=== PATIENT | male | born 1965 | race African-American/Black ===

== ENCOUNTER 2025-01-12 09:29 | Outpatient (CLI) | payer OTHER, SELFPAY ==
--- OUTSIDE RECORDS SUMMARY | 2025-01-12 09:47 | XMS_ITS ---
Author Organization 1 OF Olimpia flanagan [facility] Address [address] [place] [address] Care Team Providers Care Engineering Technician Name Role Phone Ulysses Melendez MD Primary Care Provider German Mcnamara [facility] [phone] Allergies No Known Allergies REASON FOR VISIT s/p RT great toe Medications Medication SIG (Take, Route, Frequency, Duration) Notes Start Date End Date Status Diclofenac Sodium 1 % as directed Topica l Apply no more than 4 grams to affected area of foot Q6-8 hours PRN Pain; Duration: 30 days 04/16/2022 Unknown Atorvastatin Calcium Active Segluromet Active Clopidogrel Bisulfate Active amLODIPine Besylate Active Citalopram Hydrobromide Active Lisinopril-hydroCHLOROthiaz tani Active Vital Signs Weight 230 lbs 12/05/2023 Height 71 in 12/05/2023 BMI 32.07 kg/m2 12/05/2023 Encounters Encounter Location Date Provider Diagnosis 1 [facility] [address] [place] [address] 12/05/2023 eGrman Patton Surgical aftercare, musculoskeletal system Z47.89 ; Hallux limitus of right foot M20.5X1 and Type 2 diabetes mellitus without complication, unspecified whether linux unix administrator insulin use E11.9 Assessments Encounter Date Diagnosis (ICD Code) Assessment Notes Treatment Notes Treatment Clinical Notes Section Notes 12/05/2023 Surgical aftercare, musculoskeletal system (ICD-10 - Z47.89) Evaluation today included a review of medical history, review of systems, discussion of exam findings, and review of diagnoses and treatment options. Pt realesed to full duty, work note was given. Pt to follow up as needed 12/05/2023 Hallux limitus of right foot (ICD-10 - M20.5X1) 12/05/2023 Type 2 diabetes mellitus without complication, unspecified whether linux unix administrator insulin use (ICD-10 - E11.9) Plan Of Treatment Treatment Notes Assessment Notes Surgical aftercare, musculoskeletal syst em Evaluation today included a review of medical history, review of systems, discussion of exam findings, and review of diagnoses and treatment options. Pt realesed to full duty, work note was given. Pt to follow up as needed Next Appt Details Follow Up: prn, Reason: Provider Name:German Patton, 03/04/2025 09:10:00 AM, [address], [facility] [address], [place], [address], Progress Notes * CANDICE JoseDOB:1965 (59 yo M)Acc No.[id number]:12/05/2023 Progress Notes Patient: Jose KUMAR Provider: Olimpia Patton DPM :1965 A ge:58 Y S ex:Male Date:12/05/2023 Address:[address] [place] [address] [facility] Pcp:Ulysses Melendez MD Subjective: * Chief Complaints: * 1 . s/p RT great toe. * HPI: Mukesh Dean assisting with visit:: HPI/Rooming: Frederick rosales. Dada stallworth reason for visit:: Date of surgery: 0 08/14/2023. Surgery procedures performed: R ight f oot: 1st MPJ implant arthroplasty w/ BioPro ron-implant. Pain level: R ight foot:, 0 / 10. 58 y/o diabetic male RTO 4 months s /p RIGHT foot surgery. PATIENT WAS A NO SHOW TO HIS LAST APPOINTMENT ON 10/19/23. At the l ast v isit he attended on 09/18/2023 he w as advised to transition to tennis shoe and take N SAIDS as needed. Today the pt reports he has not had to take any pain meds as he is not in any pain. Pt feels he is healed at this point for what its worth. 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 * Medical History: H yperlipidemia, Hypertension, Diabetes, Anxiety disorder, Depression. * Medications: T aking Clopidogrel Bisulfate , Taking amLODIPine Besylate , Taking Citalopram Hydrobromide , Taking Lisinopril-hydroCHLOROthiazide , Taking Segluromet , Taking Atorvastatin Calcium , Discontinued HYDROcodone-Acetaminophen 5-325 MG Tablet 1- 2 tablets as needed Orally every 6 hrs PRN pain after surgery , Discontinued Naproxen 500 MG Tablet 1 tablet Orally every 12 hrs for at least 14 days after surgery , Unknown Diclofenac Sodium 1 % Gel as directed Topical Apply no more than 4 grams to affected area of foot Q6-8 hours PRN Pain , Medication List reviewed and reconciled with the patient * Allergies: N .K.D.A. Objective: * Vitals: W t:230lbs, Wt-k.33 kg, Ht: 71 in, BMI:32.07Index. * Examination: G eneral Examination: Constitutional / Appearance: N o acute distress , Well nourished, Appropriate personal hygiene. Mental status: C ooperative, Oriented to person, place and time, Mood and affect: normal, Judgement and intellect: normal with appropriate response to questions. Shoes today: N magali tennis shoes. Post-op evaluation: R ight foot:, Incision(s) remain healed with mild edema, no erythema and no SOI. Hallux remains in good alignment with no erythema or edema. There is limited DF of the hallux but no pain or crepitus with max ROM of about 5-10 degrees. P atient exhibits no antalgia with ambulation. Assessment: * Assessment: 1. S urgical aftercare, musculoskeletal system - Z47.89 (Primary) 2 . H allux limitus of right foot - M20.5X1 3 . T ype 2 diabetes mellitus without complication, unspecified whether linux unix administrator insulin use - E11.9 Plan: * Treatment: * Preventive Medicine: Counseling: C are goal follow-up plan: Above Normal BMI Follow-up L ifestyle education regarding diet * Follow Up: p rn * Images: * Electronic signature of Tena Patton DPM on 01/12/2025 at 09:46 AM CDT Sign off status: Pending * Provider: Olimpia Patton DPM Date: 0 12/05/2023 Generated for Carol christopher/Zahida/Ynes on: 0 01/12/2025 09:46 AM CDT History and Physical Notes * HPI (History of Present Illness) Category Sub-Category Detail Notes Category Not es Primary reason for visit: Surgery procedures performed: Right foot: 1st MPJ implant arthroplasty w/ BioPro ron-implant 58 y/o diabetic male RTO 4 months s/p RIGHT foot surgery. PATIENT WAS A NO SHOW TO HIS LAST APPOINTMENT ON 10/19/23. At the last visit he attended on 09/18/2023 he was advised to transition to tennis shoe and take NSAIDS as needed. Today the pt reports he has not had to take any pain meds as he is not in any pain. Pt feels he is healed at this point for what its worth. 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 Pain level: Right foot:, 0 10 Date of surgery: 08/14/2023 MA assisting with visit: HPI/Rooming: Deena Examination Category Sub-Category Detail Notes Category Not es General Examination Mental status: Cooperative, Oriented to person, place and time, Mood and affect: normal, Judgement and intellect: normal with appropriate response to questions Shoes today: Nike tennis shoes Post-op evaluation: Right foot:, Incisio n(s) remain healed with mild edema, no erythema and no SOI. Hallux remains in good alignment with no erythema or edema. There is limited DF of the hallux but no pain or crepitus with max ROM of about 5-10 degrees. Patient exhibits no antalgia with ambulation Constitutional / Appearance: No acute di stress , Well nourished, Appropriate personal hygiene
--- OUTSIDE RECORDS SUMMARY | 2025-01-12 09:47 | XMS_ITS | Referral Summary ---
Author Organization [facility] Address [address] [place] [address] Care Team Providers Care Accounting Specialist Name Role Phone Ulysses Henderson MD Primary Care Provider [phone] Encounters Date Type Department Care Team Description 01/11/2025 12:42 PM CDT - 01/11/2025 11:59 PM CDT Hospital Encounter [facility] Cardiac Testing [address] [place] [address] Pain in right leg; Pain in left leg Discharge Disposition: Discharge to home or self care from Last 3 Months Allergies No known active allergies Medications atorvastatin (LIPITOR) 40 mg tablet Take 1 tablet (40 mg total) by mouth daily 05/11/2016 Active amLODIPine (NORVASC) 10 mg tablet Take 1 tablet (10 mg total) by mouth daily Active citalopram (CeleXA) 20 mg tablet Take 1 tablet (20 mg total) by mouth nightly Active Social History Tobacco Use Types Packs/Day Years Used Date Smoking Tobacco: Former Cigarettes 0.5 23 0 04/10/1996 - 04/10/2019 Tobacco Cessation:Counseling Given: Not Answered Comments:Patient states started to smoke at age 30 quit at age 53. States never smoked more than 1/2 pack per day. AUDIT-C Answer Date Recorded Q1: How often do you have a drink containing alc ohol? Monthly or less 07/19/2023 Q2: How many drinks containi ng alcohol do you have on a typical day when you are drinking? 1 or 2 07/19/2023 Q3: How often do you have si x or more drinks on one occasion? Never 07/19/2023 Personal Safety Answer Date Recorded Have you ever been in or are you currently in a harmful physical or emotional relationship or is someone making you feel afraid or unsafe? Denies 07/19/2023 Sex and Gender Information Value Date Recorded Sex Assigned at Not on file Legal Sex Male 7:48 PM ESTHETICIAN SPA Gender Identity Not on file Sexual Orientation Not on file Last Filed Vital Signs Vital Sign Reading Time Taken Comments Blood Pressure 160/90 07/25/2023 8:23 AM ESTHETICIAN SPA Lt upper arm Pulse 84 07/25/2023 8:23 AM ESTHETICIAN SPA Temperature 36.4 C (97.5 F) 07/25/2023 8:23 AM ESTHETICIAN SPA Respiratory Rate 18 07/25/2023 8:23 AM ESTHETICIAN SPA Oxygen Saturation 99% 07/25/2023 8:2 3 AM ESTHETICIAN SPA Inhaled Oxygen Concentration - - Weight 102.4 kg (225 lb 11. 2 oz) 07/25/2023 8:23 AM ESTHETICIAN SPA Height 180.3 cm (5' 11) 07/25/2023 8:2 3 AM ESTHETICIAN SPA Body Mass Index 31.48 07/25/2023 8:23 AM ESTHETICIAN SPA Plan of Treatment Not on file Procedures Procedure Name Priority Date/Time Associated Diagnosis Comments US VEIN DUPLEX LOWER EXTREMITY BILATERAL COMPLETE Schedule MARIA M, Read MARIA M (Appt Today, Awaiting Results) 01/11/2025 1:42 PM CDT Pain in right leg Pain in left leg from Last 3 Months Results * US Vein Duplex Lower Extremity Bilateral Complete (01/11/2025 1:42 PM CDT) Anatomical Region Laterality Modality Vascular Bilateral Ultrasound 01/11/2025 12:5 3 PM CDT Narrative 01/12/2025 8:40 AM CDT Lower Extremity Venous Report Patient Name: JOSE HARVEY : 1965 (59y 6m) Gender: M Study Date: 01/11/2025 12:53:31 PM Logging Supervisor: DOMO Murrieta Order Provider: ULYSSES HENDERSON Quality: Adequate Ref Provider: ULYSSES HENDERSON PROCEDURES: Vascular Report: A non-invasive vascular imaging study of the bilateral lower extremity veins was performed using B-mode ultrasound, color flow, and spectral Doppler. INDICATIONS: M79.604 Pain in right leg and M79.605 Pain in left leg. HISTORY: Pain in bilateral thighs. COMPARISONS: No prior exams. FINDINGS: Right: Negative for deep and superficial vein thrombosis in the right lower extremity. Normal compressibility and color filling, spontaneous and phasic flow, and response to distal augmentation is demonstrated in the right common femoral vein, saphenofemoral junction, proximal femoral vein, mid femoral vein, distal femoral vein, profunda vein, popliteal vein, posterior tibial veins and peroneal veins. Left: Negative for deep and superficial vein thrombosis in the left lower extremity. Normal compressibility and color filling, spontaneous and phasic flow, and response to distal augmentation is demonstrated in the left common femoral vein, saphenofemoral junction, proximal femoral vein, mid femoral vein, distal femoral vein, profunda vein, popliteal vein, posterior tibial veins and peroneal veins. Provider Notification: Results called to Message left for Dr. Henderson's office. CONCLUSIONS: 1. There is no evidence of deep vein thrombosis in the lower extremities bilaterally. ATTESTATION: I have reviewed and interpreted the pertinent images and measurements of this study. I attest to the conclusions in the final report that is provided above. Electronically Signed By: Ramiro Desouza MD 01/12/2025 8:39:02 AM CDT Procedure Note Ramiro Desouza MD - 01/12/2025 Lower Extremity Venous Report Patient Name: JOSE HARVEY : 1965 (59y 6m) Gender: M Study Date: 01/11/2025 12:53:31 PM Logging Supervisor: DOMO Murrieta Order Provider: ULYSSES HENDERSON Quality: Adequate Ref Provider: ULYSSES HENDERSON PROCEDURES: Vascular Report: A non-invasive vascular imaging study of the bilaterallower extremity veins was performed using B-mode ultrasound, color flow, and spectralDoppler. INDICATIONS: M79.604 Pain in right leg and M79.605 Pain in left leg. HISTORY: Pain in bilateral thighs. COMPARISONS: No prior exams. FINDINGS: Right: Negative for deep and superficial vein thrombosis in the rightlower extremity. Normal compressibility and color filling, spontaneous and phasic flow, andresponse to distal augmentation is demonstrated in the right common femoral vein,saphenofemoral junction, proximal femoral vein, mid femoral vein, distal femoral vein,profunda vein, popliteal vein, posterior tibial veins and peroneal veins. Left: Negative for deep and superficial vein thrombosis in the left lowerextremity. Normal compressibility and color filling, spontaneous and phasic flow, andresponse to distal augmentation is demonstrated in the left common femoral vein,saphenofemoral junction, proximal femoral vein, mid femoral vein, distal femoral vein,profunda vein, popliteal vein, posterior tibial veins and peroneal veins. Provider Notification: Results called to Message left for Dr. Hall. CONCLUSIONS: 1. There is no evidence of deep vein thrombosis in the lower extremitiesbilaterally. ATTESTATION: I have reviewed and interpreted the pertinent images and measurements ofthis study. I attest to the conclusions in the final report that is provided above. Electronically Signed By: Ramiro Desouza MD 01/12/2025 8:39:02 AM CDT Ulysses Henderson MD [facility] PROCEDURES Final Result from Last [address] [place] [address] [facility] CHO[facility] PL[facility] Member Subscriber Plan / Payer (Ef fective 2021-Present) Name:Jose Harvey Relation to Subscriber:Self Name:Jose Harvey Payer ID:[id number] (NAIC) Type:[facility] H[facility]/PP[facility] Address: [address] CHOICE PLUS [facility] PL[facility] Care Teams Accounting Specialist Relationship Specialty Start Date End Date lUysses Henderson MD [address] [facility] [address] [place] [address] PCP - General 05/23/20
--- OUTSIDE RECORDS SUMMARY | 2025-01-12 09:47 | XMS_ITS | Patient Health Record ---
Author Organization 1 [facility] Address [address] [facility] [address] [place] [address] Care Team Providers Care Pattern Hand Name Role Phone Ulysses Melendez MD Primary Care Provider German Mcnamara Unavailable [phone] Aimee Lo Unavailable [phone] Allergies No Known Allergies Reason For Referral No Information Medications Medication SIG (Take, Route, Frequency, Duration) Notes Start Date End Date Status Lisinopril-hydroCHLOROthi azide Not-Taking Irbesartan 300 MG TAKE 1 TABLET BY LINDA TH ONCE DAILY Oral; Duration: 30 Days Active Segluromet Not-Takin g Aspirin Low Dose 81 MG TAKE 1 TABLET BY MOUTH ONCE DAILY Oral; Duration: 30 Days Active Atorvastatin Calcium Not-Taking Farxiga 10 MG TAKE 1 TABLET BY LINDA TH ONCE DAILY Oral; Duration: 30 Days Active Diclofenac Sodium 1 % as directed Topica l Apply no more than 4 grams to affected area of foot Q6-8 hours PRN Pain; Duration: 30 days 04/16/2022 Not-Taki ng amLODIPine Besylate 10 MG TAKE 1 TABLET BY MOUTH ONCE DAILY IN THE EVENING Oral; Duration: 30 Days Active Atorvastatin Calcium 40 MG TAKE 1 TABLET BY MOUTH ONCE DAILY Oral; Duration: 30 Days Active Citalopram Hydrobromide 20 MG TAKE 1 TABLET BY MOUTH ONCE DAILY FOR 90 DAYS Oral; Duration: 30 Days Active Clopidogrel Bisulfate 75 MG TAKE 1 TABLET BY MOUTH ONCE DAILY Oral; Duration: 30 Days Active Clopidogrel Bisulfate Not-Taking amLODIPine Besylate Not-Taking Citalopram Hydrobromide Not-Taking Social History Tobacco Use: Social History Observation Description Date Details (start date - stop date) Former Smoker NA - NA Tobacco Use/Smoking Question Answer Notes Are you a former smoker How long has it been since you last smoked? 5-10 years Problems Problem Type SNOMED Code ICD Code Onset Dates Problem Status W/U Status Risk Notes Problem Type 2 diabetes mellitus without complication, unspecified whether foam rubber fabricator insulin use (E11.9) Active confirmed Vital Signs Height 71 in 12/23/2024 Weight 225 lbs 12/23/2024 BMI 31.38 kg/m2 12/23/2024 Encounters Encounter Location Date Provider Diagnosis [address] [facility] [address] [place] [address] 12/23/2024 Aimee Lo [address] [facility] [address] [place] [address] 12/18/2024 German Patton Plan Of Treatment Next Appt Details Provider Name:German Patton, 03/04/2025 09:10:00 AM, [address], [address] [place], [address], Insurance Providers Payer Name Payer Address Payer Phone Subscriber Number Group Number Insured Name Patient Relationship to Insured Coverage Start Date Coverage End Date [facility] [address] [address] [place] [address] [phone] [id number] Jose Richmond Self - patient is the insured Medical (General) History Medical History History ICD Code hyperlipidemia hypertension Diabetes Anxiety disorder depression Surgical History Surgery Date(Month/Year) Foot/Ankle surgery
--- OUTSIDE RECORDS SUMMARY | 2025-01-12 09:47 | XMS_ITS | Data Portability ---
Author Organization [facility] IP Address [address] [place] [address] Care Team Providers Care Apartment Maintenance Name Role Phone SAL HENDERSON Primary Care Provider [phone] Assessment No assessment recorded. Plan of Treatment Reminders Order Date Submit Date Provider Last Modified By Organization Details Last Modified Time Details Appointments None record ed. Lab None record ed. Referral None record ed. Procedures None record ed. Surgeries None record ed. Imaging None record ed. Medication Orders None record ed. Patient TargetsNo targets recorded. Patient InstructionsNo instructions recorded. Reason for Referral None Reported. Results Created Date Observation Date Name Description Value Unit Range Abnormal Flag Note LastModifiedBy Organization Detail LastModifiedTime 03/17/20 19 03/06/2019 elect jonas laboy am No observ ation record ed. [email or web address] Not Available 03/17 10:31:17 Result Notes None recorded. Medical Equipment None Reported. Medications Name Sig Start Date Stop Date Status Note LastModified by Organization Details LastModified Time atorvastatin 40 mg tablet active Not Available Not Available Not Available carvedilol 12.5 mg tablet active Not Available Not Availab le Not Available lisinopril 20 mg-hydrochloro thiazide 12.5 mg tablet active Not Available Not Available No t Available clopidogrel 75 mg tablet active Not Available Not Available No t Available aspirin 81 mg tablet,delayed release active Not Available Not Available Not Available amlodipine 10 mg tablet active Not Available Not Available No t Available cephalexin 500 mg capsule active Not Available Not Available N ot Available metformin ER 500 mg tablet,extende d release 24 hr active Not Available Not Available Not Available amoxicillin 875 mg-potassium clavulanate 125 mg tablet active Not Available Not Availabl e Not Available Ciprodex 0.3 %-0.1 % ear drops,suspensi on active Not Available Not Available Not Available Brilinta 90 mg tablet active Not Available Not Available Not Available Brilinta 60 mg tablet active Not Available Not Available Not Available Bydureon BCise 2 mg/0.85 mL subcutaneous auto-injector active Not Available Not Availabl e Not Available Steglatro 15 mg tablet active Not Available Not Available No t Available Steglujan 15 mg-100 mg tablet active Not Available Not Available Not Available Vitals Date Recorded Body weight Respiratory rate Oxygen saturation Oxygen saturation in Arterial blood by Pulse oximetry Body temperature Heart rate Systolic blood pressure Diastolic blood pressure Provider Name and Address Organization Details Last Updated DateTime 9 838525. 16 g 18 /min 95 % 95 % 97.5 [degF] 82 /min 125 mm[Hg] 75 mm[Hg] Janelle Torres LPN [place] [facility] 9 15:00:09 Social History None recorded. Functional Status None recorded. Mental Status None recorded. Family History Nothing Reported. Medical History No medical history recorded. Past Encounters Encounter ID Performer Location Encounter Start Date Encounter Closed Date Diagnosis/Indication Diagnosis SNOMED-CT Code Diagnosis ICD10 Code Diagnosis Note [id number] ENRIQUE ARCE MD [facility] [address] [address] 03/06/2019 14:19:51 03/25/2019 17:19:32 Hidradenitis suppurativa 53202852 L73.2 Patient has an abscess associated with gluteal skin hidradenit is. I offered him an incision and drainage of the abscess however he has some personal obligation s. He will return after addressing these obligation s and then we will proceed with an Incision and drainage. Health Concerns Section Related Observation LastModified by Organization Detai ls LastModified Time None Recorded Concern Status LastModified by Organization Details LastModified Time None Recorded Advance Directives Directive None Recorded Payers Insurance Date Sequence Insurance Name Policy Number Policy Davis Covered Member ID Davis Member ID Guarantor Name 03/24/2019 1 [facility] [id number] Jose Richmond [id number] Jose Richmond Notes Date Note Type Note Provider Name and Address Organization Details Recorded Time 03/06/2019 text/html 53M presenting with a left gluteal abscess. The patient states that this has been going on for 1-2 months. No fevers, chills. No nausea/vomiting. ENRIQUE ARCE MD [address] [place], [address], [facility] 03/06/2019 15:07:21
--- OUTSIDE RECORDS SUMMARY | 2025-01-12 09:47 | XMS_ITS ---
Author Organization [address] [facility] Address [address] [facility] [address] [place] [address] Care Team Providers Care Metal Hanging Helper Name Role Phone Ulysses Melendez MD Primary Care Provider German Mcnamara Unavailable Aimee Lo Unavailable [phone] Allergies No Known Allergies REASON FOR VISIT DFE (Diabetic foot eval) Medications Medication SIG (Take, Route, Frequency, Duration) Notes Start Date End Date Status Lisinopril-hydroCHLOROthi azide Not-Taking Segluromet Not-Takin g Atorvastatin Calcium Not-Taking Diclofenac Sodium 1 % as directed Topica l Apply no more than 4 grams to affected area of foot Q6-8 hours PRN Pain; Duration: 30 days 04/16/2022 Not-Taki ng Citalopram Hydrobromide Not-Taking Atorvastatin Calcium 40 MG TAKE 1 TABLET BY MOUTH ONCE DAILY Oral; Duration: 30 Days Active Citalopram Hydrobromide 20 MG TAKE 1 TABLET BY MOUTH ONCE DAILY FOR 90 DAYS Oral; Duration: 30 Days Active Clopidogrel Bisulfate 75 MG TAKE 1 TABLET BY MOUTH ONCE DAILY Oral; Duration: 30 Days Active Clopidogrel Bisulfate Not-Taking amLODIPine Besylate Not-Taking Irbesartan 300 MG TAKE 1 TABLET BY LINDA TH ONCE DAILY Oral; Duration: 30 Days Active Aspirin Low Dose 81 MG TAKE 1 TABLET BY MOUTH ONCE DAILY Oral; Duration: 30 Days Active Farxiga 10 MG TAKE 1 TABLET BY LINDA TH ONCE DAILY Oral; Duration: 30 Days Active amLODIPine Besylate 10 MG TAKE 1 TABLET BY MOUTH ONCE DAILY IN THE EVENING Oral; Duration: 30 Days Active Vital Signs Height 71 in 12/23/2024 Weight 225 lbs 12/23/2024 BMI 31.38 kg/m2 12/23/2024 Encounters Encounter Location Date Provider Diagnosis 1 OF [facility] [address] [place] [address] 12/23/2024 Aimee Lo Plan Of Treatment Next Appt Details Provider Name:German Ortiz Abdi, 03/04/2025 09:10:00 AM, [address], [address], [place], [address], Progress Notes * Jose HARVEYDOB:1965 (59 yo M)Acc No.[id number]:12/23/2024 Progress Notes Patient: Jose KUMAR Provider: Shante Lo DPM :1965 A ge:59 Y S ex:Male Date:12/23/2024 Address:[address] [place] [address] [id number] Pcp:Ulysses Melendez MD Subjective: * Chief Complaints: * 1 . DFE (Diabetic foot eval). * HPI: Mukesh Dean assisting with visit:: Chart Prep Parisa berman. HPI/Rooming: Parisa berman. [facility] reason for visit:: New Patient Evaluation: [age] year old diabetic male, a previous pt PTO for diabetic foot evaluation. D enies any acute concerns with nails or calluses. Reports no foot pain, including neuropathy symptoms. Denies any issues related to previous surgery and presents today for routine foot evaluation. L ast HBA1C:unk A ge at time of diabetes diagnosis:45 P t was last seen by Dr. Patton in 11/2023 for follow-up of right foot 1st MPJ implant arthroplasty surgery with BioPro ron-implant..? * Medical History: H yperlipidemia, Hypertension, Diabetes, Anxiety disorder, Depression. * Medications: T aking Irbesartan 300 MG Tablet TAKE 1 TABLET BY MOUTH ONCE DAILY Oral , Taking Aspirin Low Dose 81 MG Tablet Delayed Release TAKE 1 TABLET BY MOUTH ONCE DAILY Oral , Taking Farxiga 10 MG Tablet TAKE 1 TABLET BY MOUTH ONCE DAILY Oral , Taking amLODIPine Besylate 10 MG Tablet TAKE 1 TABLET BY MOUTH ONCE DAILY IN THE EVENING Oral , Taking Atorvastatin Calcium 40 MG Tablet TAKE 1 TABLET BY MOUTH ONCE DAILY Oral , Taking Citalopram Hydrobromide 20 MG Tablet TAKE 1 TABLET BY MOUTH ONCE DAILY FOR 90 DAYS Oral , Taking Clopidogrel Bisulfate 75 MG Tablet TAKE 1 TABLET BY MOUTH ONCE DAILY Oral , Not-Taking/PRN Clopidogrel Bisulfate , Not-Taking/PRN amLODIPine Besylate , Not-Taking/PRN Citalopram Hydrobromide , Not-Taking/PRN Lisinopril-hydroCHLOROthiazide , Not-Taking/PRN Segluromet , Not-Taking/PRN Atorvastatin Calcium , Not-Taking/PRN Diclofenac Sodium 1 % Gel as directed Topical Apply no more than 4 grams to affected area of foot Q6-8 hours PRN Pain , Medication List reviewed and reconciled with the patient * Allergies: N .K.D.A. Objective: * Vitals: W t:225lbs, Wt-k.06 kg, Ht: 71 in, BMI:31.38Index. * Examination: G eneral Examination: Constitutional / Appearance: N o acute distress , Well nourished, Appropriate personal hygiene. Mental status: C ooperative, Oriented to person, place and time, Mood and affect: normal, Judgement and intellect: normal with appropriate response to questions. Shoes today: t elza shoe. L ower Extremity VASCULAR: : Pulses: D P and PT pulses, palpable, bilateral. Temperature gradient: w arm from proximal to distal, bilateral. Pedal hair: p resent, bilateral. Capillary refill at distal toes l ess than 3 seconds. ? L ower Extremity DERM: : Skin: w ell hydrated , no suspicious lesions, without interdigital maceration, bilateral. L ower Extremity NEURO: : Neurological status: n ormal sensation to sharp/ dull with normal and symmetric muscle tone bilateral. Monofilament test (10 gram pressure) E xam of 12/23/2024:, - - revealed intact sensation to, entire foot, bilateral. Vibration perception: E xam of 12/23/2024:, - - noted intact per evaluation with 128Hz tuning fork applied to distal hallux compared to ipsilateral medial malleolus , @ bilateral feet . L ower Extremity MSK: : Gait G ait unremarkable with normal posture, propulsion and balance. Left lower extremity inspection and palpation: N o palpable masses or nodules noted.. Right lower extremity inspection and palpation: N o palpable masses or nodules noted. . Assessment: Plan: * Treatment: * Images: * Electronic signature of Leena Lo DPM on 01/12/2025 at 09:47 AM CDT Sign off status: Pending * Provider: Shante Lo DPM Date: 0 12/23/2024 Generated for Carol Wilson/Ynes on: 0 01/12/2025 09:47 AM CDT History and Physical Notes * HPI (History of Present Illness) Category Sub-Category Detail Notes Category Not es Primary reason for visit: New Patient Evaluation: 59 year old diabetic male, a previous pt PTO for diabetic foot evaluation. Denies any acute concerns with nails or calluses. Reports no foot pain, including neuropathy symptoms. Denies any issues related to previous surgery and presents today for routine foot evaluation.Last HBA1C:unkAge at time of diabetes diagnosis:45Pt was last seen by Dr. Patton in 11/2023 for follow-up of right foot 1st MPJ implant arthroplasty surgery with BioPro ron-implant. MA assisting with visit: HPI/Rooming: Irshan Chart Prep Irshan Examination Category Sub-Category Detail Notes Category Not es General Examination Mental status: Cooperative, Oriented to person, place and time, Mood and affect: normal, Judgement and intellect: normal with appropriate response to questions Shoes today: tennis shoe Constitutional / Appearance: No acute di stress , Well nourished, Appropriate personal hygiene Lower Extremity VASCULAR: Pulses: DP and PT pulse s, palpable, bilateral Temperature gradient: warm from proximal to distal, bilateral Pedal hair: present, bilateral Capillary refill at distal toes less robert n 3 seconds Lower Extremity NEURO: Monofilament test (10 gram pressure) Exam of 12/23/2024:, - - revealed intact sensation to, entire foot, bilateral Vibration perception: Exam of 12/23/2024 :, - - noted intact per evaluation with 128Hz tuning fork applied to distal hallux compared to ipsilateral medial malleolus , @ bilateral feet Neurological status: normal sensation to sharp/ dull with normal and symmetric muscle tone bilateral Lower Extremity MSK: Left lower extremit y inspection and palpation: No palpable masses or nodules noted. Right lower extremity inspec tion and palpation: No palpable masses or nodules noted. Gait Gait unremarkable wi th normal posture, propulsion and balance Lower Extremity DERM: Skin: well hydra lowell , no suspicious lesions, without interdigital maceration, bilateral
--- OUTSIDE RECORDS SUMMARY | 2025-01-12 09:47 | XMS_ITS | Encounter Summary ---
Author Organization [facility] Address [address] [place] [address] Care Team Providers Care Knife Finisher Name Role Phone Ulysses Henderson MD Primary Care Provider [phone] Reason for Referral * Diagnostic Imaging (Routine) - Closed Specialty Diagnoses / Procedures Referred By Contac t Referred To Contact Diagnoses Pain in right leg Pain in left leg Procedures US Vein Duplex Lower Extremity Bilateral Complete Ulysses Henderson MD [address] [place] [address] Phone: tel: fax: [address] [phone] Referral ID Status Reason Start Date Expiration Date Visits Re quested Visits Authorized [id number] Closed 12/25/2024 01/24/2026 1 1 Reason for Visit * Diagnostic Imaging (Routine) - Closed Specialty Diagnoses / Procedures Referred By Contac t Referred To Contact Diagnoses Pain in right leg Pain in left leg Procedures US Vein Duplex Lower Extremity Bilateral Complete Ulysses Henderson MD [address] [place] [address] Phone: tel: fax: [address] [phone] Referral ID Status Reason Start Date Expiration Date Visits Re quested Visits Authorized [id number] Closed 12/25/2024 01/24/2026 1 1 Encounter Details Date Type Department Care Team (Latest Contact Info) Description 01/11/2025 12:42 PM CDT - 01/11/2025 11:59 PM CDT Hospital Encounter [facility] Cardiac Testing [address] [place] [address] Pain in right leg; Pain in left leg Discharge Disposition: Discharge to home or self care Social History Tobacco Use Types Packs/Day Years Used Date Smoking Tobacco: Former Cigarettes 0.5 23 0 04/10/1996 - 04/10/2019 Comments:Patient states star lowell to smoke at age 30 quit at [...] on file 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 Gender Identity Not on file Sexual Orientation Not on file documented as of this encounter Medications at Time of Discharge amLODIPine (NORVASC) 10 mg tablet Take 1 tablet (10 mg total) by mouth daily atorvastatin (LIPITOR) 40 mg tablet Take 1 tablet (40 mg total) by mouth daily 05/11/2016 citalopram (CeleXA) 20 mg tablet Take 1 tablet (20 mg total) by mouth nightly documented as of this encounter Discharge Disposition Disposition Code Departure Means Destination Discharge to home or self care documented in this encounter Plan of Treatment Not on file documented as of this encounter Procedures Procedure Name Priority Date/Time Associated Diagnosis Comments US VEIN DUPLEX LOWER EXTREMITY BILATERAL COMPLETE Schedule MARIA M, Read MARIA M (Appt Today, Awaiting Results) 01/11/2025 1:42 PM CDT Pain in right leg Pain in left leg documented in this encounter Results * US Vein Duplex Lower Extremity Bilateral Complete (01/11/2025 1:42 PM CDT) Anatomical Region Laterality Modality Vascular Bilateral Ultrasound 01/11/2025 12:5 3 PM CDT Narrative 01/12/2025 8:40 AM CDT Lower Extremity Venous Report Patient Name: JOSE HARVEY : 1965 (59y 6m) Gender: M Study Date: 01/11/2025 12:53:31 PM Cane Cutter: DOMO [place] Order Provider: ULYSSES HENDERSON Quality: [...] Gender: M Study Date: 01/11/2025 12:53:31 PM Cane Cutter: DOMO [place] Order Provider: ULYSSES HENDERSON Quality: [...] Ramiro Desouza MD 01/12/2025 8:39:02 AM CDT us Ulysses Henderson MD IMG US PROCEDURES Final Result documented in this encounter Visit Diagnoses Diagnosis Pain in right leg Pain in left leg documented in this encounter Care Teams Knife Finisher Relationship Specialty Start Date End Date Ulysses Henderson MD [address] [place] [address] PCP - General 05/23/20 documented as of this encounter
--- OUTSIDE RECORDS SUMMARY | 2025-01-12 09:47 | XMS_ITS ---
Author Organization 1 OF [facility]limpia flanagan [facility] Address [address] [place] [address] Care Team Providers Care Screen Printing Machine Operator Name Role Phone Ulysses Melendez MD Primary Care Provider German Mcnamara [facility] [phone] REASON FOR VISIT S/p RT sx Medications Medication SIG (Take, Route, Frequency, Duration) Notes Start Date End Date Status Naproxen 500 MG 1 tablet Orally ever y 12 hrs for at least 14 days after surgery 08/14/2023 Active HYDROcodone-Acetaminophen 5-325 MG 1-2 tablets as needed Orally every 6 hrs PRN pain after surgery 08/14/2023 Active Citalopram Hydrobromide Active Clopidogrel Bisulfate Active amLODIPine Besylate Active Diclofenac Sodium 1 % as directed Topica l Apply no more than 4 grams to affected area of foot Q6-8 hours PRN Pain; Duration: 30 days 04/16/2022 Not-Taki ng Segluromet Active Atorvastatin Calcium Active Lisinopril-hydroCHLOROthi azide Active Encounters Encounter Location Date Provider Diagnosis 1 OF [facility] [address] [place] [address] 10/17/2023 German Patton Surgical aftercare, musculoskeletal system Z47.89 and Hallux limitus of right foot M20.5X1 Assessments Encounter Date Diagnosis (ICD Code) Assessment Notes Treatment Notes Treatment Clinical Notes Section Notes 10/17/2023 Surgical aftercare, musculoskeletal system (ICD-10 - Z47.89) 10/17/2023 Hallux limitus of right foot (ICD-10 - M20.5X1) Plan Of Treatment Next Appt Details Follow Up: 4 Weeks, Reason: Provider Name:German Patton, 03/04/2025 09:10:00 AM, [address], [place], [address], Progress Notes * Jose HARVEYDOB:1965 (59 yo M)Acc No.[id number]:10/17/2023 Patient: Jose KUMAR Provider: Olipmia Patton DPM :1965 A ge:58 Y S ex:Male Date:10/17/2023 Address:[address] [place], [place] [id number] Pcp:Ulysses Melendez MD Subjective: * Chief Complaints: * 1 . S/p RT sx. * HPI: Mukesh Dean assisting with visit:: HPI/Rooming: . ..... [facility] reason for visit:: Date of surgery: 0 08/14/2023. Surgery procedures performed: R ight f oot: 1st MPJ implant arthroplasty w/ BioPro ron-implant. Pain level: R ight foot: , X /10. 58 y/o male RTO 9 weeks s/p RIGHT foot surgery. At last v isit pt was a dvised he may transition into a more supportive tennis shoe but should avoid suppinating the foot to compensate for any pain. Pt was advised that he should take NSAIDs for pain and may soak the feet but should use CAM boot for any pain flare-ups. Today the pt reports. * Medical History: * Medications: T aking Clopidogrel Bisulfate , Taking amLODIPine Besylate , Taking Citalopram Hydrobromide , Taking Lisinopril-hydroCHLOROthiazide , Taking Segluromet , Taking Atorvastatin Calcium , Taking HYDROcodone-Acetaminophen 5-325 MG Tablet 1-2 tablets as needed Orally every 6 hrs PRN pain after surgery , Taking Naproxen 500 MG Tablet 1 tablet Orally every 12 hrs for at least 14 days after surgery , Not-Taking/PRN Diclofenac Sodium 1 % Gel as directed Topical Apply no more than 4 grams to affected area of foot Q6-8 hours PRN Pain Objective: * Vitals: * Examination: G eneral Examination: Constitutional / Appearance: N o acute distress , Well nourished, Appropriate personal hygiene. Mental status: C ooperative, Oriented to person, place and time, Mood and affect: normal, Judgement and intellect: normal with appropriate response to questions. Shoes today: X XXXXX. Post-op evaluation: R ight foot: Incision(s) remain closed with no dehiscence or SOI., Minimaledema w/o erythema. The hallux remains in good alingment. DF of the hallux is less than 10 degrees with mild pain reported at maximum DF. No crepitus.. ? Assessment: * Assessment: 1. S urgical aftercare, musculoskeletal system - Z47.89 (Primary) 2 . H allux limitus of right foot - M20.5X1 Plan: * Treatment: * Follow Up: 4 Weeks * Images: * Electronic signature of Tena Patton DPM on 01/12/2025 at 09:47 AM CDT Sign off status: Pending * Provider: Olimpia Patton DPM Date: 0 10/17/2023 Generated for Carol christopher/Zahida/Ynes on: 0 01/12/2025 09:47 AM CDT History and Physical Notes * HPI (History of Present Illness) Category Sub-Category Detail Notes Category Not es Primary reason for visit: Surgery procedures performed: Right foot: 1st MPJ implant arthroplasty w/ BioPro ron-implant 58 y/o male RTO 9 weeks s/p RIGHT foot surgery. At last visit pt was advised he may transition into a more supportive tennis shoe but should avoid suppinating the foot to compensate for any pain. Pt was advised that he should take NSAIDs for pain and may soak the feet but should use CAM boot for any pain flare-ups. Today the pt reports Pain level: Right foot: , X /10 Date of surgery: 08/14/2023 MA assisting with visit: HPI/Rooming: ..... Examination Category Sub-Category Detail Notes Category Not es General Examination Mental status: Cooperative, Oriented to person, place and time, Mood and affect: normal, Judgement and intellect: normal with appropriate response to questions Shoes today: XXXXXX Post-op evaluation: Right foot: Incision (s) remain closed with no dehiscence or SOI., Minimaledema w/o erythema. The hallux remains in good alingment. DF of the hallux is less than 10 degrees with mild pain reported at maximum DF. No crepitus. Constitutional / Appearance: No acute di stress , Well nourished, Appropriate personal hygiene
--- OUTSIDE RECORDS SUMMARY | 2025-01-12 09:48 | XMS_ITS | Data Portability ---
Author Organization [facility] [employer] Address [address] [address] Care Team Providers Care Elastic Assembler Name Role Phone ULYSSES HENDERSON Primary Care Provider [phone] LISANDRO FALCON Program Therapist [facility] Geological Specialist [phone] Assessment Encounter Date Assessment Date Assessment LastModified by Organization Details LastModified Time 05/01/2022 05/01/2022 atient presented for follow up. Studies ordered as below. Discussed plan with patient/caregiver , who expressed understanding. Follow up as noted below. Not available 05/01/2022 18:53:07 02/21/2023 02/21/2023 Patient presente d for medication refill. Patient tolerating medication well at current dose without adverse effects. Refilled as below. Discussed plan with , who expressed understanding. Follow up as noted below. atient presented for follow up. Studies ordered as below. Discussed plan with patient/caregiver , who expressed understanding. Follow up as noted below. Not available 02/21/2023 13:01:10 01/03/2024 01/03/2024 Recommends healthy nutrition, including a diet rich in fruits and vegetables, minimizing simple carbohydrates, salt, and saturated fats. Encouraged regular cardiovascular exercise such as walking at least 30 minutes daily, 5 times per week. Not available 01/03/2024 12:58:55 12/17/2024 12/17/2024 Recommends healthy nutrition, including a diet rich in fruits and vegetables, minimizing simple carbohydrates, salt, and saturated fats. Encouraged regular cardiovascular exercise such as walking at least 30 minutes daily, 5 times per week. Not available 12/17/2024 17:43:57 Plan of Treatment Reminders Order Date Submit Date Provider Last Modified By Organization Details Last Modified Time Details Appointments NURSE VISIT 2024 09:15A M Nursing_v isits Schedule Not available Not available Not available ESTABLISH ED PATIENT 15 2024 02:15P M Ulysses Henderson MD Not available Not available Not available Lab PSA, serum or plasma 2024 025 [facility], [address] [facility], [place], [address], 12/17/2024 17:49:28 D-dimer, quant, plasma 2024 025 [facility], [address] [facility], [place], [address], 12/22/2024 11:16:32 vitamin B12, serum 2024 025 [facility], [address] [place], [address], 12/19/2024 14:46:22 HbA1c (hemoglob in A1c), blood 2024 025 [facility], [address], [place], [address], 12/19/2024 14:46:20 CMP, serum or plasma 2024 025 [facility], [address] [place], [address], 12/19/2024 14:46:20 microalbu min/creat inine, mass ratio, urine 2024 025 [facility], [address] [facility], [place], [address], 12/17/2024 17:49:27 lipid panel, serum 2024 025 [facility], [address] [place], [address], 12/19/2024 14:46:21 CBC w/ auto diff 2024 025 [facility], [address] [place] [address], [place], [address], 12/19/2024 14:46:20 vitamin B12, serum 2023 024 [email or web address], [address], [place], [address], 01/03/2024 13:00:49 microalbu min/creat inine, mass ratio, urine 2023 024 [facility], [address], [address], [place], [address], 01/03/2024 13:00:49 lipid panel, serum 2023 024 [facility], [address], [address], [place], [address], 01/03/2024 13:00:52 CBC w/ auto diff 2023 024 [facility], [address], [address], [place], [address], 01/03/2024 13:01:52 PSA, serum or plasma 2023 024 [facility], [address], [address], [place], [address], 01/03/2024 13:00:50 CK (creatine kinase), total, serum 2023 024 [facility], [address], [address], [place], [address], 01/03/2024 13:00:50 HbA1c (hemoglob in A1c), blood 2023 024 [facility], [address], [address], [place], [address], 01/03/2024 13:00:48 CMP, serum or plasma 2023 024 [email or web address], [address], [address], [place], [address], 01/03/2024 13:00:51 microalbu min/creat inine, mass ratio, urine 2023 024 [email or web address], [address], [place], [address], 07/23/2023 17:05:07 lipid panel, serum 2023 024 [email or web address], [address], [place], [address], 07/22/2023 18:46:10 CBC w/ auto diff 2023 024 [email or web address], [address], [address], [place], [address], 07/23/2023 17:05:01 HIV 1+2 Ab + HIV1 p24 Ag, quantitat alfonso immunoass ay, serum 2023 024 [email or web address], [address], [place], [address], 07/22/2023 18:46:14 CK (creatine kinase), total, serum 2023 024 [facility], [address], [place], [address], 07/23/2023 17:05:03 PSA, serum or plasma 2023 024 [facility], [address], [place], [address], 07/23/2023 17:05:06 HbA1c (hemoglob in A1c), blood 2023 024 [facility], [address], [place], [address], 07/22/2023 18:46:13 CMP, serum or plasma 2023 024 [facility], [address], [place], [address], 07/23/2023 17:05:02 vitamin B12, serum 2023 024 [facility], [address], [place], [address], 07/22/2023 18:46:13 CK (creatine kinase), total, serum 2022 023 [facility], [address], [place], [address], 02/21/2023 13:09:07 HbA1c (hemoglob in A1c), blood 2022 023 [facility], [address], [place], [address], 02/21/2023 13:09:08 CMP, serum or plasma 2022 023 [facility], [address], [place], [address], 02/21/2023 13:09:08 vitamin B12, serum 2022 023 [facility], [address], [place], [address], 02/21/2023 13:09:10 microalbu min/creat inine, mass ratio, urine 2022 023 [facility], [address], [place], [address], 02/21/2023 13:09:06 lipid panel, serum 2022 023 [facility], [address], [place], [address], 02/21/2023 13:09:09 CBC w/ auto diff 2022 023 [facility], [address], [place], [address], 02/21/2023 13:09:06 CK (creatine kinase), total, serum 2021 023 [facility], [address], [place], [address], 07/17/2022 03:06:20 HbA1c (hemoglob in A1c), blood 2021 023 [facility], [address], [place], [address], 07/17/2022 03:06:18 CMP, serum or plasma 2021 023 [facility], [address], [place], [address], 07/17/2022 03:06:19 vitamin B12, serum 2021 023 [facility], [address], [place], [address], 07/17/2022 03:06:19 microalbu min/creat inine, mass ratio, urine 2021 023 [facility], [address], [place], [address], 07/17/2022 03:06:17 lipid panel, serum 2021 023 [facility], [address] [facility] [address], [place], [address], 07/17/2022 03:06:16 CBC w/ auto diff 2021 023 [email or web address], [address] [facility], [facility] [address], [place], [address], 07/17/2022 03:06:20 Referral gastroent erologist referral 2024 025 MASSIMO Hawkins MD, [address] [place], [address], 12/17/2024 18:09:06 diabetic ophthalmo logy referral 2024 025 [facility], [address] [place], [address], 12/17/2024 17:52:52 podiatris t referral 2024 025 MASSIMO Patton, [address], [place], [address], 12/17/2024 18:00:16 gastroent erologist referral 2023 024 nigel Hawkins MD, [address] [place], [address], 01/03/2024 13:03:47 diabetic ophthalmo logy referral 2023 024 [facility], [address] [place], [address], 01/31/2024 08:13:04 podiatris t referral 2023 024 francisco Patton, [address] [place], [address], 12/28/2024 08:18:44 cardiolog ist referral 2023 024 francisco Falcon MD, [address] [facility], [address], [address], 08/19/2023 08:54:02 gastroent erologist referral 2023 024 francisco Hawkins MD, [address] [place], [address], 07/22/2023 18:54:01 diabetic ophthalmo logy referral 2023 024 [facility], [address] [place], [address], 08/19/2023 08:54:03 podiatris t referral 2023 024 francisco Patton, [address] [facility] [place], [address], 07/16/2024 08:22:35 gastroent erologist referral 2022 023 MASSIMO Hawkins MD, [address] [place], [address], 02/21/2023 13:15:26 diabetic ophthalmo logy referral 2022 023 [facility], [address] [place], [address], 03/21/2023 08:15:07 podiatris t referral 2022 023 francisco Patton, [address] [place], [address], 02/17/2024 11:48:56 gastroent erologist referral 2021 022 francisco Hawkins MD, [address] [place], [address], 05/01/2022 19:11:21 diabetic ophthalmo logy referral 2021 [facility], [address] [place], [address], 05/29/2022 08:20:13 podiatris t referral 2021 022 francisco Patton, [address], [place], [address], 04/26/2023 08:18:24 Procedures None recorded. Surgeries None recorded. Imaging LDCT, chest, for lung cancer screening 2024 025 [facility] Patient Access Centralized Scheduling, Centralized Scheduling, [address] [place], [address], 12/24/2024 08:05:12 LDCT, chest, for lung cancer screening 2023 024 [facility] Patient Access Centralized Scheduling, Centralized Scheduling, [address] [place], [address], 01/13/2024 09:54:42 LDCT, chest, for lung cancer screening 2023 024 [facility] Patient Access Centralized Scheduling, Centralized Scheduling, [address] [place], [address], 07/29/2023 08:28:55 LDCT, chest, for lung cancer screening [address] Patient Access Centralized Scheduling, Centralized Scheduling, [address] [place], [address], 03/01/2023 08:32:10 LDCT, chest, for lung cancer screening 2021 022 [facility] Patient Access Centralized Scheduling, Centralized Scheduling, [address] [place], [address], 05/08/2022 10:00:14 Medication Orders citalopra m 20 mg tablet 2024 025 [facility], [address] [facility] [address], [place], [address], 12/17/2024 17:49:20 Farxiga 10 mg tablet 2024 025 [facility], [address] [facility] [address], [place], [address], 12/17/2024 17:49:22 metformin ER 500 mg tablet,ex tended release 24 hr 2024 025 [facility], [address] [facility] [address], [place], [address], 12/17/2024 17:49:23 amlodipin e 10 mg tablet 2024 025 [facility], [address] [facility] [address], [place], [address], 12/17/2024 17:49:20 atorvasta tin 40 mg tablet 2024 025 [facility], [address] [facility] [address], [place], [address], 12/17/2024 17:49:18 clopidogr el 75 mg tablet 2024 025 [facility], [address] [place], [address], 12/17/2024 17:49:18 aspirin 81 mg tablet,de layed release 2024 025 [facility], [address] [facility] [address], [place], [address], 12/17/2024 17:49:24 Nitrostat 0.4 mg sublingua l tablet 2024 025 [facility], [address] [facility] [address], [place], [address], 12/17/2024 17:49:18 icosapent ethyl 1 gram capsule 2024 025 [facility], [address] [facility] [address], [place], [address], 12/17/2024 17:49:17 amlodipin e 10 mg tablet 2023 024 [facility], [address] [facility] [address], [place], [address], 01/03/2024 13:00:51 atorvasta tin 40 mg tablet 2023 024 [facility], [address] [facility] [address], [place], [address], 01/03/2024 13:00:49 clopidogr el 75 mg tablet 2023 024 [facility], [address] [facility] [address], [place], [address], 01/03/2024 13:00:53 aspirin 81 mg tablet,de layed release 2023 024 [facility], [address] [facility] [address], [place], [address], 01/03/2024 13:00:54 Nitrostat 0.4 mg sublingua l tablet 2023 024 [facility], [address] [facility] [address], [place], [address], 01/03/2024 13:00:56 icosapent ethyl 1 gram capsule 2023 024 [facility], [address] [facility] [address], [place], [address], 01/03/2024 13:00:50 citalopra m 20 mg tablet 2023 024 [facility], [address] [facility] [address], [place], [address], 01/03/2024 13:00:51 Farxiga 10 mg tablet 2023 024 [facility], [address] [facility] [address], [place], [address], 01/03/2024 13:00:57 metformin ER 500 mg tablet,ex tended release 24 hr 2023 024 [facility], [address] [facility] [address], [place], [address], 01/03/2024 13:00:49 amlodipin e 10 mg tablet 2023 024 [facility], [address] [facility] [address], [place], [address], 07/22/2023 18:45:20 atorvasta tin 40 mg tablet 2023 024 [facility], [address] [facility] [address], [place], [address], 07/22/2023 18:45:21 clopidogr el 75 mg tablet 2023 024 [facility], [address] [facility] [address], [place], [address], 07/22/2023 18:45:21 aspirin 81 mg tablet,de layed release 2023 024 [facility], [address] [facility] [address], [place], [address], 07/22/2023 18:45:21 Nitrostat 0.4 mg sublingua l tablet 2023 024 [facility], [address] [facility] [address], [place], [address], 07/22/2023 18:45:24 citalopra m 20 mg tablet 2023 024 [facility], [address] [place], [address], 07/22/2023 18:45:20 Seglurome t 7.5 mg-1,000 mg tablet 2023 024 [facility], [address] [place], [address], 01/03/2024 12:42:37 citalopra m 20 mg tablet 2022 023 [facility], [address] [place], [address], 02/21/2023 13:08:47 Seglurome t 7.5 mg-1,000 mg tablet [address] [facility], [address] [place], [address], 01/03/2024 12:42:26 amlodipin e 10 mg tablet 2022 023 [facility], [address] [place], [address], 02/21/2023 13:08:45 atorvasta tin 40 mg tablet 2022 023 [facility], [address] [place], [address], 02/21/2023 13:08:46 clopidogr el 75 mg tablet 2022 023 [facility], [address] [facility] [address], [place], [address], 02/21/2023 13:08:47 aspirin 81 mg tablet,de layed release 2022 023 [facility], [address] [place], [address], 02/21/2023 13:08:47 Nitrostat 0.4 mg sublingua l tablet 2022 [facility], [address] [facility] [address], [place], [address], 02/21/2023 13:08:46 citalopra m 20 mg tablet [address] [facility], [address] [facility] [address], [place], [address], 02/21/2023 12:59:19 Seglurome t 7.5 mg-1,000 mg tablet [address] [facility], [address] [facility] [address], [place], [address], 01/03/2024 12:42:26 amlodipin e 10 mg tablet 2021 [facility], [address] [facility] [address], [place], [address], 05/01/2022 19:06:01 lisinopri l 20 mg-hydroc hlorothia zide 25 mg tablet [address], [address] [facility] [address], [place], [address], 02/21/2023 13:00:29 atorvasta tin 40 mg tablet 2021 [facility], [address] [facility] [address], [place], [address], 05/01/2022 19:05:36 clopidogr el 75 mg tablet 2021 [facility], [address] [facility] [address], [place], [address], 05/01/2022 19:05:44 aspirin 81 mg tablet,de layed release 2021 [facility], [address] [facility] [address], [place], [address], 05/01/2022 19:05:58 Nitrostat 0.4 mg sublingua l tablet 2021 022 [facility], [address] [facility] [address], [place], [address], 05/01/2022 19:05:41 Patient TargetsNo targets recorded. Patient Instructions Encounter Date Encounter Id Patient Instructions Last Modified By Organization Details Last Modified Time 05/01/2022 [id number] advised to lose weight Not available 05/01/2022 19:05:23 02/21/2023 [id number] advised to lose weight Not available 02/21/2023 13:08:28 07/22/2023 [id number] advised to lose weight Not available 07/22/2023 18:45:02 01/03/2024 [id number] advised to lose weight Not available 01/03/2024 13:00:37 12/17/2024 [id number] advised to lose weight Not available 12/17/2024 17:49:10 Reason for Referral Diabetic Ophthalmology Refer ral for Type 2 diabetes mellitus without complication Referring Physician: Ulysses Henderson Internal [facility], Encounter Date: 05/01/2022 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 for malignant neoplasm of colon Referring Physician: Rita Etienne Medicine, Encounter Date: 05/01/2022 Music Education Director Referral for Type 2 diabetes mellitus without complication Referring Physician: Rita Etienne Medicine, Encounter Date: 05/01/2022 Diabetic Ophthalmology Refer ral for Type 2 diabetes mellitus without complication Referring Physician: Rita Etienne Medicine, Encounter Date: 02/21/2023 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 for malignant neoplasm of colon Referring Physician: Rita Etienne Medicine, Encounter Date: 02/21/2023 Music Education Director Referral for Type 2 diabetes mellitus without complication Referring Physician: Rita Etienne Medicine, Encounter Date: 02/21/2023 Program Therapist Referral for El ectrocardiogram abnormal Referring Physician: Rita Etienne, Encounter Date: 07/22/2023 Diabetic Ophthalmology Refer ral for Type 2 diabetes mellitus without complication Referring Physician: Rita Etienne, Encounter Date: 07/22/2023 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 for malignant neoplasm of colon Referring Physician: Rita Etienne, Encounter Date: 07/22/2023 Music Education Director Referral for Type 2 diabetes mellitus without complication Referring Physician: Rita Etienne, Encounter Date: 07/22/2023 Diabetic Ophthalmology Refer ral for Type 2 diabetes mellitus without complication Referring Physician: Rita Etienne, Encounter Date: 01/03/2024 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 for malignant neoplasm of colon Referring Physician: Rita Etienne, Encounter Date: 01/03/2024 Music Education Director Referral for Type 2 diabetes mellitus without complication Referring Physician: Rita Etienne, Encounter Date: 01/03/2024 Diabetic Ophthalmology Refer ral for Type 2 diabetes mellitus without complication Referring Physician: Rita Etienne, Encounter Date: 12/17/2024 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 ,[place], [address], 07/23/2023 17:05:01 07/22/19 24 07/22/2023 COMPL ETE CBC W/AUT O DIFF WBC red blood cell count 5.1 heavenly on/uL 3.5-5. 5 Not Available [facility] (Main Location) [address] ,, [place], [address], 07/23/2023 17:05:01 07/22/19 24 07/22/2023 COMPL ETE CBC W/AUT O DIFF WBC hemoglobin 15.9 g/dL 11.5-1 6.5 Not Available [facility] (Main Location) [address] ,, [place], [address], 07/23/2023 17:05:01 07/22/19 24 07/22/2023 COMPL ETE CBC W/AUT O DIFF WBC hematocrit 47 % 35-55 Not Available [facility]Main Location[facility] [address] ,, [place], [address], 07/23/2023 17:05:01 07/22/19 24 07/22/2023 COMPL ETE CBC W/AUT O DIFF WBC MCH 31 pg 25-35 Not Available [facility] (Main Location) [address] ,, [place], [address], 07/23/2023 17:05:01 07/22/19 24 07/22/2023 COMPL ETE CBC W/AUT O DIFF WBC MCHC 34 g/dL 31-38 Not Available [facility] (Main Location) [address] ,, [place], [address], 07/23/2023 17:05:01 07/22/19 24 07/22/2023 COMPL ETE CBC W/AUT O DIFF WBC MCV 92 fL 75-100 Not Available [facility] (Main Location) [address] ,, [place], [address], 07/23/2023 17:05:01 07/22/19 24 07/22/2023 COMPL ETE CBC W/AUT O DIFF WBC RDW-CV 13 % 11-15 Not Available [facility] (Main Location) [address] ,, [place], [address], 07/23/2023 17:05:01 07/22/19 24 07/22/2023 COMPL ETE CBC W/AUT O DIFF WBC neutrophils% 55.3 % Not Available [facility] (Main Location) [facility] [address] ,, [place], [address], 07/23/2023 17:05:01 07/22/19 24 07/22/2023 COMPL ETE CBC W/AUT O DIFF WBC lymphocytes% 35.4 % Not Available [facility] (Main Location) [facility] [address] ,, [place], [address], 07/23/2023 17:05:01 07/22/19 24 07/22/2023 COMPL ETE CBC W/AUT O DIFF WBC monocytes% 6.8 % Not Available [facility] (Main Location) [facility] [address] ,, [place], [address], 07/23/2023 17:05:01 07/22/19 24 07/22/2023 COMPL ETE CBC W/AUT O DIFF WBC eosinophil % 1.9 % 0.0-7. 0 Not Available [facility] (Main Location[facility] [address] ,, [place], [address], 07/23/2023 17:05:01 07/22/19 24 07/22/2023 COMPL ETE CBC W/AUT O DIFF WBC basophil % 0.3 % 0.0-3. 0 Not Available [facility] (Main Location) [facility] [address] ,, [place], [address], 07/23/2023 17:05:01 07/22/19 24 07/22/2023 COMPL ETE CBC W/AUT O DIFF WBC absolute neutrophils 4.1 cells /uL 1.5-7. 8 Not Available [facility] (Main Location) [facility] [address] ,, [place], [address], 07/23/2023 17:05:01 01/08/20 24 07/22/2023 COMPL ETE CBC W/AUT O DIFF WBC absolute lymphocytes 2.64 cells /uL 0.85-3 .90 Not Available [facility] (Main Location) [address] ,, [place], [address], 07/23/2023 17:05:01 07/22/19 24 07/22/2023 COMPL ETE CBC W/AUT O DIFF WBC absolute monocytes 0.5 cells /uL 0.2-1. 0 Not Available [facility] (Main Location) [facility] [address] ,, [place], [address], 07/23/2023 17:05:01 07/22/19 24 07/22/2023 COMPL ETE CBC W/AUT O DIFF WBC absolute eosinophils 0.1 cells /uL 0.0-0. 5 Not Available [facility] [address] ,, [place], [address], 07/23/2023 17:05:01 07/22/19 24 07/22/2023 COMPL ETE CBC W/AUT O DIFF WBC absolute basophils 0.0 cells /uL 0.0-0. 2 Not Available [facility] (Main Location) [facility] [address] ,, [place], [address], 07/23/2023 17:05:01 07/22/19 24 07/22/2023 COMPL ETE CBC W/AUT O DIFF WBC platelet count 166 thous and/u L 100-40 0 Not Available [facility]Main Location[facility] [address] ,, [place], [address], 07/23/2023 17:05:01 07/22/19 24 07/22/2023 CMP (COMP REHEN SIVE METAB OLIC PANEL ) glucose 226 mg/dL 74-99 high Not Available [facility] (Main Location) [facility] [address] ,, [place], [address], 07/23/2023 17:05:02 07/22/19 24 07/22/2023 CMP (COMP REHEN SIVE METAB OLIC PANEL ) urea nitrogen, blood (BUN) 15 mg/dL 6-20 Not Available [facility] (Main Location) [address] [place] [address]. [address] ,, [place], [address], 07/23/2023 17:05:02 07/22/19 24 07/22/2023 CMP (COMP REHEN SIVE METAB OLIC PANEL ) total bilirubin 0.2 mg/dL 0.0-1. 2 Not Available [facility] (Main Location) [address] [place] [address]. [address] ,, [place], [place], [address], 07/23/2023 17:05:02 07/22/19 24 07/22/2023 CMP (COMP REHEN SIVE METAB OLIC PANEL ) total protein 6.7 g/dL 6.6-8. 7 Not Available [facility] (Main Location) [address] [place] [address]. [address] ,, [place], [address], 07/23/2023 17:05:02 07/22/19 24 07/22/2023 CMP (COMP REHEN SIVE METAB OLIC PANEL ) alanine aminotransfe rase (ALT) 22 U/L 0-41 Not Available [facility] (Main Location) [address] [place] [address]. [address] ,, [place], [address], 07/23/2023 17:05:02 07/22/19 24 07/22/2023 CMP (COMP REHEN SIVE METAB OLIC PANEL ) alkaline phosphatase 99 U/L 40-130 Not Available [facility] (Main Location) [address] [place] [address]. [address] ,, [place], [address], 07/23/2023 17:05:02 07/22/19 24 07/22/2023 CMP (COMP REHEN SIVE METAB OLIC PANEL ) aspartate aminotransfe rase (AST) 14 U/L 0-40 Not Available [facility] (Main Location) [address] [place] [address]. [address] ,, [place], [address], 07/23/2023 17:05:02 07/22/19 24 07/22/2023 CMP (COMP REHEN SIVE METAB OLIC PANEL ) calcium 9.1 mg/dL 8.6-10 .2 Not Available [facility] (Main Location) [facility] ,, [place], [address], 07/23/2023 17:05:02 07/22/19 24 07/22/2023 CMP (COMP REHEN SIVE METAB OLIC PANEL ) albumin 4.3 g/dL 3.5-5. 2 Not Available [facility] (Main Location) [facility] [address] ,, [place], [address], 07/23/2023 17:05:02 07/22/19 24 07/22/2023 CMP (COMP REHEN SIVE METAB OLIC PANEL ) CO2 28 mmol/ L 22-29 Not Available [facility] (Main Location) [facility] [address] ,, [place], [address], 07/23/2023 17:05:02 07/22/19 24 07/22/2023 CMP (COMP REHEN SIVE METAB OLIC PANEL ) creatinine, serum 1.3 mg/dL 0.7-1. 2 high Not Available [facility] (Main Location) [facility] [address] ,, [place], [address], 07/23/2023 17:05:02 07/22/19 24 07/22/2023 CMP (COMP REHEN SIVE METAB OLIC PANEL ) sodium, serum 140 mmol/ L 136-14 5 Not Available [facility] (Main Location) [facility] [address] ,, [place], [address], 07/23/2023 17:05:02 07/22/19 24 07/22/2023 CMP (COMP REHEN SIVE METAB OLIC PANEL ) potassium, serum 4.1 mmol/ L 3.5-5. 1 Not Available [facility] (Main Location) [address] [place], [place] [address] ,, [place], [address], 07/23/2023 17:05:02 07/22/19 24 07/22/2023 CMP (COMP REHEN SIVE METAB OLIC PANEL ) chloride, serum 102 mmol/ L 98-107 Not Available [facility] (Main Location) [address] ,, [place], [address], 07/23/2023 17:05:02 07/22/19 24 07/22/2023 CMP (COMP REHEN SIVE METAB OLIC PANEL ) eGFR 67 >59 Persi stent reduc tion for 3 month s or more in an eGFR <60 mL/mi n/1.7 3 m2 defin es CKD. Patie nts with eGFR value s>/=6 0 mL/mi n/1.7 3 m2 may also have CKD if evide nce of persi stent protu niuri a is prese nt. Addit ional infor skip flanagan may be found at [email or web address]. org. Not Available [facility] (Main Location) [address] ,, [place], [address], 07/23/2023 17:05:02 07/22/19 24 07/22/2023 CREAT INE KINAS E (CPK) creatine kinase 269 U/L 0-190 high Not Available [facility] (Main Location) [address] ,, [place], [address], 07/23/2023 17:05:03 07/22/19 24 07/22/2023 DLDL dldl 127 mg/dL 0-100 high Not Available [facility] (Main Location) [facility] ,, [place], [address], 07/23/2023 17:05:04 07/22/19 24 07/22/2023 HIV-1 /2 AG & AB HIV antibody NON-RE ACTIVE non-re active Not Available [facility] (Main Location) [facility] ,, [place], [address], 07/23/2023 17:05:05 07/22/19 24 07/22/2023 HIV-1 /2 AG & AB HIV P24 antigen NON-RE ACTIVE non-re active Not Available [facility] (Main Location) [facility] ,, [place], [address], 07/23/2023 17:05:05 07/22/19 24 07/22/2023 LIPID PANEL trigylceride s 504 mg/dL 0-150 high Not Available [facility] (Main Location) [facility] ,, [place], [address], 07/23/2023 17:05:05 07/22/19 24 07/22/2023 LIPID PANEL cholesterol 237 mg/dL 0-200 high Not Available [facility] (Main Location) [facility] ,, [place], [address], 07/23/2023 17:05:05 07/22/19 24 07/22/2023 LIPID PANEL uhdl 34 mg/dL 35-55 low Not Available [facility] (Main Location) [facility] [address] ,, [place], [address], 07/23/2023 17:05:05 07/22/19 24 07/22/2023 LIPID PANEL LDL, calculated 102 mg/dL 0-100 high Not Available [facility] (Main Location) [facility] ,, [place], [address], 07/23/2023 17:05:05 07/22/19 24 07/22/2023 LIPID PANEL LDL/HDL ratio 3 mg/dL 0-5 Not Available [facility] (Main Location) [facility] [address] ,, [place], [address], 07/23/2023 17:05:05 07/22/19 24 07/22/2023 LIPID PANEL VLDL 100.8 mg/dL 5.0-40 .0 high Not Available [facility] (Main Location) [facility] ,[place], [address], 07/23/2023 17:05:05 07/22/19 24 07/22/2023 LIPID PANEL cholesterol/ HDL ratio 6.97 0.00-5 .00 high Not Available [facility] (Main Location) [address] ,, [place], [address], 07/23/2023 17:05:05 07/22/19 24 07/22/2023 PROST ATE-S PECIF IC ANTIG EN (PSA) SCREE N PSA, total 3.7 NG/mL 0.0-4. 0 PSA is an elect christal milum inesc ence immun oassa y run on the Christal Luis 6000. Not Available [facility] (Main Location) [address] ,, [place], [address], 07/23/2023 17:05:06 07/22/19 24 07/22/2023 VITAM IN B12 vitamin B12 II 676 pg/mL 232-12 45 Not Available [facility] (Main Location) [address] ,, [place], [address], 07/23/2023 17:05:06 07/22/19 24 07/22/2023 URINE MICRO ALBUM IN/CR EATIN INE RATIO urine microalbumin 422 mg/L 0-30 high Not Available [facility] (Main Location) [address] ,, [place], [address], 07/23/2023 17:05:07 07/22/19 24 07/22/2023 URINE MICRO ALBUM IN/CR EATIN INE RATIO urine creatinine 221.77 mg/dL 39.00- 259.00 Not Available [facility] (Main Location) [address] ,, [place], [address], 07/23/2023 17:05:07 07/22/19 24 07/22/2023 URINE MICRO ALBUM IN/CR EATIN INE RATIO urine microalbumin /creatinine ratio 190 mg/g_ creat inine 0-30 high Not Available [facility] (Main Location) [address] ,, [place], [address], 07/23/2023 17:05:07 07/22/19 24 07/22/2023 HEMOG LOBIN A1C HGBA1C 8.0 % 4.0-6. 0 high Not Available [facility] (Main Location) [address] ,, [place], [address], 07/23/2023 17:05:12 07/22/19 24 07/22/2023 HIV-1 /2 AG & AB HIV antibody NON-RE ACTIVE non-re active Not Available [facility] (Main Location) [address] ,, [place], [address], 07/23/2023 17:05:15 07/22/19 24 07/22/2023 HIV-1 /2 AG & AB HIV P24 antigen NON-RE ACTIVE non-re active Not Available [facility] (Main Location) [address] ,, [place], [address], 07/23/2023 17:05:15 12/18/19 25 12/17/2024 HEMOG LOBIN A1C hemoglobin A1C 7.9 % 4.8-5. 6 high GREGORIA L RANGE BASED ON EDUARDO COL 2 (DCCT /NGSP ): Non-D iabet ic: < 5.7% Pre-D iabet es: 5.7 - 6.4% Diabe janie: => 6.5% GLYCE LILIAN CONTR OL: < 7.0% Not Available [facility] [address] [facility] [address], [place], [address], 12/19/2024 14:46:19 12/18/1912/17/2024 HEMOG LOBIN A1C estimated average glucose 181 Not Available [facility] [address], [place], [address], 12/19/2024 14:46:19 12/18/19 25 12/17/2024 CBC WITH AUTO- DIFFE RENTI AL WBC 7.0 10*3/ uL 3.4-10 .8 Not Available [facility] [address] [facility] [address] [facility] [address], [place], [address], 12/19/2024 14:46:20 12/18/19 25 12/17/2024 CBC WITH AUTO- DIFFE RENTI AL RBC 4.75 10*6/ uL 4.20-5 .80 Not Available [facility] [address], [place], [address], 12/19/2024 14:46:20 12/18/19 25 12/17/2024 CBC WITH AUTO- DIFFE RENTI AL HGB 14.9 g/dL 12.6-1 7.7 Not Available [facility] [address], [place], [address], 12/19/2024 14:46:20 12/18/19 25 12/17/2024 CBC WITH AUTO- DIFFE RENTI AL HCT 45.0 % 37.5-5 1.0 Not Available [facility] [address] [facility] [address] [facility] [address], [place], [address], 12/19/2024 14:46:20 12/18/19 25 12/17/2024 CBC WITH AUTO- DIFFE RENTI AL MCV 95 fL 79-97 Not Available [facility] [address] [facility] [address] [facility] [address], [place], [address], 12/19/2024 14:46:20 12/18/19 25 12/17/2024 CBC WITH AUTO- DIFFE RENTI AL MCH 31.4 pg 26.6-3 3.0 Not Available [facility] [address] [facility] [address] [facility] [address], [place], [address], 12/19/2024 14:46:20 12/18/19 25 12/17/2024 CBC WITH AUTO- DIFFE RENTI AL MCHC 33.1 g/dL 31.5-3 5.7 Not Available [facility] [address] [facility] [address], [place], [address], 12/19/2024 14:46:20 12/18/19 25 12/17/2024 CBC WITH AUTO- DIFFE RENTI AL RDW 13.3 % 11.5-1 4.5 Not Available [facility] [address] [facility] [address], [place], [address], 12/19/2024 14:46:20 12/18/19 25 12/17/2024 CBC WITH AUTO- DIFFE RENTI AL platelets 170 10*3/ uL 150-40 0 Not Available [facility] [address] [place] [address] [address], [place], [address], 12/19/2024 14:46:20 12/18/19 25 12/17/2024 CBC WITH AUTO- DIFFE RENTI AL MPV 12 fL 9-13 Not Available [facility] [address] [facility] [address], [place], [address], 12/19/2024 14:46:20 12/18/19 25 12/17/2024 CBC WITH AUTO- DIFFE RENTI AL neutrophils 49.0 % 40.0-7 4.0 Not Available [facility] [address] [facility] [address], [place], [address], 12/19/2024 14:46:20 12/18/19 25 12/17/2024 CBC WITH AUTO- DIFFE RENTI AL absolute neutrophils 3.45 10*3/ uL 1.40-7 .00 Not Available [facility] [address] [facility] [address], [place], [address], 12/19/2024 14:46:20 12/18/19 25 12/17/2024 CBC WITH AUTO- DIFFE RENTI AL lymphocytes 39.8 % 14.0-4 6.0 Not Available [facility] [address] [place] [address] [address], [place], [address], 12/19/2024 14:46:20 12/18/19 25 12/17/2024 CBC WITH AUTO- DIFFE RENTI AL absolute lymphocytes 2.80 10*3/ uL 0.70-3 .10 Not Available [facility] [address] [facility] [address] [facility] [address], [place], [address], 12/19/2024 14:46:20 12/18/19 25 12/17/2024 CBC WITH AUTO- DIFFE RENTI AL monocytes 8.0 % 4.0-12 .0 Not Available [facility] [address] [facility] [address], [place], [address], 12/19/2024 14:46:20 12/18/19 25 12/17/2024 CBC WITH AUTO- DIFFE RENTI AL absolute monocytes 0.56 10*3/ uL 0.10-0 .90 Not Available [facility] [address] [facility] [address], [place], [address], 12/19/2024 14:46:20 12/18/19 25 12/17/2024 CBC WITH AUTO- DIFFE RENTI AL eosinophils 2.4 % 0.0-5. 0 Not Available [facility] [address] [facility] [address], [place], [address], 12/19/2024 14:46:20 12/18/19 25 12/17/2024 CBC WITH AUTO- DIFFE RENTI AL absolute eosinophils 0.17 10*3/ uL 0.00-0 .40 Not Available [facility] [address] [facility] [address], [place], [address], 12/19/2024 14:46:20 12/18/19 25 12/17/2024 CBC WITH AUTO- DIFFE RENTI AL basophils 0.4 % 0.0-3. 0 Not Available [facility] [address] [place] [address] [address], [place], [address], 12/19/2024 14:46:20 12/18/19 25 12/17/2024 CBC WITH AUTO- DIFFE RENTI AL absolute basophils 0.03 10*3/ uL 0.00-0 .20 Not Available [facility] [address] [place] [address] [address], [place], [address], 12/19/2024 14:46:20 12/18/19 25 12/17/2024 CBC WITH AUTO- DIFFE RENTI AL imm. gran. 0.4 % 0.0-2. 0 Not Available [facility] [address] [facility] [address], [place], [address], 12/19/2024 14:46:20 12/18/19 25 12/17/2024 CBC WITH AUTO- DIFFE RENTI AL abs. imm. gran. 0.03 10*3/ uL 0.00-0 .10 Not Available [facility] [address] [facility] [address], [place], [address], 12/19/2024 14:46:20 12/18/19 25 12/17/2024 COMPR EHENS ALFONSO METAB OLIC PANEL sodium 139 mmol/ L 134-14 4 Not Available [facility] [address] [facility] [address], [place], [address], 12/19/2024 14:46:20 12/18/19 25 12/17/2024 COMPR EHENS ALFONSO METAB OLIC PANEL potassium 4.4 mmol/ L 3.5-5. 2 Not Available [place] [address] [facility] [address], [place], [address], 12/19/2024 14:46:20 12/18/19 25 12/17/2024 COMPR EHENS ALFONSO METAB OLIC PANEL chloride 104 mmol/ L 98-107 Not Available [facility] [address] [place] [address] [address], [place], [address], 12/19/2024 14:46:20 12/18/19 25 12/17/2024 COMPR EHENS ALFONSO METAB OLIC PANEL carbon dioxide (co2) 28.0 mmol/ L 18.0-2 9.0 Not Available [facility] [address] [facility] [address], [place], [address], 12/19/2024 14:46:20 12/18/19 25 12/17/2024 COMPR EHENS ALFONOS METAB OLIC PANEL glucose 158 mg/dL 65-99 high Gregoria l Fasti n - 99 mg/dL Impai red Fasti n - 125 mg/dL Diagn ostic of Diabe janie: => 126 mg/dL Ameri can [facility]abe janie [facility] i[facility] n, 2007 Not Available [facility] [address] [facility] [address], [place], [address], 12/19/2024 14:46:20 12/18/19 25 12/17/2024 COMPR EHENS ALFONSO METAB OLIC PANEL urea nitrogen (BUN) 18 mg/dL 6-20 Not Available [facility] [address] [facility] [address], [place], [address], 12/19/2024 14:46:20 12/18/19 25 12/17/2024 COMPR EHENS ALFONSO METAB OLIC PANEL creatinine 1.22 mg/dL 0.76-1 .27 Not Available [facility] [address] [facility] [address], [place], [address], 12/19/2024 14:46:20 12/18/19 25 12/17/2024 COMPR EHENS ALFONSO METAB OLIC PANEL eGFR 68 mL/mi nute/ 1.73_ m2 >59 MDRD Study Equat ion: The calcu lated GFR is NOT appli cable for pedia tric (< 18 years old) and > 70 year old patie nts and patie nts that are NOT of stead y state . Not Available [facility] [address] [facility] [address], [place], [address], 12/19/2024 14:46:20 12/18/19 25 12/17/2024 COMPR EHENS ALFONSO METAB OLIC PANEL calcium 9.0 mg/dL 8.6-10 .2 Not Available [facility] [address] [facility] [address], [place], [address], 12/19/2024 14:46:20 12/18/19 25 12/17/2024 COMPR EHENS ALFONSO METAB OLIC PANEL protein, total 7.1 gm/dL 6.4-8. 3 Not Available [facility] [address] [facility] [address], [place], [address], 12/19/2024 14:46:20 12/18/19 25 12/17/2024 COMPR EHENS ALFONSO METAB OLIC PANEL albumin 4.4 gm/dL 3.5-5. 2 Not Available [facility] [address] [facility] [address], [place], [address], 12/19/2024 14:46:20 12/18/19 25 12/17/2024 COMPR EHENS ALFONSO METAB OLIC PANEL bilirubin, total 0.50 mg/dL 0.00-1 .20 Not Available [facility] [address] [facility] [address], [place], [address], 12/19/2024 14:46:20 12/18/19 25 12/17/2024 COMPR EHENS ALFONSO METAB OLIC PANEL alkaline phosphatase (ALP) 72 U/L 39-117 Not Available [facility] [address] [facility] [address], [place], [address], 12/19/2024 14:46:20 12/18/19 25 12/17/2024 COMPR EHENS ALFONSO METAB OLIC PANEL aspartate aminotransfe rase (AST) 16 U/L 0-[address] [facility] [address] [facility] [address], [place], [address], 12/19/2024 14:46:20 12/18/19 25 12/17/2024 COMPR EHENS ALFONSO METAB OLIC PANEL alanine aminotransfe rase (ALT) 22 U/L 0-[address] [facility] [address] [facility] [address], [place], [address], 12/19/2024 14:46:20 12/18/19 25 12/17/2024 COMPR EHENS ALFONSO METAB OLIC PANEL A/G ratio (calculated) 1.6 ratio 1.0-2. 7 Not Available [facility] [address] [facility] [address], [place], [address], 12/19/2024 14:46:20 12/18/19 25 12/17/2024 COMPR EHENS ALFONSO METAB OLIC PANEL globulin (calculated) 2.7 gm/dL 1.5-3. 8 Not Available [facility] [address] [facility] [address], [place], [address], 12/19/2024 14:46:20 12/18/19 25 12/17/2024 COMPR EHENS ALFONSO METAB OLIC PANEL BUN/creatini ne ratio (calculated) 14.8 ratio 8.0-20 .0 Not Available [facility] [address] [facility] [address], [place], [address], 12/19/2024 14:46:20 12/18/19 25 12/17/2024 COMPR EHENS ALFONSO METAB OLIC PANEL serum index hemolysis Normal index normal Not Available [facility] [address] [facility] [address], [place], [address], 12/19/2024 14:46:20 12/18/19 25 12/17/2024 LIPID PANEL W/ CALC. LDL cholesterol, total 251 mg/dL 100-19 9 high Not Available [facility] [address] [facility] [address], [place], [address], 12/19/2024 14:46:21 12/18/19 25 12/17/2024 LIPID PANEL W/ CALC. LDL HDL cholesterol 39 mg/dL =>40 Not Available [facility] [address] [facility] [address], [place], [address], 12/19/2024 14:46:21 12/18/19 25 12/17/2024 LIPID PANEL W/ CALC. LDL LDL cholesterol (calculated) 166 mg/dL 0-99 high Not Available [facility] [address] [facility] [address], [place], [address], 12/19/2024 14:46:21 12/18/19 25 12/17/2024 LIPID PANEL W/ CALC. LDL triglyceride s 231 mg/dL 50-[address] [facility] [address] [facility] [address], [place], [address], 12/19/2024 14:46:21 12/18/19 25 12/17/2024 LIPID PANEL W/ CALC. LDL chol/HDL ratio (calculated) 6.44 ratio 0.00-5 .00 high Not Available [facility] [address] [facility] [address], [place], [address], 12/19/2024 14:46:21 12/18/19 25 12/17/2024 LIPID PANEL W/ CALC. LDL VLDL cholesterol (calculated) 46 mg/dL 5-40 high Not Available [facility] [address] [facility] [address], [place], [address], 12/19/2024 14:46:21 12/18/19 25 12/17/2024 PROST ATE-S PECIF IC ANTIG EN (PSA) , TOTAL (SCRE ENING ) prostate-spe cific antigen, total 13.8 NG/mL 0.0-4. 0 high Christal ECLIA METHO DOLOG Y. KAMI TS FROM THIS METHO D IS NOT FLORENCIO TIBLE WITH DIFFE RENT ASSAY METHO D AND CANNO T BE USED INTER SKINNER EABLY . Not Available [facility] [address] [facility] [address], [place], [address], 12/19/2024 14:46:21 12/18/19 25 12/17/2024 VITAM IN B12 vitamin B12 533 pg/mL 232-12 45 Not Available [facility] [address] [facility] [address], [place], [address], 12/19/2024 14:46:22 12/18/19 25 12/22/2024 D-DIM ER D-dimer 1.23 mg/L_ feu 0.00-0 .49 high Accor ding to the assay manuf actur er's publi shed packa ge inser t, a gregoria l (<0.5 0 mg/L FEU) D-dim er resul t in conju nctio n with a non-h igh clini radha proba bilit y asses sment , exclu cosmo deep vein throm bosis (DVT) and pulmo nary embol ism (PE) with high sensi tivit y. D-dim er value s incre ase with age and this can make VTE exclu helen of an older popul ation diffi cult. To addre ss this, the Ameri can Colle ge of Physi cians , based on best avail able evide nce and recen t guide lines , recom mends that clini cians use age-a djust ed D-dim er thres holds in patie nts great er than 50 years of age with: a) a low proba bilit y of PE who do not meet all Pulmo nary Embol ism Rule Out Crite juan antonio, or b) in those with inter media te proba bilit y of PE. The formu la for an age-a djust ed D-dim er cut-o ff is age/ 100. For examp le, a 60 year old patie nt would have an age-a djust ed cut-o ff of 0.60 mg/L FEU and an 80 year old 0.80 mg/L FEU. Not Available [facility] [address], [place], [address], 12/22/2024 11:16:32 12/22/1912/21/2024 MICRO ALBUM IN:CR EATIN INE RATIO , RANDO M URINE microalbumin , urine 18.46 mg/dL not establ ished Units have been updat ed to mg/dL Not Available [facility] [address] [facility] [address], [place], [address], 12/23/2024 15:26:57 12/22/19 25 12/21/2024 MICRO ALBUM IN:CR EATIN INE RATIO , RANDO M URINE creatinine, urine 156.4 mg/dL not establ ished Not Available [facility] [address], [place], [address], 12/23/2024 15:26:57 12/22/19 25 12/21/2024 MICRO ALBUM IN:CR EATIN INE RATIO , RANDO M URINE microalbumin :creatinine ratio, random urine (calculated) 118.1 mg/gm Gregoria l: 0-29 mg/gm Moder ately incre ased: 30-30 0 mg/gm Sever ly incre ased: >300 mg/gm Not Available [facility] [address], [place], [address], 12/23/2024 15:26:57 04/05/20 22 04/05/2022 US, abdom inal aorta No observ ation record ed. [address], [facility] [address] [facility] [address], [place], [address], 05/01/2022 19:05:40 07/22/19 24 07/22/2023 elect jonas cohengr am No observ ation record ed. [facility] Not Available 2023 12:59:17 07/25/19 24 07/25/2023 elect jonas cohengr am No observ ation record ed. [address] [place], [address], 01/03/2024 12:59:17 Result Notes None recorded. Problems Name Problem SNOMED Code Status Onset Date Resolution Date Notes Provider Name and Address Organization Details Recorded Time Reduced libido 9921812 Faith grant [place] [facility] 6 11:37:25 Hyperlipid emia 67144273 Active CHERRY [facility] 6 11:37:35 Benign essential hypertensi on 2299916 Faith grant [place] [facility] 6 11:37:43 Allergic rhinitis [id number] Active Twila grant, [facility] 6 11:38:01 Diverticul itis 537066681 Active Twila grant, [facility] 6 11:38:12 Kidney stone 09515823 Active Twila grant, [facility] 6 11:39:07 Nicotine dependence 09600529 Active Twila Anderson null, [facility] 6 11:39:27 Obstructiv e sleep apnea syndrome 06412999 Active 2015 -- dx'd by cardiologi st Dr Falcon & currently on CPAP Ulysses Henderson MD [address], [place], [address], [facility] 6 11:26:25 Type 2 diabetes mellitus 37602427 Active 2016 Leatha Jacobo, ANP-BC [address], [place], [address], [facility] 7 15:21:59 Creatine kinase level above reference range 034208384 Active 2016 Ulysses Henderson MD [address], [place], [address], [facility] 7 19:45:07 Immunizati on refused Active 2017 Ulysses Henderson MD [address], [place], [address], [facility] 8 10:00:05 Intermitte nt claudicati on 01058333 Active 2018 Ulysses Henderson MD [address], [place], [address], [facility] 9 14:02:19 Essential hypertensi on 05379879 Active 2022 Ulysses Henderson MD [address], [place], [address], [facility] 3 13:01:28 Coronary arterioscl erosis 91000009 Active 2022 Ulysses Henderson MD [address], [place], [address], [facility] 3 13:01:28 Primary erectile dysfunctio n 017950846 Active 2022 Ulysses Henderson MD [address], [place], [address], [facility] 3 13:01:28 Type 2 diabetes mellitus without complicati on 631667098 Active 2022 Ulysses Henderson MD [address], [place], [address], [facility] 3 13:01:28 Mixed anxiety and depressive disorder 995502412 Active 2022 Ulysses Henderson MD [address], [place], [address], [facility] 3 13:01:28 Problem Notes None recorded. Procedures Surgical History Date Name Laterality Status Provider Name and Address Organization Details Recorded Time 2 Diabetic Foot Exam completed Ulysses Henderson MD [address], [place], [address], [facility] 03/30/2022 14:20:08 0 Diabetic Foot Exam completed Ulysses Henderson MD [address], [place], [address], [facility] 01/28/2020 12:08:26 9 Diabetic Foot Exam completed Ulysses Henderson MD [address], [place], [address], [facility] 12/26/2018 13:02:40 5 Colonoscopy completed Maria Victoria Cummings [facility] 06/26/2017 16:17:53 Cardiac Surgery completed Ulysses garcia MD [address], [place], [address], [facility] 08/15/2020 16:06:17 Imaging Results None recorded. Procedure Notes None recorded. Medical Equipment None Reported. Allergies No known drug allergies Medications Name Sig Start Date Stop Date Status Note LastModified by Organization Details LastModified Time atorvasta tin 40 mg tablet Take 1 tablet every day by oral route. 2024 active Not Available Not Available Not Avai lable neomycin- polymyxin -hydrocor t 3.5 mg/mL-10, 000 unit/mL-1 % ear solution 06/30 completed Not Available Not Available Not Available carvedilo l 6.25 mg tablet Take 1 tablet every 12 hours by oral route. 06/30 completed -- increase d to 12.5 mg Rx Not Available Not Available Not Available cefuroxim e axetil 250 mg tablet 04/14 completed Not Available Not Available Not Available carvedilo l 12.5 mg tablet Take 1 tablet every 12 hours by oral route. 04/07 completed caused ED Not Available Not Available Not Available sildenafi l 50 mg tablet 1 tab a day as needed; cannot take within 24 hr of last nitrogly cerin 05/16 completed -- does not work Not Available Not Available Not Available lisinopri l 20 mg-hydroc hlorothia zide 12.5 mg tablet TAKE 2 TABLETS BY MOUTH EVERY DAY IN THE MORNING 02/21 completed Not Available Not Available Not Available ibuprofen 800 mg tablet 12/07 completed Not Available Not Available Not Available hydrocodo ne 5 mg-acetam inophen 325 mg tablet TAKE 1 TABLET BY MOUTH EVERY 6 HOURS NEEDED 12/18 completed Not Available Not Available Not Available lovastati n 40 mg tablet 1 tablet every day by oral route for 30 days. 05/28 completed Not Available Not Available Not Available metronida zole 500 mg tablet 12/07 completed Not Available Not Available Not Available acetamino phen 300 mg-codein e 30 mg tablet TAKE 1 TABLET BY MOUTH EVERY 6 HOURS NEEDED FOR PAIN 07/02 completed Not Available Not Available Not Available clopidogr el 75 mg tablet TAKE 1 TABLET BY MOUTH ONCE DAILY active Not Available Not Available No t Available amlodipin e 5 mg tablet 04/14 completed -- changed to Prestal Not Available Not Available Not Available sulfameth oxazole 800 mg-trimet hoprim 160 mg tablet Take 1 tablet every 12 hours by oral route. 02/21 completed Not Available Not Available Not Available aspirin 81 mg tablet,de layed release TAKE 1 TABLET BY MOUTH ONCE DAILY active Not Available Not Available No t Available carvedilo l 3.125 mg tablet Take 1 tablet every 12 hours by oral route. 06/30 completed -- increase d to 6.25 mg Not Available Not Available Not Available amoxicill in 875 mg tablet TAKE 1 TABLET BY MOUTH TWICE DAILY FOR 7 DAYS 07/02 completed Not Available Not Available Not Available citalopra m 20 mg tablet TAKE 1 TABLET BY MOUTH ONCE DAILY FOR 90 DAYS active Not Available Not Available No t Available famotidin e 20 mg tablet Take 1 tablet twice a day by oral route for 30 days. 04/14 completed Not Available Not Available Not Available Nitrostat 0.4 mg sublingua l tablet 1 tab under tongue for 5 min; if no response , can repeat 2 more times; must go [facility] if no response after 3rd tab 2024 active Not Available Not Available Not Avai lable DOK 100 mg capsule TAKE ONE CAPSULE BY MOUTH TWICE DAILY NEEDED FOR CONSTIPA TION 03/27 completed Not Available Not Available Not Available aspirin 325 mg tablet,de layed release 05/28 completed Not Available Not Available Not Available meclizine 25 mg tablet One tab once, up to 3 times a day as needed; and cause drowsine ss 02/22 completed Not Available Not Available Not Available amlodipin e 10 mg tablet TAKE 1 TABLET BY MOUTH ONCE DAILY IN THE EVENING active Not Available Not Available No t Available cephalexi n 500 mg capsule 04/07 completed Not Available Not Available Not Available metformin 1,000 mg tablet TK 1 T PO BID 05/16 completed -- changed to Seglurom et. Not Available Not Available Not Available promethaz ine 25 mg tablet TAKE 1/2 (ONE-JOY F) TABLET BY MOUTH EVERY 6 HOURS NEEDED active Not Available Not Available No t Available lisinopri l 20 mg-hydroc hlorothia zide 25 mg tablet TAKE 1 TABLET BY MOUTH ONCE DAILY IN THE MORNING active Not Available Not Available No t Available hydrochlo rothiazid e 25 mg tablet Take 1 tablet every day by oral route in the morning. 06/30 completed -- changed to lisinopr il-hctz Not Available Not Available Not Available levofloxa tri 500 mg tablet TAKE 1 TABLET BY MOUTH DAILY START MORNING BEFORE PROCEDUR E. 10/10 completed Not Available Not Available Not Available oxycodone -acetamin ophen 7.5 mg-325 mg tablet 04/27 completed Not Available Not Available Not Available quinapril 20 mg-hydroc hlorothia zide 12.5 mg tablet 12/07 completed -- currentl y on Prestali a Not Available Not Available Not Available lisinopri l 40 mg tablet 1 tab daily; disconti nue the Prestali a when starting this. 06/30 completed -- changed to Lisinopr il-hctz combo Not Available Not Available Not Available metformin ER 500 mg tablet,ex tended release 24 hr TAKE 2 TABLETS BY MOUTH TWICE DAILY active Not Available Not Available No t Available Hibiclens 4 % topical liquid APPLY LIQUID EXTERNAL LY TO THE AFFECTED AREA TWICE DAILY. START 3 DAYS BEFORE SURGERY 03/27 completed Not Available Not Available Not Available irbesarta n 300 mg tablet TAKE 1 TABLET BY MOUTH ONCE DAILY active Not Available Not Available No t Available naproxen 500 mg tablet TAKE 1 TABLET BY MOUTH EVERY 12 HOURS FOR AT LEAST 14 DAYS AFTER SURGERY 01/02 completed Not Available Not Available Not Available amoxicill in 875 mg-potass ium clavulana te 125 mg tablet Take 1 tablet every 12 hours by oral route. 03/16 completed Not Available Not Available Not Available neomycin- polymyxin -hydrocor t 3.5 mg-10,000 unit/mL-1 % ear drops,osvaldo p 04/14 completed Not Available Not Available Not Available clindamyc in 1 % lotion JOLENE TO BODY BID 03/27 completed Not Available Not Available Not Available ezetimibe 10 mg tablet TAKE 1 TABLET BY MOUTH ONCE DAILY active Not Available Not Available No t Available ciproflox acin 0.3 %-dexamet hasone 0.1 % ear drops,osvaldo pension 4 gtt in ear(s) bid x7 days 02/21 completed Not Available Not Available Not Available varenicli ne tartrate 1 mg tablet TAKE 1 TABLET BY MOUTH EVERY 12 HOURS 02/21 completed Not Available Not Available Not Available metformin ER 500 mg 24 hr tablet,ex tended release (gastric retention ) Take 2 tablets twice a day by oral route. 03/16 completed -- changed 1,000 bid Not Available Not Available Not Available Januvia 100 mg tablet 1QD. Pls stop Glyxambi and Metformi n 11/08 completed Not Available Not Available Not Available GaviLyte- N 420 gram oral solution TAKE DIRECTED BY OFFICE active Not Available Not Available No t Available Prodigy No Coding strips Take 1 strip 4 times a day by miscell. route as directed . 04/07 completed Not Available Not Available Not Available Brilinta 90 mg tablet Take 1 tablet every 12 hours by oral route. 04/27 completed -- pt states he can afford Clopidog rel but not on the Brillint a Not Available Not Available Not Available icosapent ethyl 1 gram capsule Take by oral route for 30 days. active Not Available Not Available No t Available Farxiga 10 mg tablet TAKE 1 TABLET BY MOUTH ONCE DAILY active Not Available Not Available No t Available Glyxambi 10 mg-5 mg tablet TAKE 1 TABLET BY MOUTH EVERY DAY 08/30 completed Not Available Not Available Not Available Prestalia 14 mg-10 mg tablet TAKE 1 TABLET BY MOUTH IN THE MORNING AND STOP THE QUINAPRI L AND AMLODIPI NE ([facility] ) 01/08 completed -- disconti nued bc of cost Not Available Not Available Not Available Brilinta 60 mg tablet 10/03 completed Not Available Not Available Not Available Synjardy XR 25 mg-1,000 mg tablet, extended release 1QD 04/02 completed -- changed to Stegluja n due to cost. Not Available Not Available Not Available Bydureon BCise 2 mg/0.85 mL subcutane ous auto-inje ctor 1 shot once a week 12/28 completed Not Available Not Available Not Available Steglatro 15 mg tablet Take 1 tablet every day by oral route. 05/16 completed -- changed to Sergluro met Not Available Not Available Not Available Steglujan 5 mg-100 mg tablet TAKE 1 TABLET BY MOUTH EVERY DAY 04/04 completed Not Available Not Available Not Available Steglujan 15 mg-100 mg tablet Take 1 tablet every day by oral route. 12/27 completed --pt has not been filling Rx. Not Available Not Available Not Available Seglurome t 7.5 mg-1,000 mg tablet Take 1 tablet twice a day by oral route. 01/02 completed -- on Farxiga now Not Available Not Available Not Available ID NOW COVID-19 Test Kit TEST DIRECTED TODAY 07/28 completed Not Available Not Available Not Available Vitals Date Recorded Body height Heart rate Respiratory rate Body temperature Body mass index (BMI) Body weight Systolic blood pressure Diastolic blood pressure Provider Name and Address Organization Details Last Updated DateTime 4 180.34 cm 89 /min 16 /min 97.8 [degF] 31.2 kg/m2 638337. 69 g 167 mm[Hg] 102 mm[Hg] [facility] 4 18:02:47 Date Recorded Heart rate Systolic blood pressure Diastolic blood pressure Provider Name and Address Organization Details Last Updated DateTime 08/08/2023 82 /min 133 mm[Hg] 83 mm[Hg] Yoanna Olivarez [facility] 08/08/2023 11:07:32 Date Recorded Body height Heart rate Respiratory rate Body temperature Body mass index (BMI) Body weight Systolic blood pressure Diastolic blood pressure Provider Name and Address Organization Details Last Updated DateTime 5 180.34 cm 80 /min 16 /min 97.9 [degF] 31.4 kg/m2 417981. 28 g 170 mm[Hg] 110 mm[Hg] [facility] 5 16:58:21 Date Recorded Body height Heart rate Respiratory rate Body temperature Body mass index (BMI) Body weight Systolic blood pressure Diastolic blood pressure Provider Name and Address Organization Details Last Updated DateTime 4 180.34 cm 78 /min 16 /min 98.2 [degF] 31.1 kg/m2 314266. 1 g 120 mm[Hg] 81 mm[Hg] Yoanna Olivarez [facility] 4 12:09:38 Date Recorded Body height Heart rate Respiratory rate Body temperature Body weight Systolic blood pressure Diastolic blood pressure Provider Name and Address Organization Details Last Updated DateTime 3 180.34 cm 84 /min 16 /min 97.5 [degF] 551902. 51 g 106 mm[Hg] 72 mm[Hg] Gricelda Arnold [facility] 3 12:18:13 Date Recorded Body height Body mass index (BMI) Body weight Respiratory rate Body temperature Heart rate Systolic blood pressure Diastolic blood pressure Provider Name and Address Organization Details Last Updated DateTime 2 180.34 cm 31.8 kg/m2 850226. 06 g 16 /min 97.9 [degF] 93 /min 115 mm[Hg] 84 mm[Hg] [facility] 2 18:15:49 Social History Question Answer Notes LastModified by Organizat ion Details LastModified Time Tobacco Smoking Status Former Smoker last date was 0 Ulysses Henderson MD [address] [place] [address], [place], [address], [facility] 04/06/2022 12:01:16 Do You Have An Advance Directive? No [id number] Information not available 04/29/2020 What Is Your Level Of Caffeine Consumption? None [id number] Information not available 04/29/2020 How Much Tobacco Do You Chew? None [id number] Information not available 04/29/2020 What Is Your Code Status? Full Code [id number] Information not available 04/29/2020 In The 14 Days Before Symptom Onset, Have You Had Close Contact With A Laboratory-confir med COVID-19 While That Case Was Ill? No [id number] Information not available 04/29/2020 In The 14 Days Before Symptom Onset, Have You Had Close Contact With A Person Who Is Under Investigation For COVID-19 While That Person Was Ill? No [id number] Information not available 04/29/2020 Have You Been To An Area Known To Be High Risk For COVID-19? No [id number] Information not available 04/29/2020 What Type Of Diet Are You Following? REGULAR [id number] Information not available 04/29/2020 Which Illicit Or Recreational Drugs Have You Used? Occ Marijuana [id number] Information not available 04/29/2020 Have You Directly Handled Bats, Rodents, Or Primates From Ebola Endemic Areas? No [id number] Information not available 04/29/2020 Have You Processed Blood Or Body Fluids From An Ebola Virus Disease Patient Without Appropriate PPE? No [id number] Information not available 04/29/2020 Have You Had Household Contact With An Ebola Virus Disease Patient? No [id number] Information not available 04/29/2020 Have You Had Direct Contact With A Body In An Ebola-affected Area Without Appropriate PPE? No [id number] Information not available 04/29/2020 Have You Had Percutaneous (e.g. Needle Stick) Or Mucous Membrane Exposure To Blood Or Body Fluids From An Ebola Virus Disease Patient? No [id number] Information not available 04/29/2020 Have You Had Other Close Contact With An Ebola Virus Disease Patient In Health Care Facilities Or Community Settings? No [id number] Information not available 04/29/2020 Do You Reside In Or Have You Traveled To An Area Where Ebola Virus Transmission Is Active? No [id number] Information not available 04/29/2020 Marital Status Informatio n not available 04/04/2018 What Was The Date Of Your Most Recent Tobacco Screening? 12/17/2024 [email or web address] Information not available 12/17/2024 At What Age Did You Start Smoking Tobacco? 24 Information not available 04/06/2022 How Much Tobacco Do You Smoke? 0.5 PPD 1 Pack Will Last 2 Days. Information not available 04/06/2022 How Many Years Have You Smoked Tobacco? 24 [id number] Information not available 04/29/2020 Sex: Unknown Functional Status Question Answer Note LastModified by Organizat ion Details LastModified Time What is your level of alcohol consumption? Occasional [id number] Information not available 04/29/2020 Do you or have you ever used smokeless tobacco? 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 Never used electronic cigarettes [id number] Information not available 04/29/2020 What is your exercise level? None [id number] Information not available 04/29/2020 Mental Status None recorded. Family History Relationship Description Onset Age of this Age Resolved Age Notes LastModified by Organization Details LastModified Time Maternal Uncle Malignant tumor of colon [email or web address] Not available 2015 11:42:19 Medical History No medical history recorded. Immunizations Vaccine Type Date Status Note Provider Bao scott and Address Organization Details Recorded Time COVID-19, mRNA, LNP-S, PF, 30 mcg/0.3 mL dose 08/16/[address] [facility] 10/10/2021 17:12:17 COVID-19, mRNA, LNP-S, PF, 30 mcg/0.3 mL dose 02/13/[address] [facility] 10/10/2021 17:13:05 COVID-19, mRNA, LNP-S, PF, 30 mcg/0.3 mL dose 03/08/[address] [facility] 10/10/2021 17:13:14 COVID-19, mRNA, LNP-S, PF, 30 mcg/0.3 mL dose 04/10/2022 completed Ulysses Henderson MD [address], [place], [address], [facility] 05/01/2022 19:03:15 Past Encounters Encounter ID Performer Location Encounter Start Date Encounter Closed Date Diagnosis/Indication Diagnosis SNOMED-CT Code Diagnosis ICD10 Code Diagnosis Note [id number] Ulysses Henderson MD [facility], [facility] [address] [place] [address] 12/08/2015 14:48:18 12/08/2015 16:45:53 Benign essential hypertension 8046144 I10 -- controlled Hyperlipidemia 69144734 E78.5 -- Cholestero l to be repeated 3 weeks from 12/08/15 Nicotine dependence 5629 4008 F17.200 -- advised to Quit. Allergic rhinitis 431757 04 J30.9 -- doing well Obesity 079044560 E66.9 -- advised wt loss and pt gained 5 # since his last visit. Benign pro static hyperplasia without outflow obstruction 831829686 N40.0 -- Currently asymptomat ic; Will recheck PSA level around January 25, 2016 Diabetes mellitus 726559 09 E11.9 (New onset diagnosed on 07/27/15, for which patient did not show up on his October appointmen t; Patient will be referred to [facility] for diabetic teaching and nutritiona l counseling by dietitian. -- Labs will be done today 12/08/15 [id number] Ulysses Henderson MD [place] [employer], [employer] [address] [place] [address] 02/23/2016 10:41:20 02/23/2016 11:50:37 Coronary arteriosclerosis 90005329 I25.10 (AL s/p stent circumflex (100%) at [facility] on 02/07/16 -- pt reports he was not given Clopidogre l at discharge on 02/09/16 . I advised patient of the risk of heart attack he does not take clopidogre l. Benign ess ential hypertension 8674937 I10 -- BP uncontroll ed w/ plain lisinopril from [facility]; will go back to [facility] which pt prefers. Diabetes mellitus 894612 09 E11.9 (New onset diagnosed on 07/27/15-- Patient will be referred to [facility] for diabetic teaching and nutritiona l counseling by dietitian. -- check labs today 02/23/16 Hyperlipidemia 20662441 E78.5 -- check FLP today 02/23/16 Nicotine dependence 5629 4008 F17.200 -- advised to Quit. Allergic rhinitis 935528 04 J30.9 -- doing well Obesity 220361722 E66.9 -- advised wt loss and pt lost 8 # since his last visit. Benign pro static hyperplasia without outflow obstruction 109912342 N40.0 -- Currently asymptomat ic; Will recheck PSA level today 02/23/16. Hypogonadism 39474060 E2 9.1 Viagra 20mg tablets # [address] Henderson [id number] Ulysses Henderson MD [employer] [employer] [address] [place] [address] 05/28/2016 09:53:08 05/28/2016 11:51:19 Benign essential hypertension 5607439 I10 -- recheck labs today 05/28/16 Hyperlipidemia 77115311 E78.5 -- recheck labs today 05/28/16 Multi vess el coronary artery disease 240234608 I25.10 -- S/p premous drug eluting stents x [address] Lisandro Castro 02/08/16-- asymptomat ic Obesity 705335020 E66.9 -- advised wt loss and pt lost 13.5 # since his last visit.-- pt's BMI today is 32.7 Diabetes mellitus 446614 09 E11.9 (New onset diagnosed on 07/27/15-- Patient will be referred to [facility] for diabetic teaching and nutritiona l counseling by dietitian. -- recheck labs today 05/28/16 Nicotine dependence 5629 4008 F17.200 -- advised to Quit. Allergic rhinitis 845077 04 J30.9 -- doing well Benign pro static hyperplasia without outflow obstruction 687318038 N40.0 -- Currently asymptomat ic; Will recheck PSA level today 02/23/16. Screening for cancer 158 15287 Z12.9 Viral screening 57214466 4 Z11.59 Active or passive immunization 576549676 Z23 [id number] Ulysses Henderson MD [place] [email or web address] [facility], [facility] [address] [facility] [place] [address] 06/18/2016 11:03:20 06/18/2016 13:48:10 Obesity 451124333 E66.9 -- advised wt loss and pt lost 2.5 # since his last visit.-- pt's BMI today is 32.4 Multi vess el coronary artery disease 086277164 I25.10 -- S/p premous drug eluting stents x [address] Lisandro Castro 02/08/16-- asymptomat ic Active or passive immunization 634235258 Z23 -- Patient declines all vaccinatio n. Screening for cancer 158 71000 Z12.9 Benign ess ential hypertension 4158630 I10 -- recheck labs today 05/28/16 Viral screening 03652071 4 Z11.59 Hyperlipidemia 24078303 E78.5 -- recheck labs today 05/28/16 Allergic rhinitis 685216 04 J30.9 -- doing well Nicotine dependence 5629 4008 F17.200 -- advised to Quit. Benign pro static hyperplasia without outflow obstruction 116283548 N40.0 -- Currently asymptomat ic; Will recheck PSA level today 02/23/16. Type 2 melony betes mellitus without complication 544139753 E11.9 (New onset diagnosed on 07/27/15 -- Patient will be referred to [facility] for diabetic teaching and nutritiona l counseling by dietitian. -- pt did not like [employer] secretary; will refer patient to [facility] eye clinic -- recheck labs 08/29/16 [id number] LENCHO Busch- [employer], [facility] [address] [place] [address] 08/03/2016 12:40:28 08/03/2016 13:38:54 Impaired glucose tolerance 2571477 R73.09 [id number] LENCHO [facility] [email or web address] [facility] [address] [place] [address] 08/06/2016 14:39:51 08/06/2016 15:29:37 Type 2 diabetes mellitus 47311834 E11.9 One hour Post Parandial blood sugar today is 143 [id number] Ulysses eHnderson MD [place] [email or web address] [facility], [facility] [address] [place] [address] 08/28/2016 09:16:08 08/28/2016 10:40:44 Type 2 diabetes mellitus without complication 034796865 E11.9 (New onset diagnosed on 07/27/15 -- Patient will be referred to [facility] for diabetic teaching and nutritiona l counseling by dietitian. -- pt did not like [employer] al[employer]nae secretary; will refer patient to [facility] eye clinic -- recheck labs 08/29/16 Multi vess el coronary artery disease 669240609 I25.10 -- S/p premous drug eluting stents x [address] Lisandro Castro 02/08/16-- asymptomat ic Benign ess ential hypertension 2656667 I10 -- uncontroll ed; add Coreg 3.125 mg q12 Active or passive immunization 300363788 Z23 -- Patient declines all vaccinatio n. Screening for cancer 158 43853 Z12.9 Viral screening 77740098 4 Z11.59 Hyperlipidemia 98381367 E78.5 -- recheck labs today 05/28/16 Allergic rhinitis 656746 04 J30.9 -- doing well Benign pro static hyperplasia without outflow obstruction 639277930 N40.0 -- Currently asymptomat ic; Will recheck PSA level today 02/23/16. Nicotine dependence 5629 4008 F17.200 -- advised to Quit bc or increased risk of stroke, heart attacks, emphysema/ bronchitis , cancer, aneurysm, premature . Body mass index 30+ - obesity 519719966 Z68.39 -- advised wt loss and pt lost 2.5 # since his last visit. -- pt's BMI today is 32.4 Depression screening 171 859733 Z13.89 -- negative for any depression symptoms [id number] Ulysses Henderson MD [facility] [address] [place] [address] 01/08/2017 09:52:19 01/08/2017 11:41:09 Benign essential hypertension 9869902 I10 -- uncontroll ed; add Coreg 3.125 mg q12 Type 2 melony betes mellitus without complication 046951333 E11.9 (New onset diagnosed on 07/27/15 -- Patient will be referred to [facility] for diabetic teaching and nutritiona l counseling by dietitian. -- pt did not like Ophthalmol ogist Dr Nayak's alumnae secretary; will refer patient to [facility] eye clinic -- recheck labs 08/29/16 Multi vess el coronary artery disease 949598124 I25.10 -- S/p premous drug eluting stents x [address] Lisandro Castro 02/08/16-- asymptomat ic Hyperlipidemia 65274210 E78.5 -- recheck labs today 05/28/16 Body mass index 30+ - obesity 697967706 Z68.39 -- advised wt loss and pt lost 3 # since his last visit. -- pt's BMI today is 32.4 Active or passive immunization 660531230 Z23 -- Patient declines all vaccinatio n. Viral screening 98840690 4 Z11.59 -- Hepatitis C antibody is nonreactiv e on 08/28/16 Allergic rhinitis 126580 04 J30.9 -- doing well Benign pro static hyperplasia without outflow obstruction 661109845 N40.0 -- Currently asymptomat ic; -- PSA level of 1.016 on 08/28/16 Nicotine dependence 5629 4008 F17.200 -- advised to Quit bc or increased risk of stroke, heart attacks, emphysema/ bronchitis , cancer, aneurysm, premature . Depression screening 171 431409 Z13.89 -- negative for any depression symptoms Adult heal th examination 080315870 Z00.00 Vertigo 271258495 R42 -- counseled on exercise Screening for malignant neoplasm of colon 861094858 Z12.11 -- Patient reports he had a normal colonoscop y with gastroente rologist Dr. Hawkins in 2016; will try to obtain records. Screening for malignant neoplasm of prostate 090944873 Z12.5 -- PSA level of 1.016 on 08/28/16 [id number] Ulysses Henderson MD [facility] [employer] [address] [place] [address] 02/22/2017 09:00:42 02/22/2017 10:18:29 Vertigo 434519332 R42 -- resolved w/ rare recurrence (at most --> once every 2 weeks) Type 2 melony betes mellitus without complication 294997097 E11.9 (New onset diagnosed on 07/27/15 -- Patient will be referred to [facility] for diabetic teaching and nutritiona l counseling by dietitian. -- pt did not like Ophthalmol ogist Dr Nayak's alumnae secretary; will refer patient to [facility] eye clinic -- recheck labs on 04/11/17 Benign ess ential hypertension 2522906 I10 -- uncontroll ed; add Coreg 3.125 mg q12-- recheck labs on 04/11/17 Multi vess el coronary artery disease 015441686 I25.10 -- S/p 'Premous' drug eluting stents x [address] Lisandro Falcon on 02/08/16-- asymptomat ic Hyperlipidemia 46421889 E78.5 -- recheck labs on 04/11/17 Body mass index 30+ - obesity 148738671 Z68.39 -- advised wt loss and pt gained 6 # since his last visit. -- pt's BMI today is 33.2 (ideal is between 20-25). Active or passive immunization 398535534 Z23 -- Patient declines all vaccinatio n. Viral screening 66547171 4 Z11.59 -- Hepatitis C antibody is nonreactiv e on 08/28/16 Allergic rhinitis 879609 04 J30.9 -- doing well Benign pro static hyperplasia without outflow obstruction 912021535 N40.0 -- Currently asymptomat ic; -- PSA level of 1.016 on 08/28/16 Nicotine dependence 5629 4008 F17.200 -- advised to Quit bc or increased risk of stroke, heart attacks, emphysema/ bronchitis , cancer, aneurysm, premature . Depression screening 171 861658 Z13.89 -- negative for any depression symptoms Screening for malignant neoplasm of colon 033545213 Z12.11 -- Patient reports he had a normal colonoscop y with gastroente rologist Dr. Hawkins in 2015; will try to obtain records. Screening for malignant neoplasm of prostate 131411038 Z12.5 -- PSA level of 1.016 on 08/28/16 [id number] Ulysses Henderson MD [facility] [employer], [facility] [address] [place] [address] 06/26/2017 15:26:07 06/26/2017 17:19:22 Type 2 diabetes mellitus without complication 842048180 E11.9 (New onset diagnosed on 07/27/15 -- Patient will be referred to [facility] for diabetic teaching and nutritiona l counseling by dietitian. -- pt did not like Ophthalmol ogist Dr Nayak's alumnae secretary; will refer patient to [facility] eye clinic -- recheck labs on 04/11/17 Benign ess ential hypertension 7054493 I10 -- uncontroll ed; increase carvedilol from 6.25 mg to 12.5 mg 1 tab every 12 hours-- recheck labs on 04/11/17 Multi vess el coronary artery disease 052977635 I25.10 -- S/p 'Premous' drug eluting stents x [address] Lisandro Falcon on 02/08/16-- asymptomat ic Hyperlipidemia 35689030 E78.5 -- recheck labs on 04/11/17 Body mass index 30+ - obesity 999594757 Z68.39 -- advised wt loss and pt lost 1 # since his last visit. -- pt's BMI today is 33.1 (ideal is between 20-25). Active or passive immunization 296823506 Z23 -- Patient declines all vaccinatio n. Viral screening 63233145 4 Z11.59 -- Hepatitis C antibody is nonreactiv e on 08/28/16 Allergic rhinitis 979820 04 J30.9 -- doing well Benign pro static hyperplasia without outflow obstruction 587398877 N40.0 -- Currently asymptomat ic; -- PSA level of 1.016 on 08/28/16 Nicotine dependence 5629 4008 F17.200 -- advised to Quit bc or increased risk of stroke, heart attacks, emphysema/ bronchitis , cancer, aneurysm, premature . Depression screening 171 018782 Z13.89 -- negative for any depression symptoms Screening for malignant neoplasm of colon 122280049 Z12.11 -- Patient reports he had a normal colonoscop y with gastroente rologist Dr. Hawkins in 2016; will try to obtain records. Screening for malignant neoplasm of prostate 811540936 Z12.5 -- PSA level of 1.016 on 08/28/16 Diverticul itis of colon 749262443 K57.32 -- resolved w/ occ flare-- refer pt to Gastroente rologist Dr. Hawkins for further evaluation [id number] Ulysses Henderson MD [facility], [facility] [address] [place] [address] 07/17/2017 15:33:32 07/17/2017 16:22:54 Type 2 diabetes mellitus without complication 656846628 E11.9 (diagnosed on 07/27/15) -- Patient was referred to [facility] for diabetic teaching and nutritiona l counseling by dietitian. -- pt did not like Ophthalmol ogist Dr Nayak's alumnae secretary; referred patient to [facility] eye clinic -- A1c worsened (was 6.6 on 01/08/17 --> 7.8 on 06/26/17)P t will need to restrict Carbohydra janie intake like : ice-cream, sweet sugar treats, rice, potatoes, sweet potatoes (yams), bananas, corn products (popcorn, corn muffin, corn bread, cornflakes , corn ), oats, flour products (pasta, bread, bagel, muffins, donuts, biscuits, cookies, crackers, pancakes, waffle &/or Alcohol. -- recheck labs on 09/26/17 Change Glyxambi and Metformin to Synjardy and Januvia due to formulary Benign ess ential hypertension 0366395 I10 -- uncontroll ed; increase carvedilol from 6.25 mg to 12.5 mg 1 tab every 12 hours-- recheck labs on 09/26/17 Multi vess el coronary artery disease 681668777 I25.10 -- S/p 'Premous' drug eluting stents x [address] Lisandro Falcon on 02/08/16-- asymptomat ic-- recheck labs on 09/26/17 Hyperlipidemia 81984082 E78.5 -- recheck labs on 09/26/17 Body mass index 30+ - obesity 733588592 Z68.39 -- advised wt loss and pt lost 1 # since his last visit. -- pt's BMI today is 32.9 (ideal is between 20-25). Diverticul itis of colon 505579807 K57.32 -- resolved w/ occ flare-- referred pt to Gastroente rologist Dr. Hawkins for further evaluation Active or passive immunization 622371851 Z23 -- Patient declines all vaccinatio n. Viral screening 12807345 4 Z11.59 -- Hepatitis C antibody is nonreactiv e on 08/28/16 Allergic rhinitis 127096 04 J30.9 -- doing well Benign pro static hyperplasia without outflow obstruction 128506844 N40.0 -- Currently asymptomat ic; -- PSA level of 1.016 on 08/28/16-- recheck labs on 09/26/17 Nicotine dependence 5629 4008 F17.200 -- advised to Quit bc or increased risk of stroke, heart attacks, emphysema/ bronchitis , cancer, aneurysm, premature .-- Quit smoking same day on his last visit on 06/26/17 Depression screening 171 043855 Z13.89 -- negative for any depression symptoms Screening for malignant neoplasm of colon 267885364 Z12.11 -- Patient reports he had a normal colonoscop y with gastroente rologist Dr. Hawkins in 2016; will try to obtain records. Screening for malignant neoplasm of prostate 376987515 Z12.5 -- PSA level of 1.016 on 08/28/16 Antiplatel et agent therapy 855516139 Z79.02 -- pt advised to start otc Aspirin 81 mg qd [id number] Ulysses Henderson MD [facility] [facility], [facility] [address] [place] [address] 01/06/2018 16:17:44 01/06/2018 18:04:02 Paresthesia of hand 656921804 R20.2 (bilateral pinky) Type 2 melony betes mellitus without complication 820416455 E11.9 (diagnosed on 07/27/15) -- Patient was referred to [facility] for diabetic teaching and nutritiona l counseling by dietitian. -- pt did not like Ophthalmol ogist Dr Nayak's alumnae secretary; referred patient to [facility] eye clinic -- A1c worsened (was 6.6 on 01/08/17 --> 7.8 on 06/26/17)P t will need to restrict Carbohydra janie intake like : ice-cream, sweet sugar treats, rice, potatoes, sweet potatoes (yams), bananas, corn products (popcorn, corn muffin, corn bread, cornflakes , corn ), oats, flour products (pasta, bread, bagel, muffins, donuts, biscuits, cookies, crackers, pancakes, waffle &/or Alcohol. -- recheck labs on 09/26/17 Change Glyxambi and Metformin to Synjardy and Januvia due to formulary Benign ess ential hypertension 2683891 I10 -- uncontroll ed; increase carvedilol from 6.25 mg to 12.5 mg 1 tab every 12 hours-- recheck labs on 09/26/17 Multi vess el coronary artery disease 869790336 I25.10 -- S/p 'Premous' drug eluting stents x [address] Lisandro Falcon on 02/08/16-- asymptomat ic-- recheck labs on 09/26/17 Hyperlipidemia 46463281 E78.5 -- recheck labs on 09/26/17 Body mass index 30+ - obesity 073776801 Z68.39 -- advised wt loss and pt lost 5 # since his last visit. -- pt's BMI today is 32.2 (ideal is between 20-25). Diverticul itis of colon 675732248 K57.32 -- resolved w/ occ flare-- referred pt to Gastroente rologist Dr. Hawkins for further evaluation Active or passive immunization 078343367 Z23 -- Patient declines all vaccinatio n. Viral screening 27909724 4 Z11.59 -- Hepatitis C antibody is nonreactiv e on 08/28/16 Allergic rhinitis 647615 04 J30.9 -- doing well Benign pro static hyperplasia without outflow obstruction 516140128 N40.0 -- Currently asymptomat ic; -- PSA level of 1.016 on 08/28/16-- recheck labs on 09/26/17 Nicotine dependence 5629 4008 F17.200 -- advised to Quit bc or increased risk of stroke, heart attacks, emphysema/ bronchitis , cancer, aneurysm, premature .-- Quit smoking same day on his last visit on 06/26/17 Depression screening 171 565157 Z13.89 -- negative for any depression symptoms Screening for malignant neoplasm of colon 336798556 Z12.11 -- Patient reports he had a normal colonoscop y with gastroente rologist Dr. Hawkins in 2015; will try to obtain records. Screening for malignant neoplasm of prostate 963976425 Z12.5 -- PSA level of 1.016 on 08/28/16 Antiplatel et agent therapy 804807379 Z79.02 -- pt advised to start otc Aspirin 81 mg qd Pain in toe 074135837 M7 9.674 (right MTP) [id number] Ulysses Henderson MD [facility] [address] [place] [address] 04/04/2018 10:20:39 04/04/2018 11:52:02 Adult health examination 821829641 Z00.00 Paresthesia of hand 3090 39298 R20.2 (bilateral pinky) Type 2 melony betes mellitus without complication 774653639 E11.9 (diagnosed on 07/27/15) -- Patient was referred to [facility] for diabetic teaching and nutritiona l counseling by dietitian. -- pt did not like Ophthalmol ogist Dr Nayak's alumnae secretary; -- referred patient to [facility] eye clinic but pt did not make appt -- A1c worsened (was 6.6 on 01/08/17 --> 7.8 on 06/26/17 --> 8.0)-- Pt will need to limit Carbohydra janie intake to less than 60 gram per meal & also less than 180 gram per day. Examples of Carbohydra janie are : ice-cream, sweet sugar treats, rice, potatoes, sweet potatoes (yams), bananas, corn products (popcorn, corn muffin, corn bread, cornflakes , corn ), oats, flour products (pasta, bread, bagel, muffins, donuts, biscuits, cookies, crackers, pancakes, waffle &/or Alcohol. -- recheck labs on 04/10/18-- changed Bydureon & Synjardy to Michele Benign ess ential hypertension 4151758 I10 -- uncontroll ed; Cardiologi st Dr Garry Falcon has discontinu ed carvedilol because of ED -- recheck labs on 04/10/18 Multi vess el coronary artery disease 033618488 I25.10 -- S/p 'Premous' drug eluting stents x [address] Lisandro Falcon on 02/08/16-- asymptomat ic; Cardiologi st Dr Falcon states pt needs to be on both Aspirin & Brillinta 60 mg bid-- recheck labs on 04/10/18 Hyperlipidemia 59006266 E78.5 -- recheck labs on 09/26/17 Body mass index 30+ - obesity 494771801 Z68.39 -- advised wt loss and pt lost 14 # since his last visit. -- pt's BMI today is 30.3 (ideal is between 20-25). Pain in toe 913232866 M7 9.674 (right MTP) -- resolved Allergic rhinitis 395915 04 J30.9 -- doing well Benign pro static hyperplasia without outflow obstruction 654391217 N40.0 -- Currently asymptomat ic; -- PSA level of 1.016 on 08/28/16-- recheck labs on 09/26/17 Nicotine dependence 5629 4008 F17.200 -- advised to Quit bc or increased risk of stroke, heart attacks, emphysema/ bronchitis , cancer, aneurysm, premature .-- Quit smoking same day on his last visit on 06/26/17 Antiplatel et agent therapy 235164312 Z79.02 -- pt advised to start otc Aspirin 81 mg qd Depression screening 171 011295 Z13.89 -- negative for any depression symptoms Viral screening 16070359 4 Z11.59 -- Hepatitis C antibody is nonreactiv e on 08/28/16 Active or passive immunization 797394145 Z23 -- Patient declines all vaccinatio n. Screening for malignant neoplasm of colon 077103720 Z12.11 -- Patient reports he had a normal colonoscop y with gastroente rologist Dr. Hawkins in 2015; will try to obtain records. Screening for malignant neoplasm of prostate 783139543 Z12.5 -- PSA level of 1.3 on 01/07/18 Peripheral vascular disease 392184851 I73.9 [place] is absent bilateral dorsal pedis pulses) -- check ANNEMARIE Abscess of buttock 78949 003 L02.31 (left buttock) -- will refer pt to surgery today [id number] Ulysses Henderson MD [facility], [facility] [address] [place] [address] 12/26/2018 11:16:03 12/26/2018 13:09:23 Abscess of buttock 03569799 L02.31 (left buttock; resolved after ABx but now recurs again) -- will refer pt to surgery today Paresthesia of hand 3090 23754 R20.2 (bilateral pinky) -- Tx by Hand Surgeon Dr Sophia Woodruff on 04/29/18 for cubital tunnel syndr Type 2 melony betes mellitus without complication 089879937 E11.9 (diagnosed on 07/27/15) -- Patient was referred to [facility] for diabetic teaching and nutritiona l counseling by dietitian multiple times but pt has not made appt yet. -- pt did not like Ophthalmol ogist Dr Nayak's alumnae secretary; -- referred patient to [facility] eye clinic but pt did not make appt -- A1c worsened (was 6.6 on 01/08/17 --> 7.8 on 06/26/17 --> 8.0)-- Pt will need to limit Carbohydra janie intake to less than 50 gram per meal & also less than 150 gram per day. Examples of Carbohydra janie are : ice-cream, sweet sugar treats, rice, potatoes, sweet potatoes (yams), bananas, corn products (popcorn, corn muffin, corn bread, cornflakes , corn ), oats, flour products (pasta, bread, bagel, muffins, donuts, biscuits, cookies, crackers, pancakes, waffle &/or Alcohol. -- start Steglatro; pt counseled on genitalia hygiene, increased fluids, and risk of gentalia gangrene.- - recheck labs today 12/26/18 Benign ess ential hypertension 4990479 I10 -- uncontroll ed as pt has been missing meds a lot & not getting refills; Cardiologi st Dr Garry Falcon has discontinu ed carvedilol because of ED-- recheck labs today 12/26/18 Multi vess el coronary artery disease 798389421 I25.10 -- S/p 'Premous' drug eluting stents x [address] Lisandro Falcon on 02/08/16-- asymptomat ic; Cardiologi st Dr Falcon states pt needs to be on both Aspirin & Brillinta 60 mg bid-- recheck labs today 12/26/18 Hyperlipidemia 33436340 E78.5 -- recheck labs today 12/26/18 Body mass index 30+ - obesity 942721502 Z68.33 -- advised wt loss and pt gained 21 # since his last visit. -- pt's BMI today is 33.2 (ideal is between 20-25). Peripheral vascular disease 462195242 I73.9 [place] is absent bilateral dorsal pedis pulses) -- ordered ANNEMARIE but not done. Allergic rhinitis 430339 04 J30.9 -- doing well Benign pro static hyperplasia without outflow obstruction 237820664 N40.0 -- Currently asymptomat ic; -- PSA level of 1.3 on 01/07/18-- check PSA on 01/06/19 Nicotine dependence 5629 4008 F17.200 -- advised to Quit bc or increased risk of stroke, heart attacks, emphysema/ bronchitis , cancer, aneurysm, premature .-- Quit smoking same day on his last visit on 06/26/17 Antiplatel et agent therapy 742362612 Z79.02 -- pt advised to start otc Aspirin 81 mg qd Depression screening 171 864773 Z13.89 -- negative for any depression symptoms Active or passive immunization 484731956 Z23 -- Patient declines all vaccinatio n. Screening for malignant neoplasm of colon 093808177 Z12.11 -- Patient reports he had a normal colonoscop y with gastroente rologist Dr. Hawkins in 2016; will try to obtain records. Screening for malignant neoplasm of prostate 709303531 Z12.5 -- PSA level of 1.3 on 01/07/18 Hepatitis C screening 41 9537431 Z11.59 -- Hepatitis C antibody is nonreactiv e on 08/28/16 [id number] Ulysses Henderson MD [facility] [address] [place] [address] 04/27/2019 12:00:00 04/27/2019 14:10:48 Noncompliance with treatment 4838252 Z91.19 non compliance with ophthalBP and DM were uncontroll ed as pt has been missing meds a lot & not getting refills including Plavix Multi vess el coronary artery disease 747148212 I25.10 -- S/p 'Premous' drug eluting stents x [address] Lisandro Falcon on 02/08/16-- asymptomat ic; Cardiologi st Dr Falcon states pt needs to be on both Aspirin & Brillinta 60 mg bid.-- Pt never filled Brillinta. Pt is on Plavix Type 2 melony betes mellitus without complication 215185038 E11.9 (diagnosed on 07/27/15) -- referred patient to [facility] eye clinic but pt did not make appt A1c worsened 6.6 % -->7.8 %---> 8.0 % ---> 10.8 % -- Pt will need to limit Carbohydra janie intake to less than 50 gram per meal & also less than 150 gram per day. Examples of Carbohydra janie are : ice-cream, sweet sugar treats, rice, potatoes, sweet potatoes (yams), bananas, corn products (popcorn, corn muffin, corn bread, cornflakes , corn ), oats, flour products (pasta, bread, bagel, muffins, donuts, biscuits, cookies, crackers, pancakes, waffle &/or Alcohol. -- start Steglatro; pt counseled on genitalia hygiene, increased fluids, and risk of genitalia gangrene. Hypertriglyceridemia 302 621743 E78.2 -- advise pt to limit Carbohydra janie to less than 50 gram per meal & also less than 150 grams a day. Examples of Carbohydra janie are: ice-cream, sweet sugar treats, rice, potatoes, sweet potatoes (yams), bananas, corn products (popcorn, corn muffin, corn bread, cornflakes , corn ), oats, flour products (pasta, bread, bagel, muffins, donuts, biscuits, cookies, crackers, pancakes, waffle, cakes, pies &/or Alcohol. ^ Triglyceri cosmo -- start Lovaza 2 capsule twice a day. LDL was controlled at 48, HDL 36 and Trig 525 on 12/26/2018 Benign ess ential hypertension 1963849 I10 -- uncontroll ed as pt has been missing meds a lot & not getting refills; Cardiologi st Dr Garry Falcon has discontinu ed carvedilol because of ED Body mass index 30+ - obesity 525943107 Z68.33 -- advised wt loss and pt gained 21 # since his last visit. -- pt's BMI today is 33.2 (ideal is between 20-25). Benign pro static hyperplasia without outflow obstruction 583576724 N40.0 -- Currently asymptomat ic; -- PSA level of 1.3 on 01/07/18-- check PSA on 01/06/19 -- not done Antiplatel et agent therapy 581658116 Z79.02 -- pt advised to start otc Aspirin 81 mg qd Depression screening 171 173121 Z13.89 -- negative for any depression symptoms Hepatitis C screening 41 1912650 Z11.59 -- Hepatitis C antibody is nonreactiv e on 08/28/16 Active or passive immunization 975535930 Z23 -- Patient declines all vaccinatio n. Screening for malignant neoplasm of colon 678616731 Z12.11 -- Patient reports he had a normal colonoscop y with gastroente rologist Dr. Hawkins in 06/20/2015. Repeat in 5 years -- 06/20/2020 Screening for malignant neoplasm of prostate 074249374 Z12.5 -- PSA level of 1.3 on 01/07/18 Ex-smoker 2432833 Z87.89 1 -- Quit smoking on 06/26/17 Hyperlipidemia 20162971 E78.5 LDL was controlled at 48, HDL 36 and Trig 525 on 12/26/2018 Primary er ectile dysfunction 467756649 N52.9 Intermitte nt claudication 17287176 I73.9 (bilateral hamstrig)- - absent bilateral dorsal pedis pulses)-- ordered ANNEMARIE but not done. [id number] Ulysses Henderson MD [facility] [address] [place] [address] 08/31/2019 17:03:48 08/31/2019 19:18:05 Noncompliance with treatment 7052523 Z91.19 non compliance with ophthal, blood testings, followup appt, and meds.-- pt counseled. Multi vess el coronary artery disease 281521432 I25.10 -- S/p 'Premous' drug eluting stents x [address] Lisandro Falcon on 02/08/16-- asymptomat ic; Cardiologi st Dr Falcon states pt needs to be on both Aspirin & Brillinta 60 mg bid.-- Pt never filled Brillinta. Pt is on Plavix Type 2 melony betes mellitus without complication 647302150 E11.9 (diagnosed on 07/27/15) -- referred patient to [facility] eye clinic but pt did not make appt A1c worsened 6.6 % -->7.8 %---> 8.0 % ---> 10.8 % -- Pt will need to limit Carbohydra janie intake to less than 50 gram per meal & also less than 150 gram per day. Examples of Carbohydra janie are : ice-cream, sweet sugar treats, rice, potatoes, sweet potatoes (yams), bananas, corn products (popcorn, corn muffin, corn bread, cornflakes , corn ), oats, flour products (pasta, bread, bagel, muffins, donuts, biscuits, cookies, crackers, pancakes, waffle &/or Alcohol. -- start Steglatro; pt counseled on genitalia hygiene, increased fluids, and risk of genitalia gangrene. Hypertriglyceridemia 302 588680 E78.2 -- advise pt to limit Carbohydra janie to less than 50 gram per meal & also less than 150 grams a day. Examples of Carbohydra janie are: ice-cream, sweet sugar treats, rice, potatoes, sweet potatoes (yams), bananas, corn products (popcorn, corn muffin, corn bread, cornflakes , corn ), oats, flour products (pasta, bread, bagel, muffins, donuts, biscuits, cookies, crackers, pancakes, waffle, cakes, pies &/or Alcohol. ^ Triglyceri cosmo -- start Lovaza 2 capsule twice a day. LDL was controlled at 48, HDL 36 and Trig 525 on 12/26/2018 Benign ess ential hypertension 3832219 I10 -- uncontroll ed as pt has been missing meds a lot & not getting refills; Cardiologi st Dr Garry Falcon has discontinu ed carvedilol because of ED Hyperlipidemia 75667239 E78.5 LDL was controlled at 48, HDL 36 and Trig 525 on 12/26/2018 Body mass index 30+ - obesity 127004257 Z68.32 -- advised wt loss and pt gained 1 # since his last visit. -- pt's BMI today is 32.9(ideal is between 20-25). Benign pro static hyperplasia without outflow obstruction 178490699 N40.0 -- Currently asymptomat ic; -- PSA level of 1.3 on 01/07/18-- check PSA on 01/06/19 -- not done-- re-reorder labs to be done today 08/31/19 Intermitte nt claudication 81296022 I73.9 (bilateral hamstrig)- - absent bilateral dorsal pedis pulses)-- ordered ANNEMARIE but not done.-- d-dimer ordered but not done. Ex-smoker 6030141 Z87.89 1 -- Quit smoking on 06/26/17 Primary er ectile dysfunction 053866170 N52.9 Antiplatel et agent therapy 167862694 Z79.02 -- pt advised to start otc Aspirin 81 mg qd Depression screening 171 693830 Z13.89 -- negative for any depression symptoms Hepatitis C screening 41 4537557 Z11.59 -- Hepatitis C antibody is nonreactiv e on 08/28/16 Active or passive immunization 746163695 Z23 -- Patient declines all vaccinatio n. Screening for malignant neoplasm of colon 479482329 Z12.11 -- Patient reports he had a normal colonoscop y with gastroente rologist Dr. Hawkins in 06/20/2015. Repeat in 5 years -- 06/20/2020 Screening for malignant neoplasm of prostate 573737619 Z12.5 -- PSA level of 1.3 on 01/07/18-- re-reorder labs to be done today 08/31/19 Furunculos is of skin AND/OR subcutaneous tissue 11230739 L02.92 (mild on left buttock) [id number] Ulysses Henderson MD [place] [employer], [facility] [address] [place] [address] 12/14/2019 10:53:11 12/14/2019 12:39:33 Adult health examination 826110646 Z00.00 Furunculos is of skin AND/OR subcutaneous tissue 31207870 L02.92 (mild on left buttock) -- resolved Multi vess el coronary artery disease 253282611 I25.10 (AL s/p stent circumflex (100%) at [facility] on 02/07/16 -- pt reports he was not given Clopidogre l at discharge on 02/09/16 . I advised patient of the risk of heart attack if he does not take clopidogre l.-- S/p 'Premous' drug eluting stents x [address] Lisandro Falcon on 02/08/16-- asymptomat ic; Cardiologi st Dr Falcon states pt needs to be on both Aspirin & Plavix Type 2 melony betes mellitus without complication 550694929 E11.9 (diagnosed on 07/27/15) -- referred patient to [facility] eye clinic but pt did not make appt A1c worsened 6.6 % -->7.8 %---> 8.0 % ---> 10.8 % -- Pt will need to limit Carbohydra janie intake to less than 50 gram per meal & also less than 150 gram per day. Examples of Carbohydra janie are : ice-cream, sweet sugar treats, rice, potatoes, sweet potatoes (yams), bananas, corn products (popcorn, corn muffin, corn bread, cornflakes , corn ), oats, flour products (pasta, bread, bagel, muffins, donuts, biscuits, cookies, crackers, pancakes, waffle &/or Alcohol. -- start Steglatro; pt counseled on genitalia hygiene, increased fluids, and risk of genitalia gangrene. Noncomplia nce with treatment 3045471 Z91.19 non compliance with ophthal, blood testings, followup appt, and meds.-- pt counseled. Hypertriglyceridemia 302 438946 E78.2 -- advise pt to limit Carbohydra janie to less than 50 gram per meal & also less than 150 grams a day. Examples of Carbohydra janie are: ice-cream, sweet sugar treats, rice, potatoes, sweet potatoes (yams), bananas, corn products (popcorn, corn muffin, corn bread, cornflakes , corn ), oats, flour products (pasta, bread, bagel, muffins, donuts, biscuits, cookies, crackers, pancakes, waffle, cakes, pies &/or Alcohol. ^ Triglyceri cosmo -- start Lovaza 2 capsule twice a day. LDL was controlled at 48, HDL 36 and Trig 525 on 12/26/2018 Benign ess ential hypertension 2774173 I10 -- uncontroll ed as pt has been missing meds a lot & not getting refills; Cardiologi st Dr Garry Falcon has discontinu ed carvedilol because of ED Hyperlipidemia 34113868 E78.5 LDL was controlled at 48, HDL 36 and Trig 525 on 12/26/2018 Body mass index 30+ - obesity 999106015 Z68.32 -- advised wt loss and pt lost 9 # since his last visit. -- pt's BMI today is 31.7 (ideal is between 20-25). Benign pro static hyperplasia without outflow obstruction 407000541 N40.0 -- Currently asymptomat ic; -- PSA level of 1.3 on 01/07/18-- check PSA on 01/06/19 -- not done-- need to repeat PSA in Feb 2020 Intermitte nt claudication 16418081 I73.9 (bilateral hamstrig)- - absent bilateral dorsal pedis pulses)-- ordered ANNEMARIE but not done.-- d-dimer ordered but not done. Ex-smoker 6354844 Z87.89 1 -- Quit smoking on 06/26/17 Primary er ectile dysfunction 772279110 N52.9 Antiplatel et agent therapy 957953681 Z79.02 -- pt advised to start otc Aspirin 81 mg qd Depression screening 171 869451 Z13.89 -- negative for any depression symptoms Hepatitis C screening 41 5794997 Z11.59 -- Hepatitis C antibody is nonreactiv e on 08/28/16 Active or passive immunization 168206734 Z23 -- Patient declines all vaccinatio n. Screening for malignant neoplasm of colon 322042215 Z12.11 -- Patient reports he had a normal colonoscop y with gastroente rologist Dr. Hawkins in 06/20/2015. Repeat in 5 years -- 06/20/2020 Screening for malignant neoplasm of prostate 741231857 Z12.5 -- PSA level of 1.3 on 01/07/18 --> 1.0 ( 09/01/19) [id number] Ulysses Henderson MD [place] [employer], [facility] [address] [place] [address] 01/28/2020 10:56:03 01/28/2020 12:21:50 Uncontrolled type 2 diabetes mellitus 961229381 E11.65 (diagnosed on 07/27/15) -- Patient referred to [facility] for diabetic teaching and nutritiona l counseling by dietitian. -- ordered labs on 12/14/19 but not done.-- will re-order labs today Multi vess el coronary artery disease 672413221 I25.10 (AL s/p stent circumflex (100%) at [facility] on 02/07/16 -- pt reports he was not given Clopidogre l at discharge on 02/09/16 . I advised patient of the risk of heart attack if he does not take clopidogre l.-- S/p 'Premous' drug eluting stents x [address] Lisandro Falcon on 02/08/16-- asymptomat ic; Cardiologi st Dr Falcon states pt needs to be on both Aspirin & Plavix Noncomplia nce with treatment 4280897 Z91.19 non compliance with ophthal, blood testings, followup appt, and meds.-- pt counseled. Essential hypertension 80633434 I10 -- uncontroll ed as pt has been missing meds a lot & not getting refills; Cardiologi st Dr Garry Falcon has discontinu ed carvedilol because of ED Hyperlipidemia 59769772 E78.5 LDL was controlled at 48, HDL 36 and Trig 525 on 12/26/2018 Body mass index 30+ - obesity 203186048 Z68.31 -- advised wt loss and pt lost 1 # since his last visit. -- pt's BMI today is 31.5 (ideal is between 20-25). Ex-smoker 4160934 Z87.89 1 -- Quit smoking on 06/26/17 Abscess of buttock 02471 003 L02.31 s/p excision by Dr Daly -- see photo [id number] Ulysses Henderson MD [place] [employer], [facility] [address] [place] [address] 03/16/2020 15:59:27 03/16/2020 18:30:16 Abscess of buttock 78632108 L02.31 s/p excision by Dr Daly -- see photo-- resolved without new sx Uncontroll ed type 2 diabetes mellitus 195300248 E11.65 (diagnosed on 07/27/15) -- Patient referred to [facility] for diabetic teaching and nutritiona l counseling by dietitian. -- ordered labs on 12/14/19 but not done.-- recheck lab(s) on 05/03/20 Multi vess el coronary artery disease 909069143 I25.10 (AL s/p stent circumflex (100%) at [facility] on 02/07/16 -- pt reports he was not given Clopidogre l at discharge on 02/09/16 . I advised patient of the risk of heart attack if he does not take clopidogre l.-- S/p 'Premous' drug eluting stents x [address] Lisandro Falcon on 02/08/16-- asymptomat ic; Cardiologi st Dr Falcon states pt needs to be on both Aspirin & Plavix Noncomplia nce with treatment 8271523 Z91.19 non compliance with ophthal, blood testings, followup appt, and meds.-- pt counseled. Essential hypertension 17553329 I10 -- uncontroll ed as pt has been missing meds a lot & not getting refills; Cardiologi st Dr Garry Falcon has discontinu ed carvedilol because of ED Hyperlipidemia 52422164 E78.5 -- you will also need to limit egg yolks to 2 yolks a week (but as many egg whites he wants). -- Avoid Johnson, -- avoid Cheese (cheese on burgers, Pizza, lasagna, Mookie, Parmesan), -- trim off fatty rubbery meat before consuming, -- avoid butter & Margarine, -- No whole milk or 2% milk (but 1%, 1/2% & fat free milk is fine). Body mass index 30+ - obesity 557078467 Z68.31 -- advised wt loss and pt lost 4 # since his last visit. -- pt's BMI today is 31 (ideal is between 20-25). Ex-smoker 7756535 Z87.89 1 -- Quit smoking on 06/26/17 Primary er ectile dysfunction 085461905 N52.9 [id number] Ulysses Henderson MD [facility], [facility] [address] [place] [address] 05/16/2020 14:29:00 05/16/2020 16:09:36 Uncontrolled type 2 diabetes mellitus 652184839 E11.65 (diagnosed on 07/27/15) -- Patient referred to [facility] for diabetic teaching and nutritiona l counseling by dietitian. -- ordered labs on 12/14/19 but not done.-- recheck lab(s) tomorrow 05/17/20 Multi vess el coronary artery disease 588072263 I25.10 (AL s/p stent circumflex (100%) at [facility] on 02/07/16 -- pt reports he was not given Clopidogre l at discharge on 02/09/16 . I advised patient of the risk of heart attack if he does not take clopidogre l.-- S/p 'Premous' drug eluting stents x [address] Lisandro Falcon on 02/08/16-- asymptomat ic; Cardiologi st Dr Falcon states pt needs to be on both Aspirin & Plavix-- recheck lab(s) tomorrow 05/17/20 Noncomplia nce with treatment 3200829 Z91.19 non compliance with ophthal, blood testings, followup appt, and meds.-- pt counseled. Essential hypertension 72184305 I10 -- uncontroll ed as pt has been missing meds a lot & not getting refills; Cardiologi st Dr Garry Falcon has discontinu ed carvedilol because of ED-- recheck lab(s) tomorrow 05/17/20 Hyperlipidemia 07922632 E78.5 -- you will also need to limit egg yolks to 2 yolks a week (but as many egg whites he wants). -- Avoid Johnson, -- avoid Cheese (cheese on burgers, Pizza, lasagna, Mookie, Parmesan), -- trim off fatty rubbery meat before consuming, -- avoid butter & Margarine, -- No whole milk or 2% milk (but 1%, 1/2% & fat free milk is fine).-- recheck lab(s) tomorrow 05/17/20 Body mass index 30+ - obesity 642438177 Z68.31 -- advised wt loss and pt gained 6 # since his last visit. -- pt's BMI today is 31.8 (ideal is between 20-25). Ex-smoker 4105268 Z87.89 1 -- Quit smoking on 06/26/17 Primary er ectile dysfunction 812299173 N52.9 Reduced libido 8428802 R 68.82 -- recheck lab(s) tomorrow 05/17/20 [id number] Ulysses Henderson MD [facility] [address] [place] [address] 06/15/2020 14:53:00 06/15/2020 16:42:46 Type 2 diabetes mellitus without complication 788944626 E11.9 (diagnosed on 07/27/15) -- referred patient to [facility] eye clinic but pt did not make appt A1c worsened 6.6 % -->7.8 %---> 8.0 % ---> 10.8 % --> 7.6 -- Pt will need to limit Carbohydra janie intake to less than 50 gram per meal & also less than 150 gram per day. Examples of Carbohydra janie are : ice-cream, sweet sugar treats, rice, potatoes, sweet potatoes (yams), bananas, corn products (popcorn, corn muffin, corn bread, cornflakes , corn ), oats, flour products (pasta, bread, bagel, muffins, donuts, biscuits, cookies, crackers, pancakes, waffle &/or Alcohol. -- start Steglatro; pt counseled on genitalia hygiene, increased fluids, and risk of genitalia gangrene.- - recheck lab(s) on 08/18/20 Hyperlipidemia 45309879 E78.5 -- you will also need to limit egg yolks to 2 yolks a week (but as many egg whites he wants). -- Avoid Johnson, -- avoid Cheese (cheese on burgers, Pizza, lasagna, Mookie, Parmesan), -- trim off fatty rubbery meat before consuming, -- avoid butter & Margarine, -- No whole milk or 2% milk (but 1%, 1/2% & fat free milk is fine).-- recheck lab(s) on 08/18/20-- LDL of 90 on 05/17/20-- will need to continue Vascepa as directed. Essential hypertension 48231600 I10 -- controlled ; Cardiologi st Dr Garry Falcon has discontinu ed carvedilol because of ED-- recheck lab(s) on 08/18/20 Primary er ectile dysfunction 645606175 N52.9 -- pt is mukund hernandez penile implant-- pt has appt w/ Urologist on 07/22/20 to given his decision. [id number] Ulysses Henderson MD [facility], [facility] [address] [place] [address] 08/15/2020 14:40:28 08/15/2020 16:20:07 Coronary arteriosclerosis 41163319 I25.10 (AL s/p stent circumflex (100%) at [facility] on 02/07/16 -- pt reports he was not given Clopidogre l at discharge on 02/09/16 . I advised patient of the risk of heart attack he does not take clopidogre l.-- I also advised pt to hold Clopidogre l 10 day prior to penile implant & restart Clopidogre l the next AM after surgery. Type 2 melony betes mellitus without complication 764348585 E11.9 (diagnosed on 07/27/15) -- referred patient to [facility] eye clinic but pt did not make appt A1c worsened 6.6 % -->7.8 %---> 8.0 % ---> 10.8 % --> 7.6 -- Pt will need to limit Carbohydra janie intake to less than 50 gram per meal & also less than 150 gram per day. Examples of Carbohydra janie are : ice-cream, sweet sugar treats, rice, potatoes, sweet potatoes (yams), bananas, corn products (popcorn, corn muffin, corn bread, cornflakes , corn ), oats, flour products (pasta, bread, bagel, muffins, donuts, biscuits, cookies, crackers, pancakes, waffle &/or Alcohol. -- start Steglatro; pt counseled on genitalia hygiene, increased fluids, and risk of genitalia gangrene.- - recheck lab(s) on 08/18/20 Hyperlipidemia 94771951 E78.5 -- you will also need to limit egg yolks to 2 yolks a week (but as many egg whites he wants). -- Avoid Johnson, -- avoid Cheese (cheese on burgers, Pizza, lasagna, Mookie, Parmesan), -- trim off fatty rubbery meat before consuming, -- avoid butter & Margarine, -- No whole milk or 2% milk (but 1%, 1/2% & fat free milk is fine).-- LDL of 90 on 05/17/20-- recheck lab(s) on 08/18/20-- will need to continue Vascepa as directed. Essential hypertension 33090563 I10 -- controlled ; Cardiologi st Dr Garry Falcon has discontinu ed carvedilol because of ED-- recheck lab(s) on 08/18/20 Primary er ectile dysfunction 687732666 N52.9 -- cleared for penile implant by Urologist Dr Sudhakar Garner on 09/06/20 [id number] Ulysses Henderson MD [place] [employer] [address] [place] [address] 10/10/2021 16:27:00 10/10/2021 18:35:08 Coronary arteriosclerosis 15356745 I25.10 (AL s/p stent circumflex (100%) at [facility] on 02/07/16 -- pt reports he was not given Clopidogre l at discharge on 02/09/16 . I advised patient of the risk of heart attack he does not take clopidogre l.-- I also advised pt to hold Clopidogre l 10 day prior to penile implant & restart Clopidogre l the next AM after surgery.-- check lab(s) tomorrow Type 2 melony betes mellitus without complication 330430800 E11.9 (diagnosed on 07/27/15) -- referred patient to [facility] eye clinic but pt did not make appt A1c worsened 6.6 % -->7.8 %---> 8.0 % ---> 10.8 % --> 7.6 -- Pt will need to limit Carbohydra janie intake to less than 50 gram per meal & also less than 150 gram per day. Examples of Carbohydra janie are : ice-cream, sweet sugar treats, rice, potatoes, sweet potatoes (yams), bananas, corn products (popcorn, corn muffin, corn bread, cornflakes , corn ), oats, flour products (pasta, bread, bagel, muffins, donuts, biscuits, cookies, crackers, pancakes, waffle &/or Alcohol. -- start Steglatro; pt counseled on genitalia hygiene, increased fluids, and risk of genitalia gangrene.- - check lab(s) tomorrow Hyperlipidemia 87520471 E78.5 -- you will also need to limit egg yolks to 2 yolks a week (but as many egg whites he wants).-- Avoid Johnson,-- avoid Cheese (cheese on burgers, Pizza, lasagna, Mookie, Parmesan), -- trim off fatty rubbery meat before consuming, -- avoid butter & Margarine, -- No whole milk or 2% milk (but 1%, 1/2% & fat free milk is fine).-- LDL of 90 on 05/17/20-- recheck lab(s) on 08/18/20-- will need to continue Vascepa as directed. Essential hypertension 05592613 I10 -- Cardiologi st Dr Garry Falcon has discontinu ed carvedilol because of ED-- EKG done 10/10/21-- pt counseled on uncontroll ed BP.-- check lab(s) tomorrow Primary er ectile dysfunction 703916500 N52.9 -- cleared for penile implant by Urologist Dr Sudhakar Garner on 09/06/20 Noncomplia nce with medication regimen 021572794 Z91.14 -- ran out of meds x 2 weeks Ex-smoker 8161416 Z87.89 1 -- Quit smoking on 06/26/17 Mixed anxi ety and depressive disorder 326784207 F41.8 (mom Jun 2021; brother Mar 2021) Body mass index 30+ - obesity 875147301 Z68.32 -- advised wt loss and pt gained 15 # since his last visit.-- pt's BMI today is 32.4 (ideal is between 20-25). [id number] Ulysses Henderson MD [facility] [address] [place] [address] 03/30/2022 12:14:32 03/30/2022 14:25:15 Coronary arteriosclerosis 42347975 I25.10 (AL s/p stent circumflex (100%) at [facility] on 02/07/16 -- pt reports he was not given Clopidogre l at discharge on 02/09/16 . I advised patient of the risk of heart attack he does not take clopidogre l.-- I also advised pt to hold Clopidogre l 10 day prior to penile implant & restart Clopidogre l the next AM after surgery.-- EKG done 10/10/21-- check lab(s) tomorrow Type 2 melony betes mellitus without complication 464193352 E11.9 (diagnosed on 07/27/15) -- referred patient to [facility] eye clinic but pt did not make appt A1c worsened 6.6 % -->7.8 %---> 8.0 % ---> 10.8 % --> 7.6 -- Pt will need to limit Carbohydra janie intake to less than 50 gram per meal & also less than 150 gram per day. Examples of Carbohydra janie are : ice-cream, sweet sugar treats, rice, potatoes, sweet potatoes (yams), bananas, corn products (popcorn, corn muffin, corn bread, cornflakes , corn ), oats, flour products (pasta, bread, bagel, muffins, donuts, biscuits, cookies, crackers, pancakes, waffle &/or Alcohol. -- start Steglatro; pt counseled on genitalia hygiene, increased fluids, and risk of genitalia gangrene.- - check lab(s) tomorrow Essential hypertension 66531584 I10 -- Cardiologi st Dr Garry Falcon has discontinu ed carvedilol because of ED-- EKG done 10/10/21-- pt counseled on uncontroll ed BP.-- check lab(s) tomorrow Hyperlipidemia 09710520 E78.5 -- you will also need to limit egg yolks to 2 yolks a week (but as many egg whites he wants).-- Avoid Johnson,-- avoid Cheese (cheese on burgers, Pizza, lasagna, Mookie, Parmesan), -- trim off fatty rubbery meat before consuming, -- avoid butter & Margarine, -- No whole milk or 2% milk (but 1%, 1/2% & fat free milk is fine).-- LDL of 90 on 05/17/20-- recheck lab(s) on 08/18/20-- will need to continue Vascepa as directed. Noncomplia nce with medication regimen 569557534 Z91.14 -- ran out of meds x 2 weeks Primary er ectile dysfunction 309228152 N52.9 -- cleared for penile implant by Urologist Dr Sudhakar Garner on 09/06/20 Ex-smoker 8934934 Z87.89 1 -- Quit smoking on 06/26/17 Mixed anxi ety and depressive disorder 397022619 F41.8 (mom Jun 2021; brother February 2021) Body mass index 30+ - obesity 915356312 Z68.32 -- advised wt loss; no weight change # since his last visit.-- pt's BMI today is 32.4 (ideal is between 20-25). Hepatitis C screening 41 6139691 Z11.59 -- tested negative for Hepatitis C on 08/28/16 Active or passive immunization 232781435 Z23 -- Patient declines all vaccinatio n. Screening for malignant neoplasm of colon 381653856 Z12.11 -- Patient reports he had a normal colonoscop y with gastroente rologist Dr. Hawkins in 06/20/2015. Repeat in 5 years -- 06/20/2020 Screening for malignant neoplasm of prostate 482867738 Z12.5 -- PSA level of 1.3 on 01/07/18 --> 1.0 ( 09/01/19) [id number] Ulysses Henderson MD [place] [employer], [facility] [address] [place] [address] 05/01/2022 16:40:20 05/01/2022 19:11:21 Coronary arteriosclerosis 50431237 I25.10 (AL s/p stent circumflex (100%) at [facility] on 02/07/16 -- pt reports he was not given Clopidogre l at discharge on 02/09/16 . I advised patient of the risk of heart attack he does not take clopidogre l.-- I also advised pt to hold Clopidogre l 10 day prior to penile implant & restart Clopidogre l the next AM after surgery.-- EKG done 10/10/21-- check lab(s) 07/18/22 Type 2 melony betes mellitus without complication 765750341 E11.9 (diagnosed on 07/27/15) -- referred patient to [facility] eye clinic but pt did not make appt A1c worsened 6.6 % -->7.8 %---> 8.0 % ---> 10.8 % --> 6.7 --> 7.5 --> 7.4 -- Pt will need to limit Carbohydra janie intake to less than 50 gram per meal & also less than 150 gram per day. Examples of Carbohydra janie are : ice-cream, sweet sugar treats, rice, potatoes, sweet potatoes (yams), bananas, corn products (popcorn, corn muffin, corn bread, cornflakes , corn ), oats, flour products (pasta, bread, bagel, muffins, donuts, biscuits, cookies, crackers, pancakes, waffle &/or Alcohol. -- start Steglatro; pt counseled on genitalia hygiene, increased fluids, and risk of genitalia gangrene.- - check lab(s) 07/18/22 Essential hypertension 74820374 I10 -- Cardiologi st Dr Garry Falcon has discontinu ed carvedilol because of ED-- EKG done 10/10/21-- pt counseled on uncontroll ed BP.-- check lab(s) tomorrow Hyperlipidemia 93311614 E78.5 -- you will also need to limit egg yolks to 2 yolks a week (but as many egg whites he wants).-- Avoid Johnson,-- avoid Cheese (cheese on burgers, Pizza, lasagna, Mookie, Parmesan), -- trim off fatty rubbery meat before consuming, -- avoid butter & Margarine, -- No whole milk or 2% milk (but 1%, 1/2% & fat free milk is fine).-- LDL of 90 on 05/17/20-- recheck lab(s) on 08/18/20-- will need to continue Vascepa as directed. Noncomplia nce with medication regimen 344678840 Z91.14 -- ran out of meds x 2 weeks Primary er ectile dysfunction 868528441 N52.9 -- cleared for penile implant by Urologist Dr Sudhakar Garner on 09/06/20 Ex-smoker 7992509 Z87.89 1 -- Quit smoking on 06/26/17 Mixed anxi ety and depressive disorder 452690428 F41.8 (mom Jun 2021; brother February 2021) Body mass index 30+ - obesity 270932119 Z68.32 -- advised wt loss; pt lost 4 # since his last visit.-- pt's BMI today is 31.8 (ideal is between 20-25). Hepatitis C screening 41 9851197 Z11.59 -- tested negative for Hepatitis C on 08/28/16 Active or passive immunization 387852687 Z23 Screening for malignant neoplasm of colon 662751949 Z12.11 -- Patient reports he had a normal colonoscop y with gastroente rologist Dr. Hawkins in 06/20/2015. Repeat in 5 years -- 06/20/2020 Screening for malignant neoplasm of prostate 221718347 Z12.5 -- PSA level of 1.3 on 01/07/18 --> 1.0 ( 09/01/19) --> 1.83 (03/31/22) [id number] Ulysses Henderson MD [facility], [facility] [address] [place] [address] 02/21/2023 11:06:09 02/21/2023 13:11:22 Coronary arteriosclerosis 56053333 I25.10 (AL s/p stent circumflex (100%) at [facility] on 02/07/16 -- pt reports he was not given Clopidogre l at discharge on 02/09/16 . I advised patient of the risk of heart attack he does not take clopidogre l.-- I also advised pt to hold Clopidogre l 10 day prior to penile implant & restart Clopidogre l the next AM after surgery.-- EKG done 10/10/21-- check lab(s) 07/18/22 Type 2 melony betes mellitus without complication 365291460 E11.9 (diagnosed on 07/27/15) -- referred patient to [facility] eye clinic but pt did not make appt A1c worsened 6.6 % -->7.8 %---> 8.0 % ---> 10.8 % --> 6.7 --> 7.5 --> 7.4 -- Pt will need to limit Carbohydra janie intake to less than 50 gram per meal & also less than 150 gram per day. Examples of Carbohydra janie are : ice-cream, sweet sugar treats, rice, potatoes, sweet potatoes (yams), bananas, corn products (popcorn, corn muffin, corn bread, cornflakes , corn ), oats, flour products (pasta, bread, bagel, muffins, donuts, biscuits, cookies, crackers, pancakes, waffle &/or Alcohol. -- start Steglatro; pt counseled on genitalia hygiene, increased fluids, and risk of genitalia gangrene.- - check lab(s) 07/18/22 Essential hypertension [id number] I10 -- Cardiologi st Dr Garry Falcon has discontinu ed carvedilol because of ED-- EKG done 10/10/21-- pt counseled on uncontroll ed BP.-- check lab(s) tomorrow Hyperlipidemia 57188131 E78.5 -- you will also need to limit egg yolks to 2 yolks a week (but as many egg whites he wants).-- Avoid Johnson,-- avoid Cheese (cheese on burgers, Pizza, lasagna, Mookie, Parmesan), -- trim off fatty rubbery meat before consuming, -- avoid butter & Margarine, -- No whole milk or 2% milk (but 1%, 1/2% & fat free milk is fine).-- LDL of 90 on 05/17/20-- recheck lab(s) on 08/18/20-- will need to continue Vascepa as directed. Noncomplia nce with medication regimen 510454288 Z91.148 -- ran out of meds x 2 weeks Primary er ectile dysfunction 931454463 N52.9 -- cleared for penile implant by Urologist Dr Sudhakar Garner on 09/06/20 Ex-smoker 3227330 Z87.89 1 -- Quit smoking on 06/26/17 Mixed anxi ety and depressive disorder 136501543 F41.8 (mom Jun 2021; brother February 2021) Body mass index 30+ - obesity 949004018 Z68.31 -- advised wt loss; pt lost 6 # since his last visit.-- pt's BMI today is 31.8 (ideal is between 20-25). Hepatitis C screening 41 9794575 Z11.59 -- tested negative for Hepatitis C on 08/28/16 Active or passive immunization 509197948 Z23 Screening for malignant neoplasm of colon 472744526 Z12.11 -- Patient reports he had a normal colonoscop y with gastroente rologist Dr. Hawkins in 06/20/2015. Repeat in 5 years -- 06/20/2020 Screening for malignant neoplasm of prostate 550572271 Z12.5 -- PSA level of 1.3 on 01/07/18 --> 1.0 ( 09/01/19) --> 1.83 (03/31/22) [id number] Ulysses Henderson MD [facility] [address] [place] [address] 07/22/2023 16:21:21 07/22/2023 18:54:00 Electrocardiogram abnormal [id number] R94.31 -- will refer pt to Cardiologi st Dr Lisandro Falcon for cardiac clearance -- for Rt foot surgery on 08/01/23 Coronary arteriosclerosis 96195100 I25.10 (AL s/p stent circumflex (100%) at [facility] on 02/07/16 -- pt reports he was not given Clopidogre l at discharge on 02/09/16 . I advised patient of the risk of heart attack he does not take clopidogre l.-- I also advised pt to hold Clopidogre l 10 day prior to penile implant & restart Clopidogre l the next AM after surgery.-- EKG done 10/10/21-- check lab(s) 07/18/22 Type 2 melony betes mellitus without complication 857979565 E11.9 (diagnosed on 07/27/15) -- referred patient to [facility] eye clinic but pt did not make appt A1c worsened 6.6 % -->7.8 %---> 8.0 % ---> 10.8 % --> 6.7 --> 7.5 --> 7.4 -- Pt will need to limit Carbohydra janie intake to less than 50 gram per meal & also less than 150 gram per day. Examples of Carbohydra janie are : ice-cream, sweet sugar treats, rice, potatoes, sweet potatoes (yams), bananas, corn products (popcorn, corn muffin, corn bread, cornflakes , corn ), oats, flour products (pasta, bread, bagel, muffins, donuts, biscuits, cookies, crackers, pancakes, waffle &/or Alcohol. -- start Steglatro; pt counseled on genitalia hygiene, increased fluids, and risk of genitalia gangrene.- - check lab(s) today Essential hypertension 92698030 I10 -- Cardiologi st Dr Garry Falcon has discontinu ed carvedilol because of ED-- EKG done 10/10/21-- pt counseled on uncontroll ed BP.-- check lab(s) today Hyperlipidemia 75134341 E78.5 -- you will also need to limit egg yolks to 2 yolks a week (but as many egg whites he wants).-- Avoid Johnson,-- avoid Cheese (cheese on burgers, Pizza, lasagna, Mookie, Parmesan), -- trim off fatty rubbery meat before consuming, -- avoid butter & Margarine, -- No whole milk or 2% milk (but 1%, 1/2% & fat free milk is fine).-- LDL of 90 on 05/17/20-- recheck lab(s) on 08/18/20-- will need to continue Vascepa as directed.- - check lab(s) today Noncomplia nce with medication regimen 107241359 Z91.148 -- ran out of meds x 2 weeks Primary er ectile dysfunction 275709050 N52.9 -- cleared for penile implant by Urologist Dr Sudhakar Garner on 09/06/20 Ex-smoker 2834064 Z87.89 1 -- Quit smoking on 06/26/17 Mixed anxi ety and depressive disorder 126170271 F41.8 (mom Jun 2021; brother February 2021) Body mass index 30+ - obesity 837761467 Z68.31 -- advised wt loss; pt gained 2 # since his last visit.-- pt's BMI today is 31.2 (ideal is between 20-25). Hepatitis C screening 41 6936285 Z11.59 -- tested negative for Hepatitis C on 08/28/16 Active or passive immunization 014396651 Z23 Screening for malignant neoplasm of colon 474099129 Z12.11 -- Patient reports he had a normal colonoscop y with gastroente rologist Dr. Hawkins in 06/20/2015. Repeat in 5 years -- 06/20/2020 Screening for malignant neoplasm of prostate 069316694 Z12.5 -- PSA level of 1.3 on 01/07/18 --> 1.0 ( 09/01/19) --> 1.83 (03/31/22) HIV screening 116880460 Z11.4 CDC recommends that everyone between the ages of 13 and 64 get tested for HIV at least once as part of routine health care. [id number] Ulysses Henderson MD [facility] [address] [place] [address] 01/03/2024 10:55:15 01/03/2024 13:03:46 Adult health examination 720616301 Z00.00 Coronary arteriosclerosis 24422113 I25.10 (AL s/p stent circumflex (100%) at [facility] on 02/07/16 -- pt reports he was not given Clopidogre l at discharge on 02/09/16 . I advised patient of the risk of heart attack he does not take clopidogre l.-- I also advised pt to hold Clopidogre l 10 day prior to penile implant & restart Clopidogre l the next AM after surgery.-- EKG done 10/10/21-- asymptomat ic-- check lab(s) today Type 2 melony betes mellitus without complication 664099378 E11.9 (diagnosed on 07/27/15) -- referred patient to [facility] eye clinic but pt did not make appt A1c worsened 6.6 % -->7.8 %---> 8.0 % ---> 10.8 % --> 6.7 --> 7.5 --> 7.4 -- inform pt that I will start her on Farxiga which will protect her kidneys & reduced cardiovasc ular events. -- Farxiga behaves like a diuretic, that is why pt will need to maintain at least 64 fl oz of fluids everyday. -- Farxiga will also grab sugar around the kidneys & dump it into the urine (there will be sugar in the urine). Therefore, pt must use wet wipes after each micturitio n (urination ) to prevent yeast infection. -- check lab(s) today Essential hypertension 13781179 I10 -- Cardiologi st Dr Garry Falcon has discontinu ed carvedilol because of ED-- EKG done 10/10/21-- pt counseled on uncontroll ed BP.-- check lab(s) today Hyperlipidemia 52790495 E78.5 -- you will need to limit Carbohydra janie intake to 40 gram per meal & also a maximum of 120 grams a day. -- Examples of Carbohydra janie are: ice-cream, sweet sugar treats, Sodas, rice, potatoes, sweet potatoes (yams), bananas, corn products (popcorn, corn muffin, corn bread, cornflakes , corn ), oats, flour products (pasta, bread, bagel, muffins, donuts, biscuits, cookies, crackers, pancakes, waffle, cakes, pies &/or Alcohol.-- check lab(s) today Noncomplia nce with medication regimen 045840076 Z91.148 -- ran out of meds x 2 weeks Primary er ectile dysfunction 300614135 N52.9 -- cleared for penile implant by Urologist Dr Sudhakar Garner on 09/06/20 Ex-smoker 9531178 Z87.89 1 -- Quit smoking on 06/26/17 Mixed anxi ety and depressive disorder 689886857 F41.8 (mom Jun 2021; brother February 2021) Body mass index 30+ - obesity 833335473 Z68.31 -- advised wt loss; pt lost 1 # since his last visit.-- pt's BMI today is 31.1 (ideal is between 20-25). Hepatitis C screening 41 0839506 Z11.59 -- tested negative for Hepatitis C on 08/28/16 HIV screening 467117630 Z11.4 -- tested negative for HIV on 07/22/23 Active or passive immunization 442653314 Z23 Screening for malignant neoplasm of colon 967570378 Z12.11 -- Patient reports he had a normal colonoscop y with gastroente rologist Dr. Hawkins in 06/20/2015. Repeat in 5 years -- 06/20/2020 Screening for malignant neoplasm of prostate 331667873 Z12.5 -- PSA level of 1.3 on 01/07/18 --> 1.0 ( 09/01/19) --> 1.83 (03/31/22) --> 3.7(07/22/23 ) Long-term drug therapy 891045112 Z79.899 (Metformin ) Benign pro static hyperplasia without outflow obstruction 429439036 N40.0 -- Currently asymptomat ic; -- PSA level of 1.3 on 01/07/18-- check PSA on 01/06/19 -- not done-- need to repeat PSA in Feb 2020 [id number] Ulysses Henderson MD [facility] [address] [place] [address] 12/17/2024 15:15:06 12/17/2024 17:52:52 Coronary arteriosclerosis 04715899 I25.10 (AL s/p stent circumflex (100%) at [facility] on 02/07/16 -- pt reports he was not given Clopidogre l at discharge on 02/09/16 . I advised patient of the risk of heart attack he does not take clopidogre l.-- I also advised pt to hold Clopidogre l 10 day prior to penile implant & restart Clopidogre l the next AM after surgery.-- EKG done 10/10/21-- asymptomat ic-- check lab(s) today Type 2 melony betes mellitus without complication 236960791 E11.9 (diagnosed on 07/27/15) -- referred patient to [facility] eye clinic but pt did not make appt A1c worsened 6.6 % -->7.8 %---> 8.0 % ---> 10.8 % --> 6.7 --> 7.5 --> 7.4 -- inform pt that I will start her on Farxiga which will protect her kidneys & reduced cardiovasc ular events. -- Farxiga behaves like a diuretic, that is why pt will need to maintain at least 64 fl oz of fluids everyday. -- Farxiga will also grab sugar around the kidneys & dump it into the urine (there will be sugar in the urine). Therefore, pt must use wet wipes after each micturitio n (urination ) to prevent yeast infection. -- check lab(s) today Essential hypertension 87635835 I10 -- Cardiologi st Dr Garry Falcon has discontinu ed carvedilol because of ED-- EKG done 10/10/21-- pt counseled on uncontroll ed BP.-- check lab(s) today Hyperlipidemia 27335122 E78.5 -- you will need to limit Carbohydra janie intake to 40 gram per meal & also a maximum of 120 grams a day. -- Examples of Carbohydra janie are: ice-cream, sweet sugar treats, Sodas, rice, potatoes, sweet potatoes (yams), bananas, corn products (popcorn, corn muffin, corn bread, cornflakes , corn ), oats, flour products (pasta, bread, bagel, muffins, donuts, biscuits, cookies, crackers, pancakes, waffle, cakes, pies &/or Alcohol.-- check lab(s) today Noncomplia nce with medication regimen 986997148 Z91.148 -- ran out of meds x more than 2 weeks Primary er ectile dysfunction 376744752 N52.9 -- cleared for penile implant by Urologist Dr Sudhakar Garner on 09/06/20 Ex-smoker 7992210 Z87.89 1 -- Quit smoking on 06/26/17 Mixed anxi ety and depressive disorder 452887500 F41.8 (mom Jun 2021; brother February 2021) Benign pro static hyperplasia without outflow obstruction 511443754 N40.0 -- Currently asymptomat ic; -- PSA level of 1.3 on 01/07/18-- check PSA on 01/06/19 -- not done-- need to repeat PSA in Feb 2020 Long-term drug therapy 226636335 Z79.899 (Metformin ) Body mass index 30+ - obesity 562017481 Z68.31 -- advised wt loss; pt lost 1 # since his last visit.-- pt's BMI today is 31.1 (ideal is between 20-25). Hepatitis C screening 41 9140027 Z11.59 -- tested negative for Hepatitis C on 08/28/16 HIV screening 527826515 Z11.4 -- tested negative for HIV on 07/22/23 Active or passive immunization 868945370 Z23 Screening for malignant neoplasm of colon 334205016 Z12.11 -- Patient reports he had a normal colonoscop y with gastroente rologist Dr. Hawkins in 06/20/2015. Repeat in 5 years -- 06/20/2020 Screening for malignant neoplasm of prostate 772422828 Z12.5 -- PSA level of 1.3 on 01/07/18 --> 1.0 ( 09/01/19) --> 1.83 (03/31/22) --> 3.7(07/22/23 ) Hamstring injury 1843091 09 S76.309A (started x 1 week after he increased walking) Health Concerns Section Related Observation LastModified by Organization Detai ls LastModified Time None Recorded Concern Status LastModified by Organization Details LastModified Time None Recorded Advance Directives Directive N: Payers Insurance Date Sequence Insurance Name Policy Number Policy Davis Covered Member ID Davis Member ID Guarantor Name 07/28/2019 *SELF PAY* Wi jules Basilio 03/30/2022 1 [facility] [id number] Jose Richmond [id number] Jose Richmond 01/09/2025 1 [facility] [id number] Jose Richmond [id number] Jose Richmond Notes Date Note Type Note Provider Name and Address Organization Details Recorded Time 05/01/2022 text/html Pt comes in for f/u of CAD (asymptomatic), DM, HTN, HLD, anxiety/depression , and weight monitoring. Pt feels well and has no c/o.He has no new sx or any increasing sx. Patient denies any jaw or neck discomfort, left arm pain/left arm discomfort, chest discomfort/pain, diaphoresis, breathing symptoms/chest tightness, indigestion sx, n/v, any angina equivalent symptoms, etc. Ulysses Henderson MD [address] [facility] [address], [place], [address], [facility] 05/01/2022 19:10:57 02/21/2023 text/html Pt comes in for f/u of CAD, DM, HTN, HLD, and weight. Pt feels well and has no c/o. Pt has no new sx and no increasing sx. Patient denies any jaw or neck discomfort, left arm pain/left arm discomfort, chest discomfort/pain, diaphoresis, breathing symptoms/chest tightness, indigestion sx, n/v, any angina equivalent symptoms, etc. Ulysses Henderson MD [address] [facility] [address], [place], [address], [facility] 02/21/2023 13:10:42 07/22/2023 text/html Pt comes in for CAD (asymptomatic), DM, HTN, HLD, and weight. Pt also has Rt foot surgery planned for 08/01/23. Pt feels well and has no c/o. Pt has no new sx and no increasing sx. Patient denies any f/c, flu or cold sx, jaw or neck discomfort, left arm pain/left arm discomfort, chest discomfort/pain, diaphoresis, breathing symptoms/chest tightness, indigestion sx, n/v, or tiredness/weakness . Ulysses Henderson MD [address], [place], [address], [facility] 07/22/2023 18:53:15 01/03/2024 text/html Pt comes in for f/u of CAD (asymptomatic), DM, HTN, HLD and weight. Pt is also due for his annual PE. Pt feels well and has no c/o. Pt has no new sx and no increasing sx. Patient denies any jaw or neck discomfort, left arm pain/left arm discomfort, chest discomfort/pain, diaphoresis, breathing symptoms/chest tightness, indigestion sx, n/v, any angina equivalent symptoms, etc. Ulysses Henderson MD [address] [facility] [address], [place], [address], [facility] 01/03/2024 13:01:26 12/17/2024 text/html Pt lost to f/u a nd has been out of meds for over 2 weeks comes in for f/u of CAD(asymptomatic), DM, HTN, HLD, and weight. Pt feels well and has no c/o. Pt has no new sx and no increasing sx. Patient denies any jaw or neck discomfort, left arm pain/left arm discomfort, chest discomfort/pain, diaphoresis, breathing symptoms/chest tightness, indigestion sx, n/v, any angina equivalent symptoms, etc. Ulysses eHnderson MD [address], [place], [address], [facility] 12/17/2024 17:53:37
--- OUTSIDE RECORDS SUMMARY | 2025-01-12 09:48 | XMS_ITS | Clinical Summary ---
Author Organization [facility] Address [address] [place] [address] Care Team Providers Care Delimber Operator Name Role Phone Ulysses Henderson MD Primary Care Provider [phone] Allergies No known active allergies Medications atorvastatin (LIPITOR) 40 mg tablet Take 1 tablet (40 mg total) by mouth daily 05/11/2016 Active amLODIPine (NORVASC) 10 mg tablet Take 1 tablet (10 mg total) by mouth daily Active citalopram (CeleXA) 20 mg tablet Take 1 tablet (20 mg total) by mouth nightly Active Encounters Date Type Department Care Team Description 01/11/2025 12:42 PM CDT - 01/11/2025 11:59 PM CDT Hospital Encounter [facility] Cardiac Testing [address] [place] [id number] Pain in right leg; Pain in left leg Discharge Disposition: Discharge to home or self care from Last 3 Months Surgical History Surgery Date Site/Laterality Comments CERVICAL FUSION c6, c7 VASECTOMY COLONOSCOPY ESOPHAGOGASTRODUODENOSCOPY Medical History Medical History Date Comments Sleep apnea cpap at night Hypertension Hyperlipidemia Anxiety Depression Wears glasses Right foot pain Social History Tobacco Use Types Packs/Day Years [...] on file Legal Sex Male 7:48 PM CLINICAL LABORATORY MANAGER Gender Identity Not on file Sexual Orientation Not on file Obstetrics History Last Filed Vital Signs Vital Sign Reading Time Taken Comments Blood Pressure 160/90 07/25/2023 8:23 AM CLINICAL LABORATORY MANAGER Lt upper arm Pulse 84 07/25/2023 8:23 AM CLINICAL LABORATORY MANAGER Temperature 36.4 C (97.5 F) 07/25/2023 8:23 AM CLINICAL LABORATORY MANAGER Respiratory Rate 18 07/25/2023 8:23 AM CLINICAL LABORATORY MANAGER Oxygen Saturation 99% 07/25/2023 8:2 3 AM CLINICAL LABORATORY MANAGER Inhaled Oxygen Concentration - - Weight 102.4 kg (225 lb 11. 2 oz) 07/25/2023 8:23 AM CLINICAL LABORATORY MANAGER Height 180.3 cm (5' 11) 07/25/2023 8:2 3 AM CLINICAL LABORATORY MANAGER Body Mass Index 31.48 07/25/2023 8:23 AM CLINICAL LABORATORY MANAGER Plan of Treatment Health Maintenance Due Date Last Done Comments Colon Cancer Screening-Colonoscopy 1965 Depression Screening 1965 Hepatitis C Screening 1965 Prostate Cancer Screening-PSA 1965 DTaP/Tdap/Td Vaccine (1 - Tdap) 1976 Hepatitis B Screening 1983 Regular Well Visit/Exam 18-64 1983 Zoster Vaccine (1 of 2) 2015 Covid-19 Vaccine ( season) 2024 04/10/2022, 08/30/2021, 08/30/2021, Additional history exists Influenza Vaccine (#1) 2025 Pneumococcal vaccine <65 Aged Out No longer eligible based on patient's age to complete this topic Procedures Procedure Name Priority Date/Time Associated Diagnosis [...] Gender: M Study Date: 01/11/2025 12:53:31 PM Unit Aide Tech: DOMO Murrieta Order Provider: ULYSSES HENDERSON Quality: [...] Gender: M Study Date: 01/11/2025 12:53:31 PM Unit Aide Tech: DOMO Murrieta Order Provider: ULYSSES HENDERSON Quality: [...] 01/12/2025 8:39:02 AM CDT Ulysses Henderson MD IM US PROCEDURES Final Result from Last 3 Months Insurance [facility] CHOICE PLUS [address] CHOICE PLUS Member Subscriber Plan / Payer (Ef fective 2021-Present) Name:Jose Harvey Relation to Subscriber:Self Name:Jose Harvey Payer ID:[id number] (NAIC) Type:[facility] HMO/PPO Address: [address] CHOICE PLUS Care Teams Delimber Operator Relationship Specialty Start Date End Date Ulysses Henderson MD [address] [facility] [address] [place] [address] PCP - General 05/23/20
--- OUTSIDE RECORDS SUMMARY | 2025-01-12 09:48 | XMS_ITS | Clinical Summary ---
Author Organization [facility] Address [address] [place] [address] Care Team Providers Care Digital Photo Printer Name Role Phone Unavailable Primary Care Provider Unavailabl e Immunizations Immunization Administration Dates Next Due Covid-19, Mrna, Lnp-s, Pf, 30 Mcg/0.3 Ml Dose (P fizer) 08/30/2021 Social History Tobacco Use Types Packs/Day Years Used Date Smoking Tobacco: Never Assessed Sex and Gender Information Value Date Recorded Sex Assigned at Not on file Legal Sex Male 9:40 PM CDT Gender Identity Not on file Sexual Orientation Not on file Plan of Treatment Health Maintenance Due Date Last Done Comments Hepatitis C Virus (HCV) Screening 1965 TdaP Immunization 1965 Hepatitis B Immunization (1 of 3 - 19+ 3-dose series) 1984 Cologuard 2010 Colonoscopy 2010 Colorectal Cancer Screening 2010 Immunochemical Fecal Occult Blood 2010 Pneumococcal Immunization (5 0+ years) (1 of 1 - PCV) 2015 Zoster Immunization (1 of 2) 2015 SARS-COV-2 Immunization (4 - season) 2024 08/30/2021, 03/08/2021, 02/15/2021 Influenza Immunization (Seas on Ended) 2025 Respiratory Syncytial Virus (RSV) Immunization (Adult) (1 - 1-dose 75+ series) 2040 Human Papillomavirus (HPV) Immunization Aged Out No longer eligible b ased on patient's age to complete this topic Meningococcal Immunization (ACWY) Aged Out No longer eligible b ased on patient's age to complete this topic Rotavirus Immunization Aged Out No lo nger eligible based on patient's age to complete this topic
[2025-01-14 16:19] LABS: PSA, Free 0.8 ng/mL; PSA, Total 18.0 ng/mL (< OR = 4.0); Percent Free Prostate Spec Ag NOT CALCULATED % (calc) (>25)
== END 2025-01-12 09:30 | disposition home or self-care (01) ==
LOC: ANHLAB 09:36
PROVIDERS: PCP Internal Medicine; Visit Provider Urology
DX: R97.20 Elevated prostate specific antigen [PSA] (principal)
CPT/HCPCS: 36415; 84153; 84154

== ENCOUNTER 2025-02-18 08:17 | Outpatient (CLI) | payer OTHER, SELFPAY ==
--- OUTSIDE RECORDS SUMMARY | 2025-02-18 08:27 | XMS_ITS ---
Author Organization 1 OF Olimpia flanagan [facility] Address [address] [facility] [address] [place] [address] Care Team Providers Care Fha Underwriter Name Role Phone Ulysses Melendez MD Primary Care Provider German Mcnamara Unavailable Aimee Lo Unavailable [phone] Allergies No Known Allergies REASON FOR VISIT [...] Oral; Duration: 30 Days Active Vital Signs Weight 225 lbs 12/23/2024 Height 71 in 12/23/2024 BMI 31.38 kg/m2 12/23/2024 Encounters Encounter Location Date Provider Diagnosis 1 OF Olimpia Patton [facility] [address] [place] [address] 12/23/2024 Aimee Lo Plan Of Treatment Next Appt Details Provider Name:German Ortiz Abdi, 03/04/2025 09:10:00 AM, [address], [address], [place], [address], Progress Notes * Jose HARVEYDOB:1965 (59 yo M)Acc No.[id number]:12/23/2024 Progress Notes Patient: Jose KUMAR Provider: Shante Lo DPM :1965 A ge:59 Y S ex:Male Date:12/23/2024 Address:[address] [place] [address] [address] [facility] [id number] Pcp:Ulysses Melendez MD Subjective: * Chief Complaints: * 1 . DFE (Diabetic foot eval). * HPI: Mukesh Dean assisting with visit:: Chart Prep Parisa berman. HPI/Rooming: Parisa berman. P [facility] reason for visit:: New Patient [...] Electronic signature of Leena Lo DPM on 02/18/2025 at 08:26 AM CDT Sign off status: Pending * Provider: Shante Lo DPM Date: 0 12/23/2024 Generated for Carol Wilson/Ynes on: 0 02/18/2025 08:26 AM CDT History and Physical Notes * [...]
--- OUTSIDE RECORDS SUMMARY | 2025-02-18 08:27 | XMS_ITS | Clinical Summary ---
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 2 oz) 07/25/2023 8:23 AM MATERIAL PLANNING ANALYST Height 180.3 cm (5' 11) 07/25/2023 8:2 3 AM MATERIAL PLANNING ANALYST Body Mass Index 31.48 07/25/2023 8:23 AM MATERIAL PLANNING ANALYST Plan of Treatment Health Maintenance Due Date [...] Gender: M Study Date: 01/11/2025 12:53:31 PM Business Writer: DOMO Murrieta Order Provider: ULYSSES HENDERSON Quality: [...] 01/12/2025 8:39:02 AM CDT Procedure Note Ramiro Dseouza MD - 01/12/2025 Lower Extremity Venous Report Patient Name: JOSE HARVEY : 1965 (59y 6m) Gender: M Study Date: 01/11/2025 12:53:31 PM Business Writer: DOMO Murrieta Order Provider: ULYSSES HENDERSON Quality: [...] Final Result from Last 3 Months Insurance [facility] CHOICE PLUS [address] CHOICE PLUS Member Subscriber Plan / Payer (Ef fective 2021-Present) Name:Jose Harvey Relation to Subscriber:Self Name:Jose Harvey Payer ID:[id number] (NAIC) Type:[facility] HMO/PPO Address: [address] CHOICE PLUS Care Teams Specialties Operator Relationship Specialty Start Date End Date Ulysses Henderson MD [address] [facility] [address] [place] [address] PCP - General 05/23/20
--- OUTSIDE RECORDS SUMMARY | 2025-02-18 08:27 | XMS_ITS | Patient Health Record ---
Author Organization [facility] Address [address] [facility] [address] [place] [address] Care Team Providers Care Mortician Investigator Name Role Phone Ulysses Melendez MD Primary Care Provider German Mcnamara Unavailable Aimee Lo Unavailable [phone] Allergies No Known Allergies Reason For Referral [...] 2 diabetes mellitus without complication, unspecified whether snf insulin use (E11.9) Active confirmed Vital Signs Height 71 in 12/23/2024 Weight 225 lbs 12/23/2024 BMI 31.38 kg/m2 12/23/2024 Encounters Encounter Location Date Provider Diagnosis 1 OF Olimpia Patton [facility] [address] [place] [address] 12/23/2024 Aimee Lo 1 OF Olimpia Patton [facility] [address] [place] [address] 12/18/2024 German Patton Plan Of Treatment Next Appt Details Provider Name:German Patton, 03/04/2025 09:10:00 AM, [address], [address], [place], [address], Insurance Providers Payer Name Payer Address Payer Phone Subscriber Number Group Number Insured Name Patient Relationship to Insured Coverage Start Date Coverage End Date [facility] [address] [address] [place] [address] [id number] Jose Richmond Self - patient is the insured Medical (General) History Medical History History ICD Code hyperlipidemia hypertension Diabetes Anxiety disorder depression Surgical History Surgery Date(Month/Year) Foot/Ankle surgery
--- OUTSIDE RECORDS SUMMARY | 2025-02-18 08:27 | XMS_ITS ---
Author Organization 1 OF Olimpia flanagan [facility] Address [address] [place] [address] Care Team Providers Care Sagger Maker Name Role Phone Ulysses Melendez MD Primary Care Provider German Mcnamara [facility] Allergies No Known Allergies REASON FOR VISIT [...] Date Provider Diagnosis 1 [facility] [address] [place] [address] 12/05/2023 German Patton Surgical aftercare, musculoskeletal system Z47.89 ; Hallux limitus of right foot M20.5X1 and Type 2 diabetes mellitus without complication, unspecified whether intermediate teacher insulin use E11.9 Assessments Encounter Date Diagnosis [...] 2 diabetes mellitus without complication, unspecified whether longterm insulin use (ICD-10 - E11.9) Plan Of [...] Patton, 03/04/2025 09:10:00 AM, [address], [facility] [address], [place], [address], Progress Notes * CANDICE JoseDOB:1965 (59 yo M)Acc No.[id number]:12/05/2023 Progress Notes Patient: Jose KUMAR Provider: Olimpia Patton DPM :1965 A ge:58 Y S ex:Male Date:12/05/2023 Address:[address] [place] [address] [facility] Pcp:Ulysses Melendez MD Subjective: * Chief [...] 2 diabetes mellitus without complication, unspecified whether intermediate teacher insulin use - E11.9 Plan: * Treatment: * Preventive Medicine: Counseling: C are goal follow-up plan: Above Normal BMI Follow-up L ifestyle education regarding diet * Follow Up: p rn * Images: * Electronic signature of Tena Patton DPM on 02/18/2025 at 08:26 AM CDT Sign off status: Pending * Provider: Olimpia Patton DPM Date: 0 12/05/2023 Generated for Carol christopher/Zahida/Ynes on: 0 02/18/2025 08:26 AM CDT History [...]
--- OUTSIDE RECORDS SUMMARY | 2025-02-18 08:27 | XMS_ITS | Clinical Summary ---
Author Organization [facility] Address [address] [place] [address] Care Team Providers Care Oncology Nurse Navigator Name Role Phone Unavailable Primary Care Provider [...] Immunization (1 of 2) 2015 SARS-COV-2 Immunization ( - season) 2024 08/30/2021, 03/08/2021, 02/15/2021 Influenza Immunization (#1) 2025 Respiratory Syncytial Virus (RSV) Immunization (Adult) [...]
--- OUTSIDE RECORDS SUMMARY | 2025-02-18 08:27 | XMS_ITS ---
Author Organization 1 OF Olimpia flanagan [facility] Address [address] [place] [address] Care Team Providers Care Director Of Community Services Name Role Phone Ulysses Melendez MD Primary Care Provider German Mcnamara [facility] [phone] REASON FOR VISIT S/p RT sx Medications [...] Date Provider Diagnosis 1 OF Olimpia Patton [facility] [address] [place] [address] 10/17/2023 German Patton Surgical aftercare, musculoskeletal system [...] AM, [address], [place], [address], Progress Notes * Jose HARVEYDOB:1965 (59 yo M)Acc No.[id number]:10/17/2023 Patient: Jose KUMAR Provider: Olimpia Patton DPM :1965 A ge:58 Y S ex:Male Date:10/17/2023 Address:[address] [place], [place] [address] Pcp:Ulysses Melendez MD Subjective: * Chief Complaints: * 1 . S/p RT sx. * HPI: Mukesh Dean assisting with visit:: HPI/Rooming: . ..... P [facility] reason for visit:: Date of surgery: [...] of Tena Patton DPM on 02/18/2025 at 08:27 AM CDT Sign off status: Pending * Provider: Olimpia Patton DPM Date: 0 10/17/2023 Generated for Carol christopher/Zahida/Ynes on: 0 02/18/2025 08:27 AM CDT History and Physical Notes * [...]
--- NOTE | 2025-02-18 08:43 | ECG_ITS ---
Test Date: 2025-02-18 08:58:07 Measurements Intervals [place] Rate: 75 P: 54 MT: 173 QRS: 24 QRSD: 77 T: 35 QT: 385 QTc: 433 Interpretive Statements SINUS RHYTHM INFERIOR INFARCT, AGE INDETERMINATE ABNORMAL ECG No previous ECG available for comparison Electronically Signed On 02-18-2025 09:15:39 CDT by Amrit Mcmahan D.O.
[2025-02-18 10:13] LABS: Anion Gap 8 mmol/L (4-12); Blood Urea Nitrogen 12 mg/dL (9-20); Calcium 9.4 mg/dL (8.4-10.2); Carbon Dioxide 27 mmol/L (22-30); Chloride 100 mmol/L (98-107); Estimated Glomerular Filt Rate > 60; Glucose 181 mg/dL (65-110); Potassium 3.9 mmol/L (3.4-5.0); Sodium 135 mmol/L (137-145)
== END 2025-02-18 08:18 | disposition home or self-care (01) ==
LOC: ANHSURGERY 08:22
PROVIDERS: Anesthesiology; PCP Internal Medicine; Visit Provider Urology
DX: E11.9 Type 2 diabetes mellitus without complications (principal); I10 Essential (primary) hypertension; R94.31 Abnormal electrocardiogram [ECG] [EKG]
CPT/HCPCS: 36415; 80048; 93005

== ENCOUNTER 2025-02-25 01:21 | Day surgery (SDC) | payer OTHER, SELFPAY ==
--- NOTE | 2025-02-15 08:11 | P.HP_ITS ---
History of Present Illness History of Present Illness Consent: Risks, benefits, and alternatives have been discussed and questions answered. Patient agrees to proceed with procedure. Chief complaint: Elev PSA Narrative: Jose Richmond is a 59 year old male This pleasant man is referred by his primary care physician for evaluation of a PSA elevation. His most recent PSA was ng/dl (13.8). He denies a history of previously elevated PSA, previous prostate biopsy, urinary tract infections, prostatitis, hematospermia or hematuria. This abnormal PSA value has not been corroborated by repeat examination. This man has never been on a 5-alpha reductase inhibitor. He has no family history of prostate cancer in his father or brothers. Note for Abnormal PSA: . 01/2025: ?PSA: 13.8 02/03/25: ?mpMRI prostate: Volume: 41gm ?PI-RADS 4: 1.3x1.2cm left lat. TZ at base Review of Systems Review of Systems: All systems reviewed & are unremarkable except as noted in HPI and below Exam Const: General: no acute distress Resp: Effort & Inspection: normal respiratory effort GI: Inspection: non-distended GI Palp: No abdominal tenderness and No Guarding due to palpation present (GI) Auscultation: normal bowel sounds Assessment and Plan Assessment and plan (1) Elevated PSA: Code(s): R97.20 - Elevated prostate specific antigen [PSA] Status: Acute Assessment and Plan: * MRI fusion biopsy prostate
[2025-02-17 11:06] VITALS: BMI 31.4
--- NOTE | 2025-02-17 11:07 | PC.NURSE ---
Report to the Outpatient Waiting Room, entrance under the green pavilion located off [facility], at time _1145_ on date _[id number]_. Planned Procedure Time: _145pm_.? Time changes happen often and if your time is changed the preop area will call you the afternoon before. - You and your visitor will be asked to self-screen and do not enter if you have any COVID symptoms. Please call surgeon if you need to reschedule. - A mask is optional within the hospital at this time. Patients may have clear liquids (water, carbonated beverages, clear teas, apple juice) until 3 hours prior to surgery with a maximum of 20 ounces. - No food from midnight until time of surgery and no smoking, or chewing tobacco (or any form of nicotine). No chewing gum, candy or mints. Take only the following medications with a SIP of water on the morning of surgery: ___Citalopram and Amlodipine____ DO NOT STOP ANY OF YOUR OTHER PRESCRIPTION MEDICATIONS PRIOR TO SURGERY EXCEPT THE FOLLOWING Hold all vitamins and supplements for 3 days per anesthesiologist. Medications to discontinue per physician ___Patient stopped Aspirin yesterday. Gave phone number to call and ask about clopedegrel Date to take last dose Please no make-up, nail korean, hairspray, perfume, deodorant, or body powder the day of surgery.? No jewelry (including any body piercings) or valuables the day of surgery, leave them at home.? Please take a shower or bath the night before, or the morning of, surgery with an antibacterial soap.? Wear comfortable, loose fitting clothing.? - Jewelry must be removed prior to entering the operating room.? Rings and piercings that are not removed may be cut off. - The hospital will not accept responsibility for valuables.? - Please leave all valuables, including medications, at home the day of surgery. If you are going home after surgery, a licensed owner operator tanker truck driver must drive you home.? - NO public transportation without another adult if you receive anesthesia. - We recommend that an adult stay with you for 24 hours following discharge. - We also recommend that you do not drive, make important decision, drink alcoholic beverages, or take any drugs that were not prescribed by your health care provider for at least 24 hours after your discharge time. Follow any additional instructions given to you from your surgeon. Telephone instructions given to __Michael__and asked if any additional questions and then verbalized understanding. Patient advised to call surgeon office or pre surgery nurse liaison [phone] if any additional questions.
--- OUTSIDE RECORDS SUMMARY | 2025-02-25 01:24 | XMS_ITS | Clinical Summary ---
Author Organization [facility] Address [address] [place] [address] Care Team Providers Care Wall Covering Installer Name Role Phone Ulysses Melendez MD Primary Care Provider [phone] Social History Tobacco Use Types Packs/Day Years Used Date Smoking Tobacco: Never Assessed Sex and Gender Information Value Date Recorded Sex Assigned at Not on file Legal Sex Male 6:31 PM CDT Gender Identity Not on file Sexual Orientation Not on file Plan of Treatment Health Maintenance Due Date Last Done Comments Colorectal Cancer Screening Colonoscopy (10 Years) 1965 Annual Physical 1968 Hepatitis C 1983 DTaP, Tdap and Td Vaccines ( 1 - Tdap) 1984 Pneumococcal Vaccine: 50+ Ye ars (1 of 1 - PCV) 2015 Zoster Vaccines (1 of 2) 2015 COVID-19 Vaccine ( - 2023-2 5 season) 2024 Meningococcal B Vaccine Aged Out No l onger eligible based on patient's age to complete this topic Meningococcal Vaccine Aged Out No anthony lamberto eligible based on patient's age to complete this topic RSV Immunizations Under 20 Months Aged Out No longer eligible based on patient's age to complete this topic Insurance [facility] Care Teams Wall Covering Installer Relationship Specialty Start Date End Date Ulysses Melendez MD [address] [facility] [address] [place] [address] PCP - General 12/02/13
--- OUTSIDE RECORDS SUMMARY | 2025-02-25 01:24 | XMS_ITS | Clinical Summary ---
Author Organization [facility] Address [address] [place] [address] Care Team Providers Care Hogshead Press Operator Name Role Phone Ulysses Henderson MD Primary Care Provider [phone] Allergies No known active allergies Medications atorvastatin [...] 11:59 PM CDT Hospital Encounter [facility] Cardiac Testing [address] [place] [address] Pain in right leg; Pain in [...] on file Legal Sex Male 7:48 PM AIR CONTROL ELECTRONICS OPERATOR Gender Identity Not on file Sexual Orientation Not on file Obstetrics History Last Filed Vital Signs Vital Sign Reading Time Taken Comments Blood Pressure 160/90 07/25/2023 8:23 AM AIR CONTROL ELECTRONICS OPERATOR Lt upper arm Pulse 84 07/25/2023 8:23 AM AIR CONTROL ELECTRONICS OPERATOR Temperature 36.4 C (97.5 F) 07/25/2023 8:23 AM AIR CONTROL ELECTRONICS OPERATOR Respiratory Rate 18 07/25/2023 8:23 AM AIR CONTROL ELECTRONICS OPERATOR Oxygen Saturation 99% 07/25/2023 8:2 3 AM AIR CONTROL ELECTRONICS OPERATOR Inhaled Oxygen Concentration - - Weight 102.4 kg (225 lb 11. 2 oz) 07/25/2023 8:23 AM AIR CONTROL ELECTRONICS OPERATOR Height 180.3 cm (5' 11) 07/25/2023 8:2 3 AM AIR CONTROL ELECTRONICS OPERATOR Body Mass Index 31.48 07/25/2023 8:23 AM AIR CONTROL ELECTRONICS OPERATOR Plan of Treatment Health Maintenance Due Date [...] Gender: M Study Date: 01/11/2025 12:53:31 PM Cable Installer Repairer Helper: DOMO Murrieta Order Provider: ULYSSES HENDERSON Quality: [...] Gender: M Study Date: 01/11/2025 12:53:31 PM Cable Installer Repairer Helper: DOMO Murrieta Order Provider: ULYSSES HENDERSON Quality: [...] Final Result from Last 3 Months Insurance [facility] CHOICE PLUS [address] CHOICE PLUS Member Subscriber Plan / Payer (Ef fective 2021-Present) Name:Jose Harvey Relation to Subscriber:Self Name:Jose Harvey Payer ID:[id number] (NAIC) Type:[facility] HMO/PPO Address: [address] CHOICE PLUS Care Teams Hogshead Press Operator Relationship Specialty Start Date End Date Ulysses Henderson MD [address] [facility] [address] [place] [address] PCP - General 05/23/20
--- OUTSIDE RECORDS SUMMARY | 2025-02-25 01:24 | XMS_ITS ---
Author Organization 1 OF Olimpia flanagan [facility] Address [address] [facility] [address] [place] [address] Care Team Providers Care Visual And Stock Associate Name Role Phone Ulysses Melendez MD Primary Care Provider German Mcnamara Unavailable Aimee Lo Unavailable [phone] Allergies No Known Allergies REASON FOR VISIT [...] [facility] [address] [place] [address] 12/23/2024 Aimee Lo Plan Of Treatment Next Appt Details Provider Name:German Ortiz Abdi, 03/04/2025 09:10:00 AM, [address], [address], [place], [address], Progress Notes * Jose HARVEYDOB:1965 (59 yo M)Acc No.[id number]:12/23/2024 Progress Notes Patient: Jose KUMAR Provider: Shante Lo DPM :1965 A ge:59 Y S ex:Male Date:12/23/2024 Address:[address] [place] [address] [facility] [id number] Pcp:Ulysses Melendez MD Subjective: * Chief Complaints: * 1 . DFE (Diabetic foot eval). * HPI: Mukesh Dean assisting with visit:: Chart Prep Parisa berman. HPI/Rooming: Parisa berman. [facility] reason for visit:: New Patient [...] Electronic signature of Leena Lo DPM on 02/25/2025 at 01:24 AM CDT Sign off status: Pending * Provider: Shante Lo DPM Date: 0 12/23/2024 Generated for Carol Wilson/Ynes on: 0 02/25/2025 01:24 AM CDT History and Physical Notes * [...]
--- OUTSIDE RECORDS SUMMARY | 2025-02-25 01:24 | XMS_ITS ---
Author Organization 1 OF Olimpia flanagan [facility] Address [address] [place] [address] Care Team Providers Care Ruling Machine Set Up Operator Name Role Phone Ulysses Melendez MD Primary Care Provider German Mcnamara [facility] [phone] REASON FOR VISIT S/p RT sx Medications [...] Date Provider Diagnosis 1 OF Olimpia Patton [facility] [address] [place] [address] 10/17/2023 German Patton Surgical aftercare, musculoskeletal system [...] AM, [address], [place], [address], Progress Notes * Jose HARVEYDOB:1965 (59 yo M)Acc No.[id number]:10/17/2023 Patient: Jose KUMAR Provider: Olimpia Patton DPM :1965 A ge:58 Y S ex:Male Date:10/17/2023 Address:[address] [place], [place] [id number] Pcp:Ulysses Melendez MD Subjective: * Chief Complaints: * 1 . S/p RT sx. * HPI: Mukesh Dean assisting with visit:: HPI/Rooming: . ..... P [facility] reason for visit:: Date of surgery: 0 [...] Electronic signature of Tena Patton DPM on 02/25/2025 at 01:23 AM CDT Sign off status: Pending * Provider: Olimpia Patton DPM Date: 0 10/17/2023 Generated for Carol christopher/Zahida/Ynes on: 0 02/25/2025 01:23 AM CDT History and Physical Notes * [...]
--- OUTSIDE RECORDS SUMMARY | 2025-02-25 01:24 | XMS_ITS ---
Author Organization 1 OF Olimpia flanagan [facility] Address [address] [place] [address] Care Team Providers Care Acoustic Intelligence Specialist Name Role Phone Ulysses Melendez MD Primary Care Provider German Mcnamara [facility] Allergies No Known Allergies REASON FOR VISIT [...] Date Provider Diagnosis 1 OF [facility] [address] [place] [address] 12/05/2023 German Patton Surgical aftercare, musculoskeletal system Z47.89 ; Hallux limitus of right foot M20.5X1 and Type 2 diabetes mellitus without complication, unspecified whether intermediate insulin use E11.9 Assessments Encounter Date Diagnosis [...] 2 diabetes mellitus without complication, unspecified whether long line teamster insulin use (ICD-10 - E11.9) Plan Of [...] Patton, 03/04/2025 09:10:00 AM, [address], [facility] [address], [place], [address], Progress Notes * CANDICE JoseDOB:1965 (59 yo M)Acc No.[id number]:12/05/2023 Progress Notes Patient: Jose KUMAR Provider: Olimpia Patton DPM :1965 A ge:58 Y S ex:Male Date:12/05/2023 Address:[address] [place] [address] [facility] Pcp:Ulysses Melendez MD Subjective: * Chief Complaints: [...] appropriate response to questions. Shoes today: N maagli tennis shoes. Post-op evaluation: R ight foot:, [...] diabetes mellitus without complication, unspecified whether intermediate insulin use - E11.9 Plan: * Treatment: * Preventive Medicine: Counseling: C are goal follow-up plan: Above Normal BMI Follow-up L ifestyle education regarding diet * Follow Up: p rn * Images: * Electronic signature of Tena Patton DPM on 02/25/2025 at 01:24 AM CDT Sign off status: Pending * Provider: Olimpia Patton DPM Date: 0 12/05/2023 Generated for Carol christopher/Zahida/Ynes on: 0 02/25/2025 01:24 AM CDT History [...]
--- OUTSIDE RECORDS SUMMARY | 2025-02-25 01:24 | XMS_ITS | Clinical Summary ---
Author Organization [facility] Address [address] [place] [address] Care Team Providers Care Communications Billing Analyst Name Role Phone Unavailable Primary Care Provider [...]
--- OUTSIDE RECORDS SUMMARY | 2025-02-25 01:24 | XMS_ITS | Patient Health Record ---
Author Organization [facility] Address [address] [facility] [address] [place] [address] Care Team Providers Care Tiltrotor Crew Chief Name Role Phone Ulysses Melendez MD Primary Care Provider German Mcnamara Unavailable [phone] Aimee Lo Unavailable [phone] Allergies No Known Allergies Reason For Referral [...] 2 diabetes mellitus without complication, unspecified whether terminal supervisor insulin use (E11.9) Active confirmed Vital Signs Height 71 in 12/23/2024 Weight 225 lbs 12/23/2024 BMI 31.38 kg/m2 12/23/2024 Encounters Encounter Location Date Provider Diagnosis 1 OF Olimpia Patton [facility] [address] [place] [address] 12/23/2024 Aimee Lo 1 OF Olimpia Patton [facility] [address] [place] [address] 12/18/2024 German Patton Plan Of Treatment Next Appt Details Provider Name:German Patton, 03/04/2025 09:10:00 AM, [address], [address], [place], [address], Insurance Providers Payer Name Payer Address Payer Phone Subscriber Number Group Number Insured Name Patient Relationship to Insured Coverage Start Date Coverage End Date [facility] [address] [address] [place] [address] [id number] Jose Richmond Self - patient is the insured Medical (General) History Medical History History ICD Code hyperlipidemia hypertension Diabetes Anxiety disorder depression Surgical History Surgery Date(Month/Year) Foot/Ankle surgery
--- NOTE | 2025-02-25 06:24 | WPDHPUPDATE1 ---
History and Physical Update Update Date/Time: 02/25/25 06:24 History and Physical has been reviewed, including an updated exam of the patient. There are NO changes in the patient's condition. Risks, benefits, and alternatives have been discussed and questions answered. Patient agrees to proceed with procedure.
--- NOTE | 2025-02-25 07:31 | P.PNAN_ITS ---
Anes - Initial Pre Proc Eval Procedure: Operation Date: 02/25/25 13:45 Proposed Procedures p Trans Rectal Ultrasound Fusion Guided Prostate Biopsy - Michael Laird MD Date/Time: 02/25/25 07:31 Surgeon: Michael Laird MD Pre Op Diagnosis: Elev PSA Patient Data Age: 59 Gender: M Height: 1.8 m Weight: 102.3 kg Allergies Allergy/AdvReac Type Severity Reaction Status Date / Time No Known Allergies Allergy Verified 02/25/25 12:20 Home Medications ?Medication ?Instructions ?Recorded ?Confirmed ?Type amlodipine 10 mg tablet 10 mg PO DAILY 02/17/25 02/25/25 History aspirin 81 mg tablet,delayed 81 mg PO DAILY 02/17/25 02/25/25 History release atorvastatin 40 mg tablet 40 mg PO DAILY 02/17/25 02/17/25 History citalopram 20 mg tablet 20 mg PO DAILY 02/17/25 02/25/25 History clopidogrel 75 mg tablet 75 mg PO DAILY 02/17/25 02/25/25 History dapagliflozin propanediol 10 mg 10 mg PO DAILY 02/17/25 02/17/25 History tablet (Farxiga) ezetimibe 10 mg tablet 10 mg PO DAILY 02/17/25 02/17/25 History irbesartan 300 mg tablet 300 mg PO DAILY 02/17/25 02/17/25 History metformin 500 mg tablet,extended 1,000 mg PO DAILY 02/17/25 02/17/25 History release 24 hr Patient hx anesthesia problems: none Family hx anesthesia problems: none Results Review: All pre-operative results and documents have been reviewed as part of the pre- operative evaluation. [facility] Past Medical History Medical History (Updated 02/25/25 @ 07:31 by Everett Johnston DO) Diabetes type 2, controlled ZORAIDA (obstructive sleep apnea) Hyperlipidemia Hypertension Social History Social History Years smoked: 8 Smoking status: Former smoker Smoking end date: 02/18/20 Alcohol intake: current Living arrangements: with family Spiritual care concerns: No Anes - Eval Final PreProcedure Day of Procedure 02/25/25 07:31 Patient weight: overweight Heart: regular rate and rhythm Lungs: clear to auscultation Airway: Mallampati scale class III Neurological: alert and oriented Last oral intake: >/= 8 hours ASA classification: III Emergent: no Anesthetic plan: proceed Anesthesia type and monitoring: general LMA and standard monitoring Results Review: All pre-operative results and documents have been reviewed as part of the pre- operative evaluation. Informed Consent: The patient's anesthetic plan and its attendant risks and benefits were discussed with the patient/family/POA. Questions were solicited and answers provided to the satisfaction of the patient/family/POA.
[2025-02-25 11:28] VITALS: BP 114/91; PULSE 75; RESP 16; TEMP 36.2; O2SAT 100; BMI 29.1
[2025-02-25] MEDS: LACTATED RINGERS 1,000 ML 30 ML IV CONT (12:25)
[2025-02-25] MEDS: cefTRIAXone 1 GM in SODIUM CHLORIDE 0.9% IV 50 ML 100 ML IVPB (13:19)
--- NOTE | 2025-02-25 13:25 | S_PTH ---
PATIENT: Jose Richmond [facility] U[facility][id number] AGE/SX: 59/M ROOM: RE02/25/[address]: Michael Laird MD : 1965 BED: DIS: 02/25/2025 SPEC #: [id number] RECD: 02/25/25 14:28 STATUS: DAVID RENissa #: [id number] RONALD: 02/25/25 13:[address]: Michael Laird DEPT: [facility] Surgical RECD BY: Mary Grover ENTERED: 02/25/25 14:28 SP TYPE: Surgical OTHR DR: Bobo Melendez (Khengwai)MD Tissues: A - Prostate Bx B - Prostate Bx C - Prostate Bx D - Prostate Bx E - Prostate Bx F - Prostate Bx G - Prostate Bx H - Prostate Bx I - Prostate Bx J - Prostate Bx K - Prostate Bx L - Prostate Bx M - Prostate Bx Procedures: Unstained Slides Hematoxylin and Eosin Stain Prostate Biopsy
[2025-02-25 13:43] VITALS: BP 116/77; PULSE 81; RESP 16; O2SAT 98
--- NOTE | 2025-02-25 13:47 | P.OP_ITS ---
Procedure Note - Detailed Date of Procedure 02/25/25 Pre-op Diagnosis Elevated PSA Post-op Diagnosis Same Procedure Performed Uronav prostate bx. Surgeon Michael Laird MD Anesthesia MAC Description of Procedure Patient is brought to the operative suite where he is positioned in the left lateral position. Systemic sedation is administered per the anesthesia department. Surgical time-out is undertaken and it's verified the patient has received preoperative antibiotics. Transrectal ultrasonography is undertaken with a standard transrectal probe. The [employer] system is used to superimpose his previously obtained mpMRI prostate images on the real-time transrectal ultrasond images. Prostate volume is calculated at 35cc. On the previous mpMRI there are 1 region of interest. Using the transrectal needle design for prostate biopsies 3 cores from each region of interest was obtain. We then proceeded with a standard 12 core prostate biopsy. Transrectal probe was removed and patient taken to recovery room having tolerated the procedure well. Blood loss was less than 10 cc.
[2025-02-25 14:10] VITALS: BP 117/83; PULSE 69; RESP 16
[2025-02-25 14:35] VITALS: BP 133/84; PULSE 67; RESP 16
== END 2025-02-25 14:43 | disposition home or self-care (01) ==
PROVIDERS: PCP Internal Medicine; Visit Provider Urology
PROC: (CPT 55700; principal; 2025-02-25 13:45)
DX: C61 Malignant neoplasm of prostate (principal); R97.20 Elevated prostate specific antigen [PSA]; E78.5 Hyperlipidemia, unspecified; I10 Essential (primary) hypertension; E11.9 Type 2 diabetes mellitus without complications; G47.33 Obstructive sleep apnea (adult) (pediatric); Z79.82 Long term (current) use of aspirin; Z79.02 Long term (current) use of antithrombotics/antiplatelets; Z79.84 Long term (current) use of oral hypoglycemic drugs; Z87.891 Personal history of nicotine dependence
CPT/HCPCS: 76872; 55700; 82948; G0416; J0696; J2704; J7120

== ENCOUNTER 2025-03-16 13:36 | Outpatient (CLI) | payer OTHER, SELFPAY ==
--- NOTE | ~2025-03-16 | PE_ITS ---
EXAMINATION: PET_PETPSMAST_PT DATE: 03/16/2025 15:33 INDICATION: Prostate cancer TECHNIQUE: 5.03 mCi of Illucix Ga-68(12-[id number]-fetywfaomz) was administered i.v. Low dose computed tomography (CT) images were acquired from the base of the brain to the base of the brain to the proximal thighs for attenuation correction and anatomic localization. Positron emission tomography (PET) images were acquired in the same distribution beginning 63 minutes after injection. Images including fused PET/CT images were reconstructed in axial, coronal, and sagittal planes. Automated exposure control technique was employed. The dose-length product was 1234.68mGy-cm. COMPARISON: None FINDINGS: Head/neck: Typical pattern of symmetric physiologic increased activity in the lacrimal, parotid and submandibular glands as well as along the mucosa of the nasal and oral cavities, pharynx and hypopharynx. No pathologically enlarged cervical lymphadenopathy or suspicious foci of increased uptake in the visualized head or neck. Chest: Mild dependent atelectasis in the lower lungs. No pneumonia, pulmonary edema, suspicious pulmonary nodules or pleural effusion. Heart size normal. Atherosclerotic coronary artery calcifications. No pericardial effusion. Thoracic aorta is normal in caliber. No pathologically enlarged or PSMA avid thoracic lymphadenopathy. Abdomen/pelvis/proximal thighs: Physiologic renal accumulation and excretion of activity in the kidneys, bladder and along portions of ureters. Prostatomegaly measuring 4.7 x 4.3 cm. There is a small focus of increased uptake with maximal SUV of 13.0 at the left side of the prostate. Penile prosthesis with catheter extending cephalad lung the right inguinal canal to a reservoir in the deep inferior right rectus abdominis muscle. Normal degree and slightly heterogenous pattern of increased uptake throughout the liver and spleen without radiologic correlate or dominant PSMA avid lesion. The gallbladder, pancreas and bilateral adrenal glands are normal. Moderate uptake scattered throughout the bowels with typical duodenal and proxim al jejunal predominance and without radiologic correlate, also likely physiologic. Normal appendix. No other abnormal foci of increased uptake or pathologically enlarged lymphadenopathy in the abdomen, pelvis or proximal thighs. Musculoskeletal: C5 C7 instrumented anterior spinal fusion with anterior plate and screw fixation. No suspicious lytic, blastic or abnormally PSMA avid bone lesions. IMPRESSION: 1. Small focus of moderate increased uptake in the left side of the enlarged prostate consistent with primary prostate cancer. No evident metastatic disease. Reviewed, dictated and finalized at location A. IMPRESSION: 1. Small focus of moderate increased uptake in the left side of the enlarged pr ostate consistent with primary prostate cancer. No evident metastatic disease.
--- OUTSIDE RECORDS SUMMARY | 2025-03-16 13:51 | XMS_ITS | Clinical Summary ---
Author Organization [facility] Address [address] [place] [address] Care Team Providers Care Heart Coordinator Name Role Phone Unavailable Primary Care Provider [...] 2015 Zoster Immunization (1 of 2) 2015 Influenza Immunization (#1) 2025 SARS-COV-2 Immunization (2024- season) 2025 08/30/2021, 03/08/2021, 02/15/2021 Respiratory Syncytial Virus (RSV) Immunization (Adult) (1 [...]
--- OUTSIDE RECORDS SUMMARY | 2025-03-16 13:51 | XMS_ITS | Clinical Summary ---
Author Organization [facility] Address [address] [place] [address] Care Team Providers Care Oil Speculator Name Role Phone Ulysses Henderson MD Primary Care Provider [phone] Allergies No known active allergies Medications atorvastatin [...] - 01/11/2025 11:59 PM CDT Hospital Encounter [facility] Cardiac Testing [address] [place] [address] Pain in right leg; Pain in [...] on file Legal Sex Male 7:48 PM FINANCIAL FOUNDATIONS REPRESENTATIVE Gender Identity Not on file Sexual Orientation Not on file Obstetrics History Last Filed Vital Signs Vital Sign Reading Time Taken Comments Blood Pressure 160/90 07/25/2023 8:23 AM FINANCIAL FOUNDATIONS REPRESENTATIVE Lt upper arm Pulse 84 07/25/2023 8:23 AM FINANCIAL FOUNDATIONS REPRESENTATIVE Temperature 36.4 C (97.5 F) 07/25/2023 8:23 AM FINANCIAL FOUNDATIONS REPRESENTATIVE Respiratory Rate 18 07/25/2023 8:23 AM FINANCIAL FOUNDATIONS REPRESENTATIVE Oxygen Saturation 99% 07/25/2023 8:2 3 AM FINANCIAL FOUNDATIONS REPRESENTATIVE Inhaled Oxygen Concentration - - Weight 102.4 kg (225 lb 11. 2 oz) 07/25/2023 8:23 AM FINANCIAL FOUNDATIONS REPRESENTATIVE Height 180.3 cm (5' 11) 07/25/2023 8:2 3 AM FINANCIAL FOUNDATIONS REPRESENTATIVE Body Mass Index 31.48 07/25/2023 8:23 AM FINANCIAL FOUNDATIONS REPRESENTATIVE Plan of Treatment Health Maintenance Due Date Last Done Comments Colon Cancer Screening-Colonoscopy 1965 Depression Screening 1965 Hepatitis C Screening 1965 Prostate Cancer Screening-PSA 1965 DTaP/Tdap/Td Vaccine (1 - Tdap) 1976 Hepatitis B Screening 1983 Regular Well Visit/Exam 18-64 1983 Zoster Vaccine (1 of 2) 2015 Covid-19 Vaccine ( season) 2025 04/10/2022, 08/30/2021, 08/30/2021, Additional history exists Influenza [...] Gender: M Study Date: 01/11/2025 12:53:31 PM Traffic Agent: DOMO Murrieta Order Provider: ULYSSES HENDERSON Quality: [...] Gender: M Study Date: 01/11/2025 12:53:31 PM Traffic Agent: DOMO Murrieta Order Provider: ULYSSES HENDERSON Quality: [...] Final Result from Last 3 Months Insurance [facility] CHOICE PLUS [address] CHOICE PLUS Member Subscriber Plan / Payer (Ef fective 2021-Present) Name:Jose Harvey Relation to Subscriber:Self Name:Jose Harvey Payer ID:[id number] (NAIC) Type:[facility] HMO/PPO Address: [address] CHOICE PLUS Care Teams Oil Speculator Relationship Specialty Start Date End Date Ulysses Henderson MD [address] [facility] [address] [place] [address] PCP - General 05/23/20
--- OUTSIDE RECORDS SUMMARY | 2025-03-16 13:51 | XMS_ITS | Clinical Summary ---
Author Organization [facility] Address [address] [place] [address] Care Team Providers Care Gas Producer Name Role Phone Ulysses Melendez MD Primary Care Provider [phone] Social History Tobacco Use Types Packs/Day Years [...] COVID-19 Vaccine ( - 2023-2 5 season) 2025 Meningococcal B Vaccine Aged Out No l onger eligible based on patient's age to complete this topic Meningococcal Vaccine Aged Out No anthony lamberto eligible based on patient's age to complete this topic RSV Immunizations Under 20 Months Aged Out No longer eligible based on patient's age to complete this topic Insurance [facility] Care Teams Gas Producer Relationship Specialty Start Date End Date Ulysses Melendez MD [address] [facility] [address] [place] [address] PCP - General 12/02/13
== END 2025-03-16 13:37 | disposition home or self-care (01) ==
PROVIDERS: PCP Internal Medicine; Visit Provider Urology
DX: C61 Malignant neoplasm of prostate (principal)
CPT/HCPCS: 78815; A9596

== ENCOUNTER 2025-04-26 11:45 | Outpatient (CLI) | payer OTHER, SELFPAY ==
--- NOTE | ~2025-04-26 | XR_ITS ---
Examination: XR chest 2V Clinical History: C61 - Malignant neoplasm of prostate Comparison: PET/CT 03/16/2025 Technique: PA and Lateral Findings: Cardiomediastinal silhouette normal size and configuration. Lungs clear. No acute bony abnormality. IMPRESSION: 1. No acute cardiopulmonary findings. Reviewed, dictated and finalized at location R.
[2025-04-26 13:28] LABS: Hematocrit 45.5 % (42.0-52.0); Hemoglobin 15.1 g/dL (14.0-18.0); Immature Granulocyte Percent A 0.1 % (0-0.5); Lymphocytes Absolute Auto 3.28 K/mm3 (0.9-3.2); Mean Corpuscular HGB Conc 33.2 g/dl (32-36); Mean Corpuscular Hemoglobin 30.9 pg (26-34); Mean Corpuscular Volume 93.0 fl (80-100); Nucleated Red Blood Cells Absolute Auto 0.000 K/mm3 (0.0-0.012); Nucleated Red Blood Cells Perc 0.0 % (0.0-0.2); Platelet Count Result 192 k/mm3 (150-375); Red Blood Count 4.89 M/mm3 (4.6-6.20); White Blood Count 7.1 K/mm3 (4.5-10.0)
[2025-04-26 13:34] LABS: Add Urine Microscopic? NO; Appearance Urine Clear (Clear); Glucose Urine UA 3+ mg/dL (Negative); Leukocyte Esterase Ur Negative LEU/UL (Negative); Nitrate Urine Negative (Negative); Specific Grav Ur 1.036 (1.001-1.035)
[2025-04-26 13:41] LABS: INR 0.9; Prothrombin Time 12.6 Seconds (11.1-14.7)
[2025-04-26 13:42] LABS: Partial Thromboplastin Time 28.4 Seconds (22.3-36.8)
[2025-04-26 13:52] LABS: Alanine Aminotransferase 66 U/L (6-50); Albumin Level 4.5 g/dL (3.5-5.1); Alkaline Phosphatase 77 U/L (38-126); Anion Gap 6 mmol/L (4-12); Aspartate Amino Transferase 36 U/L (17-59); Bilirubin,Total 0.6 mg/dL (0.2-1.3); Blood Urea Nitrogen 16 mg/dL (9-20); Calcium 9.7 mg/dL (8.4-10.2); Carbon Dioxide 32 mmol/L (22-30); Chloride 101 mmol/L (98-107); Estimated Glomerular Filt Rate > 60; Glucose 131 mg/dL (65-110); Potassium 4.1 mmol/L (3.4-5.0); Sodium 139 mmol/L (137-145); Total Protein 8.0 g/dL (6.3-8.2)
== END 2025-04-26 11:46 | disposition home or self-care (01) ==
LOC: ANHSURGERY 11:48
PROVIDERS: PCP Internal Medicine; Visit Provider Urology
DX: C61 Malignant neoplasm of prostate (principal); Z01.818 Encounter for other preprocedural examination
CPT/HCPCS: 36415; 71046; 80053; 81003; 85025; 85610; 85730; 86850; 86900; 86901

== ENCOUNTER 2025-05-06 02:02 | Day surgery (SDC) | payer OTHER, SELFPAY ==
--- OUTSIDE RECORDS SUMMARY | 2025-03-04 04:10 | XMS_ITS ---
Author Organization 1 OF Olimpia flanagan [facility] Address [address] [place] [address] Care Team Providers Care Biofuels Plant Superintendent Name Role Phone Ulysses Melendez MD Primary Care Provider German Mcnamara REASON FOR VISIT DFC (Diabetic foot care) Encounters Encounter Location Date Provider Diagnosis 1 OF Olimpia Patton [facility] [address] [place] [address] 03/04/2025 German Patton Type 2 diabetes mellitus without complication, unspecified whether alf insulin use E11.9 Assessments Encounter Date Diagnosis (ICD Code) Assessment Notes Treatment Notes Treatment Clinical Notes Section Notes 03/04/2025 Type 2 diabetes mellitus without complication, unspecified whether alf insulin use (ICD-10 - E11.9) Plan Of Treatment No Information History and Physical Notes * HPI (History of Present Illness) Category Sub-Category Detail Notes Category Not es MA assisting with visit: Chart Thalia Sands Examination Category Sub-Category Detail Notes Category Not es General Examination Mental status: Cooperative, Oriented to person, place and time, Mood and affect: normal, Judgement and intellect: normal with appropriate response to questions Shoes today: , XXXXXX Constitutional / Appearance: No acute di stress [...] balance Lower Extremity DERM: Skin: well hydra lowlel , no suspicious lesions, without interdigital maceration, bilateral Progress Notes * Jose HARVEYDOB:1965 (59 yo M)Acc No.[id number]:03/04/2025 Progress Note Patient: Jose Gomez Provider: Olimpia Patton DPM :1965 A ge:59 Y S ex:Male Date:03/04/2025 Address:[address] [place] [address] [address] [facility] Pcp:Ulysses Melendez MD Subjective: * Chief Complaints: * D FC (Diabetic foot care) * HPI: M A assisting with visit:: Sundar Prep Lauren. Dada reason for visit:: 59 y/o female RTO for DFC. Pt denies acute nail or callus concerns. (Pt previously underwent surgery on 0 08/14/2023 for RT 1st MPJ implant arthroplasty w/ BioPro ron-implant. ). Objective: * Examination: G eneral Examination: Constitutional / Appearance: N o acute distress , Well nourished, Appropriate personal hygiene. Mental status: C ooperative, Oriented to person, place and time, Mood and affect: normal, Judgement and intellect: normal with appropriate response to questions. Shoes today: , XXXXXX. L ower Extremity VASCULAR: : Pulses: D [...] palpable masses or nodules noted. . Assessment: * Assessment: 1. T ype 2 diabetes mellitus without complication, unspecified whether alf insulin use - E11.9 Plan: * Preventive Medicine: Counseling: C are goal follow-up plan: Above Normal BMI Follow-up L ifestyle education regarding diet * Electronic signature of Tena Patton DPM on 05/06/2025 at 02:05 AM CDT Sign off status: Pending * Provider: Olimpia Patton DPM Date: 0 03/04/2025 Generated for Carol christopher/Zahida/Ynes on: 1 02:05 AM CDT
[2025-04-26 12:01] VITALS: BP 114/84; PULSE 87; RESP 16; TEMP 36.6; O2SAT 98; BMI 29.2
--- NOTE | 2025-04-26 12:26 | PC.NURSE ---
[facility] has started construction of its new state of the art ER which will open Spring 2026. With this, we anticipate parking may be a challenge for some our surgical patients and families. Parking spaces are limited but are available for all Surgical, obstetrics, and ER patients sharing this lot. If you arrive and find you are having a hard time finding a parking space, please note that we understand the challenges, please drive around the hospital and park near Hospital Entrance 1. When you enter this entrance, you can ask a volunteer to direct or take you back to the surgical waiting area to check in. We appreciate everyone?s understanding of these expected challenges while we build for your future. Report to the Outpatient Waiting Room, entrance under the green pavilion located off [address], at time __6:00AM___ on date __05/06/25___. Planned Procedure Time: __7:30AM____.? Time changes happen often and if your time is changed the preop area will call you the afternoon before. - You and your visitor will be asked to self-screen and do not enter if you have any COVID symptoms. Please call surgeon if you need to reschedule. - A mask is optional within the hospital at this time. Patients may have clear liquids (water, carbonated beverages, clear teas, apple juice) until 3 hours prior to surgery (4:30AM) with a maximum of 20 ounces. - No food from midnight until time of surgery and no smoking, or chewing tobacco (or any form of nicotine). No chewing gum, candy or mints. Take only the following medications with a SIP of water on the morning of surgery: __AMLODIPINE, CITALOPRAM DO NOT STOP ANY OF YOUR OTHER PRESCRIPTION MEDICATIONS PRIOR TO SURGERY EXCEPT THE FOLLOWING Hold all vitamins and supplements for 3 days per anesthesiologist. Medications to discontinue per physician ___HOLD ASPIRIN & PLAVIX 7 DAYS PRE-OP PER DR DAMIAN Date to take last dose 04/28/25 Please no make-up, nail welsh, hairspray, perfume, deodorant, or body powder the day of surgery.? No jewelry (including any body piercings) or valuables the day of surgery, leave them at home.? Please take a shower or bath the night before, or the morning of, surgery with an antibacterial soap.? Wear comfortable, loose fitting clothing.? - Jewelry must be removed prior to entering the operating room.? Rings and piercings that are not removed may be cut off. - The hospital will not accept responsibility for valuables.? - Please leave all valuables, including medications, at home the day of surgery. If you are going home after surgery, a licensed straight truck driver must drive you home.? - NO public transportation without another adult if you receive anesthesia. - We recommend that an adult stay with you for 24 hours following discharge. - We also recommend that you do not drive, make important decision, drink alcoholic beverages, or take any drugs that were not prescribed by your health care provider for at least 24 hours after your discharge time. Follow any additional instructions given to you from your surgeon. Telephone instructions given to ____PATIENT and asked if any additional questions and then verbalized understanding. Patient advised to call surgeon office or pre surgery nurse liaison [phone] if any additional questions.
--- NOTE | 2025-04-28 12:37 | PM.IMHP ---
H&P: HPI History of Present Illness Date/Time: 04/28/25 12:37 Chief Complaint: Prostate cancer Narrative: Patient 59 year old male with recently diagnosed prostate cancer 08/2020: ?IPP placement by Dr. Garner 03/01/25: ?PSA: 13.8 ?- ?10/25 cores (LLM, LM, LB, LADAN in L-mid), GGG-2 (2) and GGG-3(2) ?- ?NCCN Unfavorable IR ?- ?Volume: 41gm ?Bx. done at [facility] ?Decipher requested 03/11/25: ?Decipher Prostate ?Decipher Score: 0.74 (0-.45 Low Risk / .45-.60 Int. Risk / >.60 High Risk) in comparison to similar NCCN risk ?- 5-year Risk of Metastasis (with standard therapy): 3.9% ?- 10-year Risk of Metastasis (with standard therapy): 9.8% ?- 15-year Risk of Mortality (with standard therapy): 13.1% ?77thth percentile / 13% of patients with similar clinical and pathological features typically have higher Genomic Scores 03/24/25: ?PSMA-PET: scant uptake only in left prostate / no metastatic disease ?- IPP is in right sub-rectus position with reservoir completely below umbilicus ?Germline: no indicated ?Cancer consultation: Review of Systems Review of Systems: ROS unobtainable: Yes unobtainable due to endotracheal tube PMFSH Past Medical History Medical History (Updated 04/28/25 @ 12:39 by Michael Laird MD) Diabetes type 2, controlled ZORAIDA (obstructive sleep apnea) Hyperlipidemia Hypertension Social History Social History Smoking packs per day: 0.25 Smoking cigarettes per day: 5.0 Years smoked: 7 Smoking pack-years: 1.75 Smoking status: Former smoker Tobacco type: cigarettes Smoking end date: 01/12/10 Alcohol intake: current Living arrangements: with family Additional living arrangements comments: -DRE Spiritual care concerns: No Meds Home Medications and Allergies Home Medications ?Medication ?Instructions ?Recorded ?Confirmed ?Type amlodipine 10 mg tablet 10 mg PO DAILY 02/17/25 04/26/25 History aspirin 81 mg tablet,delayed 81 mg PO DAILY 02/17/25 04/26/25 History release atorvastatin 40 mg tablet 40 mg PO DAILY 02/17/25 04/26/25 History citalopram 20 mg tablet 20 mg PO DAILY 02/17/25 04/26/25 History clopidogrel 75 mg tablet 75 mg PO DAILY 02/17/25 04/26/25 History dapagliflozin propanediol 10 mg 10 mg PO DAILY 02/17/25 04/26/25 History tablet (Farxiga) ezetimibe 10 mg tablet 10 mg PO DAILY 02/17/25 04/26/25 History irbesartan 300 mg tablet 300 mg PO DAILY 02/17/25 04/26/25 History metformin 500 mg tablet,extended 1,000 mg PO DAILY 02/17/25 04/26/25 History release 24 hr Allergies Allergy/AdvReac Type Severity Reaction Status Date / Time No Known Allergies Allergy Verified 04/26/25 11:56 Exam Const: General: no acute distress Resp: Effort & Inspection: normal respiratory effort GI: Inspection: non-distended GI Palp: No abdominal tenderness and No Guarding due to palpation present (GI) Auscultation: normal bowel sounds Assessment and Plan Assessment and plan (1) Prostate cancer: Code(s): C61 - Malignant neoplasm of prostate Status: Acute Assessment and Plan: Robotic assisted radical prostatectomy with bilateral pelvic lymphadenectomy
--- OUTSIDE RECORDS SUMMARY | 2025-05-05 09:25 | XMS_ITS | Continuity of Care Document ---
Author Organization [facility] Address [address] [place] [address] Phone Care Team Providers Care Systems Navigator Name Role Phone Jg CRAWFORD, FACC, Tommy Unavailable Unavailab le Allergies, Adverse Reactions, Alerts Substance Reaction Status Criticality No Known Allergies Active No Inform ation Medications Medication Instructions Dosage Effective Dates (start - stop) Status Comments irbesartan 300 mg tablet TAKE 1 TABLET BY MOUTH ONCE DAILY - Active aspirin 81 mg tablet,delayed release TAKE 1 TABLET BY MOUTH ONCE DAILY - Active amlodipine 10 mg tablet TAKE 1 TABLET BY MOUTH ONCE DAILY IN THE EVENING - Active atorvastatin 40 mg tablet TAKE 1 TABLET BY MOUTH ONCE DAILY - Active ezetimibe 10 mg tablet TAKE 1 TABLET BY MOUTH ONCE DAILY - Active Farxiga 10 mg tablet TAKE 1 TABLET BY [place] [facility] ONCE DAILY - Active clopidogrel 75 mg tablet TAKE 1 TABLET BY MOUTH ONCE DAILY - Active metformin ER 500 mg tablet,extended release 24 hr TAKE 2 TABLETS BY MOUTH TWICE DAILY - Active citalopram 20 mg tablet TAKE 1 TABLET BY MOUTH ONCE DAILY FOR 90 DAYS - Active alprazolam 1 mg tablet TAKE 1 TABLET BY MOUTH EVERY 12 HOURS NEEDED FOR ANXIETY - Active Procedures Procedure Date Complex e/m visit add on OFFICE/OUTPATIENT VISIT, EST ELECTROCARDIOGRAM, COMPLETE Advance Directives Directive Yes / No Effective Date File Name No Information Encounters Encounter Description Practice Location Reason(s) For Visit Diagnoses Date Provider Providers Copied on Encounter [facility], [address] [place] [address], [id number] , [facility]: [phone] [facility] Information 5 Jg Sanders. [facility] Anthony , [place], [place], [id number] , . tel: [phone] Referring Provider: Tommy Gregorio, [address] [place], [place] [address]vey , [place], [address] . tel:[phone] OFFICE/OUTPA TIENT VISIT, EST [facility], [address] [place] [address], [id number] , tel: [phone] [facility] Anthony sx clearance (chief complaint) Malignant neoplasm of prostateAtherosclerot ic heart disease of [place] coronary artery without angina pectorisChest pain, unspecifiedDyspnea, unspecifiedEssential (primary) hypertensionHyperlipi demia, unspecifiedType 2 diabetes mellitus without complicationsEncounte r for preprocedural cardiovascular examination 5 Jg Sanders. [address] [place], [place] [address], [place], [id number] , . tel: [phone] Referring Provider: Bobo Melendez, [address] [address], [place], [address]. tel:[phone] [facility], [address] [place] [address], [id number] , tel: [phone] [facility] Anthony No Information 5 Jg Sanders. [address] [place], [place] [address], [place], [id number] , . tel: [phone] [facility], [address] [place] [address], [id number] , tel: [phone] [facility] Anthony MICADChest painDM type IIErectile disorderHTNHyperlipid emiaDyspneaSleep apnea 5 Jg Sanders. [address], [place], [place], [id number] , [place]. tel: [phone] Family History Family Member Type Diagnosis Age At Onset No Information Payers Payer name Insurance type Covered constitution party ID Arnie joseph(s) [facility] [id number] Social History Type Description Quantity Date Captured Comments Alcohol Use Details Unknown Caffeine Use Details Unknown Tobacco Use Status No Information Smoking Status No Information Sex Male Chief Complaint And Reason For Visit No Information Reason For Referral Reason For Referral No Information Plan Of Treatment Date Type Action Status Appointment Jose Richmond BOOKED Appointment Jose Richmond BOOKED Future Order: Radiology Order SP ECT/Pharmacological 2 Day ([id number]), Ordered on: Ordered History Of Present Illness Encounter Date Complaint History Of Prese nt Illness sx clearance Functional Status Date Functional Assessmen t No Information Instructions Date Instruction Additional Infor mation No Information Assessments Type Assessment Date No Information Patient Care Teams Name Effective Dates (start - stop) Status Members No Information
[2025-05-06] VITALS (15 sets, daily range): BP systolic 144–185; BP diastolic 78–106; PULSE 73–102; RESP 15–20; TEMP 36.3–37.4; O2SAT 94–100; BMI 28.7
--- OUTSIDE RECORDS SUMMARY | 2025-05-06 02:05 | XMS_ITS | Data Portability ---
Author Organization [facility], [employer] Address [address] [address] Care Team Providers Care Youth Probation Officer Name Role Phone ULYSSES HENDERSON Primary Care Provider LISANDRO FALCON Field Assessor [facility] Senior Mortgage Loan Processor Assessment Encounter Date Assessment Date Assessment LastModified by Organization Details LastModified Time 01/03/2024 01/03/2024 Recommends healthy nutrition, including a diet rich in fruits and vegetables, minimizing simple carbohydrates, salt, and saturated fats. Encouraged regular cardiovascular exercise such as walking at least 30 minutes daily, 5 times per week. pc1 Not available 01/03/2024 12:58:55 12/17/2024 12/17/2024 Recommends healthy nutrition, including a diet rich in fruits and vegetables, minimizing simple carbohydrates, salt, and saturated fats. Encouraged regular cardiovascular exercise such as walking at least 30 minutes daily, 5 times per week. Not available 12/17/2024 17:43:57 03/25/2025 03/25/2025 Patient presente d for follow up. Studies ordered as below. Discussed plan with patient/caregiver , who expressed understanding. Follow up as noted below. Not available 03/25/2025 18:53:07 04/30/2025 04/30/2025 Recommends healthy nutrition, including a diet rich in fruits and vegetables, minimizing simple carbohydrates, salt, and saturated fats. Encouraged regular cardiovascular exercise such as walking at least 30 minutes daily, 5 times per week. Not available 04/30/2025 13:39:57 Plan of Treatment Reminders Order Date Submit Date Provider Last Modified By Organization Details Last Modified Time Details Appointments ESTABLISH ED PATIENT 15 2024 03:45P Mukesh Henderson MD Not available Not available Not available Lab vitamin B12, serum 2024 025 [facility], [address] [facility], [place], [address], 05/05/2025 12:03:04 HbA1c (hemoglob in A1c), blood 2024 025 [facility], [address] [facility], [place], [address], 05/05/2025 12:03:02 CMP, serum or plasma 2024 025 [facility], [address] [facility], [place], [address], 05/05/2025 12:03:03 microalbu min/creat inine, mass ratio, urine 2024 025 [facility], [address] [place], [address], 04/30/2025 14:05:17 lipid panel, serum 2024 025 [facility], [address] [place], [address], 05/05/2025 12:03:03 PSA, serum or plasma 2024 025 [facility], [address] [place], [address], 12/17/2024 17:49:28 D-dimer, quant, plasma 2024 025 [facility], [address] [place], [address], 12/22/2024 11:16:32 vitamin B12, serum 2024 025 [facility], [address] [place], [address], 12/19/2024 14:46:22 HbA1c (hemoglob in A1c), blood [address] [facility], [address] [place] [address], [address], 12/19/2024 14:46:20 CMP, serum or plasma [address] [facility], [address] [place] [address], [address], 12/19/2024 14:46:20 microalbu min/creat inine, mass ratio, urine [address] [facility], [address] [place] [address], [address], 12/17/2024 17:49:27 lipid panel, serum [address] [facility], [address] [place] [address], [address], 12/19/2024 14:46:21 CBC w/ auto diff [address] [facility], [address] [place] [address], [address], 12/19/2024 14:46:20 vitamin B12, serum 2023 024 [facility], [facility], [place], [address], 01/03/2024 13:00:49 microalbu min/creat inine, mass ratio, urine 2023 024 [facility], [facility], [place], [address], 01/03/2024 13:00:49 lipid panel, serum 2023 024 [facility], [facility], [address], [place], [address], 01/03/2024 13:00:52 CBC w/ auto diff 2023 024 [facility], [address], [place], [address], 01/03/2024 13:01:52 PSA, serum or plasma 2023 024 [facility], [address], [place], [address], 01/03/2024 13:00:50 CK (creatine kinase), total, serum 2023 024 [facility], [address], [place], [address], 01/03/2024 13:00:50 HbA1c (hemoglob in A1c), blood 2023 024 [facility], [address], [place], [address], 01/03/2024 13:00:48 CMP, serum or plasma 2023 024 [facility], [address], [place], [address], 01/03/2024 13:00:51 microalbu min/creat inine, mass ratio, urine 2023 024 [facility], [address], [place], [address], 07/23/2023 17:05:07 lipid panel, serum 2023 024 [facility], [address], [place], [address], 07/22/2023 18:46:10 CBC w/ auto diff 2023 024 [facility], [address], [place], [address], 07/23/2023 17:05:01 HIV 1+2 Ab + HIV1 p24 Ag, quantitat alfonso immunoass ay, serum 2023 024 [facility], [address], [place], [address], 07/22/2023 18:46:14 CK (creatine kinase), total, serum 2023 024 [facility], [address], [place], [address], 07/23/2023 17:05:03 PSA, serum or plasma 2023 024 [facility], [address], [place], [address], 07/23/2023 17:05:06 HbA1c (hemoglob in A1c), blood 2023 024 [facility], [address], [place], [address], 07/22/2023 18:46:13 CMP, serum or plasma 2023 024 [facility], [address], [place], [address], 07/23/2023 17:05:02 vitamin B12, serum 2023 024 [facility], [address], [place], [address], 07/22/2023 18:46:13 Referral diabetic ophthalmo logy referral [address] [facility], [address] [place], [address], 04/30/2025 14:19:56 podiatris t referral 2024 025 [facility] Pat[facility], [address], [place], [address], 04/30/2025 14:40:40 cardiolog ist referral - -- pt needs cardiac clearance MARIA M as his radical prostatec ronit is scheduled for 05/06/25. Thank you. 2024 025 MASSIMO Falcon MD, [address] [address], [place], [address], 04/30/2025 14:25:23 gastroent erologist referral 2024 025 MASSIMO Hawkins MD, [address] [place], [address], 12/17/2024 18:09:06 diabetic ophthalmo logy referral [address] [facility], [address] [place], [address], 01/14/2025 08:04:54 podiatris t referral 2024 025 [facility], [address], [place], [address], 03/06/2025 09:15:03 gastroent erologist referral 2023 024 nigel Hawkins MD, [address] [place], [address], 01/03/2024 13:03:47 diabetic ophthalmo logy referral [address] [facility], [address] [place], [address], 01/31/2024 08:13:04 podiatris t referral 2023 024 francisco Patton, [address], [place], [address], 12/28/2024 08:18:44 cardiolog ist referral 2023 024 francisco Falcon MD, [address], [place] [address], [address], 08/19/2023 08:54:02 gastroent erologist referral 2023 024 francisco Hawkins MD, [address] [place], [address], 07/22/2023 18:54:01 diabetic ophthalmo logy referral 2023 024 francisco [facility], [address] [place], [address], 08/19/2023 08:54:03 podiatris t referral 2023 024 francisco Patton, [address] [place], [address], 07/16/2024 08:22:35 Procedures None recorded. Surgeries None recorded. Imaging XR, lumbar spine 2024 025 francisco [facility] Centralized Scheduling, Centralized Scheduling, [address] [place], [address], 04/30/2025 14:19:55 LDCT, chest, for lung cancer screening 2024 025 francisco [facility] Patient Access Centralized Scheduling, Centralized Scheduling, [address] [place], [address], 04/30/2025 14:19:55 XR, lumbar spine 2024 025 francisco [facility] Patient Access Centralized Scheduling, Centralized Scheduling, [address] [place], [address], 04/01/2025 08:10:20 LDCT, chest, for lung cancer screening 2024 025 [facility] Patient Access Centralized Scheduling, Centralized Scheduling, [facility] [place], [address], 12/24/2024 08:05:12 LDCT, chest, for lung cancer screening 2023 024 [facility] Patient Access Centralized Scheduling, Centralized Scheduling, [facility] [place], [address], 01/13/2024 09:54:42 LDCT, chest, for lung cancer screening 2023 024 [facility] Patient Access Centralized Scheduling, Centralized Scheduling, [facility] [place], [address], 07/29/2023 08:28:55 Medication Orders citalopra m 40 mg tablet 2024 025 [facility], [address] [place], [address], 04/30/2025 14:05:19 Farxiga 10 mg tablet 2024 025 [facility], [address] [place], [address], 04/30/2025 14:05:13 metformin ER 500 mg tablet,ex tended release 24 hr 2024 025 [facility], [address] [place], [address], 04/30/2025 14:05:18 amlodipin e 10 mg tablet 2024 025 [facility], [address] [place], [address], 04/30/2025 14:05:21 atorvasta tin 40 mg tablet 2024 025 [facility], [address] [facility] [address], [place], [address], 04/30/2025 14:05:21 clopidogr el 75 mg tablet 2024 025 [facility], [address] [facility] [address], [place], [address], 04/30/2025 14:05:20 aspirin 81 mg tablet,de layed release 2024 025 [facility], [address] [facility] [address], [place], [address], 04/30/2025 14:05:19 Nitrostat 0.4 mg sublingua l tablet 2024 025 [facility], [address] [facility] [address], [place], [address], 04/30/2025 14:05:18 icosapent ethyl 1 gram capsule 2024 025 [facility], [address] [facility] [address], [place], [address], 04/30/2025 14:05:19 citalopra m 20 mg tablet 2024 025 [facility], [address] [facility] [address], [place], [address], 12/17/2024 17:49:20 Farxiga 10 mg tablet 2024 025 [facility], [address] [facility] [address], [place], [address], 12/17/2024 17:49:22 metformin ER 500 mg tablet,ex tended release 24 hr 2024 025 [facility], [address] [facility] [address], [place], [address], 12/17/2024 17:49:23 amlodipin e 10 mg tablet 2024 025 [facility], [address] [facility] [address], [place], [address], 12/17/2024 17:49:20 atorvasta tin 40 mg tablet 2024 025 [facility], [address] [facility] [address], [place], [address], 12/17/2024 17:49:18 clopidogr el 75 mg tablet 2024 025 [facility], [address] [facility] [address], [place], [address], 12/17/2024 17:49:18 aspirin 81 mg tablet,de layed release 2024 025 [facility], [address] [facility] [address], [place], [address], 12/17/2024 17:49:24 Nitrostat 0.4 mg sublingua l tablet 2024 025 [facility], [address] [facility] [address], [place], [address], 12/17/2024 17:49:18 icosapent ethyl 1 gram capsule 2024 025 [facility], [address] [facility] [address], [place], [address], 12/17/2024 17:49:17 amlodipin e 10 mg tablet 2023 024 [facility], [address] [facility] [address], [place], [address], 01/03/2024 13:00:51 atorvasta tin 40 mg tablet 2023 024 [facility], [address] [facility] [address], [place], [address], 01/03/2024 13:00:49 clopidogr el 75 mg tablet 2023 024 [facility], [address] [facility] [address], [place], [address], 01/03/2024 13:00:53 aspirin 81 mg tablet,de layed release 2023 024 [facility], [address] [facility] [address], [place], [address], 01/03/2024 13:00:54 Nitrostat 0.4 mg sublingua l tablet 2023 024 [facility], [address] [facility] [address], [place], [address], 01/03/2024 13:00:56 icosapent ethyl 1 gram capsule 2023 024 [facility], [address] [facility] [address], [place], [address], 01/03/2024 13:00:50 citalopra m 20 mg tablet 2023 024 [facility], [address] [facility] [address], [place], [address], 01/03/2024 13:00:51 Farxiga 10 mg tablet 2023 024 [facility], [address] [facility] [address], [place], [address], 01/03/2024 13:00:57 metformin ER 500 mg tablet,ex tended release 24 hr 2023 024 [facility], [address] [facility] [address], [place], [address], 01/03/2024 13:00:49 amlodipin e 10 mg tablet 2023 024 [facility], [address] [facility] [address], [place], [address], 07/22/2023 18:45:20 atorvasta tin 40 mg tablet 2023 024 [facility], [address] [facility] [address], [place], [address], 07/22/2023 18:45:21 clopidogr el 75 mg tablet 2023 024 [facility], [address] [place], [address], 07/22/2023 18:45:21 aspirin 81 mg tablet,de layed release 2023 024 [facility], [address] [facility] [address], [place], [address], 07/22/2023 18:45:21 Nitrostat 0.4 mg sublingua l tablet 2023 024 [facility], [address] [facility] [address], [place], [address], 07/22/2023 18:45:24 citalopra m 20 mg tablet 2023 024 [facility], [address] [facility] [address], [place], [address], 07/22/2023 18:45:20 Seglurome t 7.5 mg-1,000 mg tablet 2023 024 [facility], [address] [facility] [address], [place], [address], 01/03/2024 12:42:37 Patient TargetsNo targets recorded. Patient Instructions Encounter Date Encounter Id Patient Instructions Last Modified By Organization Details Last Modified Time 07/22/2023 [id number] advised to lose weight Not available 07/22/2023 18:45:02 01/03/2024 [id number] advised to lose weight Not available 01/03/2024 13:00:37 12/17/2024 [id number] advised to lose weight Not available 12/17/2024 17:49:10 04/30/2025 [id number] advised to lose weight Not available 04/30/2025 14:05:01 Discussed and explained advance directives such as standard forms to the . Face to face discussion lasted for a duration of ___ minutes. Not available 04/30/2025 13:37:51 Reason for Referral Field Assessor Referral for El ectrocardiogram abnormal Referring Physician: Rita Etienne, Encounter Date: 07/22/2023 Diabetic Ophthalmology Refer ral for Type 2 diabetes mellitus without complication Referring Physician: Rita Etienne, Encounter Date: 07/22/2023 Material Planner Referral for Screening for malignant neoplasm of colon Referring Physician: Rita Etienne, Encounter Date: 07/22/2023 Hairspring Vibrator Referral for Type 2 diabetes mellitus without complication Referring Physician: Rita Etienne, Encounter Date: 07/22/2023 Diabetic Ophthalmology Refer ral for Type 2 diabetes mellitus without complication Referring Physician: Rita Etienne, Encounter Date: 01/03/2024 Material Planner Referral for Screening for malignant neoplasm of colon Referring Physician: Rita Etienne, Encounter Date: 01/03/2024 Hairspring Vibrator Referral for Type 2 diabetes mellitus without complication Referring Physician: Rita Etienne, Encounter Date: 01/03/2024 Diabetic Ophthalmology Refer ral for Type 2 diabetes mellitus without complication Referring Physician: Rita Etienne, Encounter Date: 12/17/2024 Material Planner Referral for Screening for malignant neoplasm of colon Referring Physician: Rita Etienne, Encounter Date: 12/17/2024 Hairspring Vibrator Referral for Type 2 diabetes mellitus without complication Referring Physician: Rita Etienne, Encounter Date: 12/17/2024 Diabetic Ophthalmology Refer ral for Type 2 diabetes mellitus without complication Referring Physician: Ulysses Henderson, Internal Medicine, Encounter Date: 04/30/2025 Hairspring Vibrator Referral for Type 2 diabetes mellitus without complication Referring Physician: Ulysses Henderson, Internal Medicine, Encounter Date: 04/30/2025 Field Assessor Referral for Co ronary arteriosclerosis -- pt needs cardiac clearance MARIA M as his radical prostatectomy is scheduled for 05/06/25. Thank you. Referring Physician: Ulysses Henderson, Internal Medicine, Encounter Date: 04/30/2025 Results Created Date Observation Date Name Description Value Unit Range Abnormal Flag Note LastModifiedBy Organization Detail LastModifiedTime 07/22/19 24 07/22/2023 COMPL ETE CBC W/AUT O DIFF WBC white blood cell count 7.5 thous and/u L 3.5-10 .0 Not Available [facility] (Main Location) [facility] ,, [place], [address], 07/23/2023 17:05:01 07/22/19 24 07/22/2023 COMPL ETE CBC W/AUT O DIFF WBC red blood cell count 5.1 heavenly on/uL 3.5-5. 5 Not Available [facility] (Main Location) [address] ,, [place], [address], 07/23/2023 17:05:01 07/22/19 24 07/22/2023 COMPL ETE CBC W/AUT O DIFF WBC hemoglobin 15.9 g/dL 11.5-1 6.5 Not Available [facility] (Main Location) [address] ,, [place], [address], 07/23/2023 17:05:01 07/22/19 24 07/22/2023 COMPL ETE CBC W/AUT O DIFF WBC hematocrit 47 % 35-55 Not Available [facility] (Main Location) [facility] ,, [place], [address], 07/23/2023 17:05:01 07/22/19 24 07/22/2023 COMPL ETE CBC W/AUT O DIFF WBC MCH 31 pg 25-35 Not Available [facility] (Main Location) [facility] ,, [place], [address], 07/23/2023 17:05:01 07/22/19 24 07/22/2023 COMPL ETE CBC W/AUT O DIFF WBC MCHC 34 g/dL 31-38 Not Available [facility] (Main Location) [facility] [address] ,, [place], [address], 07/23/2023 17:05:01 07/22/19 24 07/22/2023 COMPL ETE CBC W/AUT O DIFF WBC MCV 92 fL 75-100 Not Available [facility] [address] ,, [place], [address], 07/23/2023 17:05:01 07/22/19 24 07/22/2023 COMPL ETE CBC W/AUT O DIFF WBC RDW-CV 13 % 11-15 Not Available [facility]Main Location[facility] [address] ,, [place], [address], 07/23/2023 17:05:01 07/22/19 24 07/22/2023 COMPL ETE CBC W/AUT O DIFF WBC neutrophils% 55.3 % Not Available [facility]Main [facility] [address] ,, [place], [address], 07/23/2023 17:05:01 07/22/19 24 07/22/2023 COMPL ETE CBC W/AUT O DIFF WBC lymphocytes% 35.4 % Not Available [facility] (Main Location) [facility] [address] ,, [place], [address], 07/23/2023 17:05:01 07/22/19 24 07/22/2023 COMPL ETE CBC W/AUT O DIFF WBC monocytes% 6.8 % Not Available [facility] (Main Location) [facility] [address] ,, [place], [address], 07/23/2023 17:05:01 07/22/19 24 07/22/2023 COMPL ETE CBC W/AUT O DIFF WBC eosinophil % 1.9 % 0.0-7. 0 Not Available [facility] (Main Location) [facility] ,, [place], [address], 07/23/2023 17:05:01 07/22/19 24 07/22/2023 COMPL ETE CBC W/AUT O DIFF WBC basophil % 0.3 % 0.0-3. 0 Not Available [facility] (Main Location) [facility] [address] ,, [place], [address], 07/23/2023 17:05:01 07/22/19 24 07/22/2023 COMPL ETE CBC W/AUT O DIFF WBC absolute neutrophils 4.1 cells /uL 1.5-7. 8 Not Available [facility] [address] ,, [place], [address], 07/23/2023 17:05:01 07/22/19 24 07/22/2023 COMPL ETE CBC W/AUT O DIFF WBC absolute lymphocytes 2.64 cells /uL 0.85-3 .90 Not Available [facility]Main Location[facility] [address] ,, [place], [address], 07/23/2023 17:05:01 07/22/19 24 07/22/2023 COMPL ETE CBC W/AUT O DIFF WBC absolute monocytes 0.5 cells /uL 0.2-1. 0 Not Available [facility] (Main Location) [facility] [address] ,, [place], [address], 07/23/2023 17:05:01 07/22/19 24 07/22/2023 COMPL ETE CBC W/AUT O DIFF WBC absolute eosinophils 0.1 cells /uL 0.0-0. 5 Not Available [facility] (Main Location) [facility] [address] ,, [place], [address], 07/23/2023 17:05:01 07/22/19 24 07/22/2023 COMPL ETE CBC W/AUT O DIFF WBC absolute basophils 0.0 cells /uL 0.0-0. 2 Not Available [facility] (Main Location) [facility] ,, [place], [address], 07/23/2023 17:05:01 07/22/19 24 07/22/2023 COMPL ETE CBC W/AUT O DIFF WBC platelet count 166 thous and/u L 100-40 0 Not Available [facility] (Main Location) [facility] [address] ,, [place], [address], 07/23/2023 17:05:01 07/22/19 24 07/22/2023 CMP (COMP REHEN SIVE METAB OLIC PANEL ) glucose 226 mg/dL 74-99 high Not Available [facility] (Main Location) [facility] [address] ,, [place], [address], 07/23/2023 17:05:02 07/22/19 24 07/22/2023 CMP (COMP REHEN SIVE METAB OLIC PANEL ) urea nitrogen, blood (BUN) 15 mg/dL 6-20 Not Available [facility]Main [facility] [address] ,, [place], [address], 07/23/2023 17:05:02 07/22/19 24 07/22/2023 CMP (COMP REHEN SIVE METAB OLIC PANEL ) total bilirubin 0.2 mg/dL 0.0-1. 2 Not Available [facility] (Main Location) [facility] [address] ,, [place], [address], 07/23/2023 17:05:02 07/22/19 24 07/22/2023 CMP (COMP REHEN SIVE METAB OLIC PANEL ) total protein 6.7 g/dL 6.6-8. 7 Not Available [facility] (Main Location) [facility] [address] ,, [place], [address], 07/23/2023 17:05:02 07/22/19 24 07/22/2023 CMP (COMP REHEN SIVE METAB OLIC PANEL ) alanine aminotransfe rase (ALT) 22 U/L 0-41 Not Available [facility] (Main Location) [facility] [address] ,, [place], [address], 07/23/2023 17:05:02 07/22/19 24 07/22/2023 CMP (COMP REHEN SIVE METAB OLIC PANEL ) alkaline phosphatase 99 U/L 40-130 Not Available [facility] (Main Location) [address] [place], [place] [address] ,, [place], [place], [address], 07/23/2023 17:05:02 07/22/19 24 07/22/2023 CMP (COMP REHEN SIVE METAB OLIC PANEL ) aspartate aminotransfe rase (AST) 14 U/L 0-40 Not Available [facility] (Main Location) [address] [place], [place] [address] ,, [place], [address], 07/23/2023 17:05:02 07/22/19 24 07/22/2023 CMP (COMP REHEN SIVE METAB OLIC PANEL ) calcium 9.1 mg/dL 8.6-10 .2 Not Available [facility] (Main Location) [address] [place], [place] [address]. [address] ,, [place], [address], 07/23/2023 17:05:02 07/22/19 24 07/22/2023 CMP (COMP REHEN SIVE METAB OLIC PANEL ) albumin 4.3 g/dL 3.5-5. 2 Not Available [facility] (Main Location) [address] [place], [place] [address] ,, [place], [address], 07/23/2023 17:05:02 07/22/19 24 07/22/2023 CMP (COMP REHEN SIVE METAB OLIC PANEL ) CO2 28 mmol/ L 22-29 Not Available [facility] (Main Location) [address] [place] [address] Rd. [address] ,, [place], [address], 07/23/2023 17:05:02 07/22/19 24 07/22/2023 CMP (COMP REHEN SIVE METAB OLIC PANEL ) creatinine, serum 1.3 mg/dL 0.7-1. 2 high Not Available [facility] (Main Location) [address] ,, [place], [address], 07/23/2023 17:05:02 07/22/19 24 07/22/2023 CMP (COMP REHEN SIVE METAB OLIC PANEL ) sodium, serum 140 mmol/ L 136-14 5 Not Available [facility] (Main Location) [address] ,, [place], [address], 07/23/2023 17:05:02 07/22/19 24 07/22/2023 CMP (COMP REHEN SIVE METAB OLIC PANEL ) potassium, serum 4.1 mmol/ L 3.5-5. 1 Not Available [facility] (Main Location) [address] ,, [place], [address], 07/23/2023 17:05:02 07/22/19 24 07/22/2023 CMP (COMP REHEN SIVE METAB OLIC PANEL ) chloride, serum 102 mmol/ L 98-107 Not Available [facility] (Main Location) [address] ,, [place], [address], 07/23/2023 17:05:02 07/22/19 24 07/22/2023 CMP (COMP [...] Available [facility] (Main Location) [address] ,, [place], [address], 07/23/2023 17:05:02 07/22/19 24 07/22/2023 CREAT INE KINAS E (CPK) creatine kinase 269 U/L 0-190 high Not Available [facility] (Main Location) [address] ,, [place], [address], 07/23/2023 17:05:03 07/22/19 24 07/22/2023 DLDL dldl 127 mg/dL 0-100 high Not Available [facility] (Main Location) [address] ,, [place], [address], 07/23/2023 17:05:04 07/22/19 24 07/22/2023 HIV-1 /2 AG & AB HIV antibody NON-RE ACTIVE non-re active Not Available [facility] (Main Location) [address] ,, [place], [address], 07/23/2023 17:05:05 07/22/19 24 07/22/2023 HIV-1 /2 AG & AB HIV P24 antigen NON-RE ACTIVE non-re active Not Available [facility] (Main Location) [address] ,, [place], [address], 07/23/2023 17:05:05 07/22/19 24 07/22/2023 LIPID PANEL trigylceride s 504 mg/dL 0-150 high Not Available [facility] (Main Location) [address] ,, [place], [address], 07/23/2023 17:05:05 07/22/19 24 07/22/2023 LIPID PANEL cholesterol 237 mg/dL 0-200 high Not Available [facility] (Main Location) [address] ,, [place], [address], 07/23/2023 17:05:05 07/22/19 24 07/22/2023 LIPID PANEL uhdl 34 mg/dL 35-55 low Not Available [facility] (Main Location) [facility] ,, [place], [address], 07/23/2023 17:05:05 07/22/19 24 07/22/2023 LIPID PANEL LDL, calculated 102 mg/dL 0-100 high Not Available [facility] (Main Location) [address] ,, [place], [address], 07/23/2023 17:05:05 07/22/19 24 07/22/2023 LIPID PANEL LDL/HDL ratio 3 mg/dL 0-5 Not Available [facility] (Main Location) [facility] ,, [place], [address], 07/23/2023 17:05:05 07/22/19 24 07/22/2023 LIPID PANEL VLDL 100.8 mg/dL 5.0-40 .0 high Not Available [facility] (Main Location) [facility] ,, [place], [address], 07/23/2023 17:05:05 07/22/19 24 07/22/2023 LIPID PANEL cholesterol/ HDL ratio 6.97 0.00-5 .00 high Not Available [facility] (Main Location) [facility] ,[place], [address], 07/23/2023 17:05:05 07/22/19 24 07/22/2023 PROST ATE-S PECIF IC ANTIG EN (PSA) SCREE N PSA, total 3.7 NG/mL 0.0-4. 0 PSA is an elect christal milum inesc ence immun oassa y run on the Christal Luis 6000. Not Available [facility] (Main Location) [address] ,, [place], [address], 07/23/2023 17:05:06 07/22/19 24 07/22/2023 VITAM IN B12 vitamin B12 II 676 pg/mL 232-12 45 Not Available [facility] (Main Location) [facility] ,, [place], [address], 07/23/2023 17:05:06 07/22/19 24 07/22/2023 URINE MICRO ALBUM IN/CR EATIN INE RATIO urine microalbumin 422 mg/L 0-30 high Not Available [facility] (Main Location) [address] ,, [place], [address], 07/23/2023 17:05:07 07/22/19 24 07/22/2023 URINE MICRO ALBUM IN/CR EATIN INE RATIO urine creatinine 221.77 mg/dL 39.00- 259.00 Not Available [facility] (Main Location) [address] ,, [place], [address], 07/23/2023 17:05:07 07/22/19 24 07/22/2023 URINE MICRO ALBUM IN/CR EATIN INE RATIO urine microalbumin /creatinine ratio 190 mg/g_ creat inine 0-30 high Not Available [facility] (Main Location) [address] ,, [place], [address], 07/23/2023 17:05:07 07/22/19 24 07/22/2023 HEMOG LOBIN A1C HGBA1C 8.0 % 4.0-6. 0 high Not Available [facility] (Main Location) [address] ,, [place], [address], 07/23/2023 17:05:12 07/22/19 24 07/22/2023 HIV-1 /2 AG & AB HIV antibody NON-RE ACTIVE non-re active Not Available [facility] (Main Location) [address] ,, [place], [address], 07/23/2023 17:05:15 07/22/19 24 07/22/2023 HIV-1 /2 AG & AB HIV P24 antigen NON-RE ACTIVE non-re active Not Available [facility] (Main Location) [facility] ,, [place], [address], 07/23/2023 17:05:15 12/18/19 25 12/17/2024 HEMOG LOBIN A1C hemoglobin A1C 7.9 % 4.8-5. 6 high GREGORIA L RANGE BASED ON EDUARDO COL 2 (DCCT /NGSP ): Non-D iabet ic: < 5.7% Pre-D iabet es: 5.7 - 6.4% Diabe janie: => 6.5% GLYCE LILIAN CONTR OL: < 7.0% Not Available [facility] [address] [facility] [address], [place], [address], 12/19/2024 14:46:19 12/18/19 25 12/17/2024 HEMOG LOBIN A1C estimated average glucose 181 Not Available [facility] [address] [facility] [address], [place], [address], 12/19/2024 14:46:19 12/18/19 25 12/17/2024 CBC WITH AUTO- DIFFE RENTI AL WBC 7.0 10*3/ uL 3.4-10 .8 Not Available [facility] [address] [facility] [address], [place], [address], 12/19/2024 14:46:20 12/18/19 25 12/17/2024 CBC WITH AUTO- DIFFE RENTI AL RBC 4.75 10*6/ uL 4.20-5 .80 Not Available [facility] [address] [facility] [address], [place], [address], 12/19/2024 14:46:20 12/18/19 25 12/17/2024 CBC WITH AUTO- DIFFE RENTI AL HGB 14.9 g/dL 12.6-1 7.7 Not Available [facility] [address] [facility] [address], [place], [address], 12/19/2024 14:46:20 12/18/19 25 12/17/2024 CBC WITH AUTO- DIFFE RENTI AL HCT 45.0 % 37.5-5 1.0 Not Available [facility] [address] [facility] [address], [place], [address], 12/19/2024 14:46:20 12/18/19 25 12/17/2024 CBC WITH AUTO- DIFFE RENTI AL MCV 95 fL 79-97 Not Available [facility] [address] [facility] [address], [place], [address], 12/19/2024 14:46:20 12/18/19 25 12/17/2024 CBC WITH AUTO- DIFFE RENTI AL MCH 31.4 pg 26.6-3 3.0 Not Available [facility] [address] [facility] [address], [place], [address], 12/19/2024 14:46:20 12/18/19 25 12/17/2024 CBC WITH AUTO- DIFFE RENTI AL MCHC 33.1 g/dL 31.5-3 5.7 Not Available [facility] [address] [facility] [address], [place], [address], 12/19/2024 14:46:20 12/18/19 25 12/17/2024 CBC WITH AUTO- DIFFE RENTI AL RDW 13.3 % 11.5-1 4.5 Not Available [facility] [address] [facility] [address], [place], [address], 12/19/2024 14:46:20 12/18/19 25 12/17/2024 CBC WITH AUTO- DIFFE RENTI AL platelets 170 10*3/ uL 150-40 0 Not Available [facility] [address] [facility] [address], [place], [address], 12/19/2024 14:46:20 12/18/19 25 12/17/2024 CBC WITH AUTO- DIFFE RENTI AL MPV 12 fL 9-13 Not Available [facility] [address] [facility] [address], [place], [address], 12/19/2024 14:46:20 12/18/19 25 12/17/2024 CBC WITH AUTO- DIFFE RENTI AL neutrophils 49.0 % 40.0-7 4.0 Not Available [facility] [address] [facility] [address], [place], [address], 12/19/2024 14:46:20 12/18/19 25 12/17/2024 CBC WITH AUTO- DIFFE RENTI AL absolute neutrophils 3.45 10*3/ uL 1.40-7 .00 Not Available [facility] [address] [facility] [address], [place], [address], 12/19/2024 14:46:20 12/18/19 25 12/17/2024 CBC WITH AUTO- DIFFE RENTI AL lymphocytes 39.8 % 14.0-4 6.0 Not Available [facility] [address] [facility] [address], [place], [address], 12/19/2024 14:46:20 12/18/19 25 12/17/2024 CBC WITH AUTO- DIFFE RENTI AL absolute lymphocytes 2.80 10*3/ uL 0.70-3 .10 Not Available [facility] [address] [facility] [address], [place], [address], 12/19/2024 14:46:20 12/18/19 25 12/17/2024 CBC WITH AUTO- DIFFE RENTI AL monocytes 8.0 % 4.0-12 .0 Not Available [facility] [address] [place] [address] [address], [place], [address], 12/19/2024 14:46:20 12/18/19 25 12/17/2024 CBC WITH AUTO- DIFFE RENTI AL absolute monocytes 0.56 10*3/ uL 0.10-0 .90 Not Available [address], [place], [address], 12/19/2024 14:46:20 12/18/19 25 12/17/2024 CBC WITH AUTO- DIFFE RENTI AL eosinophils 2.4 % 0.0-5. 0 Not Available [facility] [address] [facility] [address], [place], [address], 12/19/2024 14:46:20 12/18/19 25 12/17/2024 CBC WITH AUTO- DIFFE RENTI AL absolute eosinophils 0.17 10*3/ uL 0.00-0 .40 Not Available [facility] [address] [facility] [address], [place], [address], 12/19/2024 14:46:20 12/18/19 25 12/17/2024 CBC WITH AUTO- DIFFE RENTI AL basophils 0.4 % 0.0-3. 0 Not Available [facility] [address] [facility] [address], [place], [address], 12/19/2024 14:46:20 12/18/19 25 12/17/2024 CBC WITH AUTO- DIFFE RENTI AL absolute basophils 0.03 10*3/ uL 0.00-0 .20 Not Available [facility] [address] [facility] [address], [place], [address], 12/19/2024 14:46:20 12/18/19 25 12/17/2024 CBC WITH AUTO- DIFFE RENTI AL imm. gran. 0.4 % 0.0-2. 0 Not Available [facility] [address] [facility] [address], [place], [address], 12/19/2024 14:46:20 12/18/19 25 12/17/2024 CBC WITH AUTO- DIFFE RENTI AL abs. imm. gran. 0.03 10*3/ uL 0.00-0 .10 Not Available [facility] [address] [facility] [address], [place], [address], 12/19/2024 14:46:20 12/18/19 25 12/17/2024 COMPR EHENS ALFONSO METAB OLIC PANEL sodium 139 mmol/ L 134-14 4 Not Available [address], [place], [address], 12/19/2024 14:46:20 12/18/19 25 12/17/2024 COMPR EHENS ALFONSO METAB OLIC PANEL potassium 4.4 mmol/ L 3.5-5. 2 Not Available [facility] [address] [facility] [address], [place], [address], 12/19/2024 14:46:20 12/18/19 25 12/17/2024 COMPR EHENS ALFONSO METAB OLIC PANEL chloride 104 mmol/ L 98-107 Not Available [facility] [address] [facility] [address], [place], [address], 12/19/2024 14:46:20 12/18/19 25 12/17/2024 COMPR EHENS ALFONSO METAB OLIC PANEL carbon dioxide (co2) 28.0 mmol/ L 18.0-2 9.0 Not Available [facility] [address] [facility] [address], [place], [address], 12/19/2024 14:46:20 12/18/19 25 12/17/2024 COMPR EHENS ALFONSO METAB OLIC PANEL glucose 158 mg/dL 65-99 high Gregoria l Fasti n - 99 mg/dL Impai red Fasti n - 125 mg/dL Diagn ostic of Diabe janie: => 126 mg/dL Ameri can Diabe janie Assoc iatio n, 2007 Not Available [facility] [address] [facility] [address], [place], [address], 12/19/2024 14:46:20 12/18/19 25 12/17/2024 COMPR EHENS ALFONSO METAB OLIC PANEL urea nitrogen (BUN) 18 mg/dL 6-20 Not Available [facility] [address] [facility] [address], [place], [address], 12/19/2024 14:46:20 12/18/19 25 12/17/2024 COMPR EHENS ALFONSO METAB OLIC PANEL creatinine 1.22 mg/dL 0.76-1 .27 Not Available [facility] [address] [facility] [address] [address], [place], [address], 12/19/2024 14:46:20 12/18/19 25 12/17/2024 COMPR EHENS ALFONSO METAB OLIC PANEL eGFR 68 mL/mi nute/ 1.73_ m2 >59 MDRD Study Equat ion: The calcu lated GFR is NOT appli cable for pedia tric (< 18 years old) and > 70 year old patie nts and patie nts that are NOT of stead y state . Not Available [facility] [address] [facility] [address], [place], [address], 12/19/2024 14:46:20 12/18/1912/17/2024 COMPR EHENS ALFONSO METAB OLIC PANEL calcium 9.0 mg/dL 8.6-10 .2 Not Available [facility] [address] [facility] [address], [place], [address], 12/19/2024 14:46:20 12/18/19 25 12/17/2024 COMPR EHENS ALFONSO METAB OLIC PANEL protein, total 7.1 gm/dL 6.4-8. 3 Not Available [facility] [address] [facility] [address], [place], [address], 12/19/2024 14:46:20 12/18/19 25 12/17/2024 COMPR EHENS ALFONSO METAB OLIC PANEL albumin 4.4 gm/dL 3.5-5. 2 Not Available [facility] [address] [facility] [address], [place], [address], 12/19/2024 14:46:20 12/18/19 25 12/17/2024 COMPR EHENS ALFONSO METAB OLIC PANEL bilirubin, total 0.50 mg/dL 0.00-1 .20 Not Available [facility] [address] [facility] [address], [place], [address], 12/19/2024 14:46:20 12/18/19 25 12/17/2024 COMPR EHENS ALFONSO METAB OLIC PANEL alkaline phosphatase (ALP) 72 U/L 39-117 Not Available [facility] [address] [facility] [address], [place], [address], 12/19/2024 14:46:20 12/18/19 25 12/17/2024 COMPR EHENS ALFONSO METAB OLIC PANEL aspartate aminotransfe rase (AST) 16 U/L 0-40 Not Available [facility] [address] [facility] [address], [place], [address], 12/19/2024 14:46:20 12/18/19 25 12/17/2024 COMPR EHENS ALFONSO METAB OLIC PANEL alanine aminotransfe rase (ALT) 22 U/L 0-41 Not Available [facility] [address] [facility] [address], [place], [address], 12/19/2024 14:46:20 12/18/19 25 12/17/2024 COMPR EHENS ALFONSO METAB OLIC PANEL A/G ratio (calculated) 1.6 ratio 1.0-2. 7 Not Available [facility] [address] [facility] [address], [place], [address], 12/19/2024 14:46:20 12/18/19 25 12/17/2024 COMPR EHENS ALFONSO METAB OLIC PANEL globulin (calculated) 2.7 gm/dL 1.5-3. 8 Not Available [address], [place], [address], 12/19/2024 14:46:20 12/18/19 25 12/17/2024 COMPR EHENS ALFONSO METAB OLIC PANEL BUN/creatini ne ratio (calculated) 14.8 ratio 8.0-20 .0 Not Available [address], [place], [address], 12/19/2024 14:46:20 12/18/19 25 12/17/2024 COMPR EHENS ALFONSO METAB OLIC PANEL serum index hemolysis NORMAL index normal Not Available [facility] [address] [facility] [address], [place], [address], 12/19/2024 14:46:20 12/18/19 25 12/17/2024 LIPID PANEL W/ CALC. LDL cholesterol, total 251 mg/dL 100-19 9 high Not Available [facility] [address] [facility] [address], [place], [address], 12/19/2024 14:46:21 12/18/19 25 12/17/2024 LIPID PANEL W/ CALC. LDL HDL cholesterol 39 mg/dL =>40 Not Available [facility] [address] [facility] [address], [place], [address], 12/19/2024 14:46:21 12/18/19 25 12/17/2024 LIPID PANEL W/ CALC. LDL LDL cholesterol (calculated) 166 mg/dL 0-99 high Not Available [facility] [address] [facility] [address], [place], [address], 12/19/2024 14:46:21 12/18/19 25 12/17/2024 LIPID PANEL W/ CALC. LDL triglyceride s 231 mg/dL 50-149 high Not Available [facility] [address] [facility] [address], [place], [address], 12/19/2024 14:46:21 12/18/19 25 12/17/2024 LIPID PANEL W/ CALC. LDL chol/HDL ratio (calculated) 6.44 ratio 0.00-5 .00 high Not Available [facility] [address] [facility] [address], [place], [address], 12/19/2024 14:46:21 12/18/19 25 12/17/2024 LIPID PANEL W/ CALC. LDL VLDL cholesterol (calculated) 46 mg/dL 5-40 high Not Available [facility] [address] [facility] [address], [place], [address], 12/19/2024 14:46:21 12/18/1912/17/2024 PROST ATE-S PECIF IC ANTIG EN (PSA) , TOTAL (SCRE ENING ) prostate-spe cific antigen, total 13.8 NG/mL 0.0-4. 0 high Christal ECLIA METHO DOLOG Y. RESUL TS FROM THIS METHO D IS NOT FLORENCIO TIBLE WITH DIFFE RENT ASSAY METHO D AND CANNO T BE USED INTER SKINNER EABLY . Not Available [facility] [address] [facility] [address], [place], [address], 12/19/2024 14:46:21 12/18/1912/17/2024 VITAM IN B12 vitamin B12 533 pg/mL 232-12 45 Not Available [facility] [address] [facility] [address], [place], [address], 12/19/2024 14:46:22 12/18/19 25 12/22/2024 D-DIM ER [...] year old 0.80 mg/L FEU. Not Available [facility] [address] [facility] [address], [place], [address], 12/22/2024 11:16:32 12/22/1912/21/2024 MICRO ALBUM IN:CR EATIN INE RATIO , RANDO M URINE microalbumin , urine 18.46 mg/dL not establ ished Units have been updat ed to mg/dL Not Available [facility] [address] [facility] [address], [place], [address], 12/23/2024 15:26:57 12/22/19 25 12/21/2024 MICRO ALBUM IN:CR EATIN INE RATIO , RANDO M URINE creatinine, urine 156.4 mg/dL not establ ished Not Available [facility] [address] [facility] [address], [place], [address], 12/23/2024 15:26:57 12/22/19 25 12/21/2024 MICRO ALBUM IN:CR EATIN INE RATIO , RANDO M URINE microalbumin :creatinine ratio, random urine (calculated) 118.1 mg/gm Gregoria l: 0-29 mg/gm Moder ately incre ased: 30-30 0 mg/gm Sever ly incre ased: >300 mg/gm Not Available [facility] [address] [facility] [address], [place], [address], 12/23/2024 15:26:57 05/04/20 25 05/04/2025 HEMOG LOBIN A1C hemoglobin A1C 6.8 % 4.8-5. 6 high GREGORIA L RANGE BASED ON EDUARDO COL 2 (DCCT /NGSP ): Non-D iabet ic: < 5.7% Pre-D iabet es: 5.7 - 6.4% Diabe janie: => 6.5% GLYCE LILIAN CONTR OL: < 7.0% Not Available [facility] [address], [place], [address], 05/05/2025 12:03:02 05/04/2005/04/2025 HEMOG LOBIN A1C estimated average glucose 149 Not Available [facility] [address], [place], [address], 05/05/2025 12:03:02 05/04/2005/04/2025 COMPR EHENS ALFONSO METAB OLIC PANEL sodium 144 mmol/ L 134-14 4 Not Available [facility] [address] [facility] [address], [place], [address], 05/05/2025 12:03:03 05/04/2005/04/2025 COMPR EHENS ALFONSO METAB OLIC PANEL potassium 4.3 mmol/ L 3.5-5. 2 Not Available [facility] [address], [place], [address], 05/05/2025 12:03:03 05/04/20 25 05/04/2025 COMPR EHENS ALFONSO METAB OLIC PANEL chloride 104 mmol/ L 98-107 Not Available [facility] [address], [place], [address], 05/05/2025 12:03:03 05/04/2005/04/2025 COMPR EHENS ALFONSO METAB OLIC PANEL carbon dioxide (co2) 28.0 mmol/ L 18.0-2 9.0 Not Available [facility] [address], [place], [address], 05/05/2025 12:03:03 05/04/2005/04/2025 COMPR EHENS ALFONSO METAB OLIC PANEL glucose 102 mg/dL 65-99 high Gregoria l Fasti n - 99 mg/dL Impai red Fasti n - 125 mg/dL Diagn ostic of Diabe janie: => 126 mg/dL Ameri can Diabe janie Assoc iatio n, 2007 Not Available [facility] [address] [facility] [address], [place], [address], 05/05/2025 12:03:03 05/04/20 25 05/04/2025 COMPR EHENS ALFONSO METAB OLIC PANEL urea nitrogen (BUN) 15 mg/dL 6-20 Not Available [facility] [address] [facility] [address], [place], [address], 05/05/2025 12:03:03 05/04/2005/04/2025 COMPR EHENS ALFONSO METAB OLIC PANEL creatinine 0.97 mg/dL 0.76-1 .27 Not Available [facility] [address] [facility] [address], [place], [address], 05/05/2025 12:03:03 05/04/2005/04/2025 COMPR EHENS ALFONSO METAB OLIC PANEL eGFR 89 mL/mi nute/ 1.73_ m2 >59 MDRD Study Equat ion: The calcu lated GFR is NOT appli cable for pedia tric (< 18 years old) and > 70 year old patie nts and patie nts that are NOT of stead y state . Not Available [facility] [address] [facility] [address], [place], [address], 05/05/2025 12:03:03 05/04/2005/04/2025 COMPR EHENS ALFONSO METAB OLIC PANEL calcium 9.7 mg/dL 8.6-10 .2 Not Available [facility] [address] [facility] [address], [place], [address], 05/05/2025 12:03:03 10/21/20 25 05/04/2025 COMPR EHENS ALFONSO METAB OLIC PANEL protein, total 7.5 gm/dL 6.4-8. 3 Not Available [facility] [address] [facility] [address], [place], [address], 05/05/2025 12:03:03 05/04/20 25 05/04/2025 COMPR EHENS ALFONSO METAB OLIC PANEL albumin 4.7 gm/dL 3.5-5. 2 Not Available [facility] [address] [facility] [address], [place], [address], 05/05/2025 12:03:03 05/04/20 25 05/04/2025 COMPR EHENS ALFONSO METAB OLIC PANEL bilirubin, total 0.60 mg/dL 0.00-1 .20 Not Available [facility] [address] [facility] [address], [place], [address], 05/05/2025 12:03:03 05/04/20 25 05/04/2025 COMPR EHENS ALFONSO METAB OLIC PANEL alkaline phosphatase (ALP) 86 U/L 39-117 Not Available [facility] [address] [facility] [address], [place], [address], 05/05/2025 12:03:03 05/04/20 25 05/04/2025 COMPR EHENS ALFONSO METAB OLIC PANEL aspartate aminotransfe rase (AST) 18 U/L 0-40 Not Available [facility] [address] [facility] [address], [place], [address], 05/05/2025 12:03:03 05/04/20 25 05/04/2025 COMPR EHENS ALFONSO METAB OLIC PANEL alanine aminotransfe rase (ALT) 30 U/L 0-41 Not Available [facility] [address] [facility] [address], [place], [address], 05/05/2025 12:03:03 05/04/20 25 05/04/2025 COMPR EHENS ALFONSO METAB OLIC PANEL A/G ratio (calculated) 1.7 ratio 1.0-2. 7 Not Available [facility] [id number] [facility] [address], [place], [address], 05/05/2025 12:03:03 05/04/20 25 05/04/2025 COMPR EHENS ALFONSO METAB OLIC PANEL globulin (calculated) 2.8 gm/dL 1.5-3. 8 Not Available [facility] [address] [facility] [address], [place], [address], 05/05/2025 12:03:03 05/04/20 25 05/04/2025 COMPR EHENS ALFONSO METAB OLIC PANEL BUN/creatini ne ratio (calculated) 15.5 ratio 8.0-20 .0 Not Available [facility] [address] [facility] [address], [place] [place], [address], 05/05/2025 12:03:03 05/04/20 25 05/04/2025 COMPR EHENS ALFONSO METAB OLIC PANEL serum index hemolysis Normal index normal Not Available [facility] [address] [facility] [address], [place], [address], 05/05/2025 12:03:03 05/04/20 25 05/04/2025 LIPID PANEL (CHOL PURVI OL TOTAL , TRIGL YCERI COSMO, HDL SANDRITA STERO L, LDL CHOL. cholesterol, total 96 mg/dL 100-19 9 low Not Available [facility] [address] [facility] [address], [place], [address], 05/05/2025 12:03:03 05/04/20 25 05/04/2025 LIPID PANEL (CHOL PURVI OL TOTAL , TRIGL YCERI COSMO, HDL SANDRITA STERO L, LDL CHOL. HDL cholesterol 38 mg/dL =>40 Not Available [facility] [address] [facility] [address], [place], [address], 05/05/2025 12:03:03 05/04/20 25 05/04/2025 LIPID PANEL (CHOL PURVI OL TOTAL , TRIGL YCERI COSMO, HDL SANDRITA STERO L, LDL CHOL. LDL cholesterol (calculated) 40 mg/dL 0-99 Not Available [facility] [address] [facility] [address], [place], [address], 05/05/2025 12:03:03 05/04/20 25 05/04/2025 LIPID PANEL (CHOL PURVI OL TOTAL , TRIGL YCERI COSMO, HDL SANDRITA STERO L, LDL CHOL. triglyceride s 90 mg/dL 50-149 Not Available [facility] [address] [facility] [address], [place], [address], 05/05/2025 12:03:03 05/04/20 25 05/04/2025 LIPID PANEL (CHOL PURVI OL TOTAL , TRIGL YCERI COSMO, HDL SANDRITA STERO L, LDL CHOL. chol/HDL ratio (calculated) 2.53 ratio 0.00-5 .00 Not Available [facility] [address] [facility] [address], [place], [address], 05/05/2025 12:03:03 05/04/20 25 05/04/2025 LIPID PANEL (CHOL PURVI OL TOTAL , TRIGL YCERI COSMO, HDL SANDRITA STERO L, LDL CHOL. VLDL cholesterol (calculated) 18 mg/dL 5-40 Not Available [facility] [address] [facility] [address], [place], [address], 05/05/2025 12:03:03 05/04/20 25 05/04/2025 VITAM IN B12 vitamin B12 532 pg/mL 232-12 45 Not Available [facility] [address] [facility] [address], [place], [address], 05/05/2025 12:03:04 05/04/20 25 05/04/2025 MICRO ALBUM IN:CR EATIN INE RATIO , RANDO M URINE microalbumin , urine 12.04 mg/dL not establ ished Units have been updat ed to mg/dL Not Available [facility] [address] [facility] [address], [place], [address], 05/05/2025 12:03:04 05/04/20 25 05/04/2025 MICRO ALBUM IN:CR EATIN INE RATIO , RANDO M URINE creatinine, urine 163.8 mg/dL not establ ished Not Available [facility] [address], [place], [address], 05/05/2025 12:03:04 05/04/20 25 05/04/2025 MICRO ALBUM IN:CR EATIN INE RATIO , RANDO M URINE microalbumin :creatinine ratio, random urine (calculated) 73.5 mg/gm Gregoria l: 0-29 mg/gm Moder ately incre ased: 30-30 0 mg/gm Sever ly incre ased: >300 mg/gm Not Available [facility] [address], [place], [address], 05/05/2025 12:03:04 07/22/19 24 07/22/2023 elect rocar diogr am No observ ation record ed. [facility] Not Available 2023 12:59:17 07/25/19 24 07/25/2023 elect rocar diogr am No observ ation record ed. [address] , [place], [address], 01/03/2024 12:59:17 01/13/20 25 01/11/2025 US, fer x, geoff s, lower extre mity No observ ation record ed. [address] [facility] [address] [place] [address] [place], [address], 03/25/2025 18:58:46 03/23/20 25 03/16/2025 PET, skull base to mid-t high No observ ation record ed. [place] [address], [place], [address], 03/25/2025 18:58:46 04/26/20 25 04/26/2025 XR, chest No observ ation record ed. [address], [place], [address], 04/30/2025 14:05:39 04/30/2004/30/2025 lane laboy am No observ ation record ed. [email or web address] Not Available 2024 12:45:32 05/05/2005/05/2025 imagi ng/di agnos tic resul t No observ ation record ed. [facility] [address], [place], [address], 05/05/2025 16:33:48 Result Notes None recorded. Problems Name Problem SNOMED Code Status Onset Date Resolution Date Notes Provider Name and Address Organization Details Recorded Time Reduced libido 8593390 Active Twila grant, [facility] 11:37:25 Hyperlipi demia 28895090 Active Twila Anderson null, [facility] 11:37:35 Benign essential hypertens ion 1522059 Active Twila Anderson null, [facility] 11:37:43 Allergic rhinitis 68169644 Active Twila Anderson null, [facility] 11:38:01 Diverticu litis 995581225 Active Twila gratn, [facility] 11:38:12 Kidney stone 21447204 Active Twila grant, [facility] 11:39:07 Nicotine dependenc e 30308776 Active Twila Anderson null, [facility] 11:39:27 Obstructi ve sleep apnea syndrome 80599493 Active 2015 -- dx'd by cardiologi st Dr Falcon & currently on CPAP Ulysses Henderson MD [address] [facility] [address], [place], [address] , [facility] 11:26:25 Type 2 diabetes mellitus 71147373 Active 2016 Leatha grant, [facility] 7 15:21:59 Creatine kinase level above reference range 291733820 Active 2016 MD Armani Etienne [address], [place], [address] , [facility] 7 19:45:07 Immunizat ion refused Active 2017 MD Armani Etienne [address], [place], [place], , [facility] 8 10:00:05 Intermitt ent claudicat ion 11147133 Active 2018 MD Armani Etienne [address], [place], , [facility] 9 14:02:19 Essential hypertens ion 32073583 Active 2022 MD Armani Etienne [address], [place], , [facility] 3 13:01:28 Coronary arteriosc lerosis 72636460 Active 2022 MD Armani Etienne [address], [place], , [facility] 3 13:01:28 Primary erectile dysfuncti on 485112023 Active 2022 MD Armani Etienne [address], [place], , [facility] 3 13:01:28 Type 2 diabetes mellitus without complicat ion 318687706 Active 2022 MD Armani Etienne [address], [place], , [facility] 3 13:01:28 Mixed anxiety and depressiv e disorder 342258893 Active 2022 MD Armani Etienne [address], [place], , [facility] 3 13:01:28 Problem Notes None recorded. Procedures Surgical History Date Name Laterality Status Provider Name and Address Organization Details Recorded Time 03/30/20 22 Diabetic Foot Exam completed MD Armani Etienne [facility] [address], [place], [address], [facility] 03/30/2022 14:20:08 01/28/20 20 Diabetic Foot Exam completed MD Armani Etienne [facility] [address], [place], [address], [facility] 01/28/2020 12:08:26 12/27/19 19 Diabetic Foot Exam completed MD Armani Etienne [facility] [address], [place], [address], [facility] 12/26/2018 13:02:40 06/21/20 15 Colonoscopy completed Maria Victoria Cummings [facility] 06/26/2017 16:17:53 Cardiac Surgery completed MD Armani Reed Ch [facility] [address], [place], [address], [facility] 08/15/2020 16:06:17 Imaging Results None recorded. Procedure [...] ED Not Available Not Available Not Available citalopra m 40 mg tablet Take 1 tablet every day by oral route. 2024 active Not Available Not Available Not Avai lable sildenafi l 50 mg tablet 1 tab [...] completed Not Available Not Available Not Available alprazola m 1 mg tablet TAKE 1 TABLET BY MOUTH EVERY 12 HOURS NEEDED FOR ANXIETY active Not Available Not Available No t Available hydrocodo ne 5 mg-acetam inophen 325 [...] Not Available clopidogr el 75 mg tablet Take 1 tablet every day by oral route for 90 days. 2024 active Not Available Not Available Not Avai lable amlodipin e 5 mg tablet 04/14 completed -- changed to Prestal Not Available Not Available Not Available sulfameth oxazole 800 mg-trimet hoprim 160 mg tablet Take 1 tablet every 12 hours by oral route. 02/21 completed Not Available Not Available Not Available aspirin 81 mg tablet,de layed release Take 1 tablet every day by oral route. 2024 active Not Available Not Available Not Avai lable carvedilo l 3.125 mg tablet Take 1 [...] Not Available amlodipin e 10 mg tablet Take 1 tablet every day by oral route in the evening. 2024 active Not Available Not Available Not Avai lable cephalexi n 500 mg capsule 04/07 completed [...] 500 mg tablet,ex tended release 24 hr Take 1 tablet twice a day by oral route for 90 days. 2024 active Not Available Not Available Not Avai labchrist Hibiclens 4 % topical liquid APPLY LIQUID [...] %-dexamet hasone 0.1 % ear drops,osvaldo pension INSTILL 4 DROPS INTO AFFECTED EAR(S) BY OTIC ROUTE 2 TIMES PER DAY FOR 7 DAYS active Not Available Not Available No t Available varenicli ne tartrate 1 mg tablet [...] No t Available Farxiga 10 mg tablet Take 1 tablet every day by oral route for 90 days. 2024 active Not Available Not Available Not Avai lable Glyxambi 10 mg-5 mg tablet TAKE 1 TABLET BY MOUTH EVERY DAY 08/30 completed Not Available Not Available Not Available Prestalia 14 mg-10 mg tablet TAKE 1 TABLET BY MOUTH IN THE MORNING AND STOP THE QUINAPRI L AND AMLODIPI NE ([facility] ) 01/08 completed -- disconti nued bc [...] Body mass index (BMI) Body weight Systolic And Diastolic Provider Name and Address Organization Details Last Updated DateTime 4 180.34 cm 89 /min 16 /min 97.8 [degF] 31.2 kg/m2 354851. 69 g 167/102 mm[Hg] [facility] 18:02:47 Date Recorded Heart rate Systolic And Diastolic Provider Name and Address Organization Details Last Updated DateTime 08/08/2023 82 /min 133/83 mm[Hg] Yoanna Olivarez [facility] 08/08/2023 11:07:32 Date Recorded Body height Heart rate Respiratory rate Body temperature Body mass index (BMI) Body weight Systolic And Diastolic Provider Name and Address Organization Details Last Updated DateTime 5 180.34 cm 80 /min 16 /min 97.9 [degF] 31.4 kg/m2 535786. 28 g 170/110 mm[Hg] [facility] 5 16:58:21 Date Recorded Body height Heart rate Respiratory rate Body temperature Body mass index (BMI) Body weight Systolic And Diastolic Provider Name and Address Organization Details Last Updated DateTime 4 180.34 cm 78 /min 16 /min 98.2 [degF] 31.1 kg/m2 049583. 1 g 120/81 mm[Hg] Yoanna Olivarez [facility] 4 12:09:38 Date Recorded Heart rate Systolic And Diastolic Provider Name and Address Organization Details Last Updated DateTime 01/12/2025 76 /min 133/84 mm[Hg] Yoanna Olivarez [facility] 01/12/2025 11:34:57 Date Recorded Body height Heart rate Respiratory rate Body temperature Body mass index (BMI) Body weight Systolic And Diastolic Provider Name and Address Organization Details Last Updated DateTime 5 180.34 cm 89 /min 16 /min 97.8 [degF] 30.1 kg/m2 96852.9 5 g 135/84 mm[Hg] [facility] 5 17:59:25 Date Recorded Body height Heart rate Respiratory rate Body temperature Body mass index (BMI) Body weight Systolic And Diastolic Provider Name and Address Organization Details Last Updated DateTime 5 180.34 cm 79 /min 16 /min 97.7 [degF] 28.9 kg/m2 28059.6 2 g 112/81 mm[Hg] Gricelda Arnold [facility] 5 13:02:33 Social History Question Answer Notes LastModified by Organizat ion Details LastModified Time Tobacco Smoking Status Former Smoker last date was 0 Ulysses Henderson MD [address] [facility] [place], [address] 04/06/2022 12:01:16 Do You Have An Advance Directive? No [id number] Information not available 04/29/2020 What Is Your Level Of Caffeine Consumption? None [id number] Information not available 04/29/2020 How Much Tobacco Do You Chew? None [id number] Information not available 04/29/2020 What Is Your Code Status? Full Code [id number] Information not available 04/29/2020 In The 14 Days Before Symptom Onset, Have You Had Close Contact With A Laboratory-confir med COVID-19 While That Case Was Ill? No [id number] Information not available 04/29/2020 In The 14 Days Before Symptom Onset, Have You Had Close Contact With A Person Who Is Under Investigation For COVID-19 While That Person Was Ill? No [id number] Information not available 04/29/2020 Have You Been To An Area Known To Be High Risk For COVID-19? No [id number] Information not available 04/29/2020 What Type Of Diet Are You Following? REGULAR [id number] Information not available 04/29/2020 Which Illicit Or Recreational Drugs Have You Used? Occ Marijuana [id number] Information not available 04/29/2020 Have You Directly Handled Bats, Rodents, Or Primates From Ebola Endemic Areas? No [id number] Information not available 04/29/2020 Have You Processed Blood Or Body Fluids From An Ebola Virus Disease Patient Without Appropriate PPE? No [id number] Information not available 04/29/2020 Have You Had Household Contact With An Ebola Virus Disease Patient? No [id number] Information not available 04/29/2020 Have You Had Direct Contact With A Body In An Ebola-affected Area Without Appropriate PPE? No [id number] Information not available 04/29/2020 Have You Had Percutaneous (e.g. Needle Stick) Or Mucous Membrane Exposure To Blood Or Body Fluids From An Ebola Virus Disease Patient? No [id number] Information not available 04/29/2020 Have You Had Other Close Contact With An Ebola Virus Disease Patient In Health Care Facilities Or Community Settings? No [id number] Information not available 04/29/2020 Do You Reside In Or Have You Traveled To An Area Where Ebola Virus Transmission Is Active? No [id number] Information not available 04/29/2020 Marital Status [facility] Informatio n not available 04/04/2018 What Was The Date Of Your Most Recent Tobacco Screening? 04/30/2025 [email or web address] Information not available 04/30/2025 At What Age Did You Start Smoking Tobacco? 24 [facility] Information not available 04/06/2022 How Much Tobacco Do You Smoke? 0.5 PPD 1 Pack Will Last 2 Days. [facility] Information not available 04/06/2022 How Many Years Have You Smoked Tobacco? 24 [id number] Information not available 04/29/2020 Sex: Unknown Functional Status Question Answer Note LastModified by Organizat ion Details LastModified Time What is your level of alcohol consumption? Occasional [id number] Information not available 04/29/2020 Do you or have you ever used smokeless tobacco? 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 Never used electronic cigarettes [id number] Information not available 04/29/2020 What is your exercise level? None [id number] Information not available 04/29/2020 Mental Status None recorded. Family History Relationship Description Onset Age of this Age Resolved Age Notes LastModified by Organization Details LastModified Time Maternal Uncle Malignant neoplasm of colon [email or web address] Not available 2015 11:42:19 Medical History No medical history recorded. Immunizations Vaccine Type Date Status Note Provider Nam e and Address Organization Details Recorded Time COVID-19, mRNA, LNP-S, PF, 30 mcg/0.3 mL dose 08/16/2021 completed Gricelda Arnold null, [facility] 10/10/2021 17:12:17 COVID-19, mRNA, LNP-S, PF, 30 mcg/0.3 mL dose 02/13/2021 completed Gricelda Arnold null, [facility] 10/10/2021 17:13:05 COVID-19, mRNA, LNP-S, PF, 30 mcg/0.3 mL dose 03/08/2021 completed Gricelda Arnold null, [facility] 10/10/2021 17:13:14 COVID-19, mRNA, LNP-S, PF, 30 mcg/0.3 mL dose 04/10/2022 completed Ulysses Henderson MD [address] [place] [address], [place], [address], [facility] 05/01/2022 19:03:15 Past Encounters Encounter ID Performer Location Encounter Start Date Encounter Closed Date Diagnosis/Indication Diagnosis SNOMED-CT Code Diagnosis ICD10 Code Diagnosis IMO Codes Diagnosis Note [id number] Ulysses Henderson MD [facility] [address] [place] [address] [address] [place] [address] 12/08/2015 14:48:18 12/08/2015 16:45:53 Benign essential hypertension 3830693 I10 -- controlled Hyperlipidemia 29035679 E78.5 -- Cholestero l to be repeated 3 weeks from 12/08/15 Nicotine dependence 5629 4008 F17.200 -- advised to Quit. Allergic rhinitis 206191 04 J30.9 -- doing well Obesity 981958271 E66.9 -- advised wt loss and pt gained 5 # since his last visit. Benign pro static hyperplasia without outflow obstruction 788005391 N40.0 -- Currently asymptomat ic; Will recheck PSA level around January 25, 2016 Diabetes mellitus 091294 09 E11.9 (New onset diagnosed on 07/27/15, for which patient did not show up on his October appointmen t; Patient will be referred to [facility] for diabetic teaching and nutritiona l counseling by dietitian. -- Labs will be done today 12/08/15 [id number] Ulysses Henderson MD [facility], [place] [address] [place] [address] 02/23/2016 10:41:20 02/23/2016 11:50:37 Coronary arteriosclerosis 81423231 I25.10 (MS s/p stent circumflex (100%) at [facility] on 02/07/16 -- pt reports he was not given Clopidogre l at discharge on 02/09/16 . I advised patient of the risk of heart attack he does not take clopidogre l. Benign ess ential hypertension 7216003 I10 -- BP uncontroll ed w/ plain lisinopril from [facility]; will go back to [facility] which pt prefers. Diabetes mellitus 008739 09 E11.9 (New onset diagnosed on 07/27/15-- Patient will be referred to [facility] for diabetic teaching and nutritiona l counseling by dietitian. -- check labs today 02/23/16 Hyperlipidemia 53076243 E78.5 -- check FLP today 02/23/16 Nicotine dependence 5629 4008 F17.200 -- advised to Quit. Allergic rhinitis 757801 04 J30.9 -- doing well Obesity 630254520 E66.9 -- advised wt loss and pt lost 8 # since his last visit. Benign pro static hyperplasia without outflow obstruction 683643165 N40.0 -- Currently asymptomat ic; Will recheck PSA level today 02/23/16. Hypogonadism 17853818 E2 9.1 Viagra 20mg tablets # [address] Henderson [id number] Ulysses Henderson MD [place], [facility] [address] [facility] [address] [place] [address] 05/28/2016 09:53:08 05/28/2016 11:51:19 Benign essential hypertension 2721069 I10 -- recheck labs today 05/28/16 Hyperlipidemia 06754621 E78.5 -- recheck labs today 05/28/16 Multi vess el coronary artery disease 027343507 I25.10 -- S/p premous drug eluting stents x [address] Lisandro Castro 02/08/16-- asymptomat ic Obesity 497832039 E66.9 -- advised wt loss and pt lost 13.5 # since his last visit.-- pt's BMI today is 32.7 Diabetes mellitus 285889 09 E11.9 (New onset diagnosed on 07/27/15-- Patient will be referred to [facility] for diabetic teaching and nutritiona l counseling by dietitian. -- recheck labs today 05/28/16 Nicotine dependence 5629 4008 F17.200 -- advised to Quit. Allergic rhinitis 851449 04 J30.9 -- doing well Benign pro static hyperplasia without outflow obstruction 308791438 N40.0 -- Currently asymptomat ic; Will recheck PSA level today 02/23/16. Screening for malignant neoplastic disease 74558686 Z12.9 Viral screening 68818985 4 Z11.59 Active or passive immunization 629151623 Z23 [id number] Ulysses Henderson MD [employer], [place] [address] [place] [address] ,[address] [address] 06/18/2016 11:03:20 06/18/2016 13:48:10 Obesity 784673509 E66.9 -- advised wt loss and pt lost 2.5 # since his last visit.-- pt's BMI today is 32.4 Multi vess el coronary artery disease 965665229 I25.10 -- S/p premous drug eluting stents x [address] Lisandro Castro 02/08/16-- asymptomat ic Active or passive immunization 186050633 Z23 -- Patient declines all vaccinatio n. Screening for malignant neoplastic disease 02031299 Z12.9 Benign ess ential hypertension 1039140 I10 -- recheck labs today 05/28/16 Viral screening 88354171 4 Z11.59 Hyperlipidemia 71880986 E78.5 -- recheck labs today 05/28/16 Allergic rhinitis 688694 04 J30.9 -- doing well Nicotine dependence 5629 4008 F17.200 -- advised to Quit. Benign pro static hyperplasia without outflow obstruction 318751820 N40.0 -- Currently asymptomat ic; Will recheck PSA level today 02/23/16. Type 2 melony betes mellitus without complication 749962706 E11.9 (New onset diagnosed on 07/27/15 -- Patient will be referred to [facility] for diabetic teaching and nutritiona l counseling by dietitian. 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; will refer patient to [facility] eye clinic -- recheck labs 08/29/16 [id number] LENCHO Busch- [employer] [address] [place] [address] 08/03/2016 12:40:28 08/03/2016 13:38:54 Impaired glucose tolerance 9101010 R73.09 [id number] LENCHO Busch- [employer] [address] [place] [address] 08/06/2016 14:39:51 08/06/2016 15:29:37 Type 2 diabetes mellitus 46554011 E11.9 One hour Post Parandial blood sugar today is 143 [id number] Ulysses Henderson MD [employer] [address] [place] [address] 08/28/2016 09:16:08 08/28/2016 10:40:44 Type 2 diabetes mellitus without complication 055748553 E11.9 (New onset diagnosed on 07/27/15 -- Patient will be referred to [facility] for diabetic teaching and nutritiona l counseling by dietitian. 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 Screening for malignant neoplastic disease 99854156 Z12.9 Viral screening 13285695 4 Z11.59 Hyperlipidemia 63459650 E78.5 -- recheck labs today 05/28/16 Allergic rhinitis 956802 04 J30.9 -- doing well Benign pro static hyperplasia without outflow obstruction 478927611 N40.0 -- Currently asymptomat ic; Will recheck PSA level today 02/23/16. Nicotine dependence 5629 4008 F17.200 -- advised to Quit bc or increased risk of stroke, heart attacks, emphysema/ bronchitis , cancer, aneurysm, premature . Body mass index 30+ - obesity 760566831 Z68.39 -- advised wt loss and pt lost 2.5 # since his last visit. -- pt's BMI today is 32.4 Depression screening 171 Z13.89 -- negative for any depression symptoms [id number] Ulysses Henderson MD [facility] [employer] [id number] [facility] [address] [place] [address] 01/08/2017 09:52:19 01/08/2017 11:41:09 Benign essential hypertension 6637179 I10 -- uncontroll ed; add Coreg 3.125 mg q12 Type 2 melony betes mellitus without complication 321618670 E11.9 (New onset diagnosed on 07/27/15 -- Patient will be referred to [facility] for diabetic teaching and nutritiona l counseling by dietitian. 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; will refer patient to [facility] eye clinic -- recheck labs 08/29/16 Multi vess el coronary artery disease [id number] I25.10 -- S/p premous drug eluting stents x [address] Lisandro Castro 02/08/16-- asymptomat ic Hyperlipidemia 57170977 E78.5 -- recheck labs today 05/28/16 Body mass index 30+ - obesity 942188924 Z68.39 -- advised wt loss and pt lost 3 # since his last visit. -- pt's BMI today is 32.4 Active or passive immunization 450835296 Z23 -- Patient declines all vaccinatio n. Viral screening 26705619 4 Z11.59 -- Hepatitis C antibody is nonreactiv e on 08/28/16 Allergic rhinitis 407952 04 J30.9 -- doing well Benign pro static hyperplasia without outflow obstruction 403919121 N40.0 -- Currently asymptomat ic; -- PSA level of 1.016 on 08/28/16 Nicotine dependence 5629 4008 F17.200 -- advised to Quit bc or increased risk of stroke, heart attacks, emphysema/ bronchitis , cancer, aneurysm, premature . Depression screening 171 Z13.89 -- negative for any depression symptoms Adult heal th examination 244085207 Z00.00 Vertigo 545978160 R42 -- counseled on exercise Screening for malignant neoplasm of colon 352065795 Z12.11 -- Patient reports he had a normal colonoscop y with gastroente rologist Dr. Hawkisn in 2016; will try to obtain records. Screening for malignant neoplasm of prostate 831025640 Z12.5 -- PSA level of 1.016 on 08/28/16 [id number] Ulysses Henderson MD [place] [employer], [place] [address] [facility] [address] [place] [address] 02/22/2017 09:00:42 02/22/2017 10:18:29 Vertigo 364071703 R42 -- resolved w/ rare recurrence (at most --> once every 2 weeks) Type 2 melony betes mellitus without complication 570204471 E11.9 (New onset diagnosed on 07/27/15 -- Patient will be referred to [facility] for diabetic teaching and nutritiona l counseling by dietitian. 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 -- pt's BMI today is 33.2 (ideal is between 20-25). Active or passive immunization 341443422 Z23 -- Patient declines all vaccinatio n. Viral screening 61553952 4 Z11.59 -- Hepatitis C antibody is nonreactiv e on 08/28/16 Allergic rhinitis 363138 04 J30.9 -- doing well Benign pro static hyperplasia without outflow obstruction 733539294 N40.0 -- Currently asymptomat ic; -- PSA level of 1.016 on 08/28/16 Nicotine dependence 5629 4008 F17.200 -- advised to Quit bc or increased risk of stroke, heart attacks, emphysema/ bronchitis , cancer, aneurysm, premature . Depression screening 171 812228 Z13.89 -- negative for any depression symptoms Screening for malignant neoplasm of colon 230266154 Z12.11 -- Patient reports he had a normal colonoscop y with gastroente rologist Dr. Hawkins in 2016; will try to obtain records. Screening for malignant neoplasm of prostate 808378287 Z12.5 -- PSA level of 1.016 on 08/28/16 [id number] Ulysses Henderson MD [place] [employer] [facility] [facility] [address] [place] [address] 06/26/2017 15:26:07 06/26/2017 17:19:22 Type 2 diabetes mellitus without complication 613876036 E11.9 (New onset diagnosed on 07/27/15 -- Patient will be referred to [facility] for diabetic teaching and nutritiona l counseling by dietitian. 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 -- pt's BMI today is 33.1 (ideal is between 20-25). Active or passive immunization 651576461 Z23 -- Patient declines all vaccinatio n. Viral screening 39996291 4 Z11.59 -- Hepatitis C antibody is nonreactiv e on 08/28/16 Allergic rhinitis 077077 04 J30.9 -- doing well Benign pro static hyperplasia without outflow obstruction 170174427 N40.0 -- Currently asymptomat ic; -- PSA level of 1.016 on 08/28/16 Nicotine dependence 5629 4008 F17.200 -- advised to Quit bc or increased risk of stroke, heart attacks, emphysema/ bronchitis , cancer, aneurysm, premature . Depression screening 171 053227 Z13.89 -- negative for any depression symptoms Screening for malignant neoplasm of colon 839894186 Z12.11 -- Patient reports he had a normal colonoscop y with gastroente rologist Dr. Hawkins in 2016; will try to obtain records. Screening for malignant neoplasm of prostate 854436272 Z12.5 -- PSA level of 1.016 on 08/28/16 Diverticul itis of colon 800874934 K57.32 -- resolved w/ occ flare-- refer pt to Gastroente rologist Dr. Hawkins for further evaluation 56281 Ulysses Henderson MD [place] [address] [facility] ,[address] [address] 07/17/2017 15:33:32 07/17/2017 16:22:54 Type 2 diabetes mellitus without complication 506609954 E11.9 (diagnosed on 07/27/15) -- Patient was referred to [facility] for diabetic teaching and nutritiona l counseling by dietitian. -- pt did not like Ophthalmol ogist Dr Nayka's boring mill operator for metal; referred patient to [facility] eye clinic -- A1c worsened (was [...] due to formulary Benign ess ential hypertension 5759409 I10 -- uncontroll ed; increase carvedilol from 6.25 mg to 12.5 mg 1 tab every 12 hours-- recheck labs on 09/26/17 Multi vess el coronary artery disease 249526286 I25.10 -- S/p 'Premous' drug eluting stents x [address] Lisandro Falcon on 02/08/16-- asymptomat ic-- recheck labs on 09/26/17 Hyperlipidemia 72483173 E78.5 -- recheck labs on 09/26/17 Body mass index 30+ - obesity 574310895 Z68.39 -- advised wt loss and pt lost 1 # since his last visit. -- pt's BMI today is 32.9 (ideal is between 20-25). Diverticul itis of colon 617122453 K57.32 -- resolved w/ occ flare-- referred pt to Gastroente rologist Dr. Hawkins for further evaluation Active or passive immunization 640477280 Z23 -- Patient declines all vaccinatio n. Viral screening 30372072 4 Z11.59 -- Hepatitis C antibody is nonreactiv e on 08/28/16 Allergic rhinitis 482730 04 J30.9 -- doing well Benign pro static hyperplasia without outflow obstruction 409127669 N40.0 -- Currently asymptomat ic; -- PSA level of 1.016 on 08/28/16-- recheck labs on 09/26/17 Nicotine dependence 5629 4008 F17.200 -- advised to Quit bc or increased risk of stroke, heart attacks, emphysema/ bronchitis , cancer, aneurysm, premature .-- Quit smoking same day on his last visit on 06/26/17 Depression screening 171 973139 Z13.89 -- negative for any depression symptoms Screening for malignant neoplasm of colon 712480634 Z12.11 -- Patient reports he had a normal colonoscop y with gastroente rologist Dr. Hawkins in 2015; will try to obtain records. Screening for malignant neoplasm of prostate 508511435 Z12.5 -- PSA level of 1.016 on 08/28/16 Antiplatel et agent therapy 284584522 Z79.02 -- pt advised to start otc Aspirin 81 mg qd [id number] Ulysses Henderson MD [place] [address] [facility] [address] [address] 01/06/2018 16:17:44 01/06/2018 18:04:02 Paresthesia of hand 141242102 R20.2 (bilateral pinky) Type 2 melony betes mellitus without complication 431671496 E11.9 (diagnosed on 07/27/15) -- Patient was referred to [facility] for diabetic teaching and nutritiona l counseling by dietitian. 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; referred patient to [facility] eye clinic -- A1c worsened (was [...] due to formulary Benign ess ential hypertension 4940540 I10 -- uncontroll ed; increase carvedilol from 6.25 mg to 12.5 mg 1 tab every 12 hours-- recheck labs on 09/26/17 Multi vess el coronary artery disease 422699635 I25.10 -- S/p 'Premous' drug eluting stents x [address] Lisandro Falcon on 02/08/16-- asymptomat ic-- recheck labs on 09/26/17 Hyperlipidemia 66603657 E78.5 -- recheck labs on 09/26/17 Body mass index 30+ - obesity 920853181 Z68.39 -- advised wt loss and pt lost 5 # since his last visit. -- pt's BMI today is 32.2 (ideal is between 20-25). Diverticul itis of colon 977674429 K57.32 -- resolved w/ occ flare-- referred pt to Gastroente rologist Dr. Hawkins for further evaluation Active or passive immunization 742977996 Z23 -- Patient declines all vaccinatio n. Viral screening 34713835 4 Z11.59 -- Hepatitis C antibody is nonreactiv e on 08/28/16 Allergic rhinitis 738224 04 J30.9 -- doing well Benign pro static hyperplasia without outflow obstruction 846668934 N40.0 -- Currently asymptomat ic; -- PSA level of 1.016 on 08/28/16-- recheck labs on 09/26/17 Nicotine dependence 5629 4008 F17.200 -- advised to Quit bc or increased risk of stroke, heart attacks, emphysema/ bronchitis , cancer, aneurysm, premature .-- Quit smoking same day on his last visit on 06/26/17 Depression screening 171 793555 Z13.89 -- negative for any depression symptoms Screening for malignant neoplasm of colon 650845730 Z12.11 -- Patient reports he had a normal colonoscop y with gastroente rologist Dr. Hawkins in 2016; will try to obtain records. Screening for malignant neoplasm of prostate 336306627 Z12.5 -- PSA level of 1.016 on 08/28/16 Antiplatel et agent therapy 780276062 Z79.02 -- pt advised to start otc Aspirin 81 mg qd Pain in toe 387980813 M7 9.674 (right MTP) 72773 Ulysses Henderson MD [place] [employer] [address] [facility] [address] [place] [address] 04/04/2018 10:20:39 04/04/2018 11:52:02 Adult health examination 318575441 Z00.00 Paresthesia of hand 3090 33949 R20.2 (bilateral pinky) Type 2 melony betes mellitus without complication 698900595 E11.9 (diagnosed on 07/27/15) -- Patient was referred to [facility] for diabetic teaching and nutritiona l counseling by dietitian. 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; -- referred patient to [facility] eye clinic but pt did not [...] on 04/10/18-- changed Bydureon & Synjardy to Mariuszpedro Benign ess ential hypertension 0785437 I10 -- uncontroll ed; Cardiologi st Dr Garry Falcon has discontinu ed carvedilol because of ED -- recheck labs on 04/10/18 Multi vess el coronary artery disease 502479038 I25.10 -- S/p 'Premous' drug eluting stents x [address] Lisandro Falcon on 02/08/16-- asymptomat ic; Cardiologi st Dr Falcon states pt needs to be on both Aspirin & Brillinta 60 mg bid-- recheck labs on 04/10/18 Hyperlipidemia 59350769 E78.5 -- recheck labs on 09/26/17 Body mass index 30+ - obesity 773104520 Z68.39 -- advised wt loss and pt lost 14 # since his last visit. -- pt's BMI today is 30.3 (ideal is between 20-25). Pain in toe 289443634 M7 9.674 (right MTP) -- resolved Allergic rhinitis 700469 04 J30.9 -- doing well Benign pro static hyperplasia without outflow obstruction 033687036 N40.0 -- Currently asymptomat ic; -- PSA level of 1.016 on 08/28/16-- recheck labs on 09/26/17 Nicotine dependence 5629 4008 F17.200 -- advised to Quit bc or increased risk of stroke, heart attacks, emphysema/ bronchitis , cancer, aneurysm, premature .-- Quit smoking same day on his last visit on 06/26/17 Antiplatel et agent therapy 160513927 Z79.02 -- pt advised to start otc Aspirin 81 mg qd Depression screening 171 628410 Z13.89 -- negative for any depression symptoms Viral screening 01486502 4 Z11.59 -- Hepatitis C antibody is nonreactiv e on 08/28/16 Active or passive immunization 152957721 Z23 -- Patient declines all vaccinatio n. Screening for malignant neoplasm of colon 993830106 Z12.11 -- Patient reports he had a normal colonoscop y with gastroente rologist Dr. Hawkins in 2016; will try to obtain records. Screening for malignant neoplasm of prostate 108532332 Z12.5 -- PSA level of 1.3 on 01/07/18 Peripheral vascular disease 402203733 I73.9 [place] is absent bilateral dorsal pedis pulses) -- check ANNEMARIE Abscess of buttock 03822 003 L02.31 (left buttock) -- will refer pt to surgery today [id number] Ulysses Henderson MD [facility], [facility] [address] [facility] [address] [address] 12/26/2018 11:16:03 12/26/2018 13:09:23 Abscess of buttock 80445924 L02.31 (left buttock; resolved after ABx but now recurs again) -- will refer pt to surgery today Paresthesia of hand 3090 39674 R20.2 (bilateral pinky) -- Tx by Hand Surgeon Dr Sophia Woodruff on 04/29/18 for cubital tunnel syndr Type 2 melony betes mellitus without complication 914428225 E11.9 (diagnosed on 07/27/15) -- Patient was referred to [facility] for diabetic teaching and nutritiona l counseling by dietitian multiple times but pt has not made appt yet. 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; -- referred patient to [facility] eye clinic but pt did not [...] labs today 12/26/18 Benign ess ential hypertension 6092520 I10 -- uncontroll ed as pt has been missing meds a lot & not getting refills; Cardiologi st Dr Garry Falcon has discontinu ed carvedilol because of ED-- recheck labs today 12/26/18 Multi vess el coronary artery disease 520771646 I25.10 -- S/p 'Premous' drug eluting stents x [address] Lisandro Falcon on 02/08/16-- asymptomat ic; Cardiologi st Dr Falcon states pt needs to be on both Aspirin & Brillinta 60 mg bid-- recheck labs today 12/26/18 Hyperlipidemia 54453735 E78.5 -- recheck labs today 12/26/18 Body mass index 30+ - obesity 615236482 Z68.33 -- advised wt loss and pt gained 21 # since his last visit. -- pt's BMI today is 33.2 (ideal is between 20-25). Peripheral vascular disease 219080869 I73.9 [place] is absent bilateral dorsal pedis pulses) -- ordered ANNEMARIE but not done. Allergic rhinitis 716586 04 J30.9 -- doing well Benign pro static hyperplasia without outflow obstruction 689008569 N40.0 -- Currently asymptomat ic; -- PSA level of 1.3 on 01/07/18-- check PSA on 01/06/19 Nicotine dependence 5629 4008 F17.200 -- advised to Quit bc or increased risk of stroke, heart attacks, emphysema/ bronchitis , cancer, aneurysm, premature .-- Quit smoking same day on his last visit on 06/26/17 Antiplatel et agent therapy 811014900 Z79.02 -- pt advised to start otc Aspirin 81 mg qd Depression screening 171 264295 Z13.89 -- negative for any depression symptoms Active or passive immunization 100876835 Z23 -- Patient declines all vaccinatio n. Screening for malignant neoplasm of colon 503387867 Z12.11 -- Patient reports he had a normal colonoscop y with gastroente rologist Dr. Hawkins in 2016; will try to obtain records. Screening for malignant neoplasm of prostate 520453160 Z12.5 -- PSA level of 1.3 on 01/07/18 Hepatitis C screening 41 6569380 Z11.59 -- Hepatitis C antibody is nonreactiv e on 08/28/16 [id number] Ulysses Henderson MD [place] [address] [facility] Mariusz [address] [place] [phone] 04/27/2019 12:00:00 04/27/2019 14:10:48 Noncompliance with treatment 9014293 Z91.19 non compliance with ophthalBP and DM were uncontroll ed as pt has been missing meds a lot & not getting refills including Plavix Multi vess el coronary artery disease 158075774 I25.10 -- S/p 'Premous' drug eluting stents x [address] Lisandro Falcon on 02/08/16-- asymptomat ic; Cardiologi st Dr Falcon states pt needs to be on both Aspirin & Brillinta 60 mg bid.-- Pt never filled Brillinta. Pt is on Plavix Type 2 melony betes mellitus without complication 551020194 E11.9 (diagnosed on 07/27/15) -- referred patient to [facility] eye clinic but pt did not [...] and risk of genitalia gangrene. Hypertriglyceridemia 302 624987 E78.2 -- advise pt to limit Carbohydra [...] 525 on 12/26/2018 Benign ess ential hypertension 8772617 I10 -- uncontroll ed as pt has been missing meds a lot & not getting refills; Cardiologi st Dr Garry Falcon has discontinu ed carvedilol because of ED Body mass index 30+ - obesity 777856129 Z68.33 -- advised wt loss and pt gained 21 # since his last visit. -- pt's BMI today is 33.2 (ideal is between 20-25). Benign pro static hyperplasia without outflow obstruction 926308692 N40.0 -- Currently asymptomat ic; -- PSA level of 1.3 on 01/07/18-- check PSA on 01/06/19 -- not done Antiplatel et agent therapy 111833347 Z79.02 -- pt advised to start otc Aspirin 81 mg qd Depression screening 171 005562 Z13.89 -- negative for any depression symptoms Hepatitis C screening 41 7406867 Z11.59 -- Hepatitis C antibody is nonreactiv e on 08/28/16 Active or passive immunization 359893114 Z23 -- Patient declines all vaccinatio n. Screening for malignant neoplasm of colon 188343638 Z12.11 -- Patient reports he had a normal colonoscop y with gastroente rologist Dr. Hawkins in 06/20/2015. Repeat in 5 years -- 06/20/2020 Screening for malignant neoplasm of prostate 159289649 Z12.5 -- PSA level of 1.3 on 01/07/18 Ex-smoker 1756184 Z87.89 1 -- Quit smoking on 06/26/17 Hyperlipidemia 27552648 E78.5 LDL was controlled at 48, HDL 36 and Trig 525 on 12/26/2018 Primary er ectile dysfunction 233593399 N52.9 Intermitte nt claudication 15347553 I73.9 (bilateral hamstrig)- - absent bilateral dorsal pedis pulses)-- ordered ANNEMARIE but not done. [id number] Ulysses Henderson MD [employer], [place] [facility] [address] [address] 08/31/2019 17:03:48 08/31/2019 19:18:05 Noncompliance with treatment 5946043 Z91.19 non compliance with ophthal, blood testings, followup appt, and meds.-- pt counseled. Multi vess el coronary artery disease 690971155 I25.10 -- S/p 'Premous' drug eluting stents x [address] Lisandro Falcon on 02/08/16-- asymptomat ic; Cardiologi st Dr Falcon states pt needs to be on both Aspirin & Brillinta 60 mg bid.-- Pt never filled Brillinta. Pt is on Plavix Type 2 melony betes mellitus without complication 291004588 E11.9 (diagnosed on 07/27/15) -- referred patient to [facility] eye clinic but pt did not [...] and risk of genitalia gangrene. Hypertriglyceridemia 302 108604 E78.2 -- advise pt to limit Carbohydra [...] 525 on 12/26/2018 Benign ess ential hypertension 6582111 I10 -- uncontroll ed as pt has been missing meds a lot & not getting refills; Cardiologi st Dr Garry Falcon has discontinu ed carvedilol because of ED Hyperlipidemia 64340633 E78.5 LDL was controlled at 48, HDL 36 and Trig 525 on 12/26/2018 Body mass index 30+ - obesity 007792984 Z68.32 -- advised wt loss and pt gained 1 # since his last visit. -- pt's BMI today is 32.9(ideal is between 20-25). Benign pro static hyperplasia without outflow obstruction 217924383 N40.0 -- Currently asymptomat ic; -- PSA level of 1.3 on 01/07/18-- check PSA on 01/06/19 -- not done-- re-reorder labs to be done today 08/31/19 Intermitte nt claudication 42381856 I73.9 (bilateral hamstrig)- - absent bilateral dorsal pedis pulses)-- ordered ANNEMARIE but not done.-- d-dimer ordered but not done. Ex-smoker 0634587 Z87.89 1 -- Quit smoking on 06/26/17 Primary er ectile dysfunction 999931651 N52.9 Antiplatel et agent therapy 281289811 Z79.02 -- pt advised to start otc Aspirin 81 mg qd Depression screening 171 067434 Z13.89 -- negative for any depression symptoms Hepatitis C screening 41 3526236 Z11.59 -- Hepatitis C antibody is nonreactiv e on 08/28/16 Active or passive immunization 039822363 Z23 -- Patient declines all vaccinatio n. Screening for malignant neoplasm of colon 943621252 Z12.11 -- Patient reports he had a normal colonoscop y with gastroente rologist Dr. Hawkins in 06/20/2015. Repeat in 5 years -- 06/20/2020 Screening for malignant neoplasm of prostate 524780054 Z12.5 -- PSA level of 1.3 on 01/07/18-- re-reorder labs to be done today 08/31/19 [place] is of skin AND/OR subcutaneous tissue 00125763 L02.92 (mild on left buttock) [id number] Ulysses Henderson MD [place] [address] [facility] ,[address] [phone] 12/14/2019 10:53:11 12/14/2019 12:39:33 Adult health examination 728230190 Z00.00 [place] is of skin AND/OR subcutaneous tissue 43514099 L02.92 (mild on left buttock) -- resolved Multi vess el coronary artery disease 340939438 I25.10 (MS s/p stent circumflex (100%) at [facility] on 02/07/16 -- pt reports he was [...] Type 2 melony betes mellitus without complication 811080449 E11.9 (diagnosed on 07/27/15) -- referred patient to [facility] eye clinic but pt did not [...] of genitalia gangrene. Noncomplia nce with treatment 8871126 Z91.19 non compliance with ophthal, blood testings, followup appt, and meds.-- pt counseled. Hypertriglyceridemia 302 321350 E78.2 -- advise pt to limit Carbohydra [...] 525 on 12/26/2018 Benign ess ential hypertension 6798928 I10 -- uncontroll ed as pt has been missing meds a lot & not getting refills; Cardiologi st Dr Garry Falcon has discontinu ed carvedilol because of ED Hyperlipidemia 43370939 E78.5 LDL was controlled at 48, HDL 36 and Trig 525 on 12/26/2018 Body mass index 30+ - obesity 520543668 Z68.32 -- advised wt loss and pt lost 9 # since his last visit. -- pt's BMI today is 31.7 (ideal is between 20-25). Benign pro static hyperplasia without outflow obstruction 769469750 N40.0 -- Currently asymptomat ic; -- PSA level of 1.3 on 01/07/18-- check PSA on 01/06/19 -- not done-- need to repeat PSA in Feb 2020 Intermitte nt claudication 92827422 I73.9 (bilateral hamstrig)- - absent bilateral dorsal pedis pulses)-- ordered ANNEMARIE but not done.-- d-dimer ordered but not done. Ex-smoker 2156362 Z87.89 1 -- Quit smoking on 06/26/17 Primary er ectile dysfunction 536639235 N52.9 Antiplatel et agent therapy 826811482 Z79.02 -- pt advised to start otc Aspirin 81 mg qd Depression screening 171 076110 Z13.89 -- negative for any depression symptoms Hepatitis C screening 41 3535841 Z11.59 -- Hepatitis C antibody is nonreactiv e on 08/28/16 Active or passive immunization 156584134 Z23 -- Patient declines all vaccinatio n. Screening for malignant neoplasm of colon 503894230 Z12.11 -- Patient reports he had a normal colonoscop y with gastroente rologist Dr. Hawkins in 06/20/2015. Repeat in 5 years -- 06/20/2020 Screening for malignant neoplasm of prostate 898312751 Z12.5 -- PSA level of 1.3 on 01/07/18 --> 1.0 ( 09/01/19) [id number] Ulysses Henderson MD [place] [address] [facility] ,[address] [phone] 01/28/2020 10:56:03 01/28/2020 12:21:50 Uncontrolled type 2 diabetes mellitus 932184852 E11.65 (diagnosed on 07/27/15) -- Patient referred to [facility] for diabetic teaching and nutritiona l counseling by dietitian. -- ordered labs on 12/14/19 but not done.-- will re-order labs today Multi vess el coronary artery disease 172698660 I25.10 (MS s/p stent circumflex (100%) at [facility] on 02/07/16 -- pt reports he was [...] Aspirin & Plavix Noncomplia nce with treatment 4441795 Z91.19 non compliance with ophthal, blood testings, followup appt, and meds.-- pt counseled. Essential hypertension 34359994 I10 -- uncontroll ed as pt has been missing meds a lot & not getting refills; Cardiologi st Dr Garry Falcon has discontinu ed carvedilol because of ED Hyperlipidemia 47866064 E78.5 LDL was controlled at 48, HDL 36 and Trig 525 on 12/26/2018 Body mass index 30+ - obesity 562578355 Z68.31 -- advised wt loss and pt lost 1 # since his last visit. -- pt's BMI today is 31.5 (ideal is between 20-25). Ex-smoker 3038158 Z87.89 1 -- Quit smoking on 06/26/17 Abscess of buttock [id number] L02.31 s/p excision by Dr Daly -- see photo [id number] Ulysses Henderson MD [place] [facility], [facility] [address] [facility] [address] [place] [address] 03/16/2020 15:59:27 03/16/2020 18:30:16 Abscess of buttock [id number] L02.31 s/p excision by Dr Daly -- see photo-- resolved without new sx Uncontroll ed type 2 diabetes mellitus [id number] E11.65 (diagnosed on 07/27/15) -- Patient referred to [facility] for diabetic teaching and nutritiona l counseling by dietitian. -- ordered labs on 12/14/19 but not done.-- recheck lab(s) on 05/03/20 Multi vess el coronary artery disease 697462705 I25.10 (MS s/p stent circumflex (100%) at [facility] on 02/07/16 -- pt reports he was [...] Aspirin & Plavix Noncomplia nce with treatment 3596829 Z91.19 non compliance with ophthal, blood testings, followup appt, and meds.-- pt counseled. Essential hypertension 80205208 I10 -- uncontroll ed as pt has been missing meds a lot & not getting refills; Cardiologi st Dr Garry Falcon has discontinu ed carvedilol because of ED Hyperlipidemia 86518401 E78.5 -- you will also need to [...] fine). Body mass index 30+ - obesity 197483003 Z68.31 -- advised wt loss and pt lost 4 # since his last visit. -- pt's BMI today is 31 (ideal is between 20-25). Ex-smoker 9060676 Z87.89 1 -- Quit smoking on 06/26/17 Primary er ectile dysfunction 820919995 N52.9 [id number] Ulysses Henderson MD [place] [employer] [address] [facility] ,[address] [address] 05/16/2020 14:29:00 05/16/2020 16:09:36 Uncontrolled type 2 diabetes mellitus 667488787 E11.65 (diagnosed on 07/27/15) -- Patient referred to [facility] for diabetic teaching and nutritiona l counseling by dietitian. -- ordered labs on 12/14/19 but not done.-- recheck lab(s) tomorrow 05/17/20 Multi vess el coronary artery disease 408355309 I25.10 (MS s/p stent circumflex (100%) at [facility] on 02/07/16 -- pt reports he was [...] lab(s) tomorrow 05/17/20 Noncomplia nce with treatment 6993914 Z91.19 non compliance with ophthal, blood testings, followup appt, and meds.-- pt counseled. Essential hypertension 50639421 I10 -- uncontroll ed as pt has been missing meds a lot & not getting refills; Cardiologi st Dr Garry Falcon has discontinu ed carvedilol because of ED-- recheck lab(s) tomorrow 05/17/20 Hyperlipidemia 80920393 E78.5 -- you will also need to [...] 05/17/20 Body mass index 30+ - obesity 111291544 Z68.31 -- advised wt loss and pt gained 6 # since his last visit. -- pt's BMI today is 31.8 (ideal is between 20-25). Ex-smoker 6396829 Z87.89 1 -- Quit smoking on 06/26/17 Primary er ectile dysfunction 625524173 N52.9 Reduced libido 1878937 R 68.82 -- recheck lab(s) tomorrow 05/17/20 [id number] Ulysses Henderson MD [place] [employer] [address] [facility] ,[address] [address] 06/15/2020 14:53:00 06/15/2020 16:42:46 Type 2 diabetes mellitus without complication 305279372 E11.9 (diagnosed on 07/27/15) -- referred patient to [facility] eye clinic but pt did not [...] gangrene.- - recheck lab(s) on 08/18/20 Hyperlipidemia 74842226 E78.5 -- you will also need to [...] to continue Vascepa as directed. Essential hypertension 39112613 I10 -- controlled ; Cardiologi st Dr Garry Falcon has discontinu ed carvedilol because of ED-- recheck lab(s) on 08/18/20 Primary er ectile dysfunction 226945509 N52.9 -- pt is mukund hernnadez penile implant-- pt has appt w/ Urologist on 07/22/20 to given his decision. [id number] Ulysses Henderson MD [employer], [facility]2 [facility] ,[address] [address] 08/15/2020 14:40:28 08/15/2020 16:20:07 Coronary arteriosclerosis 10316882 I25.10 (MS s/p stent circumflex (100%) at [facility] on 02/07/16 -- pt reports he was not given Clopidogre l at discharge on 02/09/16 . I advised patient of the risk of heart attack he does not take clopidogre l.-- I also advised pt to hold Clopidogre l 10 day prior to penile implant & restart Clopidogre l the next AM after surgery. Type 2 melony betes mellitus without complication 780898268 E11.9 (diagnosed on 07/27/15) -- referred patient to [facility] eye clinic but pt did not [...] gangrene.- - recheck lab(s) on 08/18/20 Hyperlipidemia 36843041 E78.5 -- you will also need to [...] to continue Vascepa as directed. Essential hypertension 59597005 I10 -- controlled ; Cardiologi st Dr Garry Falcon has discontinu ed carvedilol because of ED-- recheck lab(s) on 08/18/20 Primary er ectile dysfunction 782193597 N52.9 -- cleared for penile implant by Urologist Dr Sudhakar Garner on 09/06/20 [id number] Ulysses Henderson MD [employer], [place] [address] [facility] ,[address] [address] 10/10/2021 16:27:00 10/10/2021 18:35:08 Coronary arteriosclerosis 07991131 I25.10 (MS s/p stent circumflex (100%) at [facility] on 02/07/16 -- pt reports he was [...] Type 2 melony betes mellitus without complication 354108307 E11.9 (diagnosed on 07/27/15) -- referred patient to [facility] eye clinic but pt did not [...] genitalia gangrene.- - check lab(s) tomorrow Hyperlipidemia 80685520 E78.5 -- you will also need to [...] to continue Vascepa as directed. Essential hypertension 36130191 I10 -- Cardiologi st Dr Garry Falcon has discontinu ed carvedilol because of ED-- EKG done 10/10/21-- pt counseled on uncontroll ed BP.-- check lab(s) tomorrow Primary er ectile dysfunction 827652540 N52.9 -- cleared for penile implant by Urologist Dr Sudhakar Garner on 09/06/20 Noncomplia nce with medication regimen 409550872 Z91.14 -- ran out of meds x 2 weeks Ex-smoker 1785535 Z87.89 1 -- Quit smoking on 06/26/17 Mixed anxi ety and depressive disorder 038163710 F41.8 (mom Jun 2021; brother Mar 2021) Body mass index 30+ - obesity 713390965 Z68.32 -- advised wt loss and pt gained 15 # since his last visit.-- pt's BMI today is 32.4 (ideal is between 20-25). [id number] Ulysses Henderson MD [place] [facility], [place] 125992 [facility] ,[address] [address] 03/30/2022 12:14:32 03/30/2022 14:25:15 Coronary arteriosclerosis 16061839 I25.10 (MS s/p stent circumflex (100%) at [facility] on 02/07/16 -- pt reports he was [...] Type 2 melony betes mellitus without complication 163136190 E11.9 (diagnosed on 07/27/15) -- referred patient to [facility] eye clinic but pt did not [...] gangrene.- - check lab(s) tomorrow Essential hypertension 09214501 I10 -- Cardiologi st Dr Garry Falcon has discontinu ed carvedilol because of ED-- EKG done 10/10/21-- pt counseled on uncontroll ed BP.-- check lab(s) tomorrow Hyperlipidemia 20346862 E78.5 -- you will also need to [...] as directed. Noncomplia nce with medication regimen 796517611 Z91.14 -- ran out of meds x 2 weeks Primary er ectile dysfunction 812101571 N52.9 -- cleared for penile implant by Urologist Dr Sudhakar Garner on 09/06/20 Ex-smoker 7501688 Z87.89 1 -- Quit smoking on 06/26/17 Mixed anxi ety and depressive disorder 699049512 F41.8 (mom Jun 2021; brother February 2021) Body mass index 30+ - obesity 266009059 Z68.32 -- advised wt loss; no weight change # since his last visit.-- pt's BMI today is 32.4 (ideal is between 20-25). Hepatitis C screening 41 7051962 Z11.59 -- tested negative for Hepatitis C on 08/28/16 Active or passive immunization 095533298 Z23 -- Patient declines all vaccinatio n. Screening for malignant neoplasm of colon 966710736 Z12.11 -- Patient reports he had a normal colonoscop y with gastroente rologist Dr. Hawkins in 06/20/2015. Repeat in 5 years -- 06/20/2020 Screening for malignant neoplasm of prostate 726661955 Z12.5 -- PSA level of 1.3 on 01/07/18 --> 1.0 ( 09/01/19) [id number] Ulysses Henderson MD [employer], [place] [facility]2 [facility] [address] [address] 05/01/2022 16:40:20 05/01/2022 19:11:21 Coronary arteriosclerosis 36964612 I25.10 (MS s/p stent circumflex (100%) at [facility] on 02/07/16 -- pt reports he was [...] Type 2 melony betes mellitus without complication 256422264 E11.9 (diagnosed on 07/27/15) -- referred patient to [facility] eye clinic but pt did not [...] gangrene.- - check lab(s) 07/18/22 Essential hypertension 83668700 I10 -- Cardiologi st Dr Garry Falcon has discontinu ed carvedilol because of ED-- EKG done 10/10/21-- pt counseled on uncontroll ed BP.-- check lab(s) tomorrow Hyperlipidemia 44015438 E78.5 -- you will also need to [...] as directed. Noncomplia nce with medication regimen 387713560 Z91.14 -- ran out of meds x 2 weeks Primary er ectile dysfunction 135280656 N52.9 -- cleared for penile implant by Urologist Dr Sudhakar Garner on 09/06/20 Ex-smoker 9205399 Z87.89 1 -- Quit smoking on 06/26/17 Mixed anxi ety and depressive disorder 165071300 F41.8 (mom Jun 2021; brother February 2021) Body mass index 30+ - obesity 968200413 Z68.32 -- advised wt loss; pt lost 4 # since his last visit.-- pt's BMI today is 31.8 (ideal is between 20-25). Hepatitis C screening 41 8585103 Z11.59 -- tested negative for Hepatitis C on 08/28/16 Active or passive immunization 145162044 Z23 Screening for malignant neoplasm of colon 152006988 Z12.11 -- Patient reports he had a normal colonoscop y with gastroente rologist Dr. Hawkins in 06/20/2015. Repeat in 5 years -- 06/20/2020 Screening for malignant neoplasm of prostate 770039802 Z12.5 -- PSA level of 1.3 on 01/07/18 --> 1.0 ( 09/01/19) --> 1.83 (03/31/22) [id number] Ulysses Henderson MD [employer], [place] [address] [facility] [address] [address] 02/21/2023 11:06:09 02/21/2023 13:11:22 Coronary arteriosclerosis 42353376 I25.10 (MS s/p stent circumflex (100%) at [facility] on 02/07/16 -- pt reports he was [...] Type 2 melony betes mellitus without complication 829455215 E11.9 (diagnosed on 07/27/15) -- referred patient to [facility] eye clinic but pt did not [...] gangrene.- - check lab(s) 07/18/22 Essential hypertension 67582682 I10 -- Cardiologi st Dr Garry Falcon has discontinu ed carvedilol because of ED-- EKG done 10/10/21-- pt counseled on uncontroll ed BP.-- check lab(s) tomorrow Hyperlipidemia 53345628 E78.5 -- you will also need to [...] as directed. Noncomplia nce with medication regimen 882457186 Z91.148 -- ran out of meds x 2 weeks Primary er ectile dysfunction 701757902 N52.9 -- cleared for penile implant by Urologist Dr Sudhakar Garner on 09/06/20 Ex-smoker 5307375 Z87.89 1 -- Quit smoking on 06/26/17 Mixed anxi ety and depressive disorder 460714083 F41.8 (mom Jun 2021; brother February 2021) Body mass index 30+ - obesity 541276298 Z68.31 -- advised wt loss; pt lost 6 # since his last visit.-- pt's BMI today is 31.8 (ideal is between 20-25). Hepatitis C screening 41 2374765 Z11.59 -- tested negative for Hepatitis C on 08/28/16 Active or passive immunization 650842148 Z23 Screening for malignant neoplasm of colon 623759737 Z12.11 -- Patient reports he had a normal colonoscop y with gastroente rologist Dr. Hawkins in 06/20/2015. Repeat in 5 years -- 06/20/2020 Screening for malignant neoplasm of prostate 039632540 Z12.5 -- PSA level of 1.3 on 01/07/18 --> 1.0 ( 09/01/19) --> 1.83 (03/31/22) [id number] Ulysses Henderson MD [place] Markkit [facility], [facility] [address] [facility] ,[address] [address] 07/22/2023 16:21:21 07/22/2023 18:54:00 Electrocardiogram abnormal 834387276 R94.31 -- will refer pt to Cardiologi st Dr Lisandro Falcon for cardiac clearance -- for Rt foot surgery on 08/01/23 Coronary arteriosclerosis 94026348 I25.10 (MS s/p stent circumflex (100%) at [facility] on 02/07/16 -- pt reports he was [...] Type 2 melony betes mellitus without complication 226879825 E11.9 (diagnosed on 07/27/15) -- referred patient to [facility] eye clinic but pt did not [...] gangrene.- - check lab(s) today Essential hypertension 48255204 I10 -- Cardiologi st Dr Garry Falcon has discontinu ed carvedilol because of ED-- EKG done 10/10/21-- pt counseled on uncontroll ed BP.-- check lab(s) today Hyperlipidemia 59052817 E78.5 -- you will also need to [...] lab(s) today Noncomplia nce with medication regimen 128913008 Z91.148 -- ran out of meds x 2 weeks Primary er ectile dysfunction 653198977 N52.9 -- cleared for penile implant by Urologist Dr Sudhakar Garner on 09/06/20 Ex-smoker 9837879 Z87.89 1 -- Quit smoking on 06/26/17 Mixed anxi ety and depressive disorder 944266548 F41.8 (mom Jun 2021; brother February 2021) Body mass index 30+ - obesity 638801609 Z68.31 -- advised wt loss; pt gained 2 # since his last visit.-- pt's BMI today is 31.2 (ideal is between 20-25). Hepatitis C screening 41 4677163 Z11.59 -- tested negative for Hepatitis C on 08/28/16 Active or passive immunization 722761881 Z23 Screening for malignant neoplasm of colon 952686318 Z12.11 -- Patient reports he had a normal colonoscop y with gastroente rologist Dr. Hawkins in 06/20/2015. Repeat in 5 years -- 06/20/2020 Screening for malignant neoplasm of prostate 352829155 Z12.5 -- PSA level of 1.3 on 01/07/18 --> 1.0 ( 09/01/19) --> 1.83 (03/31/22) HIV screening 633431041 Z11.4 CDC recommends that everyone between the ages of 13 and 64 get tested for HIV at least once as part of routine health care. [id number] Ulysses Henderson MD [place] [facility], [facility] [address] [facility] ,[address] [address] 01/03/2024 10:55:15 01/03/2024 13:03:46 Adult health examination 895651303 Z00.00 Coronary arteriosclerosis 43648324 I25.10 (MS s/p stent circumflex (100%) at [facility] on 02/07/16 -- pt reports he was [...] Type 2 melony betes mellitus without complication 515723448 E11.9 (diagnosed on 07/27/15) -- referred patient to [facility] eye clinic but pt did not [...] infection. -- check lab(s) today Essential hypertension 24648819 I10 -- Cardiologi st Dr Garry Falcon has discontinu ed carvedilol because of ED-- EKG done 10/10/21-- pt counseled on uncontroll ed BP.-- check lab(s) today Hyperlipidemia 06457387 E78.5 -- you will need to limit [...] lab(s) today Noncomplia nce with medication regimen 422108727 Z91.148 -- ran out of meds x 2 weeks Primary er ectile dysfunction 573118789 N52.9 -- cleared for penile implant by Urologist Dr Sudhakar Garner on 09/06/20 Ex-smoker 6347412 Z87.89 1 -- Quit smoking on 06/26/17 Mixed anxi ety and depressive disorder 856170153 F41.8 (mom Jun 2021; brother February 2021) Body mass index 30+ - obesity 733719767 Z68.31 -- advised wt loss; pt lost 1 # since his last visit.-- pt's BMI today is 31.1 (ideal is between 20-25). Hepatitis C screening 41 9503378 Z11.59 -- tested negative for Hepatitis C on 08/28/16 HIV screening 467409953 Z11.4 -- tested negative for HIV on 07/22/23 Active or passive immunization 437976262 Z23 Screening for malignant neoplasm of colon 088939539 Z12.11 -- Patient reports he had a normal colonoscop y with gastroente rologist Dr. Hawkins in 06/20/2015. Repeat in 5 years -- 06/20/2020 Screening for malignant neoplasm of prostate 041809228 Z12.5 -- PSA level of 1.3 on 01/07/18 --> 1.0 ( 09/01/19) --> 1.83 (03/31/22) --> 3.7(07/22/23 ) Long-term drug therapy 619597834 Z79.899 (Metformin ) Benign pro static hyperplasia without outflow obstruction 931244857 N40.0 -- Currently asymptomat ic; -- PSA level of 1.3 on 01/07/18-- check PSA on 01/06/19 -- not done-- need to repeat PSA in Feb 2020 [id number] Ulysses Henderson MD [place] [address] [facility] [address] [address] 12/17/2024 15:15:06 12/17/2024 17:52:52 Coronary arteriosclerosis 42171531 I25.10 (MS s/p stent circumflex (100%) at [facility] on 02/07/16 -- pt reports he was [...] Type 2 melony betes mellitus without complication 725915244 E11.9 (diagnosed on 07/27/15) -- referred patient to [facility] eye clinic but pt did not [...] infection. -- check lab(s) today Essential hypertension 88460787 I10 -- Cardiologi st Dr Garry Falcon has discontinu ed carvedilol because of ED-- EKG done 10/10/21-- pt counseled on uncontroll ed BP.-- check lab(s) today Hyperlipidemia 09837388 E78.5 -- you will need to limit [...] lab(s) today Noncomplia nce with medication regimen 155449479 Z91.148 -- ran out of meds x more than 2 weeks Primary er ectile dysfunction 617736345 N52.9 -- cleared for penile implant by Urologist Dr Sudhakar Garner on 09/06/20 Ex-smoker 9306154 Z87.89 1 -- Quit smoking on 06/26/17 Mixed anxi ety and depressive disorder 385306757 F41.8 (mom Jun 2021; brother February 2021) Benign pro static hyperplasia without outflow obstruction 104953898 N40.0 -- Currently asymptomat ic; -- PSA level of 1.3 on 01/07/18-- check PSA on 01/06/19 -- not done-- need to repeat PSA in Feb 2020 Long-term drug therapy 855492710 Z79.899 (Metformin ) Body mass index 30+ - obesity 553363518 Z68.31 -- advised wt loss; pt lost 1 # since his last visit.-- pt's BMI today is 31.1 (ideal is between 20-25). Hepatitis C screening 41 1053220 Z11.59 -- tested negative for Hepatitis C on 08/28/16 HIV screening 329991181 Z11.4 -- tested negative for HIV on 07/22/23 Active or passive immunization 081963273 Z23 Screening for malignant neoplasm of colon 392691773 Z12.11 -- Patient reports he had a normal colonoscop y with gastroente rologist Dr. Hawkins in 06/20/2015. Repeat in 5 years -- 06/20/2020 Screening for malignant neoplasm of prostate 048989740 Z12.5 -- PSA level of 1.3 on 01/07/18 --> 1.0 ( 09/01/19) --> 1.83 (03/31/22) --> 3.7(07/22/23 ) Hamstring injury 6866583 09 S76.309A 93842514 (started x 1 week after he increased walking) [id number] Ulysses Henderson MD [place] [facility], [address] ,[address] [place] [address] 03/25/2025 16:01:43 03/25/2025 19:01:38 Malignant neoplasm of prostate 030075285 C61 39994 Madison score 6-7 Lumbar radiculopathy 128 137160 M54.16 36255 (bilateral thighs) [id number] Ulysses Henderson MD [facility], [address] ,[address] [place] [address] 04/30/2025 11:45:34 04/30/2025 14:19:55 Malignant neoplasm of prostate 765840827 C61 50001 Madison score 6-7 -- cleared for radical prostatect carey by Dr Michael Laird on 05/06/25-- need cardiac clearance- - need to stop all pain meds (including fish oil icosapent ethyL), supplement s or blood thinner 7 days prior to surgery and then resume the day after surgery. Lumbar radiculopathy 128 117527 M54.16 15780 (bilateral thighs) Coronary arteriosclerosis 90663548 I25.10 (MS s/p stent circumflex (100%) at [facility] on 02/07/16 -- pt reports he was not given Clopidogre l at discharge on 02/09/16 . I advised patient of the risk of heart attack he does not take clopidogre l.-- I also advised pt to hold Clopidogre l 10 day prior to penile implant & restart Clopidogre l the next AM after surgery.-- EKG done 10/10/21-- asymptomat ic but will need cardiac clearance -- check lab(s) on 05/06/25 Type 2 melony betes mellitus without complication 854122639 E11.9 (diagnosed on 07/27/15) -- referred patient to [facility] eye clinic but pt did not [...] to prevent yeast infection. -- check lab(s) on 05/06/25 Essential hypertension 34007679 I10 -- Cardiologi st Dr Garry Falcon has discontinu ed carvedilol because of ED-- EKG done 04/30/25-- pt counseled on uncontroll ed BP. -- check lab(s) on 05/06/25 Hyperlipidemia 82820205 E78.5 -- you will need to limit Carbohydra janie intake to 40 gram per meal & also a maximum of 120 grams a day.-- Examples of Carbohydra janie are: ice-cream, sweet sugar treats, Sodas, rice, potatoes, sweet potatoes (yams), bananas, corn products (popcorn, corn muffin, corn bread, cornflakes , corn ), oats, flour products (pasta, bread, bagel, muffins, donuts, biscuits, cookies, crackers, pancakes, waffle, cakes, pies &/or Alcohol. -- check lab(s) on 05/06/25 Noncomplia nce with medication regimen 496578781 Z91.148 -- ran out of meds and did not call for refills Primary er ectile dysfunction 522026250 N52.9 -- cleared for penile implant by Urologist Dr Sudhakar Garner on 09/06/20 Ex-smoker 5625572 Z87.89 1 -- Quit smoking on 06/26/17-- u/s on 04/05/22 showed no AAA Mixed anxi ety and depressive disorder 244535618 F41.8 (mom Jun 2021; brother February 2021) Long-term drug therapy 735024268 Z79.899 (Metformin ) Hamstring injury 0745014 09 S76.309A 52086756 (started x 1 week after he increased walking) -- resolved Hepatitis C screening 41 5141084 Z11.59 -- tested negative for Hepatitis C on 08/28/16 HIV screening 994476412 Z11.4 -- tested negative for HIV on 07/22/23 Active or passive immunization 002457971 Z23 Screening for malignant neoplasm of colon 560847674 Z12.11 -- Gastroente rologist Dr. Theron Kelsey mendjudith repeating conlonosco py 10 years from Screening for malignant neoplasm of prostate 548638094 Z12.5 -- PSA level of 1.3 on 01/07/18 --> 1.0 ( 09/01/19) --> 1.83 (03/31/22) --> 3.7(07/22/23 ) --> 13.8 (12/17/24) Well adult 980974092 Z00 .00 20921643 Overweight in adulthood with body mass index of 25 or more but less than 30 794577965 E66.3 Z68.28 3522283207 -- advised wt loss; pt lost 9 # since his last visit.-- pt's BMI today is 28.9 (ideal is between 20-25). Health Concerns Section Related Observation LastModified by Organization Detai ls LastModified Time None Recorded Concern Status LastModified by Organization Details LastModified Time None Recorded Advance Directives Directive N: Payers Insurance Date Sequence Insurance Name Policy Number Policy Davis Covered Member ID Davis Member ID Guarantor Name 07/28/2019 *SELF PAY* Amie jules Richmond 03/30/2022 1 [place] [id number] Jose Richmond [id number] Jose Richmond 05/05/2025 1 [facility] [id number] Jose Richmond [id number] Jose Richmond Notes Date Note Type Note Provider Name and Address Organization Details Recorded Time 07/22/2023 text/html Pt comes in for CAD [...] breathing symptoms/chest tightness, indigestion sx, n/v, or tiredness/weakness. MD Efrain Etienne2 [facility] [address], [place], [address], [facility] 07/22/2023 18:53:15 01/03/2024 text/html Pt comes in [...] sx, n/v, any angina equivalent symptoms, etc. MD Armani Etienne [facility] [address], [place], [address], [facility] 01/03/2024 13:01:26 12/17/2024 text/html Pt lost to f/u and has been out of meds for over 2 weeks comes in for f/u of CAD(asymptomatic), DM, HTN, HLD, and weight. Pt feels well and has no c/o. Pt has no new sx and no increasing sx. Patient denies any jaw or neck discomfort, left arm pain/left arm discomfort, chest discomfort/pain, diaphoresis, breathing symptoms/chest tightness, indigestion sx, n/v, any angina equivalent symptoms, etc. MD Armani Etienne [facility] [address], [place], [address], [facility] 12/17/2024 17:53:37 03/25/2025 text/html Pt w/ bilateral hamstring thigtness x months. Pt also dx'd w/ early prostate cancer. Pt denies any headaches, focal muscle weakness, numbness /tingling, unsteady balance or gait, coordination problems, urinary symptoms, or bowel symptoms, etc. Pt feels well and has no c/o. Pt has no new sx and no increasing sx. Patient denies any jaw or neck discomfort, left arm pain/left arm discomfort, chest discomfort/pain, diaphoresis, breathing symptoms/chest tightness, indigestion sx, n/v, any angina equivalent symptoms, etc. Ulysses Henderson MD [address] [facility] [address], [place], [address], [facility] 03/25/2025 19:00:36 04/30/2025 text/html Pt comes in for medical clearance for radical prostatectomy on 05/06/25. Pt has h/o CAD (w/ stent on 02/07/16). Pt also has uncontrolled DM, HTN, HLD, and is over weight. Pt feels well and has no c/o. Pt has no new sx and no increasing sx. Patient denies any f/c, n/v, cough/cold or Flu sx, jaw or neck discomfort, left arm pain/left arm discomfort, chest discomfort/pain, diaphoresis, breathing symptoms/chest tightness, indigestion sx, any bleeding sx or easy bruising, or weakness/fatigue. Ulysses Henderson MD [address] [facility] [address], [place], [address], [facility] 04/30/2025 14:14:26
--- OUTSIDE RECORDS SUMMARY | 2025-05-06 02:06 | XMS_ITS | Clinical Summary ---
Author Organization [facility] Address [address] [place] [address] Care Team Providers Care Wood Die Maker Name Role Phone Ulysses Melendez MD Primary Care Provider [phone] Allergies No known active allergies Medications atorvastatin (LIPITOR) 40 mg tablet Take 1 tablet (40 mg total) by mouth daily 05/11/2016 Active amLODIPine (NORVASC) 10 mg tablet Take 1 tablet (10 mg total) by mouth daily Active citalopram (CeleXA) 20 mg tablet Take 1 tablet (20 mg total) by mouth nightly Active Surgical History Surgery Date Site/Laterality Comments CERVICAL [...] on file Legal Sex Male 7:48 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 2 oz) 07/25/2023 8:23 AM FACTORY MAINTENANCE TECHNICIAN Height 180.3 cm (5' 11) 07/25/2023 8:2 3 AM FACTORY MAINTENANCE TECHNICIAN Body Mass Index 31.48 07/25/2023 8:23 AM FACTORY MAINTENANCE TECHNICIAN Plan of Treatment Health Maintenance Due Date [...] patient's age to [place] [address] [place] [id number] [facility] CHOICE PLUS [facility] HMO/PPO Address: [address] CHOICE [facility]US [facility] HMO/PPO Address: [address] CHO[employer] [facility] HMO/PPO Address: [place] [address] Care Teams Wood Die Maker Relationship Specialty Start Date End Date Ulysses Melendez MD [facility] [address] [place] [address] PCP - General 05/23/20
--- OUTSIDE RECORDS SUMMARY | 2025-05-06 02:06 | XMS_ITS | Clinical Summary ---
Author Organization [facility] Address [address] [place] [id number] Care Team Providers Care Search Coordinator Name Role Phone Ulysses Melendez MD Primary Care Provider [phone] Social History Tobacco Use Types Packs/Day Years [...] of 2) 2015 COVID-19 Vaccine ( - 2024-2 6 season) 2025 Influenza Adult (#1) 2025 Hepatitis A Vaccines Aged Out No long er eligible based on patient's age to complete this topic Meningococcal B Vaccine Aged Out No l onger eligible based on patient's age to complete this topic Meningococcal Vaccine Aged Out No anthony lamberto eligible based on patient's age to complete this topic RSV Immunizations Under 20 Months Aged Out No longer eligible based on patient's age to complete this topic Insurance [facility] Care Teams Search Coordinator Relationship Specialty Start Date End Date Ulysses Melendez MD [address] [place] [address] [address] [place] [address] PCP - General 12/02/13
--- OUTSIDE RECORDS SUMMARY | 2025-05-06 02:06 | XMS_ITS | Data Portability ---
Author Organization [facility] IP Address [address] [place] [address] Care Team Providers Care Flow Match Sofa Cutter Name Role Phone SAL HENDERSON Primary Care Provider Assessment No assessment recorded. Plan of Treatment [...] Pulse oximetry Body temperature Heart rate Systolic And Diastolic Provider Name and Address Organization Details Last Updated DateTime 9 105123. 16 g 18 /min 95 % 95 % 97.5 [degF] 82 /min 125/75 mm[Hg] Janelle Torres LPN [place] - [facility] 9 15:00:09 Social History None recorded. Functional Status None recorded. Mental Status None recorded. Family History Nothing Reported. Medical History No medical history recorded. Past Encounters Encounter ID Performer Location Encounter Start Date Encounter Closed Date Diagnosis/Indication Diagnosis SNOMED-CT Code Diagnosis ICD10 Code Diagnosis IMO Codes Diagnosis Note [id number] ENRIQUE ARCE MD [facility] [place] [address] 03/06/2019 14:19:51 03/25/2019 17:19:32 Hidradenitis suppurativa 51901257 L73.2 Patient has an abscess associated with [...] Davis Member ID Guarantor Name 03/24/[address] [facility] [id number] Jose Richmond [id number] Jose Richmond Notes Date Note Type Note Provider Name and Address Organization Details Recorded Time 03/06/2019 text/html ROS as noted in the HPI 53M presenting with a left gluteal abscess. The patient states that this has been going on for 1-2 months. No fevers, chills. No nausea/vomiting. ENRIQUE ARCE MD [address] [place], [address], [facility] 03/06/2019 15:07:21
--- OUTSIDE RECORDS SUMMARY | 2025-05-06 02:06 | XMS_ITS | Patient Health Record ---
Author Organization [facility] Address [address] [facility] [address] [place] [address] Care Team Providers Care Geoscience Professor Name Role Phone Ulysses Melendez MD Primary Care Provider German Mcnamara Unavailable Aimee Lo Unavailable [phone] Allergies No Known Allergies Reason For Referral No Information Medications Medication SIG (Take, Route, Frequency, Duration) Notes Start Date End Date Status Clopidogrel Bisulfate 75 MG Tablet TAKE 1 TABLET BY MOUTH ONCE DAILY Oral; Duration: 30 Days Active Irbesartan 300 MG Tablet TAKE 1 TABLET B Y MOUTH ONCE DAILY Oral; Duration: 30 Days Active Farxiga 10 MG Tablet TAKE 1 TABLET BY MO UT ONCE DAILY Oral; Duration: 30 Days Active Aspirin Low Dose 81 MG Tablet Delayed Release TAKE 1 TABLET BY MOUTH ONCE DAILY Oral; Duration: 30 Days Active Atorvastatin Calcium 40 MG Tablet TAKE 1 TABLET BY MOUTH ONCE DAILY Oral; Duration: 30 Days Active amLODIPine Besylate 10 MG Tablet TAKE 1 TABLET BY MOUTH ONCE DAILY IN THE EVENING Oral; Duration: 30 Days Active Citalopram Hydrobromide 20 MG Tablet TAKE 1 TABLET BY MOUTH ONCE DAILY FOR 90 DAYS Oral; Duration: 30 Days Active Social History Tobacco Use: Social History Observation Description Date Details (start date - stop date) Former Smoker NA - NA Social History Tobacco Use: Social Info Question Answer Notes Tobacco Use/Smoking Are you a former smoker How long has it been since you last smoked? 5-10 years Additional Details Category Social Info Options Details Miscellaneous: Exercise: Moderate Living with: spouse Occupation Status Full-Time Drugs/Alcohol: Alcohol use: Yes: Social alcoho l use Recreational drugs Denies All Problems Problem Type SNOMED Code ICD Code Onset Dates Problem Status W/U Status Risk Notes Problem Type II diabetes mellitus without complication (335242799) Type 2 diabetes mellitus without complication, unspecified whether longwall machine operator helper insulin use (E11.9) Active confirmed Vital Signs Height 71 in 12/23/2024 Weight 225 lbs 12/23/2024 BMI 31.38 kg/m2 12/23/2024 Encounters Encounter Location Date Provider Diagnosis 1 OF Olimpia Patton [facility] [address] [place] [phone] 12/23/2024 Aimee Lo Type 2 diabetes mellitus without complication, unspecified whether fci insulin use E11.9 ; Onychogryphosis L60.2 ; Onychodystrophy L60.3 ; Pain around toenail, left foot M79.675 and Pain around toenail, right foot M79.674 1 OF Olimpia Patton [facility] [address] [place] [phone] 12/18/2024 German Patton Assessments Encounter Date Diagnosis (ICD Code) Assessment Notes Treatment Notes Treatment Clinical Notes Section Notes 12/23/2024 Onychogryphosis (ICD-10 - L60.2) Advised patient that if he desires treatment of nails and/or calluses on a regular basis that most insurances will not pay for this service in the absence of pain or infection or qualifying systemic disease with significant risk factors. 12/23/2024 Type 2 diabetes mellitus without complication, unspecified whether fci insulin use (ICD-10 - E11.9) Evaluation today included a review of medical history, review of systems, discussion of exam findings, and review of diagnoses and treatment options. A diabetic foot evaluation was performed. The importance of daily self foot exams was stressed. The patient was encouraged to control the blood sugar as well as possible and I explained the direct correlation between the incidence of diabetic foot complications and how well the blood sugar is controlled. Additionally, I recommended daily application of lotion to the feet to keep the skin well hydrated. The patient was advised to avoid walking without shoes on and I discussed the importance of wearing properly fitted and supportive shoes and how wearing a shoe that does not fit properly can lead to blisters, open sores, infections and amputation. The patient can call with any issues prior to the next visit. 12/23/2024 Onychodystrophy (ICD-10 - L60.3) 12/23/2024 Pain around toenail, left foot (ICD-10 - M79.675) 12/23/2024 Pain around toenail, right foot (ICD-10 - M79.674) Plan Of Treatment No Information Insurance Providers Payer Name Payer Address Payer Phone Subscriber Number Group Number Insured Name Patient Relationship to Insured Coverage Start Date Coverage End Date [facility] [address] [address] [place] [address] [id number] Jose Richmond Self - patient is the insured Medical (General) History Medical History History ICD Code hyperlipidemia hypertension Diabetes Anxiety disorder depression Surgical History Surgery Date(Month/Year) Foot/Ankle surgery
--- OUTSIDE RECORDS SUMMARY | 2025-05-06 02:06 | XMS_ITS | Clinical Summary ---
Author Organization [facility] Address [address] [place] [address] Care Team Providers Care Teacher Of The Visually Impaired Name Role Phone Unavailable Primary Care Provider [...]
--- NOTE | 2025-05-06 06:15 | SUR.PREOP ---
0615- Notified MD patient did not use bowel prep at home- OK to proceed with surgery per Dr. Laird
--- NOTE | 2025-05-06 06:15 | WPDHPUPDATE1 ---
History and Physical Update Update Date/Time: 05/06/25 06:15 History and Physical has been reviewed, including an updated exam of the patient. There are NO changes in the patient's condition. Risks, benefits, and alternatives have been discussed and questions answered. Patient agrees to proceed with procedure.
[2025-05-06] MEDS: LACTATED RINGERS 1,000 ML 30 ML IV CONT ×2 (06:45→10:44)
--- NOTE | 2025-05-06 06:57 | WPDANESEPPF ---
Anes - Initial Pre Proc Eval Procedure: Operation Date: 05/06/25 07:30 Proposed Procedures p Robotic Assisted Laparoscopic Prostatectomy with Bilateral Pelvic Lymph Node Dissection - Michael Laird MD Date/Time: 05/06/25 06:57 Surgeon: Michael Laird MD Pre Op Diagnosis: Prostate Ca Patient Data Age: 59 Gender: M Height: 1.8 m Weight: 93.4 kg Last Vital Signs Temp 36.3 C L 05/06/25 05:58 Pulse 80 05/06/25 05:58 Resp 18 05/06/25 05:58 BP 146/88 H 05/06/25 05:58 Pulse Ox 100 05/06/25 05:58 O2 Del Method Room Air 05/06/25 05:58 Allergies Allergy/AdvReac Type Severity Reaction Status Date / Time No Known Allergies Allergy Verified 05/06/25 06:36 Home Medications ?Medication ?Instructions ?Recorded ?Confirmed ?Type amlodipine 10 mg tablet 10 mg PO DAILY 02/17/25 05/06/25 History aspirin 81 mg tablet,delayed 81 mg PO DAILY 02/17/25 05/06/25 History release atorvastatin 40 mg tablet 40 mg PO DAILY 02/17/25 05/06/25 History citalopram 20 mg tablet 20 mg PO DAILY 02/17/25 05/06/25 History clopidogrel 75 mg tablet 75 mg PO DAILY 02/17/25 05/06/25 History dapagliflozin propanediol 10 mg 10 mg PO DAILY 02/17/25 05/06/25 History tablet (Farxiga) ezetimibe 10 mg tablet 10 mg PO DAILY 02/17/25 05/06/25 History irbesartan 300 mg tablet 300 mg PO DAILY 02/17/25 05/06/25 History metformin 500 mg tablet,extended 1,000 mg PO DAILY 02/17/25 05/06/25 History release 24 hr Patient hx anesthesia problems: none Family hx anesthesia problems: none Results Review: All pre-operative results and documents have been reviewed as part of the pre-operative evaluation. [facility] Past Medical History Medical History (Updated 05/06/25 @ 07:04 by Everett Johnston DO) CAD (coronary artery disease) Diabetes type 2, controlled ZORAIDA (obstructive sleep apnea) Hyperlipidemia Hypertension Surgical History Surgical History (Updated 05/06/25 @ 07:04 by Everett Johnston DO) History of coronary artery stent placement Social History Social History Smoking packs per day: 0.25 Smoking cigarettes per day: 5.0 Years smoked: 8 Smoking pack-years: 2.00 Smoking status: Former smoker Tobacco type: cigarettes Smoking end date: 02/18/20 Alcohol intake: current Living arrangements: with family Additional living arrangements comments: -DRE Spiritual care concerns: No Anes - Eval Final PreProcedure Day of Procedure 05/06/25 06:57 Patient weight: overweight Heart: regular rate and rhythm Lungs: clear to auscultation Airway: Mallampati scale class II Neurological: alert and oriented Last oral intake: >/= 8 hours ASA classification: III Emergent: no Anesthetic plan: proceed Anesthesia type and monitoring: general ETT and standard monitoring Results Review: All pre-operative results and documents have been reviewed as part of the pre-operative evaluation. Informed Consent: The patient's anesthetic plan and its attendant risks and benefits were discussed with the patient/family/POA. Questions were solicited and answers provided to the satisfaction of the patient/family/POA.
[2025-05-06] MEDS: ceFAZolin 2 GM in SODIUM CHLORIDE 0.9% IV 50 ML 100 ML IVPB (07:25)
--- NOTE | 2025-05-06 09:16 | S_PTH ---
PATIENT: Jose Richmond LOC: [facility] U#:[id number] AGE/SX: 59/M ROOM: RE05/06/[address]: Michael Laird MD : 1965 BED: DIS: 05/07/2025 SPEC #: [id number] RECD: 05/06/25 11:13 STATUS: DAVID RENissa #: [id number] RONALD: 05/06/25 09:[address]: Michael Laird DEPT: [facility] Surgical RECD BY: Mary Grover ENTERED: 05/06/25 11:14 SP TYPE: Surgical OTHR DR: Bobo Melendez (Khengwai)MD Tissues: A - Prostate B - Lymph Node C - Lymph Node Procedures: Hematoxylin and Eosin Stain Gross and Microscopic Level 4 Gross and Microscopic Level 6
[2025-05-06] MEDS: fentaNYL CITRATE INJ (*CRX) 100 MCG/2 ML VIAL 25 MCG IV PUSH ×4 (10:51→11:19)
--- NOTE | 2025-05-06 10:59 | P.OP_ITS ---
Procedure Note - Detailed Date of Procedure 05/06/25 Pre-op Diagnosis Prostate Ca Post-op Diagnosis Same Procedure Performed Robotic assisted radical prostatectomy with bilateral pelvic lymphadenectomy Surgeon Michael Laird MD Gaming Director ESTRELLA eNwman Anesthesia General Description of Procedure The patient was brought to the operative suite, where he was prepped and draped in routine sterile fashion while in a dorsal lithotomy, deep Trendelenburg position. A supraumbilical 10 mm trocar was placed after insufflation of the abdomen with a Veress needle. Three robotic ports were then placed under direct vision. Two of these were placed in the right lower quadrant - 10 cm and 20 cm lateral to, and in line with, the umbilicus. A third robotic trocar was placed 10 cm to the left of the umbilicus, and 20 cm to the left of the umbilicus, a 12 mm standard laparoscopic trocar was placed to be used as an security assistant port. Lastly, a 5 mm trocar was placed in the left upper quadrant midway between the umbilicus and the left robotic trocar. the patient's inflatable penile prosthesis reservoir is clearly identified in the right lower quadrant, below the umbilicus. Obviously, we avoided injury to that device. Attention was then turned to the prostatectomy. I opted for a posterior approach in this patient. An incision was made in the parietal peritoneum along the posterior bladder/posterior prostate about 2 cm above the reflection of the peritoneum over the anterior rectum. The seminal vesicles and vas deferens were immediately identified. Dissection is undertaken in a fashion so as to avoid electrocautery as much as possible, particularly near the tips of the seminal vesicles. Dissection was also carried out in the midline so as to avoid any encounters with the ureters. The vas deferens and the seminal vesicles were dissected in their entirety to the base of the prostate. The plane anterior to Denoviller's fascia, anterior to the rectum and posterior to the prostate was then developed. I then dropped the bladder by incising the anterior parietal peritoneum just lateral to the median umbilical ligaments bilaterally. The bladder was dropped from the anterior abdominal and pelvic wall. The endopelvic fascia was identified and incised bilaterally, allowing for dissection of the posterior- lateral aspect of the prostate. The puboprostatic ligaments were transected near their origin from the posterior pubic ramus. This posterior lateral dis section of the prostate is also undertaken in a fashion so as to avoid electrocautery as much as possible. The dorsal vein of the penis is then secured with an 0 -Vicryl ligature. Attention is then turned to the bladder neck. The anterior bladder neck is incised at the vesico-prostatic junction. The previously placed urethral catheter was drawn through the urethrotomy. A very small bladder neck was maintained throughout the remainder of this dissection. The posterior bladder neck was incised in a fashion so as to avoid any injury to the ureteral orifices. Again, the small aperture of the bladder neck was maintained. The previously dissected vas deferens and the seminal vesicles were brought through the posterior bladder neck incision. The lateral prostatic pedicles were then carefully dissected from the lateral aspect of the prostate bilaterally. The prostatic pedicles were secured with Weck clips and transected. The neurovascular bundles were carefully dissected from the posterior-lateral aspect of the prostate. The dorsal vein of the penis was incised with electrocautery. Using cold scissors, the urethra was incised. After withdrawing the previously placed urethral catheter, the posterior urethra was sharply incised, as was the rectalurethralis muscle. Attention was then turned to an extended bilateral pelvic lymphadenectomy. The limits of this dissection were similar bilaterally. Specifically, the limits were the bifurcation of the common iliac vein proximally, the Charles's ligament distally, the pevic floor posteriorly. the pelvic sidewall laterally and the anterior aspect to the external iliac artery laterally. This dissection was undertaken with care to avoid any injury to the obturator nerve. The prostate, seminal vesicles and pelvic nodes were then placed in a specimen bag. The pelvis was copiously irrigated with saline. Urethrovesical anastomosis was then undertaken using similar two 3-0 V-lock sutures across a 20-Libyan urethral catheter. The catheter was irrigated, and there was found to be no evidence of an irrigant extravasation. I opted not to place a pelvic drain. The robot is undocked, and the trocars were removed. The specimen was removed through the supraumbilical incision. The anterior rectus fascia at that suprapubic site was closed with a looped 0-PDS. Subcutaneous tissue was irrigated. Skin incisions were closed with 4-0 Vicryl subcuticular. Blood loss throughout this was 150cc. The patient tolerated the procedure well, was taken to recovery room in good condition. Drains No Packing No Pathology Yes Complications No immediate complications Condition Stable Disposition PACU
--- NOTE | 2025-05-06 12:02 | ADMGEN ---
This patient, Jose Richmond, was admitted to Medical Room 242-01. Patient/family oriented to hospital policies and general routines including ID bracelet, bed and alarms, visiting hours, pain management, procedures, bathroom and other care routines, personal items, smoking policy, room service/diet, and visiting hours. Information on how to activate the Rapid Response Team has been discussed. Patient/Family are encouraged to report perceived risks to care and to ask questions if they do not understand what they are told or what they should do.
[2025-05-06] MEDS: LACTATED RINGERS 1,000 ML 125 ML IV CONT ×2 (12:09→21:12)
[2025-05-06] MEDS: ONDANSETRON INJ 4 MG/2 ML VIAL IV PUSH ×2 (12:19→18:59)
[2025-05-06] MEDS: PROCHLORPERAZINE EDISYLATE 10 MG/2 ML VIAL IV PUSH (22:00)
--- NOTE | 2025-05-07 02:06 | PC.NURSE ---
05/06/2025 21:[address] Loya in regards to Pt stating that PRN Zofran was not effective and requests further intervention. Dr. Loya also notified about the patients elevated blood pressure. New orders given at this time. Pt and family whom is at beside at this time made aware.
[2025-05-07 04:28] VITALS: BP 136/84; PULSE 77; RESP 16; TEMP 37.3; O2SAT 99
[2025-05-07 05:17] LABS: Hematocrit 39.8 % (42.0-52.0); Hemoglobin 13.6 g/dL (14.0-18.0)
[2025-05-07 05:47] LABS: Anion Gap 8 mmol/L (4-12); Blood Urea Nitrogen 12 mg/dL (9-20); Calcium 9.0 mg/dL (8.4-10.2); Carbon Dioxide 27 mmol/L (22-30); Chloride 101 mmol/L (98-107); Estimated CRCL calculation 79 ml/min; Estimated Glomerular Filt Rate > 60; Glucose 146 mg/dL (65-110); Potassium 3.8 mmol/L (3.4-5.0); Sodium 136 mmol/L (137-145)
[2025-05-07 08:40] VITALS: BP 128/80; PULSE 74; RESP 16; O2SAT 98
[2025-05-07] MEDS: EZETIMIBE 10 MG TABLET PO (08:40)
[2025-05-07] MEDS: metFORMIN HCL XR 500 MG TAB.SR.24H 1000 MG PO (08:40)
[2025-05-07] MEDS: EMPAGLIFLOZIN 25 MG TABLET BY MOUTH (08:40)
[2025-05-07] MEDS: ATORVASTATIN 40 MG TABLET PO (08:40)
[2025-05-07] MEDS: IRBESARTAN 150 MG TABLET 300 MG PO (08:40)
[2025-05-07] MEDS: LACTATED RINGERS 1,000 ML 125 ML IV CONT (08:41)
[2025-05-07] MEDS: CITALOPRAM HYDROBROMIDE 20 MG TABLET PO (08:41)
[2025-05-07] MEDS: KETOROLAC 30 MG/ML VIAL (*BKC) IV PUSH (08:45)
--- NOTE | 2025-05-07 09:33 | P.PNUR_ITS ---
Progress Note: A&P Assessment and Plan (1) Prostate cancer: Code(s): C61 - Malignant neoplasm of prostate Status: Acute Assessment and Plan: * Patient doing well postop day 1. * Increase diet and ambulation. * Anticipate discharge early this afternoon Subjective Subjective Date/Time Seen: 05/07/25 09:33 Interval history: Nausea and abdominal discomfort overnight but feeling much better this morning Review of Systems Cardiovascular: Cardiovascular: Denies chest pain, Denies lightheadedness, Denies palpitations and Denies dyspnea Respiratory: Respiratory: Denies dyspnea Gastrointestinal: Gastrointestinal: Denies diarrhea, Denies nausea and Denies vomiting Genitourinary: Genitourinary: Denies hematuria and Denies dysuria Endocrine: Endocrine: Denies palpitations Exam Const: General: no acute distress Resp: Effort & Inspection: normal respiratory effort GI: Inspection: non-distended GI Palp: No abdominal tenderness and No Guarding due to palpation present (GI) Auscultation: normal bowel sounds Objective Data Vital Signs Vital Signs: Vital Signs - 24 hr 05/06/25 10:44 05/06/25 10:55 05/06/25 11:10 Temperature 98.5 F Pulse Rate 102 H 100 96 Respiratory Rate 16 16 15 Blood Pressure 185/106 H 168/95 H 155/89 H Pulse Oximetry 100 100 94 Oxygen Delivery Simple Face Mask Room Air Room Air Oxygen Flow Rate 8 05/06/25 11:25 05/06/25 11:40 05/06/25 12:05 Temperature 97.5 F L Pulse Rate 94 94 91 Respiratory Rate 16 20 18 Blood Pressure 144/79 H 149/83 H 150/88 H Pulse Oximetry 94 96 99 Oxygen Delivery Room Air Room Air Oxygen Flow Rate 05/06/25 12:20 05/06/25 12:50 05/06/25 13:25 Temperature 97.6 F 98.1 F Pulse Rate 73 93 Respiratory Rate 17 18 Blood Pressure 144/78 H 146/80 H Pulse Oximetry 99 100 99 Oxygen Delivery Room Air Oxygen Flow Rate 05/06/25 14:00 05/06/25 20:00 05/06/25 21:08 Temperature 97.6 F 98.8 F Pulse Rate 91 77 76 Respiratory Rate 18 18 16 Blood Pressure 151/91 H 162/93 H Pulse Oximetry 100 100 100 Oxygen Delivery Room Air Oxygen Flow Rate 05/06/25 22:40 05/06/25 23:16 05/07/25 04:28 Temperature 99.3 F 99.2 F Pulse Rate 76 77 77 Respiratory Rate 18 16 Blood Pressure 150/91 H 136/84 Pulse Oximetry 100 100 99 Oxygen Delivery Oxygen Flow Rate 05/07/25 08:40 Temperature Pulse Rate 74 Respiratory Rate 16 Blood Pressure 128/80 Pulse Oximetry 98 Oxygen Delivery Oxygen Flow Rate Intake/Output Intake/Output: Intake & Output 05/04/25 05/05/25 05/06/25 05/07/25 23:59 23:59 23:59 23:59 Intake Total 1780 1150 Output Total 1850 1450 Balance -70 -300 Meds/Results Medications: Active Medications Generic Name Dose Route Start Last Admin Trade Name Freq PRN Reason Stop Dose Admin Amlodipine Besylate 10 mg 05/07/25 09:00 05/07/25 08:41 Amlodipine Besylate 10 Mg Tablet PO 10 mg DAILY BETO Administration Atorvastatin Calcium 40 mg 05/07/25 09:00 05/07/25 08:40 Atorvastatin 40 Mg Tablet PO 40 mg DAILY BETO Administration Citalopram Hydrobromide 20 mg 05/07/25 09:00 05/07/25 08:41 Citalopram Hydrobromide 20 Mg Tablet PO 20 mg DAILY BETO Administration Ezetimibe 10 mg 05/07/25 09:00 05/07/25 08:40 Ezetimibe 10 Mg Tablet PO 10 mg DAILY BETO Administration Empagliflozin 25 mg 05/07/25 09:00 05/07/25 08:40 Empagliflozin 25 Mg Tablet BY MOUTH 25 mg DAILY BETO Administration Hydralazine HCl 10 mg 05/06/25 21:31 Hydralazine Hcl 20 Mg/Ml Vial IV PUSH Q8H PRN Blood Pressure - High Hyoscyamine 0.125 mg 05/06/25 11:54 Hyoscyamine Sulfate 0.125 Mg Tablet SUBLINGUAL Q4H PRN Bladder Spasm Lactated Ringer's 1,000 mls @ 125 mls/hr 05/06/25 11:54 05/07/25 08:41 Lr - Lactated Ringers Iv IV CONT 125 mls/hr .Q8H BETO Administration Irbesartan 300 mg 05/07/25 09:00 05/07/25 08:40 Irbesartan 150 Mg Tablet PO 300 mg DAILY BETO Administration Ketorolac Tromethamine 30 mg 05/06/25 11:54 05/07/25 08:45 Ketorolac 30 Mg/Ml Vial (*Bkc) IV PUSH 05/07/25 11:53 30 mg Q6H PRN Administration Pain Rated 4-6 Levofloxacin 500 mg 05/07/25 09:00 05/07/25 08:40 Levofloxacin 500 Mg Tablet PO 500 mg DAILY BETO Administration Metformin HCl 1,000 mg 05/07/25 09:00 05/07/25 08:40 Metformin Hcl Xr 500 Mg Tab.Sr.24h PO 1,000 mg DAILY BETO Administration Morphine Sulfate 2 mg 05/06/25 13:13 Morphine Sulfate (*Crx) 4 Mg/Ml Inj IV PUSH Q4H PRN Pain Rated 7-10 Naloxone HCl 0.1 mg 05/06/25 11:54 Naloxone Hcl 0.4 Mg/Ml Vial IV PUSH Q2M PRN Opiate Reversal Ondansetron HCl 4 mg 05/06/25 11:54 05/06/25 18:59 Ondansetron Inj 4 Mg/2 Ml Vial IV PUSH 4 mg Q6H PRN Administration Nausea And Vomiting Prochlorperazine Edisylate 10 mg 05/06/25 21:34 05/06/25 22:00 Prochlorperazine Edisylate 10 Mg/2 Ml Vial IV PUSH 10 mg Q6H PRN Administration Nausea And Vomiting Labs Labs: Laboratory Results - last 24 hr 05/06/25 05/07/25 10:57 04:43 Hgb 13.6 L Hct 39.8 L Sodium 136 L Potassium 3.8 Chloride 101 Carbon Dioxide 27 Anion Gap 8 BUN 12 Creatinine 0.94 Estim Creat Clear Calc 79 Estimated GFR > 60 Glucose 146 H POC Capillary Glucose 227 H Calcium 9.0
--- NOTE | 2025-05-07 13:05 | WPDANESPN ---
Anes - Prog Note Post-Op Date/Time: 05/07/25 13:05 Cardiovascular status: normal Respiratory status: normal Airway patency: baseline Mental status: baseline Post-Op hydration status: normal Vital Signs: Last Vital Signs Temp 37.3 C 05/07/25 04:28 Pulse 74 05/07/25 08:40 Resp 16 05/07/25 08:40 BP 128/80 05/07/25 08:40 Pulse Ox 98 05/07/25 08:40 O2 Del Method Room Air 05/07/25 08:40 O2 Flow Rate 8 05/06/25 10:44 Pain Score (VAS): 2 I/O: Intake & Output 05/06/25 05/07/25 05/07/25 23:59 07:59 15:59 Intake Total 1480 1150 Output Total 1250 1450 Balance 230 -300 Laboratory Tests 05/07/25 04:43 05/07/25 04:43 05/07/25 04:43 Hgb 13.6 L Hct 39.8 L Sodium 136 L Potassium 3.8 Chloride 101 Carbon Dioxide 27 Anion Gap 8 BUN 12 Creatinine 0.94 Estim Creat Clear Calc 79 Estimated GFR > 60 Glucose 146 H Calcium 9.0 Post-procedural complaints: none Patient Feedback: Patient satisfied with anesthetic care.
--- NOTE | 2025-05-07 13:22 | P.DS_ITS ---
DS: Admitting Diagnosis Discharge Date 05/07/2025 Admitting Diagnosis Prostate cancer DS: Discharge Diagnosis Discharge Diagnosis (1) Prostate cancer: Code(s): C61 - Malignant neoplasm of prostate Status: Acute DS: Summary Hospital Course Hospital Course: This patient was admitted on the morning of his planned robotic prostatectomy. This procedure was uneventful, as was his postoperative course. By the evening of the procedure he was sitting at the bedside in tolerating a liquid diet. The following morning he was ambulating freely and tolerating regular food. His catheter drainage remained essentially clear throughout. His postoperative hem oglobin and serum creatinine were unremarkable. At the time of discharge he has been instructed in appropriate care for his Mckeon catheter with both a leg bag and bedside bag. He will be discharged with plans to follow-up in 1 week with a cystogram. Time Spent with Patient Time attestation: Total time spent providing and/or coordinating discharge services: DS: Data Data Completed and Pending Pending studies at discharge: Pending at discharge 05/06/25 09:16 Surgical [PTH] Routine Labs on day of discharge: Labs from last 24 hours 05/07/25 04:43 Hgb 13.6 L Hct 39.8 L Sodium 136 L Potassium 3.8 Chloride 101 Carbon Dioxide 27 Anion Gap 8 BUN 12 Creatinine 0.94 Estim Creat Clear Calc 79 Estimated GFR > 60 Glucose 146 H Calcium 9.0 Discharge Plan Discharge Patient Disposition: Home Discharge Instructions: 1) Mckeon catheter -> leg bag / bedside bag at night. 2) No lifting/straining >15lbs. x3 weeks. 3) No driving x1-week. 4) Resume normal, pre-operative diet. 5) My office will contact regarding follow-up in 1-week with cystogram. Patient Language: [place] Stand Alone Forms: General Discharge Instructions Discharge Orders: Discharge Order (Routine); Ordered 05/07/25 Ordered By: Michael Laird Discharge Medications: New hydrocodone-acetaminophen 5-325 mg tablet 1 - 2 tablet PO Q6H PRN (Reason: pain) Qty: 20 0RF docusate sodium [Colace] 100 mg capsule 100 mg PO DAILY Qty: 30 0RF cephalexin 500 mg capsule 500 mg PO Q8H Qty: 9 0RF hyoscyamine sulfate 0.125 mg tablet 0.125 mg PO Q6H PRN (Reason: bladder spasms) Qty: 20 2RF Continued atorvastatin 40 mg tablet 40 mg PO DAILY citalopram 20 mg tablet 20 mg PO DAILY Patient Comments: QAM amlodipine 10 mg tablet 10 mg PO DAILY Patient Comments: QAM irbesartan 300 mg tablet 300 mg PO DAILY Patient Comments: QAM dapagliflozin propanediol [Farxiga] 10 mg tablet 10 mg PO DAILY Patient Comments: QAM ezetimibe 10 mg tablet 10 mg PO DAILY metformin 500 mg tablet extended release 24 hr 1,000 mg PO DAILY Patient Comments: QAM Held clopidogrel 75 mg tablet 75 mg PO DAILY Hold Instructions: Resume on 05/09/25. aspirin 81 mg tablet,delayed release (DR/EC) 81 mg PO DAILY Hold Instructions: Resume on 05/08/25.
[2025-05-07 14:49] VITALS: BP 124/89; PULSE 99; RESP 18; TEMP 36.4; O2SAT 99
== END 2025-05-07 15:30 | disposition home or self-care (01) ==
LOC: ANHSURGERY 05:52 → ANH2MED 11:57
PROVIDERS: PCP Internal Medicine; Visit Provider Urology
PROC: 0VT04ZZ Resection of Prostate, Percutaneous Endoscopic Approach (ICD-10-PCS; CPT 55867; principal; 2025-05-06 07:30)
DX: C61 Malignant neoplasm of prostate (principal); E11.9 Type 2 diabetes mellitus without complications; E78.5 Hyperlipidemia, unspecified; I10 Essential (primary) hypertension; I25.10 Atherosclerotic heart disease of native coronary artery without angina pectoris; G47.33 Obstructive sleep apnea (adult) (pediatric); Z79.82 Long term (current) use of aspirin; Z79.02 Long term (current) use of antithrombotics/antiplatelets; Z79.84 Long term (current) use of oral hypoglycemic drugs; Z95.5 Presence of coronary angioplasty implant and graft; Z87.891 Personal history of nicotine dependence
CPT/HCPCS: 55866; 38571; 36415; 80048; 82948; 85014; 85018; 88305; 88309; J0690; A9270; J0780; J1100; J1171; J1885; J2003; J2250; J2405; J2704; J3010; J7030; J7120

== ENCOUNTER 2025-05-12 13:04 | Outpatient (CLI) | payer OTHER, SELFPAY ==
--- OUTSIDE RECORDS SUMMARY | 2025-03-04 04:10 | XMS_ITS ---
Author Organization 1 OF Olimpia flanagan [facility] Address [address] [place] [address] Care Team Providers Care Operating Room Surgical Technologist Name Role Phone Ulysses Melendez MD Primary Care Provider German Mcnamara REASON FOR VISIT DFC (Diabetic foot care) Encounters Encounter Location Date Provider Diagnosis 1 [facility] [address] [place] [address] 03/04/2025 German Patton Type 2 diabetes mellitus without complication, unspecified whether mcfp insulin use E11.9 Assessments Encounter Date Diagnosis (ICD Code) Assessment Notes Treatment Notes Treatment Clinical Notes Section Notes 03/04/2025 Type 2 diabetes mellitus without complication, unspecified whether mcfp insulin use (ICD-10 - E11.9) Plan Of [...] Notes * Jose HARVEYDOB:1965 (59 yo M)Acc No.[id number]:03/04/2025 Progress Note Patient: Jose Gomez Provider: Olimpia Patton DPM :1965 A ge:59 Y S ex:Male Date:03/04/2025 Address:[address] [place] [address] [address] [id number] Pcp:Ulysses Melendez MD Subjective: * Chief [...] 2 diabetes mellitus without complication, unspecified whether mcfp insulin use - E11.9 Plan: * Preventive Medicine: Counseling: C are goal follow-up plan: Above Normal BMI Follow-up L ifestyle education regarding diet * Electronic signature of Tena Patton DPM on 05/12/2025 at 02:25 PM CDT Sign off status: Pending * Provider: Olimpia Patton DPM Date: 0 03/04/2025 Generated for Carol christopher/Zahida/Ynes on: 1 02:25 PM CDT
--- OUTSIDE RECORDS SUMMARY | 2025-05-05 09:25 | XMS_ITS | Continuity of Care Document ---
Author Organization [facility] Address [address] [place] [address] Phone Care Team Providers Care Yard Spotter Name Role Phone Jg CRAWFORD, FACC, Tommy [...] mg tablet TAKE 1 TABLET BY [place] [facility] ONCE DAILY - Active clopidogrel 75 mg [...] Diagnoses Date Provider Providers Copied on Encounter [facility], [address] [place] [address], [id number] , [facility]: [phone] [facility] No Information 5 Jg Sanders. [facility] Anthony , [place], [place], [id number] , . tel: [phone] Referring Provider: Tommy Gregorio, [address] [place], [place] [address]vey , [place], [address] . tel:[phone] OFFICE/OUTPA TIENT VISIT, EST [facility], [address] [place] [address], [id number] , tel: [phone] [facility] [place] sx clearance (chief complaint) Malignant neoplasm of prostateAtherosclerot ic heart disease of [place] coronary artery without angina pectorisChest pain, unspecifiedDyspnea, unspecifiedEssential (primary) hypertensionHyperlipi demia, unspecifiedType 2 diabetes mellitus without complicationsEncounte r for preprocedural cardiovascular examination 5 Jg Sanders. [address] [place], [place] [address], [place], [id number] , . tel: [phone] Referring Provider: Bobo Melendez, [address] [address], [place], [address]. tel:[phone] [facility], [address] [place] [address], [id number] , tel: [phone] [facility] [place] No Information 5 Jg Sanders. [address] [place], [place] [address], [place], [id number] , . tel: [phone] [facility], [address] [place] [address], [id number] , tel: [phone] [facility] [place] MICADChest painDM type IIErectile disorderHTNHyperlipid emiaDyspneaSleep apnea 5 Jg Sanders. [address], [place], [place], [id number] , [place]. tel: [phone] Family History Family Member Type Diagnosis Age At Onset No Information Payers Payer name Insurance type Covered constitution party ID Arnie joseph(s) [facility] [id number] Social History Type Description Quantity Date Captured Comments Alcohol Use Details Unknown Caffeine Use Details Unknown Tobacco Use Status No Information Smoking Status No Information Sex Male Chief Complaint And Reason For Visit No Information Reason For Referral Reason For Referral No Information Plan Of Treatment Date Type Action Status Appointment Jose Richmond BOOKED Future Order: Radiology Order SP ECT/Pharmacological 2 Day ([id number]), Ordered on: Ordered History Of Present Illness Encounter Date Complaint History Of Prese nt Illness sx clearance Functional Status Date Functional Assessmen t No Information Instructions Date Instruction Additional Infor mation No Information Assessments Type Assessment Date No Information Patient Care Teams Name Effective Dates (start - stop) Status Members No Information
--- NOTE | ~2025-05-12 | XR_ITS ---
EXAMINATION: CYSTOGRAM DATE: 05/12/2025 14:00 INDICATION: Status post prostatectomy for prostate cancer TECHNIQUE: Initial service observer radiograph of the pelvis was performed. There was retrograde administration of Omnipaque 350 mixed with saline contrast into patient's existing Mckeon catheter. Fluoroscopic images of the pelvis were obtained. A post-void image was also performed. A total of 13 fluoroscopic sidney ges and one overhead radiograph were obtained. Fluoroscopy exposure time was 0.5 minutes. FINDINGS: Bsw images demonstrate a penile prosthesis and multiple atherosclerotic calcifications in the pelvis and proximal thighs. Contrast fills the bladder which demonstrates a smooth mucosal contour. No evident extraluminal contrast extravasation. IMPRESSION: 1. No extraluminal bladder contrast leak. Reviewed, dictated and finalized at location A.
--- OUTSIDE RECORDS SUMMARY | 2025-05-12 14:26 | XMS_ITS | Clinical Summary ---
Author Organization [facility] Address [address] [place] [id number] Care Team Providers Care Circle Cutting Saw Operator Name Role Phone Ulysses Melendez MD Primary Care Provider [phone] Social History Tobacco Use Types Packs/Day Years [...] to complete this topic Insurance [facility] Care Teams Circle Cutting Saw Operator Relationship Specialty Start Date End Date Ulysses Melendez MD [address] [place] [address] [address] [place] [address] PCP - General 12/02/13
--- OUTSIDE RECORDS SUMMARY | 2025-05-12 14:26 | XMS_ITS | Patient Health Record ---
Author Organization [facility] Address [address] [facility] [address] [place] [address] Care Team Providers Care Supervisor Soakers Name Role Phone Ulysses Melendez MD Primary Care Provider German Mcnamara Unavailable [phone] Aimee Lo Unavailable [phone] Allergies No Known Allergies Reason For Referral [...] MG Tablet TAKE 1 TABLET BY MO [facility] ONCE DAILY Oral; Duration: 30 Days Active [...] Problem Type II diabetes mellitus without complication ([id number]) Type 2 diabetes mellitus without complication, unspecified whether digital technician insulin use (E11.9) Active confirmed Vital Signs Height 71 in 12/23/2024 Weight 225 lbs 12/23/2024 BMI 31.38 kg/m2 12/23/2024 Encounters Encounter Location Date Provider Diagnosis 1 OF Olimpia Patton [facility] [address] [place] [id number] 12/23/2024 Aimee Lo Type 2 diabetes mellitus without complication, unspecified whether alf insulin use E11.9 ; Onychogryphosis L60.2 ; Onychodystrophy L60.3 ; Pain around toenail, left foot M79.675 and Pain around toenail, right foot M79.674 1 OF Olimpia Patton [facility] [address] [place] [id number] 12/18/2024 German Patton Assessments Encounter Date Diagnosis [...] whether alf insulin use (ICD-10 - E11.9) Evaluation today [...] Insured Coverage Start Date Coverage End Date [facility] [address] [address] [place] [address] [id number] Jose Richmond Self - patient is the insured Medical (General) History Medical History History ICD Code hyperlipidemia hypertension Diabetes Anxiety disorder depression Surgical History Surgery Date(Month/Year) Foot/Ankle surgery
--- OUTSIDE RECORDS SUMMARY | 2025-05-12 14:26 | XMS_ITS | Clinical Summary ---
Author Organization 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 CUTTING MACHINE OPERATOR Height 180.3 cm (5' 11) 07/25/2023 8:2 3 AM EDGE CUTTING MACHINE OPERATOR Body Mass Index 31.48 07/25/2023 8:23 AM EDGE CUTTING MACHINE OPERATOR Plan of Treatment Health Maintenance Due [...] to [place] [id number] [facility] [employer] [facility]/PPO Address: [address] [employer] H[facility]/PPO Address: [address] [facility] [facility]/PPO Address: [place] [address] Care Teams Video Games Storywriter Relationship Specialty Start Date End Date Ulysses Melendez MD [facility] [address] [place] [address] PCP - General 05/23/20
--- OUTSIDE RECORDS SUMMARY | 2025-05-12 14:26 | XMS_ITS | Clinical Summary ---
Author Organization [facility] Address [address] [place] [address] Care Team Providers Care Street Engineer Name Role Phone Unavailable Primary Care Provider [...]
--- OUTSIDE RECORDS SUMMARY | 2025-05-12 14:26 | XMS_ITS | Data Portability ---
Author Organization [facility], [employer] Address [address] [address] Care Team Providers Care Supervisor Rubber Covering Name Role Phone ULYSSES HENDERSON Primary Care Provider LISANDRO FALCON Comb Machine Operator [facility] Skin Carver [phone] Assessment Encounter Date Assessment Date Assessment LastModified [...] available Lab vitamin B12, serum 2024 025 [facility], [address] [facility], [place], [address], 05/05/2025 12:03:04 HbA1c (hemoglob in A1c), blood 2024 025 [facility], [address] [facility], [place], [address], 05/05/2025 12:03:02 CMP, serum or plasma 2024 025 [facility], [address] [facility], [place], [address], 05/05/2025 12:03:03 microalbu min/creat inine, mass ratio, urine 2024 025 [facility], [address] [place], [address], 04/30/2025 14:05:17 lipid panel, serum 2024 025 [facility], [address] [place], [address], 05/05/2025 12:03:03 PSA, serum or plasma 2024 025 [facility], [address] [place], [address], 12/17/2024 17:49:28 D-dimer, quant, plasma 2024 025 [facility], [address] [place], [address], 12/22/2024 11:16:32 vitamin B12, serum 2024 025 [facility], [address] [place], [address], 12/19/2024 14:46:22 HbA1c (hemoglob in A1c), blood 2024 025 [facility], [address] [place] [address], [address], 12/19/2024 14:46:20 CMP, serum or plasma 2024 025 [facility], [address] [place] [address], [address], 12/19/2024 14:46:20 microalbu min/creat inine, mass ratio, urine 2024 025 [facility], [address] [place] [address], [address], 12/17/2024 17:49:27 lipid panel, serum 2024 025 [facility], [address] [place] [address], [address], 12/19/2024 14:46:21 CBC w/ auto diff 2024 025 [facility], [address] [place] [address], [address], 12/19/2024 14:46:20 vitamin B12, serum 2023 024 [facility], [facility], [place] [address], [address], 01/03/2024 13:00:49 microalbu min/creat inine, mass ratio, urine 2023 024 [facility], [facility], [place] [address], [address], 01/03/2024 13:00:49 lipid panel, serum 2023 024 [facility], [facility], [address], [place], [address], 01/03/2024 13:00:52 CBC w/ auto diff 2023 024 [facility], [address], [address], [place], [address], 01/03/2024 13:01:52 PSA, serum or plasma 2023 024 [facility], [address], [address], [place], [address], 01/03/2024 13:00:50 CK (creatine kinase), total, serum 2023 024 [facility], [address], [address], [place], [address], 01/03/2024 13:00:50 HbA1c (hemoglob in A1c), blood 2023 024 [facility], [address], [address], [place], [address], 01/03/2024 13:00:48 CMP, serum or plasma 2023 024 [facility], [address], [address], [place], [address], 01/03/2024 13:00:51 microalbu min/creat inine, mass ratio, urine 2023 024 [facility], [address], [address], [place], [address], 07/23/2023 17:05:07 lipid panel, serum 2023 024 [facility], [address], [place], [address], 07/22/2023 18:46:10 CBC w/ auto diff 2023 024 [facility], [address], [address], [place], [address], 07/23/2023 17:05:01 HIV 1+2 Ab + HIV1 p24 Ag, quantitat alfonso immunoass ay, serum 2023 024 [facility], [address], [address], [place], [address], 07/22/2023 18:46:14 CK (creatine kinase), total, serum 2023 024 [facility], [address], [address], [place], [address], 07/23/2023 17:05:03 PSA, serum or plasma 2023 024 [facility], [address], [place], [address], 07/23/2023 17:05:06 HbA1c (hemoglob in A1c), blood 2023 024 [facility], [address], [place], [address], 07/22/2023 18:46:13 CMP, serum or plasma 2023 024 [facility], [address], [place], [address], 07/23/2023 17:05:02 vitamin B12, serum 2023 024 [facility], [address], [place], [address], 07/22/2023 18:46:13 Referral diabetic ophthalmo logy referral [address] [facility], [address] [place], [address], 04/30/2025 14:19:56 podiatris t referral 2024 025 MASSIMO Patton, [address], [place], [address], 04/30/2025 14:40:40 cardiolog ist referral - -- pt needs cardiac clearance MARIA M as his radical prostatec ronit is scheduled for 05/06/25. Thank you. 2024 025 MASSIMO Falcon MD, [address], [place] [address], [place], [address], 04/30/2025 14:25:23 gastroent erologist referral 2024 025 MASSIMO Hawkins MD, [address] [place], [address], 12/17/2024 18:09:06 diabetic ophthalmo logy referral [address] [facility], [address] [place], [address], 01/14/2025 08:04:54 podiatris t referral 2024 025 WOLF Patton, [address], [place], [address], 03/06/2025 09:15:03 gastroent erologist referral 2023 024 nigel Hawkins MD, [address] [place], [address], 01/03/2024 13:03:47 diabetic ophthalmo logy referral [address] [facility], [address] [place], [address], 01/31/2024 08:13:04 podiatris t referral 2023 024 francisco Patton, [address], [place], [address], 12/28/2024 08:18:44 cardiolog ist referral 2023 024 francisco Falcon MD, [address], [place], [address], 08/19/2023 08:54:02 gastroent erologist referral 2023 024 francisco Hawkins MD, [address] [place], [address], 07/22/2023 18:54:01 diabetic ophthalmo logy referral 2023 024 francisco [facility], [address] [place], [address], 08/19/2023 08:54:03 podiatris t referral 2023 024 francisco Patton, [address] [place], [address], 07/16/2024 08:22:35 Procedures None recorded. Surgeries None recorded. Imaging XR, lumbar spine [address] Patient Access Centralized Scheduling, Centralized Scheduling, [address] [place], [address], 05/07/2025 08:15:02 LDCT, chest, for lung cancer screening [address] Patient Access Centralized Scheduling, Centralized Scheduling, [address] [place], [address], 05/07/2025 08:15:03 XR, lumbar spine 2024 025 francisco [facility] Patient Access Centralized Scheduling, Centralized Scheduling, [address] [place], [address], 04/01/2025 08:10:20 LDCT, chest, for lung cancer screening 2024 025 [facility] Patient Access Centralized Scheduling, Centralized Scheduling, [address], [address], 12/24/2024 08:05:12 LDCT, chest, for lung cancer screening 2023 024 [facility] Patient Access Centralized Scheduling, Centralized Scheduling, [facility], [address], 01/13/2024 09:54:42 LDCT, chest, for lung cancer screening [address]23 [address] [facility] Patient Access Centralized Scheduling, Centralized Scheduling, [facility], [address], 07/29/2023 08:28:55 Medication Orders citalopra m 40 mg tablet 2024 025 [facility], [address] [place], [address], 04/30/2025 14:05:19 Farxiga 10 mg tablet 2024 025 [facility], [address] [place], [address], 04/30/2025 14:05:13 metformin ER 500 mg tablet,ex tended release 24 hr 2024 025 [facility], [address] [place], [address], 04/30/2025 14:05:18 amlodipin e 10 mg tablet 2024 025 [facility], [address] [place], [address], 04/30/2025 14:05:21 atorvasta tin 40 mg tablet 2024 025 [facility], [address] [facility] [address], [place], [address], 04/30/2025 14:05:21 clopidogr el 75 mg tablet 2024 025 [facility], [address] [facility] [address], [place], [address], 04/30/2025 14:05:20 aspirin 81 mg tablet,de layed release 2024 025 [facility], [address] [facility] [address], [place], [address], 04/30/2025 14:05:19 Nitrostat 0.4 mg sublingua l tablet 2024 025 [facility], [address] [facility] [address], [place], [address], 04/30/2025 14:05:18 icosapent ethyl 1 gram capsule 2024 025 [facility], [address] [place], [address], 04/30/2025 14:05:19 citalopra m 20 mg tablet 2024 025 [facility], [address] [facility] [address], [place], [address], 12/17/2024 17:49:20 Farxiga 10 mg tablet 2024 025 [facility], [address] [facility] [address], [place], [address], 12/17/2024 17:49:22 metformin ER 500 mg tablet,ex tended release 24 hr 2024 025 [facility], [address] [place], [address], 12/17/2024 17:49:23 amlodipin e 10 mg tablet 2024 025 [facility], [address] [facility] [address], [place], [address], 12/17/2024 17:49:20 atorvasta tin 40 mg tablet 2024 025 [facility], [address] [facility] [address], [place], [address], 12/17/2024 17:49:18 clopidogr el 75 mg tablet 2024 025 [facility], [address] [facility] [address], [place], [address], 12/17/2024 17:49:18 aspirin 81 mg tablet,de layed release 2024 025 [facility], [address] [facility] [address], [place], [address], 12/17/2024 17:49:24 Nitrostat 0.4 mg sublingua l tablet 2024 025 [facility], [address] [facility] [address], [place], [address], 12/17/2024 17:49:18 icosapent ethyl 1 gram capsule 2024 025 [facility], [address] [facility] [address], [place], [address], 12/17/2024 17:49:17 amlodipin e 10 mg tablet 2023 024 [facility], [address] [facility] [address], [place], [address], 01/03/2024 13:00:51 atorvasta tin 40 mg tablet 2023 024 [facility], [address] [facility] [address], [place], [address], 01/03/2024 13:00:49 clopidogr el 75 mg tablet 2023 024 [facility], [address] [facility] [address], [place], [address], 01/03/2024 13:00:53 aspirin 81 mg tablet,de layed release 2023 024 [facility], [address] [facility] [address], [place], [address], 01/03/2024 13:00:54 Nitrostat 0.4 mg sublingua l tablet 2023 024 [facility], [address] [facility] [address], [place], [address], 01/03/2024 13:00:56 icosapent ethyl 1 gram capsule 2023 024 [facility], [address] [facility] [address], [place], [address], 01/03/2024 13:00:50 citalopra m 20 mg tablet 2023 024 [facility], [address] [facility] [address], [place], [address], 01/03/2024 13:00:51 Farxiga 10 mg tablet 2023 024 [facility], [address] [facility] [address], [place], [address], 01/03/2024 13:00:57 metformin ER 500 mg tablet,ex tended release 24 hr 2023 024 [facility], [address] [facility] [address], [place], [address], 01/03/2024 13:00:49 amlodipin e 10 mg tablet 2023 024 [facility], [address] [facility] [address], [place], [address], 07/22/2023 18:45:20 atorvasta tin 40 mg tablet 2023 024 [facility], [address] [facility] [address], [place], [address], 07/22/2023 18:45:21 clopidogr el 75 mg tablet 2023 024 [facility], [address] [facility] [address], [place], [address], 07/22/2023 18:45:21 aspirin 81 mg tablet,de layed release 2023 024 [facility], [address] [facility] [address], [place], [address], 07/22/2023 18:45:21 Nitrostat 0.4 mg sublingua l tablet 2023 024 [facility], [address] [facility] [address], [place], [address], 07/22/2023 18:45:24 citalopra m 20 mg tablet 2023 024 [facility], [address] [facility] [address], [place], [address], 07/22/2023 18:45:20 Seglurome t 7.5 mg-1,000 mg tablet 2023 024 [facility], [address] [facility] [address], [place], [address], 01/03/2024 12:42:37 Patient TargetsNo targets recorded. Patient Instructions Encounter Date Encounter Id Patient Instructions Last Modified By Organization Details Last Modified Time 07/22/2023 [id number] advised to lose weight Not available 07/22/2023 18:45:02 01/03/2024 [id number] advised to lose weight Not available 01/03/2024 13:00:37 12/17/2024 [id number] advised to lose weight Not available 12/17/2024 17:49:10 04/30/2025 [id number] advised to lose weight Not available 04/30/2025 14:05:01 Discussed and explained advance directives such as standard forms to the . Face to face discussion lasted for a duration of ___ minutes. Not available 04/30/2025 13:37:51 Reason for Referral Comb Machine Operator Referral for El ectrocardiogram abnormal Referring Physician: Rita Etienne, Encounter Date: 07/22/2023 Diabetic Ophthalmology Refer ral for Type 2 diabetes mellitus without complication Referring Physician: Rita Etienne, Encounter Date: 07/22/2023 Wellness Program Administrator Referral for Screening for malignant neoplasm of colon Referring Physician: Rita Etienne, Encounter Date: 07/22/2023 Business Intelligence Manager Referral for Type 2 diabetes mellitus without complication Referring Physician: Rita Etienne, Encounter Date: 07/22/2023 Diabetic Ophthalmology Refer ral for Type 2 diabetes mellitus without complication Referring Physician: Rita Etienne, Encounter Date: 01/03/2024 Wellness Program Administrator Referral for Screening for malignant neoplasm of colon Referring Physician: Rita Etienne, Encounter Date: 01/03/2024 Business Intelligence Manager Referral for Type 2 diabetes mellitus without complication Referring Physician: Rita Etienne, Encounter Date: 01/03/2024 Diabetic Ophthalmology Refer ral for Type 2 diabetes mellitus without complication Referring Physician: Rita Etienne, Encounter Date: 12/17/2024 Wellness Program Administrator Referral for Screening for malignant neoplasm of colon Referring Physician: Rita Etienne, Encounter Date: 12/17/2024 Business Intelligence Manager Referral for Type 2 diabetes mellitus without complication Referring Physician: Rita Etienne, Encounter Date: 12/17/2024 Diabetic Ophthalmology Refer ral for Type 2 diabetes mellitus without complication Referring Physician: Ulysses Henderson, Internal Medicine, Encounter Date: 04/30/2025 Business Intelligence Manager Referral for Type 2 diabetes mellitus without complication Referring Physician: Ulysses Henderson, Internal Medicine, Encounter Date: 04/30/2025 Comb Machine Operator Referral for Co ronary arteriosclerosis -- pt [...] .0 Not Available [facility] (Main Location) [facility] ,, [place], [address], 07/23/2023 17:05:01 07/22/19 24 07/22/2023 COMPL ETE CBC W/AUT O DIFF WBC red blood cell count 5.1 heavenly on/uL 3.5-5. 5 Not Available [facility] (Main Location) [address] ,, [place], [address], 07/23/2023 17:05:01 07/22/19 24 07/22/2023 COMPL ETE CBC W/AUT O DIFF WBC hemoglobin 15.9 g/dL 11.5-1 6.5 Not Available [facility] (Main Location) [address] ,, [place], [address], 07/23/2023 17:05:01 07/22/19 24 07/22/2023 COMPL ETE CBC W/AUT O DIFF WBC hematocrit 47 % 35-55 Not Available [facility] (Main Location) [facility] ,, [place], [address], 07/23/2023 17:05:01 07/22/19 24 07/22/2023 COMPL ETE CBC W/AUT O DIFF WBC MCH 31 pg 25-35 Not Available [facility] [address] ,, [place], [address], 07/23/2023 17:05:01 07/22/19 24 07/22/2023 COMPL ETE CBC W/AUT O DIFF WBC MCHC 34 g/dL 31-38 Not Available [facility] ,, [place], [address], 07/23/2023 17:05:01 07/22/19 24 07/22/2023 COMPL ETE CBC W/AUT O DIFF WBC MCV 92 fL 75-100 Not Available [facility] ,, [place], [address], 07/23/2023 17:05:01 07/22/19 24 07/22/2023 COMPL ETE CBC W/AUT O DIFF WBC RDW-CV 13 % 11-15 Not Available [facility] ,, [place], [address], 07/23/2023 17:05:01 07/22/19 24 07/22/2023 COMPL ETE CBC W/AUT O DIFF WBC neutrophils% 55.3 % Not Available [facility] ,, [place], [address], 07/23/2023 17:05:01 07/22/19 24 07/22/2023 COMPL ETE CBC W/AUT O DIFF WBC lymphocytes% 35.4 % Not Available [facility] ,, [place], [address], 07/23/2023 17:05:01 07/22/19 24 07/22/2023 COMPL ETE CBC W/AUT O DIFF WBC monocytes% 6.8 % Not Available [facility] (Main Location) [facility] [address] ,, [place], [address], 07/23/2023 17:05:01 07/22/19 24 07/22/2023 COMPL ETE CBC W/AUT O DIFF WBC eosinophil % 1.9 % 0.0-7. 0 Not Available [facility] ,, [place], [address], 07/23/2023 17:05:01 07/22/19 24 07/22/2023 COMPL ETE CBC W/AUT O DIFF WBC basophil % 0.3 % 0.0-3. 0 Not Available [facility] (Main Location) [facility] [address] ,, [place], [address], 07/23/2023 17:05:01 07/22/19 24 07/22/2023 COMPL ETE CBC W/AUT O DIFF WBC absolute neutrophils 4.1 cells /uL 1.5-7. 8 Not Available [facility] ,, [place], [address], 07/23/2023 17:05:01 07/22/19 24 07/22/2023 COMPL ETE CBC W/AUT O DIFF WBC absolute lymphocytes 2.64 cells /uL 0.85-3 .90 Not Available [facility] ,, [place], [address], 07/23/2023 17:05:01 07/22/19 24 07/22/2023 COMPL ETE CBC W/AUT O DIFF WBC absolute monocytes 0.5 cells /uL 0.2-1. 0 Not Available [facility] (Main Location) [facility] [address] ,, [place], [address], 07/23/2023 17:05:01 07/22/19 24 07/22/2023 COMPL ETE CBC W/AUT O DIFF WBC absolute eosinophils 0.1 cells /uL 0.0-0. 5 Not Available [facility] (Main Location) [facility] [address] ,, [place], [address], 07/23/2023 17:05:01 07/22/19 24 07/22/2023 COMPL ETE CBC W/AUT O DIFF WBC absolute basophils 0.0 cells /uL 0.0-0. 2 Not Available [facility] (Main Location) [facility] ,, [place], [address], 07/23/2023 17:05:01 07/22/19 24 07/22/2023 COMPL ETE CBC W/AUT O DIFF WBC platelet count 166 thous and/u L 100-40 0 Not Available [facility] (Main Location) [facility] [address] ,, [place], [address], 07/23/2023 17:05:01 07/22/19 24 07/22/2023 CMP (COMP REHEN SIVE METAB OLIC PANEL ) glucose 226 mg/dL 74-99 high Not Available [facility] (Main Location) [facility] [address] ,, [place], [address], 07/23/2023 17:05:02 07/22/19 24 07/22/2023 CMP (COMP REHEN SIVE METAB OLIC PANEL ) urea nitrogen, blood (BUN) 15 mg/dL 6-20 Not Available [facility] (Main Location) [facility] [address] ,, [place], [address], 07/23/2023 17:05:02 07/22/19 24 07/22/2023 CMP (COMP REHEN SIVE METAB OLIC PANEL ) total bilirubin 0.2 mg/dL 0.0-1. 2 Not Available [facility] (Main Location) [facility] [address] ,, [place], [address], 07/23/2023 17:05:02 07/22/19 24 07/22/2023 CMP (COMP REHEN SIVE METAB OLIC PANEL ) total protein 6.7 g/dL 6.6-8. 7 Not Available [facility] (Main Location) [facility] [address] ,, [place], [address], 07/23/2023 17:05:02 07/22/19 24 07/22/2023 CMP (COMP REHEN SIVE METAB OLIC PANEL ) alanine aminotransfe rase (ALT) 22 U/L 0-41 Not Available [facility] (Main Location) [address] [place], [place] [address] ,, [place], [address], 07/23/2023 17:05:02 07/22/19 24 07/22/2023 CMP (COMP REHEN SIVE METAB OLIC PANEL ) alkaline phosphatase 99 U/L 40-130 Not Available [facility] (Main Location) [address] [place] [address] Rd[address] ,, [place], [place], [address], 07/23/2023 17:05:02 07/22/19 24 07/22/2023 CMP (COMP REHEN SIVE METAB OLIC PANEL ) aspartate aminotransfe rase (AST) 14 U/L 0-40 Not Available [facility] (Main Location) [address] [place] [address]. [address] ,, [place], [address], 07/23/2023 17:05:02 07/22/19 24 07/22/2023 CMP (COMP REHEN SIVE METAB OLIC PANEL ) calcium 9.1 mg/dL 8.6-10 .2 Not Available [facility] (Main Location) [address] [place] [address]. [address] ,, [place], [address], 07/23/2023 17:05:02 07/22/19 24 07/22/2023 CMP (COMP REHEN SIVE METAB OLIC PANEL ) albumin 4.3 g/dL 3.5-5. 2 Not Available [facility] (Main Location) [address] [place] [address] Rd[address] ,, [place], [address], 07/23/2023 17:05:02 07/22/19 24 07/22/2023 CMP (COMP REHEN SIVE METAB OLIC PANEL ) CO2 28 mmol/ L 22-29 Not Available [facility] (Main Location) [address] [place] [address]. [address] ,, [place], [address], 07/23/2023 17:05:02 01/08/20 24 07/22/2023 CMP (COMP REHEN SIVE METAB OLIC PANEL ) creatinine, serum 1.3 mg/dL 0.7-1. 2 high Not Available [facility] (Main Location) [address] ,, [place], [address], 07/23/2023 17:05:02 07/22/19 24 07/22/2023 CMP (COMP REHEN SIVE METAB OLIC PANEL ) sodium, serum 140 mmol/ L 136-14 5 Not Available [facility] (Main Location) [address] ,, [place], [address], 07/23/2023 17:05:02 07/22/19 24 07/22/2023 CMP (COMP REHEN SIVE METAB OLIC PANEL ) potassium, serum 4.1 mmol/ L 3.5-5. 1 Not Available [facility] (Main Location) [address] ,, [place], [address], 07/23/2023 17:05:02 07/22/19 24 07/22/2023 CMP (COMP REHEN SIVE METAB OLIC PANEL ) chloride, serum 102 mmol/ L 98-107 Not Available [facility] (Main Location) [address] ,, [place], [address], 07/23/2023 17:05:02 07/22/19 24 07/22/2023 CMP (COMP REHEN SIVE METAB OLIC PANEL ) eGFR 67 >59 Persi stent reduc tion for 3 month s or more in an eGFR <60 mL/mi n/1.7 3 m2 defin es CKD. Patie nts with eGFR value s>/=6 0 mL/mi n/1.7 3 m2 may also have CKD if evide nce of persi stent protu renzo a is prese nt. Addit ional infor skip flanagan may be found at www.k doqi. org. Not Available [facility] (Main Location) [address] ,, [place], [address], 07/23/2023 17:05:02 07/22/19 24 07/22/2023 CREAT INE KINAS E (CPK) creatine kinase 269 U/L 0-190 high Not Available [facility] (Main Location) [address] ,, [place], [address], 07/23/2023 17:05:03 07/22/19 24 07/22/2023 DLDL dldl 127 mg/dL 0-100 high Not Available [facility] (Main Location) [address] ,, [place], [address], 07/23/2023 17:05:04 07/22/19 24 07/22/2023 HIV-1 /2 AG & AB HIV antibody NON-RE ACTIVE non-re active Not Available [facility] (Main Location) [facility] ,, [place], [address], 07/23/2023 17:05:05 07/22/19 24 07/22/2023 HIV-1 /2 AG & AB HIV P24 antigen NON-RE ACTIVE non-re active Not Available [facility] (Main Location) [facility] ,, [place], [address], 07/23/2023 17:05:05 07/22/19 24 07/22/2023 LIPID PANEL trigylceride s 504 mg/dL 0-150 high Not Available [facility] (Main Location) [address] ,, [place], [address], 07/23/2023 17:05:05 07/22/19 24 07/22/2023 LIPID PANEL cholesterol 237 mg/dL 0-200 high Not Available [facility] (Main Location) [address] ,, [place], [address], 07/23/2023 17:05:05 07/22/19 24 07/22/2023 LIPID PANEL uhdl 34 mg/dL 35-55 low Not Available [facility] (Main Location) [facility] ,, [place], [address], 07/23/2023 17:05:05 07/22/19 24 07/22/2023 LIPID PANEL LDL, calculated 102 mg/dL 0-100 high Not Available [facility] (Main Location) [address] ,, [place], [address], 07/23/2023 17:05:05 07/22/19 24 07/22/2023 LIPID PANEL LDL/HDL ratio 3 mg/dL 0-5 Not Available [facility] (Main Location) [address] ,, [place], [address], 07/23/2023 17:05:05 07/22/19 24 07/22/2023 LIPID PANEL VLDL 100.8 mg/dL 5.0-40 .0 high Not Available [facility] (Main Location) [facility] ,, [place], [address], 07/23/2023 17:05:05 07/22/19 24 07/22/2023 LIPID PANEL cholesterol/ HDL ratio 6.97 0.00-5 .00 high Not Available [facility] (Main Location) [address] ,, [place], [address], 07/23/2023 17:05:05 07/22/19 24 07/22/2023 PROST ATE-S PECIF IC ANTIG EN (PSA) SCREE N PSA, total 3.7 NG/mL 0.0-4. 0 PSA is an elect christal milum inesc ence immun oassa y run on the Christal Lius 6000. Not Available [facility] (Main Location) [address] ,, [place], [address], 07/23/2023 17:05:06 07/22/19 24 07/22/2023 VITAM IN B12 vitamin B12 II 676 pg/mL 232-12 45 Not Available [facility] (Main Location) [facility] ,, [place], [address], 07/23/2023 17:05:06 07/22/19 24 07/22/2023 URINE MICRO ALBUM IN/CR EATIN INE RATIO urine microalbumin 422 mg/L 0-30 high Not Available [facility] (Main Location) [address] ,, [place], [address], 07/23/2023 17:05:07 07/22/19 24 07/22/2023 URINE MICRO ALBUM IN/CR EATIN INE RATIO urine creatinine 221.77 mg/dL 39.00- 259.00 Not Available [facility] (Main Location) [address] ,, [place], [address], 07/23/2023 17:05:07 07/22/19 24 07/22/2023 URINE MICRO ALBUM IN/CR EATIN INE RATIO urine microalbumin /creatinine ratio 190 mg/g_ creat inine 0-30 high Not Available [facility] (Main Location) [address] ,, [place], [address], 07/23/2023 17:05:07 07/22/19 24 07/22/2023 HEMOG LOBIN A1C HGBA1C 8.0 % 4.0-6. 0 high Not Available [facility] (Main Location) [address] ,, [place], [address], 07/23/2023 17:05:12 07/22/19 24 07/22/2023 HIV-1 /2 AG & AB HIV antibody NON-RE ACTIVE non-re active Not Available [facility] (Main Location) [address] ,, [place], [address], 07/23/2023 17:05:15 07/22/19 24 07/22/2023 HIV-1 /2 AG & AB HIV P24 antigen NON-RE ACTIVE non-re active Not Available [facility] (Main Location) [facility] ,, [place], [address], 07/23/2023 17:05:15 12/18/19 25 12/17/2024 HEMOG LOBIN A1C hemoglobin A1C 7.9 % 4.8-5. 6 high GREGORIA L RANGE BASED ON EDUARDO COL 2 (DCCT /NGSP ): Non-D iabet ic: < 5.7% Pre-D iabet es: 5.7 - 6.4% Diabe janie: => 6.5% GLYCE LILIAN CONTR OL: < 7.0% Not Available [facility] [address], [place], [address], 12/19/2024 14:46:19 12/18/19 25 12/17/2024 HEMOG LOBIN A1C estimated average glucose 181 Not Available [facility] [address] [facility] [address], [place], [address], 12/19/2024 14:46:19 12/18/19 25 12/17/2024 CBC WITH AUTO- DIFFE RENTI AL WBC 7.0 10*3/ uL 3.4-10 .8 Not Available [facility] [address] [facility] [address], [place], [address], 12/19/2024 14:46:20 12/18/19 25 12/17/2024 CBC WITH AUTO- DIFFE RENTI AL RBC 4.75 10*6/ uL 4.20-5 .80 Not Available [facility] [address] [facility] [address], [place], [address], 12/19/2024 14:46:20 12/18/19 25 12/17/2024 CBC WITH AUTO- DIFFE RENTI AL HGB 14.9 g/dL 12.6-1 7.7 Not Available [facility] [address] [facility] [address], [place], [address], 12/19/2024 14:46:20 12/18/19 25 12/17/2024 CBC WITH AUTO- DIFFE RENTI AL HCT 45.0 % 37.5-5 1.0 Not Available [facility] [address] [facility] [address], [place], [address], 12/19/2024 14:46:20 12/18/19 25 12/17/2024 CBC WITH AUTO- DIFFE RENTI AL MCV 95 fL 79-97 Not Available [facility] [address] [facility] [address], [place], [address], 12/19/2024 14:46:20 12/18/19 25 12/17/2024 CBC WITH AUTO- DIFFE RENTI AL MCH 31.4 pg 26.6-3 3.0 Not Available [facility] [address] [facility] [address], [place], [address], 12/19/2024 14:46:20 12/18/19 25 12/17/2024 CBC WITH AUTO- DIFFE RENTI AL MCHC 33.1 g/dL 31.5-3 5.7 Not Available [facility] [address] [facility] [address], [place], [address], 12/19/2024 14:46:20 12/18/19 25 12/17/2024 CBC WITH AUTO- DIFFE RENTI AL RDW 13.3 % 11.5-1 4.5 Not Available [facility] [address] [facility] [address], [place], [address], 12/19/2024 14:46:20 12/18/19 25 12/17/2024 CBC WITH AUTO- DIFFE RENTI AL platelets 170 10*3/ uL 150-40 0 Not Available [facility] [address] [facility] [address], [place], [address], 12/19/2024 14:46:20 12/18/19 25 12/17/2024 CBC WITH AUTO- DIFFE RENTI AL MPV 12 fL 9-13 Not Available [facility] [address] [facility] [address], [place], [address], 12/19/2024 14:46:20 12/18/19 25 12/17/2024 CBC WITH AUTO- DIFFE RENTI AL neutrophils 49.0 % 40.0-7 4.0 Not Available [facility] [address] [facility] [address], [place], [address], 12/19/2024 14:46:20 12/18/19 25 12/17/2024 CBC WITH AUTO- DIFFE RENTI AL absolute neutrophils 3.45 10*3/ uL 1.40-7 .00 Not Available [facility] [address] [facility] [address], [place], [address], 12/19/2024 14:46:20 12/18/19 25 12/17/2024 CBC WITH AUTO- DIFFE RENTI AL lymphocytes 39.8 % 14.0-4 6.0 Not Available [facility] [address] [facility] [address], [place], [address], 12/19/2024 14:46:20 12/18/19 25 12/17/2024 CBC WITH AUTO- DIFFE RENTI AL absolute lymphocytes 2.80 10*3/ uL 0.70-3 .10 Not Available [facility] [address] [facility] [address], [place], [address], 12/19/2024 14:46:20 12/18/19 25 12/17/2024 CBC WITH AUTO- DIFFE RENTI AL monocytes 8.0 % 4.0-12 .0 Not Available [facility] [address] [facility] [address], [place], [address], 12/19/2024 14:46:20 12/18/19 25 12/17/2024 CBC WITH AUTO- DIFFE RENTI AL absolute monocytes 0.56 10*3/ uL 0.10-0 .90 Not Available [facility] [address] [facility] [address], [place], [address], 12/19/2024 14:46:20 12/18/19 25 12/17/2024 CBC WITH AUTO- DIFFE RENTI AL eosinophils 2.4 % 0.0-5. 0 Not Available [facility] [address] [facility] [address], [place], [address], 12/19/2024 14:46:20 12/18/19 25 12/17/2024 CBC WITH AUTO- DIFFE RENTI AL absolute eosinophils 0.17 10*3/ uL 0.00-0 .40 Not Available [facility] [address] [facility] [address], [place], [address], 12/19/2024 14:46:20 12/18/19 25 12/17/2024 CBC WITH AUTO- DIFFE RENTI AL basophils 0.4 % 0.0-3. 0 Not Available [facility] [address] [facility] [address], [place], [address], 12/19/2024 14:46:20 12/18/19 25 12/17/2024 CBC WITH AUTO- DIFFE RENTI AL absolute basophils 0.03 10*3/ uL 0.00-0 .20 Not Available [facility] [address] [facility] [address], [place], [address], 12/19/2024 14:46:20 12/18/19 25 12/17/2024 CBC WITH AUTO- DIFFE RENTI AL imm. gran. 0.4 % 0.0-2. 0 Not Available [facility] [address] [facility] [address], [place], [address], 12/19/2024 14:46:20 12/18/19 25 12/17/2024 CBC WITH AUTO- DIFFE RENTI AL abs. imm. gran. 0.03 10*3/ uL 0.00-0 .10 Not Available [facility] [address] [facility] [address], [place], [address], 12/19/2024 14:46:20 12/18/19 25 12/17/2024 COMPR EHENS ALFONSO METAB OLIC PANEL sodium 139 mmol/ L 134-14 4 Not Available [address], [place], [address], 12/19/2024 14:46:20 12/18/19 25 12/17/2024 COMPR EHENS ALFONSO METAB OLIC PANEL potassium 4.4 mmol/ L 3.5-5. 2 Not Available [facility] [address] [facility] [address], [place], [address], 12/19/2024 14:46:20 12/18/19 25 12/17/2024 COMPR EHENS ALFONSO METAB OLIC PANEL chloride 104 mmol/ L 98-107 Not Available [facility] [address] [facility] [address], [place], [address], 12/19/2024 14:46:20 12/18/19 25 12/17/2024 COMPR EHENS ALFONSO METAB OLIC PANEL carbon dioxide (co2) 28.0 mmol/ L 18.0-2 9.0 Not Available [facility] [address] [facility] [address], [place], [address], 12/19/2024 14:46:20 12/18/19 25 12/17/2024 COMPR EHENS ALFONSO METAB OLIC PANEL glucose 158 mg/dL 65-99 high Gregoria l Fasti n - 99 mg/dL Impai red Fasti n - 125 mg/dL Diagn ostic of Diabe janie: => 126 mg/dL Ameri can Diabe janie Assoc iatio n, 2007 Not Available [facility] [address] [facility] [address], [place], [address], 12/19/2024 14:46:20 12/18/19 25 12/17/2024 COMPR EHENS ALFONSO METAB OLIC PANEL urea nitrogen (BUN) 18 mg/dL 6-20 Not Available [facility] [address] [facility] [address], [place], [address], 12/19/2024 14:46:20 12/18/19 25 12/17/2024 COMPR EHENS ALFONSO METAB OLIC PANEL creatinine 1.22 mg/dL 0.76-1 .27 Not Available [facility] [address] [facility] [address], [place], [address], 12/19/2024 14:46:20 12/18/19 25 12/17/2024 COMPR EHENS ALFONSO METAB OLIC PANEL eGFR 68 mL/mi nute/ 1.73_ m2 >59 MDRD Study Equat ion: The calcu lated GFR is NOT appli cable for pedia tric (< 18 years old) and > 70 year old patie nts and patie nts that are NOT of stead y state . Not Available [facility] [address] [facility] [address], [place], [address], 12/19/2024 14:46:20 12/18/19 25 12/17/2024 COMPR EHENS ALFONSO METAB OLIC PANEL calcium 9.0 mg/dL 8.6-10 .2 Not Available [facility] [address] [facility] [address], [place], [address], 12/19/2024 14:46:20 12/18/19 25 12/17/2024 COMPR EHENS ALFONSO METAB OLIC PANEL protein, total 7.1 gm/dL 6.4-8. 3 Not Available [facility] [address] [facility] [address], [place], [address], 12/19/2024 14:46:20 12/18/19 25 12/17/2024 COMPR EHENS ALFONSO METAB OLIC PANEL albumin 4.4 gm/dL 3.5-5. 2 Not Available [facility] [address] [facility] [address], [place], [address], 12/19/2024 14:46:20 12/18/19 25 12/17/2024 COMPR EHENS ALFONSO METAB OLIC PANEL bilirubin, total 0.50 mg/dL 0.00-1 .20 Not Available [facility] [address] [facility] [address], [place], [address], 12/19/2024 14:46:20 12/18/19 25 12/17/2024 COMPR EHENS ALFONSO METAB OLIC PANEL alkaline phosphatase (ALP) 72 U/L 39-117 Not Available [facility] [address] [facility] [address], [place], [address], 12/19/2024 14:46:20 12/18/19 25 12/17/2024 COMPR EHENS ALFONSO METAB OLIC PANEL aspartate aminotransfe rase (AST) 16 U/L 0-40 Not Available [facility] [address] [facility] [address], [place], [address], 12/19/2024 14:46:20 12/18/19 25 12/17/2024 COMPR EHENS ALFONSO METAB OLIC PANEL alanine aminotransfe rase (ALT) 22 U/L 0-41 Not Available [facility] [address] [facility] [address], [place], [address], 12/19/2024 14:46:20 12/18/19 25 12/17/2024 COMPR EHENS ALFONSO METAB OLIC PANEL A/G ratio (calculated) 1.6 ratio 1.0-2. 7 Not Available [facility] [address] [facility] [address], [place], [address], 12/19/2024 14:46:20 12/18/19 25 12/17/2024 COMPR EHENS ALFONSO METAB OLIC PANEL globulin (calculated) 2.7 gm/dL 1.5-3. 8 Not Available [place] [address] [facility] [address], [place], [address], 12/19/2024 14:46:20 12/18/19 25 12/17/2024 COMPR EHENS ALFONSO METAB OLIC PANEL BUN/creatini ne ratio (calculated) 14.8 ratio 8.0-20 .0 Not Available [address], [place], [address], 12/19/2024 14:46:20 12/18/19 25 12/17/2024 COMPR EHENS ALFONSO METAB OLIC PANEL serum index hemolysis NORMAL index normal Not Available [facility] [address] [facility] [address], [place], [address], 12/19/2024 14:46:20 12/18/19 25 12/17/2024 LIPID PANEL W/ CALC. LDL cholesterol, total 251 mg/dL 100-19 9 high Not Available [facility] [address] [facility] [address], [place], [address], 12/19/2024 14:46:21 12/18/19 25 12/17/2024 LIPID PANEL W/ CALC. LDL HDL cholesterol 39 mg/dL =>40 Not Available [facility] [address] [facility] [address], [place], [address], 12/19/2024 14:46:21 12/18/19 25 12/17/2024 LIPID PANEL W/ CALC. LDL LDL cholesterol (calculated) 166 mg/dL 0-99 high Not Available [facility] [address] [facility] [address], [place], [address], 12/19/2024 14:46:21 12/18/19 25 12/17/2024 LIPID PANEL W/ CALC. LDL triglyceride s 231 mg/dL 50-149 high Not Available [facility] [address] [facility] [address], [place], [address], 12/19/2024 14:46:21 12/18/19 25 12/17/2024 LIPID PANEL W/ CALC. LDL chol/HDL ratio (calculated) 6.44 ratio 0.00-5 .00 high Not Available [facility] [address] [facility] [address], [place], [address], 12/19/2024 14:46:21 12/18/19 25 12/17/2024 LIPID PANEL W/ CALC. LDL VLDL cholesterol (calculated) 46 mg/dL 5-40 high Not Available [facility] [address] [facility] [address], [place], [address], 12/19/2024 14:46:21 12/18/19 25 12/17/2024 PROST ATE-S PECIF IC ANTIG EN (PSA) , TOTAL (SCRE ENING ) prostate-spe cific antigen, total 13.8 NG/mL 0.0-4. 0 high Christal ECLIA METHO DOLOG Y. RESUL TS FROM THIS METHO D IS NOT FLORENCIO TIBLE WITH DIFFE RENT ASSAY METHO D AND CANNO T BE USED INTER SKINNER EABLY . Not Available [facility] [address] [facility] [address], [place], [address], 12/19/2024 14:46:21 12/18/19 25 12/17/2024 VITAM IN B12 vitamin B12 533 pg/mL 232-12 45 Not Available [facility] [address] [facility] [address], [place], [address], 12/19/2024 14:46:22 12/18/19 25 12/22/2024 D-DIM ER [...] year old 0.80 mg/L FEU. Not Available [facility] [address] [facility] [address], [place], [address], 12/22/2024 11:16:32 12/22/19 25 12/21/2024 MICRO ALBUM IN:CR EATIN INE RATIO , RANDO M URINE microalbumin , urine 18.46 mg/dL not establ ished Units have been updat ed to mg/dL Not Available [facility] [address] [facility] [address], [place], [address], 12/23/2024 15:26:57 12/22/19 25 12/21/2024 MICRO ALBUM IN:CR EATIN INE RATIO , RANDO M URINE creatinine, urine 156.4 mg/dL not establ ished Not Available [facility] [address] [facility] [address], [place], [address], 12/23/2024 15:26:57 12/22/19 25 12/21/2024 MICRO ALBUM IN:CR EATIN INE RATIO , RANDO M URINE microalbumin :creatinine ratio, random urine (calculated) 118.1 mg/gm Gregoria l: 0-29 mg/gm Moder ately incre ased: 30-30 0 mg/gm Sever ly incre ased: >300 mg/gm Not Available [facility] [address] [facility] [address], [place], [address], 12/23/2024 15:26:57 05/04/20 25 05/04/2025 HEMOG LOBIN A1C hemoglobin A1C 6.8 % 4.8-5. 6 high GREGORIA L RANGE BASED ON EDUARDO COL 2 (DCCT /NGSP ): Non-D iabet ic: < 5.7% Pre-D iabet es: 5.7 - 6.4% Diabe janie: => 6.5% GLYCE LILIAN CONTR OL: < 7.0% Not Available [facility] [address] [facility] [address], [place], [address], 05/05/2025 12:03:02 05/04/2005/04/2025 HEMOG LOBIN A1C estimated average glucose 149 Not Available [facility] [address] [facility] [address], [place], [address], 05/05/2025 12:03:02 05/04/2005/04/2025 COMPR EHENS ALFONSO METAB OLIC PANEL sodium 144 mmol/ L 134-14 4 Not Available [facility] [address] [facility] [address], [place], [address], 05/05/2025 12:03:03 05/04/2005/04/2025 COMPR EHENS ALFONSO METAB OLIC PANEL potassium 4.3 mmol/ L 3.5-5. 2 Not Available [facility] [address], [place], [address], 05/05/2025 12:03:03 05/04/2005/04/2025 COMPR EHENS ALFONSO METAB OLIC PANEL chloride 104 mmol/ L 98-107 Not Available [facility] [address] [facility] [address], [place], [address], 05/05/2025 12:03:03 05/04/2005/04/2025 COMPR EHENS ALFONSO METAB OLIC PANEL carbon dioxide (co2) 28.0 mmol/ L 18.0-2 9.0 Not Available [facility] [address] [facility] [address], [place], [address], 05/05/2025 12:03:03 05/04/2005/04/2025 COMPR EHENS ALFONSO METAB OLIC PANEL glucose 102 mg/dL 65-99 high Gregoria l Fasti n - 99 mg/dL Impai red Fasti n - 125 mg/dL Diagn ostic of Diabe janie: => 126 mg/dL Ameri can Diabe janie Assoc iatio n, 2007 Not Available [facility] [address] [facility] [address], [place], [address], 05/05/2025 12:03:03 05/04/2005/04/2025 COMPR EHENS ALFONSO METAB OLIC PANEL urea nitrogen (BUN) 15 mg/dL 6-20 Not Available [facility] [address] [facility] [address], [place], [address], 05/05/2025 12:03:03 05/04/2005/04/2025 COMPR EHENS ALFONSO METAB OLIC PANEL creatinine 0.97 mg/dL 0.76-1 .27 Not Available [facility] [address] [facility] [address], [place], [address], 05/05/2025 12:03:03 05/04/2005/04/2025 COMPR EHENS ALFONSO METAB OLIC PANEL eGFR 89 mL/mi nute/ 1.73_ m2 >59 MDRD Study Equat ion: The calcu lated GFR is NOT appli cable for pedia tric (< 18 years old) and > 70 year old patie nts and patie nts that are NOT of stead y state . Not Available [facility] [address] [facility] [address], [place], [address], 05/05/2025 12:03:03 05/04/2005/04/2025 COMPR EHENS ALFONSO METAB OLIC PANEL calcium 9.7 mg/dL 8.6-10 .2 Not Available [facility] [address] [facility] [address], [place], [address], 05/05/2025 12:03:03 05/04/2005/04/2025 COMPR EHENS ALFONSO METAB OLIC PANEL protein, total 7.5 gm/dL 6.4-8. 3 Not Available [facility] [address] [facility] [address], [place], [address], 05/05/2025 12:03:03 05/04/20 25 05/04/2025 COMPR EHENS ALFONSO METAB OLIC PANEL albumin 4.7 gm/dL 3.5-5. 2 Not Available [facility] [address] [facility] [address], [place], [address], 05/05/2025 12:03:03 05/04/2005/04/2025 COMPR EHENS ALFONSO METAB OLIC PANEL bilirubin, total 0.60 mg/dL 0.00-1 .20 Not Available [facility] [address] [facility] [address], [place], [address], 05/05/2025 12:03:03 05/04/20 25 05/04/2025 COMPR EHENS ALFONSO METAB OLIC PANEL alkaline phosphatase (ALP) 86 U/L 39-117 Not Available [facility] [address] [facility] [address], [place], [address], 05/05/2025 12:03:03 05/04/20 25 05/04/2025 COMPR EHENS ALFONSO METAB OLIC PANEL aspartate aminotransfe rase (AST) 18 U/L 0-40 Not Available [facility] [address] [facility] [address], [place], [address], 05/05/2025 12:03:03 05/04/20 25 05/04/2025 COMPR EHENS ALFONSO METAB OLIC PANEL alanine aminotransfe rase (ALT) 30 U/L 0-41 Not Available [facility] [address] [facility] [address], [place], [address], 05/05/2025 12:03:03 05/04/20 25 05/04/2025 COMPR EHENS ALFONSO METAB OLIC PANEL A/G ratio (calculated) 1.7 ratio 1.0-2. 7 Not Available [facility] [address] [facility] [address], [place], [address], 05/05/2025 12:03:03 05/04/20 25 05/04/2025 COMPR EHENS ALFONSO METAB OLIC PANEL globulin (calculated) 2.8 gm/dL 1.5-3. 8 Not Available [facility] [address] [facility] [address], [place], [address], 05/05/2025 12:03:03 05/04/20 25 05/04/2025 COMPR EHENS ALFONSO METAB OLIC PANEL BUN/creatini ne ratio (calculated) 15.5 ratio 8.0-20 .0 Not Available [facility] [id number] [facility] [address], [place], [address], 05/05/2025 12:03:03 05/04/20 25 05/04/2025 COMPR EHENS ALFONSO METAB OLIC PANEL serum index hemolysis Normal index normal Not Available [facility] [address] [facility] [address], [place], [address], 05/05/2025 12:03:03 05/04/20 25 05/04/2025 LIPID PANEL (CHOL PURVI OL TOTAL , TRIGL YCERI COSMO, HDL SANDRITA STERO L, LDL CHOL. cholesterol, total 96 mg/dL 100-19 9 low Not Available [facility] [address] [facility] [address], [place], [address], 05/05/2025 12:03:03 05/04/2005/04/2025 LIPID PANEL (CHOL PURVI OL TOTAL , TRIGL YCERI COSMO, HDL SANDRITA STERO L, LDL CHOL. HDL cholesterol 38 mg/dL =>40 Not Available [facility] [address] [facility] [address], [place], [address], 05/05/2025 12:03:03 05/04/20 25 05/04/2025 LIPID PANEL (CHOL PURVI OL TOTAL , TRIGL YCERI COSMO, HDL SANDRITA STERO L, LDL CHOL. LDL cholesterol (calculated) 40 mg/dL 0-99 Not Available [facility] [address] [facility] [address], [place], [address], 05/05/2025 12:03:03 05/04/20 25 05/04/2025 LIPID PANEL (CHOL PURVI OL TOTAL , TRIGL YCERI COSMO, HDL SANDRITA STERO L, LDL CHOL. triglyceride s 90 mg/dL 50-149 Not Available [facility] [address] [facility] [address], [place], [address], 05/05/2025 12:03:03 05/04/20 25 05/04/2025 LIPID PANEL (CHOL PURVI OL TOTAL , TRIGL YCERI COSMO, HDL SANDRITA STERO L, LDL CHOL. chol/HDL ratio (calculated) 2.53 ratio 0.00-5 .00 Not Available [facility] [address] [facility] [address], [place], [address], 05/05/2025 12:03:03 05/04/20 25 05/04/2025 LIPID PANEL (CHOL PURVI OL TOTAL , TRIGL YCERI COSMO, HDL SANDRITA STERO L, LDL CHOL. VLDL cholesterol (calculated) 18 mg/dL 5-40 Not Available [facility] [address] [facility] [address], [place], [address], 05/05/2025 12:03:03 05/04/20 25 05/04/2025 VITAM IN B12 vitamin B12 532 pg/mL 232-12 45 Not Available [facility] [address] [facility] [address], [place], [address], 05/05/2025 12:03:04 05/04/20 25 05/04/2025 MICRO ALBUM IN:CR EATIN INE RATIO , RANDO M URINE microalbumin , urine 12.04 mg/dL not establ ished Units have been updat ed to mg/dL Not Available [facility] [address] [facility] [address], [place], [address], 05/05/2025 12:03:04 05/04/20 25 05/04/2025 MICRO ALBUM IN:CR EATIN INE RATIO , RANDO M URINE creatinine, urine 163.8 mg/dL not establ ished Not Available [facility] [address], [place], [address], 05/05/2025 12:03:04 05/04/20 25 05/04/2025 MICRO ALBUM IN:CR EATIN INE RATIO , RANDO M URINE microalbumin :creatinine ratio, random urine (calculated) 73.5 mg/gm Gregoria l: 0-29 mg/gm Moder ately incre ased: 30-30 0 mg/gm Sever ly incre ased: >300 mg/gm Not Available [facility] [address], [place], [address], 05/05/2025 12:03:04 07/22/19 24 07/22/2023 elect rocar diogr am No observ ation record ed. [facility] Not Available 2023 12:59:17 07/25/19 24 07/25/2023 elect rocar diogr am No observ ation record ed. [address] , [place], [address], 01/03/2024 12:59:17 01/13/20 25 01/11/2025 US, fer x, geoff s, lower extre mity No observ ation record ed. [address] [facility] [address] [place] [address] [place], [address], 03/25/2025 18:58:46 03/23/20 25 03/16/2025 PET, skull base to mid-t high No observ ation record ed. [place] [address], [place], [address], 03/25/2025 18:58:46 04/26/20 25 04/26/2025 XR, chest No observ ation record ed. [email or web address] [facility] [address], [place], [address], 04/30/2025 14:05:39 04/30/2004/30/2025 elect jonas laboy am No observ ation record ed. jbuske Not Available 2024 12:45:32 05/05/2005/05/2025 myoca rdial perfu helen study w/ eject ion fract ion (PROC ) No observ ation record ed. [email or web address] [facility] [address], [place], [address], 05/10/2025 13:26:06 Result Notes None recorded. Problems Name Problem SNOMED Code Status Onset Date Resolution Date Notes Provider Name and Address Organization Details Recorded Time Reduced libido 6670374 Active Twila grant, [facility] 11:37:25 Hyperlipi demia 72631846 Active Twilawilliam Anderson null, [facility] 11:37:35 Benign essential hypertens ion 4027506 Active Twila Monica null, [facility] 11:37:43 Allergic rhinitis 01599354 Active Twilawilliam Anderson null, [facility] 11:38:01 Diverticu litis 378646162 Active Twilawilliam Anderson null, [facility] 11:38:12 Kidney stone 33327090 Active Twilawilliam Anderson null, [facility] 11:39:07 Nicotine dependenc e 31436210 Active Twila Monica null, [facility] 11:39:27 Obstructi ve sleep apnea syndrome 16783306 Active 2015 -- dx'd by cardiologi st Dr Falcon & currently on CPAP Ulysses Henderson MD [address] [facility] [address], [place], [address] , [facility] 11:26:25 Type 2 diabetes mellitus 84213060 Active 2016 Leatha Jacobo rudy, [facility] 7 15:21:59 Creatine kinase level above reference range 247561010 Active 2016 MD Armani Etienne [address], [place], [address] , [facility] 7 19:45:07 Immunizat ion refused Active 2017 MD Armani Etienne [facility], [place], [place], , [facility] 8 10:00:05 Intermitt ent claudicat ion 73935641 Active 2018 MD Armani Etienne [facility], [place], , [facility] 9 14:02:19 Essential hypertens ion 78214547 Active 2022 MD Armani Etienne [facility], [place], , [facility] 3 13:01:28 Coronary arteriosc lerosis 98565933 Active 2022 MD Armani Etienne [facility], [place], , [facility] 3 13:01:28 Primary erectile dysfuncti on 513548478 Active 2022 MD Armani Etienne [facility], [place], , [facility] 3 13:01:28 Type 2 diabetes mellitus without complicat ion 546044110 Active 2022 MD Armani Etienne [facility], [place], , [facility] 3 13:01:28 Mixed anxiety and depressiv e disorder 140461769 Active 2022 MD Armani Etienne [facility], [place], , [facility] 3 13:01:28 Problem Notes None recorded. Procedures Surgical History Date Name Laterality Status Provider Name and Address Organization Details Recorded Time 03/30/20 22 Diabetic Foot Exam completed MD Armani Etienne [facility] [address], [place], [address], [facility] 03/30/2022 14:20:08 01/28/20 20 Diabetic Foot Exam completed MD Armani Etienne [facility] [address], [place], [address], [facility] 01/28/2020 12:08:26 12/27/19 19 Diabetic Foot Exam completed MD Armani Etienne [facility] [address], [place], [address], [facility] 12/26/2018 13:02:40 06/21/20 15 Colonoscopy completed Maria Victoria Cummings [facility] 06/26/2017 16:17:53 Cardiac Surgery completed MD Armani Reed Ch [facility] [address], [place], [address], [facility] 08/15/2020 16:06:17 Imaging Results None recorded. [...] Not Available citalopra m 40 mg tablet TAKE 1 TABLET BY MOUTH ONCE DAILY active Not Available Not Available No t Available sildenafi l 50 mg tablet 1 [...] active Not Available Not Available Not Avai ruth Hibiclens 4 % topical liquid APPLY LIQUID [...] STOP THE QUINAPRI L AND AMLODIPI NE ([facility] ) 01/08 completed -- disconti nued bc [...] /min 16 /min 97.8 [degF] 31.2 kg/m2 438525. 69 g 167/102 mm[Hg] [facility] 4 18:02:47 Date Recorded Heart rate Systolic And Diastolic Provider Name and Address Organization Details Last Updated DateTime 08/08/2023 82 /min 133/83 mm[Hg] Yoanna Olivarez [facility] 08/08/2023 11:07:32 Date Recorded Body height Heart rate Respiratory rate Body temperature Body mass index (BMI) Body weight Systolic And Diastolic Provider Name and Address Organization Details Last Updated DateTime 5 180.34 cm 80 /min 16 /min 97.9 [degF] 31.4 kg/m2 932398. 28 g 170/110 mm[Hg] [facility] 5 16:58:21 Date Recorded Body height Heart rate Respiratory rate Body temperature Body mass index (BMI) Body weight Systolic And Diastolic Provider Name and Address Organization Details Last Updated DateTime 4 180.34 cm 78 /min 16 /min 98.2 [degF] 31.1 kg/m2 010398. 1 g 120/81 mm[Hg] Yoanna Olivarez [facility] 4 12:09:38 Date Recorded Heart rate Systolic And Diastolic Provider Name and Address Organization Details Last Updated DateTime 01/12/2025 76 /min 133/84 mm[Hg] Yoanna Olivarez [facility] 01/12/2025 11:34:57 Date Recorded Body height Heart rate Respiratory rate Body temperature Body mass index (BMI) Body weight Systolic And Diastolic Provider Name and Address Organization Details Last Updated DateTime 5 180.34 cm 89 /min 16 /min 97.8 [degF] 30.1 kg/m2 72622.9 5 g 135/84 mm[Hg] [facility] 5 17:59:25 Date Recorded Body height Heart rate Respiratory rate Body temperature Body mass index (BMI) Body weight Systolic And Diastolic Provider Name and Address Organization Details Last Updated DateTime 5 180.34 cm 79 /min 16 /min 97.7 [degF] 28.9 kg/m2 81453.6 2 g 112/81 mm[Hg] Gricelda Arnold [facility] 5 13:02:33 Social History Question Answer Notes LastModified by Organizat ion Details LastModified Time Tobacco Smoking Status Former Smoker last date was 0 Ulysses Henderson MD [address] [facility] [address], [place], [address] 04/06/2022 12:01:16 Do You Have An Advance Directive? No [id number] Information not available 04/29/2020 What Is Your Level Of Caffeine Consumption? None [id number] Information not available 04/29/2020 How Much Tobacco Do You Chew? None [id number] Information not available 04/29/2020 What Is Your Code Status? Full Code [id number] Information not available 04/29/2020 In The 14 Days Before Symptom Onset, Have You Had Close Contact With A Laboratory-confir med COVID-19 While That Case Was Ill? No [id number] Information not available 04/29/2020 In The 14 Days Before Symptom Onset, Have You Had Close Contact With A Person Who Is Under Investigation For COVID-19 While That Person Was Ill? No [id number] Information not available 04/29/2020 Have You Been To An Area Known To Be High Risk For COVID-19? No [id number] Information not available 04/29/2020 What Type Of Diet Are You Following? REGULAR [id number] Information not available 04/29/2020 Which Illicit Or Recreational Drugs Have You Used? Occ Marijuana [id number] Information not available 04/29/2020 Have You Directly Handled Bats, Rodents, Or Primates From Ebola Endemic Areas? No [id number] Information not available 04/29/2020 Have You Processed Blood Or Body Fluids From An Ebola Virus Disease Patient Without Appropriate PPE? No [id number] Information not available 04/29/2020 Have You Had Household Contact With An Ebola Virus Disease Patient? No [id number] Information not available 04/29/2020 Have You Had Direct Contact With A Body In An Ebola-affected Area Without Appropriate PPE? No [id number] Information not available 04/29/2020 Have You Had Percutaneous (e.g. Needle Stick) Or Mucous Membrane Exposure To Blood Or Body Fluids From An Ebola Virus Disease Patient? No [id number] Information not available 04/29/2020 Have You Had Other Close Contact With An Ebola Virus Disease Patient In Health Care Facilities Or Community Settings? No [id number] Information not available 04/29/2020 Do You Reside In Or Have You Traveled To An Area Where Ebola Virus Transmission Is Active? No [id number] Information not available 04/29/2020 Marital Status [facility] Informatio n not available 04/04/2018 What Was The Date Of Your Most Recent Tobacco Screening? 04/30/2025 mbenfer Information not available 04/30/2025 At What Age Did You Start Smoking Tobacco? 24 [facility] Information not available 04/06/2022 How Much Tobacco Do You Smoke? 0.5 PPD 1 Pack Will Last 2 Days. [facility] Information not available 04/06/2022 How Many Years Have You Smoked Tobacco? 24 [id number] Information not available 04/29/2020 Sex: Unknown Functional Status Question Answer Note LastModified by Organizat ion Details LastModified Time What is your level of alcohol consumption? Occasional [id number] Information not available 04/29/2020 Do you or have you ever used smokeless tobacco? 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 Never used electronic cigarettes [id number] Information not available 04/29/2020 What is your exercise level? None [id number] Information not available 04/29/2020 Mental Status None [...] 30 mcg/0.3 mL dose 08/16/2021 completed Gricelda grant, [facility] 10/10/2021 17:12:17 COVID-19, mRNA, LNP-S, PF, 30 mcg/0.3 mL dose 02/13/2021 completed Gricelda Arnold null, [facility] 10/10/2021 17:13:05 COVID-19, mRNA, LNP-S, PF, 30 mcg/0.3 mL dose 03/08/2021 completed Gricelda Arnold null, [facility] 10/10/2021 17:13:14 COVID-19, mRNA, LNP-S, PF, 30 mcg/0.3 mL dose 04/10/2022 completed Ulysses Henderson MD [address] [place] [address], [place], [address], [facility] 05/01/2022 19:03:15 Past Encounters Encounter ID Performer Location Encounter Start Date Encounter Closed Date Diagnosis/Indication Diagnosis SNOMED-CT Code Diagnosis ICD10 Code Diagnosis IMO Codes Diagnosis Note [id number] MD [employer] [address] [place] [address] [address] [place] [address] 12/08/2015 14:48:18 12/08/2015 16:45:53 Benign essential hypertension 4030650 I10 -- controlled Hyperlipidemia 93734364 E78.5 -- Cholestero l to be repeated 3 weeks from 12/08/15 Nicotine dependence 5629 4008 F17.200 -- advised to Quit. Allergic rhinitis 948526 04 J30.9 -- doing well Obesity 596288796 E66.9 -- advised wt loss and pt gained 5 # since his last visit. Benign pro static hyperplasia without outflow obstruction 139566852 N40.0 -- Currently asymptomat ic; Will recheck PSA level around January 25, 2016 Diabetes mellitus 618029 09 E11.9 (New onset diagnosed on 07/27/15, for which patient did not show up on his October appointmen t; Patient will be referred to [facility] for diabetic teaching and nutritiona l counseling by dietitian. -- Labs will be done today 12/08/15 [id number] Ulysses Henderson MD [place] [employer] [place] [address] [place] [address] 02/23/2016 10:41:20 02/23/2016 11:50:37 Coronary arteriosclerosis 83208261 I25.10 (SD s/p stent circumflex (100%) at [facility] on 02/07/16 -- pt reports he was not given Clopidogre l at discharge on 02/09/16 . I advised patient of the risk of heart attack he does not take clopidogre l. Benign ess ential hypertension 8719021 I10 -- BP uncontroll ed w/ plain lisinopril from [facility]; will go back to [facility] which pt prefers. Diabetes mellitus 677528 09 E11.9 (New onset diagnosed on 07/27/15-- Patient will be referred to [facility] for diabetic teaching and nutritiona l counseling by dietitian. -- check labs today 02/23/16 Hyperlipidemia 15670659 E78.5 -- check FLP today 02/23/16 Nicotine dependence 5629 4008 F17.200 -- advised to Quit. Allergic rhinitis 692683 04 J30.9 -- doing well Obesity 471485257 E66.9 -- advised wt loss and pt lost 8 # since his last visit. Benign pro static hyperplasia without outflow obstruction 438785920 N40.0 -- Currently asymptomat ic; Will recheck PSA level today 02/23/16. Hypogonadism 22971260 E2 9.1 Viagra 20mg tablets # [address] [place] [id number] Ulysses Henderson MD [facility], [facility] [address] [facility] [address] [place] [address] 05/28/2016 09:53:08 05/28/2016 11:51:19 Benign essential hypertension 4124475 I10 -- recheck labs today 05/28/16 Hyperlipidemia 80012958 E78.5 -- recheck labs today 05/28/16 Multi vess el coronary artery disease 521803480 I25.10 -- S/p premous drug eluting stents x [address] Lisandro Castro 02/08/16-- asymptomat ic Obesity 365032792 E66.9 -- advised wt loss and pt lost 13.5 # since his last visit.-- pt's BMI today is 32.7 Diabetes mellitus 925542 09 E11.9 (New onset diagnosed on 07/27/15-- Patient will be referred to [facility] for diabetic teaching and nutritiona l counseling by dietitian. -- recheck labs today 05/28/16 Nicotine dependence 5629 4008 F17.200 -- advised to Quit. Allergic rhinitis 016510 04 J30.9 -- doing well Benign pro static hyperplasia without outflow obstruction 870438195 N40.0 -- Currently asymptomat ic; Will recheck PSA level today 02/23/16. Screening for malignant neoplastic disease 12928259 Z12.9 Viral screening 08247724 4 Z11.59 Active or passive immunization 628658658 Z23 [id number] Ulysses Henderson MD [email or web address] [address] [place] [address] ,[address] [address] 06/18/2016 11:03:20 06/18/2016 13:48:10 Obesity 994825650 E66.9 -- advised wt loss and pt lost 2.5 # since his last visit.-- pt's BMI today is 32.4 Multi vess el coronary artery disease 349931644 I25.10 -- S/p premous drug eluting stents x [address] Lisandro Castro 02/08/16-- asymptomat ic Active or passive immunization 136874839 Z23 -- Patient declines all vaccinatio n. Screening for malignant neoplastic disease 95345917 Z12.9 Benign ess ential hypertension 4821887 I10 -- recheck labs today 05/28/16 Viral screening 71305593 4 Z11.59 Hyperlipidemia 59191526 E78.5 -- recheck labs today 05/28/16 Allergic rhinitis 164392 04 J30.9 -- doing well Nicotine dependence 5629 4008 F17.200 -- advised to Quit. Benign pro static hyperplasia without outflow obstruction 192011349 N40.0 -- Currently asymptomat ic; Will recheck PSA level today 02/23/16. Type 2 melony betes mellitus without complication 414211931 E11.9 (New onset diagnosed on 07/27/15 -- Patient will be referred to [facility] for diabetic teaching and nutritiona l counseling by dietitian. -- pt did not like Ophthalmol ogist Dr Nayak's licensed dispensing optician; will refer patient to [facility] -- recheck labs 08/29/16 [id number] [employer] [address] [place] [address] 08/03/2016 12:40:28 08/03/2016 13:38:54 Impaired glucose tolerance 8007629 R73.09 [id number] LENCHO [employer] [address] [place] [address] 08/06/2016 14:39:51 08/06/2016 15:29:37 Type 2 diabetes mellitus 37626673 E11.9 One hour Post Parandial blood sugar today is 143 [id number] Ulysses Henderson MD [place] [employer] [facility] [address] [place] [address] 08/28/2016 09:16:08 08/28/2016 10:40:44 Type 2 diabetes mellitus without complication 810237939 E11.9 (New onset diagnosed on 07/27/15 -- Patient will be referred to [facility] for diabetic teaching and nutritiona l counseling by dietitian. -- pt did not like Ophthalmol ogist Dr Nayak's licensed dispensing optician; will refer patient to [facility] -- recheck labs 08/29/16 Multi vess el coronary artery disease 370394236 I25.10 -- S/p premous drug eluting stents x [address] Lisandro Castro 02/08/16-- asymptomat ic Benign ess ential hypertension 9904263 I10 -- uncontroll ed; add Coreg 3.125 mg q12 Active or passive immunization 275421551 Z23 -- Patient declines all vaccinatio n. Screening for malignant neoplastic disease 70198417 Z12.9 Viral screening 36999580 4 Z11.59 Hyperlipidemia 16894073 E78.5 -- recheck labs today 05/28/16 Allergic rhinitis 022859 04 J30.9 -- doing well Benign pro static hyperplasia without outflow obstruction 340841950 N40.0 -- Currently asymptomat ic; Will recheck PSA level today 02/23/16. Nicotine dependence 5629 4008 F17.200 -- advised to Quit bc or increased risk of stroke, heart attacks, emphysema/ bronchitis , cancer, aneurysm, premature . Body mass index 30+ - obesity 929387414 Z68.39 -- advised wt loss and pt lost 2.5 # since his last visit. -- pt's BMI today is 32.4 Depression screening 171 Z13.89 -- negative for any depression symptoms [id number] Ulysses Henderson MD [employer] [address] [facility] ,[address] [place] [address] 01/08/2017 09:52:19 01/08/2017 11:41:09 Benign essential hypertension 9264308 I10 -- uncontroll ed; add Coreg 3.125 mg q12 Type 2 melony betes mellitus without complication 148650257 E11.9 (New onset diagnosed on 07/27/15 -- Patient will be referred to [facility] for diabetic teaching and nutritiona l counseling by dietitian. -- pt did not like Ophthalmol ogist Dr Nayak's licensed dispensing optician; will refer patient to [facility] -- recheck labs 08/29/16 Multi vess el coronary artery disease 769356813 I25.10 -- S/p premous drug eluting stents x [address] Lisandro Castro 02/08/16-- asymptomat ic Hyperlipidemia 38232031 E78.5 -- recheck labs today 05/28/16 Body mass index 30+ - obesity 090019133 Z68.39 -- advised wt loss and pt lost 3 # since his last visit. -- pt's BMI today is 32.4 Active or passive immunization 126576910 Z23 -- Patient declines all vaccinatio n. Viral screening 67735892 4 Z11.59 -- Hepatitis C antibody is nonreactiv e on 08/28/16 Allergic rhinitis 876714 04 J30.9 -- doing well Benign pro static hyperplasia without outflow obstruction 742360162 N40.0 -- Currently asymptomat ic; -- PSA level of 1.016 on 08/28/16 Nicotine dependence 5629 4008 F17.200 -- advised to Quit bc or increased risk of stroke, heart attacks, emphysema/ bronchitis , cancer, aneurysm, premature . Depression screening 171 Z13.89 -- negative for any depression symptoms Adult [facility] th examination 352472490 Z00.00 Vertigo 902215539 R42 -- counseled on exercise Screening for malignant neoplasm of colon 047463566 Z12.11 -- Patient reports he had a normal colonoscop y with gastroente rologist Dr. Hawkins in 2016; will try to obtain records. Screening for malignant neoplasm of prostate 506899961 Z12.5 -- PSA level of 1.016 on 08/28/16 [id number] Ulysses Henderson MD [employer] [facility] [address] [facility] [address] [place] [address] 02/22/2017 09:00:42 02/22/2017 10:18:29 Vertigo 268953260 R42 -- resolved w/ rare recurrence (at most --> once every 2 weeks) Type 2 melony betes mellitus without complication 993163920 E11.9 (New onset diagnosed on 07/27/15 -- Patient will be referred to [facility] for diabetic teaching and nutritiona l counseling by dietitian. -- pt did not like Ophthalmol ogist Dr Nayak's licensed dispensing optician; will refer patient to [facility] -- recheck labs on 04/11/17 Benign ess ential hypertension 3521859 I10 -- uncontroll ed; add Coreg 3.125 mg q12-- recheck labs on 04/11/17 Multi vess el coronary artery disease 691691816 I25.10 -- S/p 'Premous' drug eluting stents x [address] Lisandro Falcon on 02/08/16-- asymptomat ic Hyperlipidemia 12057585 E78.5 -- recheck labs on 04/11/17 Body mass index 30+ - obesity 591414129 Z68.39 -- advised wt loss and pt gained 6 # since his last visit. -- pt's BMI today is 33.2 (ideal is between 20-25). Active or passive immunization 679466561 Z23 -- Patient declines all vaccinatio n. Viral screening 52184069 4 Z11.59 -- Hepatitis C antibody is nonreactiv e on 08/28/16 Allergic rhinitis 510886 04 J30.9 -- doing well Benign pro static hyperplasia without outflow obstruction 786199042 N40.0 -- Currently asymptomat ic; -- PSA level of 1.016 on 08/28/16 Nicotine dependence 5629 4008 F17.200 -- advised to Quit bc or increased risk of stroke, heart attacks, emphysema/ bronchitis , cancer, aneurysm, premature . Depression screening 171 436453 Z13.89 -- negative for any depression symptoms Screening for malignant neoplasm of colon 695460372 Z12.11 -- Patient reports he had a normal colonoscop y with gastroente rologist Dr. Hawkins in 2015; will try to obtain records. Screening for malignant neoplasm of prostate 095182106 Z12.5 -- PSA level of 1.016 on 08/28/16 [id number] Ulysses Henderson MD [place] [employer] [place] [address] [facility] [address] [place] [address] 06/26/2017 15:26:07 06/26/2017 17:19:22 Type 2 diabetes mellitus without complication 219327784 E11.9 (New onset diagnosed on 07/27/15 -- Patient will be referred to [facility] for diabetic teaching and nutritiona l counseling by dietitian. -- pt did not like Ophthalmol ogist Dr Nayak's licensed dispensing optician; will refer patient to [facility] -- recheck labs on 04/11/17 Benign ess ential hypertension 4107539 I10 -- uncontroll ed; increase carvedilol from 6.25 mg to 12.5 mg 1 tab every 12 hours-- recheck labs on 04/11/17 Multi vess el coronary artery disease 669779716 I25.10 -- S/p 'Premous' drug eluting stents x [address] Lisandro Falcon on 02/08/16-- asymptomat ic Hyperlipidemia 15620250 E78.5 -- recheck labs on 04/11/17 Body mass index 30+ - obesity 167351879 Z68.39 -- advised wt loss and pt lost 1 # since his last visit. -- pt's BMI today is 33.1 (ideal is between 20-25). Active or passive immunization 918110505 Z23 -- Patient declines all vaccinatio n. Viral screening 45929677 4 Z11.59 -- Hepatitis C antibody is nonreactiv e on 08/28/16 Allergic rhinitis 972348 04 J30.9 -- doing well Benign pro static hyperplasia without outflow obstruction 258991642 N40.0 -- Currently asymptomat ic; -- PSA level of 1.016 on 08/28/16 Nicotine dependence 5629 4008 F17.200 -- advised to Quit bc or increased risk of stroke, heart attacks, emphysema/ bronchitis , cancer, aneurysm, premature . Depression screening 171 062267 Z13.89 -- negative for any depression symptoms Screening for malignant neoplasm of colon 821269743 Z12.11 -- Patient reports he had a normal colonoscop y with juana rologist Dr. Hawkins in 2016; will try to obtain records. Screening for malignant neoplasm of prostate 738386876 Z12.5 -- PSA level of 1.016 on 08/28/16 Diverticul itis of colon 342017800 K57.32 -- resolved w/ occ flare-- refer pt to Gastrolynette rologist Dr. Hawkins for further evaluation 72498 Ulysses Henderson MD [employer] [address] [facility] [address] [address] 07/17/2017 15:33:32 07/17/2017 16:22:54 Type 2 diabetes mellitus without complication 863817922 E11.9 (diagnosed on 07/27/15) -- Patient was referred to [facility] for diabetic teaching and nutritiona l counseling by dietitian. -- pt did not like Ophthalmol ogist Dr Nayak's licensed dispensing optician; referred patient to [facility] -- A1c worsened (was 6.6 [...] due to formulary Benign ess ential hypertension 6301241 I10 -- uncontroll ed; increase carvedilol from 6.25 mg to 12.5 mg 1 tab every 12 hours-- recheck labs on 09/26/17 Multi vess el coronary artery disease 519696035 I25.10 -- S/p 'Premous' drug eluting stents x [address] Lisandro Falcon on 02/08/16-- asymptomat ic-- recheck labs on 09/26/17 Hyperlipidemia 50135607 E78.5 -- recheck labs on 09/26/17 Body mass index 30+ - obesity 939022898 Z68.39 -- advised wt loss and pt lost 1 # since his last visit. -- pt's BMI today is 32.9 (ideal is between 20-25). Diverticul itis of colon 011983374 K57.32 -- resolved w/ occ flare-- referred pt to Gastroente rologist Dr. Hawkins for further evaluation Active or passive immunization 086652804 Z23 -- Patient declines all vaccinatio n. Viral screening 21120256 4 Z11.59 -- Hepatitis C antibody is nonreactiv e on 08/28/16 Allergic rhinitis 132206 04 J30.9 -- doing well Benign pro static hyperplasia without outflow obstruction 859058950 N40.0 -- Currently asymptomat ic; -- PSA level of 1.016 on 08/28/16-- recheck labs on 09/26/17 Nicotine dependence 5629 4008 F17.200 -- advised to Quit bc or increased risk of stroke, heart attacks, emphysema/ bronchitis , cancer, aneurysm, premature .-- Quit smoking same day on his last visit on 06/26/17 Depression screening 171 236715 Z13.89 -- negative for any depression symptoms Screening for malignant neoplasm of colon 399610555 Z12.11 -- Patient reports he had a normal colonoscop y with gastroente rologist Dr. Hawkins in 2016; will try to obtain records. Screening for malignant neoplasm of prostate 408136148 Z12.5 -- PSA level of 1.016 on 08/28/16 Antiplatel et agent therapy 541112166 Z79.02 -- pt advised to start otc Aspirin 81 mg qd 86870 Ulysses Henderson MD [employer] [address] [facility] [place] [address] [address] [place] [address] 01/06/2018 16:17:44 01/06/2018 18:04:02 Paresthesia of hand 644272684 R20.2 (bilateral pinky) Type 2 melony betes mellitus without complication 837837646 E11.9 (diagnosed on 07/27/15) -- Patient was referred to [facility] for diabetic teaching and nutritiona l counseling by dietitian. -- pt did not like Ophthalmol ogist Dr Nayak's licensed dispensing optician; referred patient to [facility] -- A1c worsened (was 6.6 [...] due to formulary Benign ess ential hypertension 7793086 I10 -- uncontroll ed; increase carvedilol from 6.25 mg to 12.5 mg 1 tab every 12 hours-- recheck labs on 09/26/17 Multi vess el coronary artery disease 319818129 I25.10 -- S/p 'Premous' drug eluting stents x [address] Lisandro Falcon on 02/08/16-- asymptomat ic-- recheck labs on 09/26/17 Hyperlipidemia 13832112 E78.5 -- recheck labs on 09/26/17 Body mass index 30+ - obesity 381726117 Z68.39 -- advised wt loss and pt lost 5 # since his last visit. -- pt's BMI today is 32.2 (ideal is between 20-25). Diverticul itis of colon 592072009 K57.32 -- resolved w/ occ flare-- referred pt to Gastroente rologist Dr. Hawkins for further evaluation Active or passive immunization 142687111 Z23 -- Patient declines all vaccinatio n. Viral screening 92603807 4 Z11.59 -- Hepatitis C antibody is nonreactiv e on 08/28/16 Allergic rhinitis 509536 04 J30.9 -- doing well Benign pro static hyperplasia without outflow obstruction 391437967 N40.0 -- Currently asymptomat ic; -- PSA level of 1.016 on 08/28/16-- recheck labs on 09/26/17 Nicotine dependence 5629 4008 F17.200 -- advised to Quit bc or increased risk of stroke, heart attacks, emphysema/ bronchitis , cancer, aneurysm, premature .-- Quit smoking same day on his last visit on 06/26/17 Depression screening 171 829407 Z13.89 -- negative for any depression symptoms Screening for malignant neoplasm of colon 230969011 Z12.11 -- Patient reports he had a normal colonoscop y with gastroente rologist Dr. Hawkins in 2016; will try to obtain records. Screening for malignant neoplasm of prostate 283493806 Z12.5 -- PSA level of 1.016 on 08/28/16 Antiplatel et agent therapy 866708572 Z79.02 -- pt advised to start otc Aspirin 81 mg qd Pain in toe 156287173 M7 9.674 (right MTP) 18057 Ulysses Henderson MD [place] [employer] [address] [facility] [address] [place] [address] 04/04/2018 10:20:39 04/04/2018 11:52:02 Adult health examination 765268515 Z00.00 Paresthesia of hand 3090 77332 R20.2 (bilateral pinky) Type 2 melony betes mellitus without complication 173163901 E11.9 (diagnosed on 07/27/15) -- Patient was referred to [facility] for diabetic teaching and nutritiona l counseling by dietitian. -- pt did not like Ophthalmol ogist Dr Nayak's licensed dispensing optician; -- referred patient to [facility] but pt did not make [...] on 04/10/18-- changed Bydureon & Synjardy to Kehindejan Benign ess ential hypertension 0720736 I10 -- uncontroll ed; Cardiologi st Dr Garry Falcon has discontinu ed carvedilol because of ED -- recheck labs on 04/10/18 Multi vess el coronary artery disease 234489046 I25.10 -- S/p 'Premous' drug eluting stents x [address] Lisandro Falcon on 02/08/16-- asymptomat ic; Cardiologi st Dr Falcon states pt needs to be on both Aspirin & Brillinta 60 mg bid-- recheck labs on 04/10/18 Hyperlipidemia 75168515 E78.5 -- recheck labs on 09/26/17 Body mass index 30+ - obesity 660384064 Z68.39 -- advised wt loss and pt lost 14 # since his last visit. -- pt's BMI today is 30.3 (ideal is between 20-25). Pain in toe 212359327 M7 9.674 (right MTP) -- resolved Allergic rhinitis 624734 04 J30.9 -- doing well Benign pro static hyperplasia without outflow obstruction 395187224 N40.0 -- Currently asymptomat ic; -- PSA level of 1.016 on 08/28/16-- recheck labs on 09/26/17 Nicotine dependence 5629 4008 F17.200 -- advised to Quit bc or increased risk of stroke, heart attacks, emphysema/ bronchitis , cancer, aneurysm, premature .-- Quit smoking same day on his last visit on 06/26/17 Antiplatel et agent therapy 821592320 Z79.02 -- pt advised to start otc Aspirin 81 mg qd Depression screening 171 266456 Z13.89 -- negative for any depression symptoms Viral screening 93924557 4 Z11.59 -- Hepatitis C antibody is nonreactiv e on 08/28/16 Active or passive immunization 584122692 Z23 -- Patient declines all vaccinatio n. Screening for malignant neoplasm of colon 601396043 Z12.11 -- Patient reports he had a normal colonoscop y with gastroente rologist Dr. Hawkins in 2016; will try to obtain records. Screening for malignant neoplasm of prostate 257277234 Z12.5 -- PSA level of 1.3 on 01/07/18 Peripheral vascular disease 624135089 I73.9 [place] is absent bilateral dorsal pedis pulses) -- check ANNEMARIE Abscess of buttock 05518 003 L02.31 (left buttock) -- will refer pt to surgery today [id number] Ulysses Henderson MD [facility], [facility] [address] [facility] [address] [address] 12/26/2018 11:16:03 12/26/2018 13:09:23 Abscess of buttock 46746641 L02.31 (left buttock; resolved after ABx but now recurs again) -- will refer pt to surgery today Paresthesia of hand 3090 44668 R20.2 (bilateral pinky) -- Tx by Hand Surgeon Dr Sophia Woodruff on 04/29/18 for cubital tunnel syndr Type 2 melony betes mellitus without complication 058469751 E11.9 (diagnosed on 07/27/15) -- Patient was referred to [facility] for diabetic teaching and nutritiona l counseling by dietitian multiple times but pt has not made appt yet. -- pt did not like Ophthalmol ogist Dr Nayak's licensed dispensing optician; -- referred patient to [facility] but pt did not make [...] labs today 12/26/18 Benign ess ential hypertension 4968873 I10 -- uncontroll ed as pt has been missing meds a lot & not getting refills; Cardiologi st Dr Garry Falcon has discontinu ed carvedilol because of ED-- recheck labs today 12/26/18 Multi vess el coronary artery disease 157718584 I25.10 -- S/p 'Premous' drug eluting stents x [address] Lisandro Falcon on 02/08/16-- asymptomat ic; Cardiologi st Dr Falcon states pt needs to be on both Aspirin & Brillinta 60 mg bid-- recheck labs today 12/26/18 Hyperlipidemia 58933100 E78.5 -- recheck labs today 12/26/18 Body mass index 30+ - obesity 841719205 Z68.33 -- advised wt loss and pt gained 21 # since his last visit. -- pt's BMI today is 33.2 (ideal is between 20-25). Peripheral vascular disease 870624553 I73.9 [place] is absent bilateral dorsal pedis pulses) -- ordered ANNEMARIE but not done. Allergic rhinitis 678590 04 J30.9 -- doing well Benign pro static hyperplasia without outflow obstruction 566636061 N40.0 -- Currently asymptomat ic; -- PSA level of 1.3 on 01/07/18-- check PSA on 01/06/19 Nicotine dependence 5629 4008 F17.200 -- advised to Quit bc or increased risk of stroke, heart attacks, emphysema/ bronchitis , cancer, aneurysm, premature .-- Quit smoking same day on his last visit on 06/26/17 Antiplatel et agent therapy 835348940 Z79.02 -- pt advised to start otc Aspirin 81 mg qd Depression screening 171 916935 Z13.89 -- negative for any depression symptoms Active or passive immunization 718446788 Z23 -- Patient declines all vaccinatio n. Screening for malignant neoplasm of colon 398325967 Z12.11 -- Patient reports he had a normal colonoscop y with gastroente rologist Dr. Hawkins in 2016; will try to obtain records. Screening for malignant neoplasm of prostate 249395001 Z12.5 -- PSA level of 1.3 on 01/07/18 Hepatitis C screening 41 6778899 Z11.59 -- Hepatitis C antibody is nonreactiv e on 08/28/16 [id number] Ulysses Henderson MD [place] [employer] [address] [facility] [address] [place] [address] 04/27/2019 12:00:00 04/27/2019 14:10:48 Noncompliance with treatment 8717606 Z91.19 non compliance with ophthalBP and DM were uncontroll ed as pt has been missing meds a lot & not getting refills including Plavix Multi vess el coronary artery disease 709238418 I25.10 -- S/p 'Premous' drug eluting stents x [address] Lisandro Falcon on 02/08/16-- asymptomat ic; Cardiologi st Dr Falcon states pt needs to be on both Aspirin & Brillinta 60 mg bid.-- Pt never filled Brillinta. Pt is on Plavix Type 2 melony betes mellitus without complication 224400863 E11.9 (diagnosed on 07/27/15) -- referred patient to [facility] but pt did not make [...] and risk of genitalia gangrene. Hypertriglyceridemia 302 043499 E78.2 -- advise pt to limit Carbohydra janie to less than 50 gram per meal & also less than 150 grams a day. Examples of Carbohydra jnaie are: ice-cream, sweet sugar treats, rice, potatoes, [...] 525 on 12/26/2018 Benign ess ential hypertension 9303808 I10 -- uncontroll ed as pt has been missing meds a lot & not getting refills; Cardiologi st Dr Garry Falcon has discontinu ed carvedilol because of ED Body mass index 30+ - obesity 145798929 Z68.33 -- advised wt loss and pt gained 21 # since his last visit. -- pt's BMI today is 33.2 (ideal is between 20-25). Benign pro static hyperplasia without outflow obstruction 161687148 N40.0 -- Currently asymptomat ic; -- PSA level of 1.3 on 01/07/18-- check PSA on 01/06/19 -- not done Antiplatel et agent therapy 547319277 Z79.02 -- pt advised to start otc Aspirin 81 mg qd Depression screening 171 330278 Z13.89 -- negative for any depression symptoms Hepatitis C screening 41 4531491 Z11.59 -- Hepatitis C antibody is nonreactiv e on 08/28/16 Active or passive immunization 466895466 Z23 -- Patient declines all vaccinatio n. Screening for malignant neoplasm of colon 468193121 Z12.11 -- Patient reports he had a normal colonoscop y with gastroente rologist Dr. Hawkins in 06/20/2015. Repeat in 5 years -- 06/20/2020 Screening for malignant neoplasm of prostate 955374313 Z12.5 -- PSA level of 1.3 on 01/07/18 Ex-smoker 4069417 Z87.89 1 -- Quit smoking on 06/26/17 Hyperlipidemia 43175101 E78.5 LDL was controlled at 48, HDL 36 and Trig 525 on 12/26/2018 Primary er ectile dysfunction 305545722 N52.9 Intermitte nt claudication 74644999 I73.9 (bilateral hamstrig)- - absent bilateral dorsal pedis pulses)-- ordered ANNEMARIE but not done. [id number] Ulysses Henderson MD [employer] [facility] [address] [address] 08/31/2019 17:03:48 08/31/2019 19:18:05 Noncompliance with treatment 1533320 Z91.19 non compliance with ophthal, blood testings, followup appt, and meds.-- pt counseled. Multi vess el coronary artery disease 665208468 I25.10 -- S/p 'Premous' drug eluting stents x [address] Lisandro Falcon on 02/08/16-- asymptomat ic; Cardiologi st Dr Falcon states pt needs to be on both Aspirin & Brillinta 60 mg bid.-- Pt never filled Brillinta. Pt is on Plavix Type 2 melony betes mellitus without complication 424352283 E11.9 (diagnosed on 07/27/15) -- referred patient to [facility] but pt did not make [...] and risk of genitalia gangrene. Hypertriglyceridemia 302 988300 E78.2 -- advise pt to limit Carbohydra [...] 525 on 12/26/2018 Benign ess ential hypertension 4120016 I10 -- uncontroll ed as pt has been missing meds a lot & not getting refills; Cardiologi st Dr Garry Falcon has discontinu ed carvedilol because of ED Hyperlipidemia 30006652 E78.5 LDL was controlled at 48, HDL 36 and Trig 525 on 12/26/2018 Body mass index 30+ - obesity 414931061 Z68.32 -- advised wt loss and pt gained 1 # since his last visit. -- pt's BMI today is 32.9(ideal is between 20-25). Benign pro static hyperplasia without outflow obstruction 148260115 N40.0 -- Currently asymptomat ic; -- PSA level of 1.3 on 01/07/18-- check PSA on 01/06/19 -- not done-- re-reorder labs to be done today 08/31/19 Intermitte nt claudication 10021408 I73.9 (bilateral hamstrig)- - absent bilateral dorsal pedis pulses)-- ordered ANNEMARIE but not done.-- d-dimer ordered but not done. Ex-smoker 1199516 Z87.89 1 -- Quit smoking on 06/26/17 Primary er ectile dysfunction 248193828 N52.9 Antiplatel et agent therapy 463567282 Z79.02 -- pt advised to start otc Aspirin 81 mg qd Depression screening 171 470044 Z13.89 -- negative for any depression symptoms Hepatitis C screening 41 9817528 Z11.59 -- Hepatitis C antibody is nonreactiv e on 08/28/16 Active or passive immunization 051817806 Z23 -- Patient declines all vaccinatio n. Screening for malignant neoplasm of colon 342085339 Z12.11 -- Patient reports he had a normal colonoscop y with gastroente rologist Dr. Hawkins in 06/20/2015. Repeat in 5 years -- 06/20/2020 Screening for malignant neoplasm of prostate 161015880 Z12.5 -- PSA level of 1.3 on 01/07/18-- re-reorder labs to be done today 08/31/19 Furunculos is of skin AND/OR subcutaneous tissue 77382198 L02.92 (mild on left buttock) [id number] Ulysses Henderson MD [email or web address] [address] [facility] ,[address] [address] 12/14/2019 10:53:11 12/14/2019 12:39:33 Adult health examination 187038795 Z00.00 Furunculos is of skin AND/OR subcutaneous tissue 76471117 L02.92 (mild on left buttock) -- resolved Multi vess el coronary artery disease 461698053 I25.10 (SD s/p stent circumflex (100%) at [facility] on 02/07/16 -- pt reports he [...] Type 2 melony betes mellitus without complication 533497811 E11.9 (diagnosed on 07/27/15) -- referred patient to [facility] but pt did not make [...] of genitalia gangrene. Noncomplia nce with treatment 9750315 Z91.19 non compliance with ophthal, blood testings, followup appt, and meds.-- pt counseled. Hypertriglyceridemia 302 950748 E78.2 -- advise pt to limit Carbohydra [...] 525 on 12/26/2018 Benign ess ential hypertension 0892460 I10 -- uncontroll ed as pt has been missing meds a lot & not getting refills; Cardiologi st Dr Garry Falcon has discontinu ed carvedilol because of ED Hyperlipidemia 78386822 E78.5 LDL was controlled at 48, HDL 36 and Trig 525 on 12/26/2018 Body mass index 30+ - obesity 485252751 Z68.32 -- advised wt loss and pt lost 9 # since his last visit. -- pt's BMI today is 31.7 (ideal is between 20-25). Benign pro static hyperplasia without outflow obstruction 802380775 N40.0 -- Currently asymptomat ic; -- PSA level of 1.3 on 01/07/18-- check PSA on 01/06/19 -- not done-- need to repeat PSA in Feb 2020 Intermitte nt claudication 53339869 I73.9 (bilateral hamstrig)- - absent bilateral dorsal pedis pulses)-- ordered ANNEMARIE but not done.-- d-dimer ordered but not done. Ex-smoker 1166056 Z87.89 1 -- Quit smoking on 06/26/17 Primary er ectile dysfunction 861025971 N52.9 Antiplatel et agent therapy 084167331 Z79.02 -- pt advised to start otc Aspirin 81 mg qd Depression screening 171 540251 Z13.89 -- negative for any depression symptoms Hepatitis C screening 41 6597435 Z11.59 -- Hepatitis C antibody is nonreactiv e on 08/28/16 Active or passive immunization 590715873 Z23 -- Patient declines all vaccinatio n. Screening for malignant neoplasm of colon 978493988 Z12.11 -- Patient reports he had a normal colonoscop y with gastroente rologist Dr. Hawkins in 06/20/2015. Repeat in 5 years -- 06/20/2020 Screening for malignant neoplasm of prostate 705067364 Z12.5 -- PSA level of 1.3 on 01/07/18 --> 1.0 ( 09/01/19) [id number] Ulysses Henderson MD [employer] [address] [facility] ,[address] [address] 01/28/2020 10:56:03 01/28/2020 12:21:50 Uncontrolled type 2 diabetes mellitus 402083949 E11.65 (diagnosed on 07/27/15) -- Patient referred to [facility] for diabetic teaching and nutritiona l counseling by dietitian. -- ordered labs on 12/14/19 but not done.-- will re-order labs today Multi vess el coronary artery disease 224901545 I25.10 (SD s/p stent circumflex (100%) at [facility] on 02/07/16 -- pt reports he [...] Aspirin & Plavix Noncomplia nce with treatment 6145264 Z91.19 non compliance with ophthal, blood testings, followup appt, and meds.-- pt counseled. Essential hypertension 54049258 I10 -- uncontroll ed as pt has been missing meds a lot & not getting refills; Cardiologi st Dr Garry Falcon has discontinu ed carvedilol because of ED Hyperlipidemia 11982150 E78.5 LDL was controlled at 48, HDL 36 and Trig 525 on 12/26/2018 Body mass index 30+ - obesity 415603072 Z68.31 -- advised wt loss and pt lost 1 # since his last visit. -- pt's BMI today is 31.5 (ideal is between 20-25). Ex-smoker 9111353 Z87.89 1 -- Quit smoking on 06/26/17 Abscess of buttock 86579 003 L02.31 s/p excision by Dr Daly -- see photo [id number] Ulysses Henderson MD [place] [employer] [facility] [facility] [address] [place] [address] 03/16/2020 15:59:27 03/16/2020 18:30:16 Abscess of buttock 38455068 L02.31 s/p excision by Dr Daly -- see photo-- resolved without new sx Uncontroll ed type 2 diabetes mellitus 950737407 E11.65 (diagnosed on 07/27/15) -- Patient referred to [facility] for diabetic teaching and nutritiona l counseling by dietitian. -- ordered labs on 12/14/19 but not done.-- recheck lab(s) on 05/03/20 Multi vess el coronary artery disease 558086010 I25.10 (SD s/p stent circumflex (100%) at [facility] on 02/07/16 -- pt reports he [...] Aspirin & Plavix Noncomplia nce with treatment 8536128 Z91.19 non compliance with ophthal, blood testings, followup appt, and meds.-- pt counseled. Essential hypertension 32814266 I10 -- uncontroll ed as pt has been missing meds a lot & not getting refills; Cardiologi st Dr Garry Falcon has discontinu ed carvedilol because of ED Hyperlipidemia 26188947 E78.5 -- you will also need to [...] fine). Body mass index 30+ - obesity 610162282 Z68.31 -- advised wt loss and pt lost 4 # since his last visit. -- pt's BMI today is 31 (ideal is between 20-25). Ex-smoker 5334732 Z87.89 1 -- Quit smoking on 06/26/17 Primary er ectile dysfunction 638871311 N52.9 [id number] Ulysses Henderson MD [place] [employer], [facility] [address] [facility] ,[address] [address] 05/16/2020 14:29:00 05/16/2020 16:09:36 Uncontrolled type 2 diabetes mellitus 166013169 E11.65 (diagnosed on 07/27/15) -- Patient referred to [facility] for diabetic teaching and nutritiona l counseling by dietitian. -- ordered labs on 12/14/19 but not done.-- recheck lab(s) tomorrow 05/17/20 Multi vess el coronary artery disease 607560077 I25.10 (SD s/p stent circumflex (100%) at [facility] on 02/07/16 -- pt reports he [...] lab(s) tomorrow 05/17/20 Noncomplia nce with treatment 6630920 Z91.19 non compliance with ophthal, blood testings, followup appt, and meds.-- pt counseled. Essential hypertension 70214127 I10 -- uncontroll ed as pt has been missing meds a lot & not getting refills; Cardiologi st Dr Garry Falcon has discontinu ed carvedilol because of ED-- recheck lab(s) tomorrow 05/17/20 Hyperlipidemia 40118236 E78.5 -- you will also need to [...] 05/17/20 Body mass index 30+ - obesity 689978657 Z68.31 -- advised wt loss and pt gained 6 # since his last visit. -- pt's BMI today is 31.8 (ideal is between 20-25). Ex-smoker 8680512 Z87.89 1 -- Quit smoking on 06/26/17 Primary er ectile dysfunction 852150890 N52.9 Reduced libido 1774999 R 68.82 -- recheck lab(s) tomorrow 05/17/20 [id number] Ulysses Henderson MD [place] [employer], [place] [id number] [facility] [place] ,[address] [address] 06/15/2020 14:53:00 06/15/2020 16:42:46 Type 2 diabetes mellitus without complication 257928277 E11.9 (diagnosed on 07/27/15) -- referred patient to [facility] but pt did not make [...] gangrene.- - recheck lab(s) on 08/18/20 Hyperlipidemia 77768398 E78.5 -- you will also need to [...] to continue Vascepa as directed. Essential hypertension 46455440 I10 -- controlled ; Cardiologi st Dr Garry Falcon has discontinu ed carvedilol because of ED-- recheck lab(s) on 08/18/20 Primary er ectile dysfunction 367165724 N52.9 -- pt is mukund hernandez penile implant-- pt has appt w/ Urologist on 07/22/20 to given his decision. [id number] Ulysses Henderson MD [email or web address] [facility] ,[address] [address] 08/15/2020 14:40:28 08/15/2020 16:20:07 Coronary arteriosclerosis 60420973 I25.10 (SD s/p stent circumflex (100%) at [facility] on 02/07/16 -- pt reports he was not given Clopidogre l at discharge on 02/09/16 . I advised patient of the risk of heart attack he does not take clopidogre l.-- I also advised pt to hold Clopidogre l 10 day prior to penile implant & restart Clopidogre l the next AM after surgery. Type 2 melony betes mellitus without complication 129008399 E11.9 (diagnosed on 07/27/15) -- referred patient to [facility] but pt did not make [...] gangrene.- - recheck lab(s) on 08/18/20 Hyperlipidemia 48992098 E78.5 -- you will also need to [...] to continue Vascepa as directed. Essential hypertension 99194494 I10 -- controlled ; Cardiologi st Dr Garry Falcon has discontinu ed carvedilol because of ED-- recheck lab(s) on 08/18/20 Primary er ectile dysfunction 699897288 N52.9 -- cleared for penile implant by Urologist Dr Sudhakar Garner on 09/06/20 [id number] Ulysses Henderson MD [employer] [address] [facility] [address] [address] 10/10/2021 16:27:00 10/10/2021 18:35:08 Coronary arteriosclerosis 05302231 I25.10 (SD s/p stent circumflex (100%) at [facility] on 02/07/16 -- pt reports he [...] Type 2 melony betes mellitus without complication 347618737 E11.9 (diagnosed on 07/27/15) -- referred patient to [facility] but pt did not make [...] genitalia gangrene.- - check lab(s) tomorrow Hyperlipidemia 60370306 E78.5 -- you will also need to [...] to continue Vascepa as directed. Essential hypertension 56493443 I10 -- Cardiologi st Dr Garry Falcon has discontinu ed carvedilol because of ED-- EKG done 10/10/21-- pt counseled on uncontroll ed BP.-- check lab(s) tomorrow Primary er ectile dysfunction 764506656 N52.9 -- cleared for penile implant by Urologist Dr Sudhakar Garner on 09/06/20 Noncomplia nce with medication regimen 540552776 Z91.14 -- ran out of meds x 2 weeks Ex-smoker 8131804 Z87.89 1 -- Quit smoking on 06/26/17 Mixed anxi ety and depressive disorder 156860178 F41.8 (mom Jun 2021; brother Mar 2021) Body mass index 30+ - obesity 854173723 Z68.32 -- advised wt loss and pt gained 15 # since his last visit.-- pt's BMI today is 32.4 (ideal is between 20-25). [id number] Ulysses Henderson MD [place] [employer] [facility] [address] [facility] ,[address] [address] 03/30/2022 12:14:32 03/30/2022 14:25:15 Coronary arteriosclerosis 53782758 I25.10 (SD s/p stent circumflex (100%) at [facility] on 02/07/16 -- pt reports he [...] Type 2 melony betes mellitus without complication 463654677 E11.9 (diagnosed on 07/27/15) -- referred patient to [facility] but pt did not make [...] gangrene.- - check lab(s) tomorrow Essential hypertension 89340864 I10 -- Cardiologi st Dr Garry Falcon has discontinu ed carvedilol because of ED-- EKG done 10/10/21-- pt counseled on uncontroll ed BP.-- check lab(s) tomorrow Hyperlipidemia 69305891 E78.5 -- you will also need to [...] as directed. Noncomplia nce with medication regimen 843476920 Z91.14 -- ran out of meds x 2 weeks Primary er ectile dysfunction 418550251 N52.9 -- cleared for penile implant by Urologist Dr Sudhakar Garner on 09/06/20 Ex-smoker 9503475 Z87.89 1 -- Quit smoking on 06/26/17 Mixed anxi ety and depressive disorder 126295937 F41.8 (mom Jun 2021; brother February 2021) Body mass index 30+ - obesity 687555250 Z68.32 -- advised wt loss; no weight change # since his last visit.-- pt's BMI today is 32.4 (ideal is between 20-25). Hepatitis C screening 41 3876005 Z11.59 -- tested negative for Hepatitis C on 08/28/16 Active or passive immunization 341665921 Z23 -- Patient declines all vaccinatio n. Screening for malignant neoplasm of colon 180307252 Z12.11 -- Patient reports he had a normal colonoscop y with gastroente rologist Dr. Hawkins in 06/20/2015. Repeat in 5 years -- 06/20/2020 Screening for malignant neoplasm of prostate 520588540 Z12.5 -- PSA level of 1.3 on 01/07/18 --> 1.0 ( 09/01/19) [id number] Ulysses Henderson MD [place] [employer], [facility] [address] [facility] [address] [address] 05/01/2022 16:40:20 05/01/2022 19:11:21 Coronary arteriosclerosis 20609171 I25.10 (SD s/p stent circumflex (100%) at [facility] on 02/07/16 -- pt reports he [...] Type 2 melony betes mellitus without complication 344293074 E11.9 (diagnosed on 07/27/15) -- referred patient to [facility] but pt did not make [...] gangrene.- - check lab(s) 07/18/22 Essential hypertension 59613284 I10 -- Cardiologi st Dr Garry Falcon has discontinu ed carvedilol because of ED-- EKG done 10/10/21-- pt counseled on uncontroll ed BP.-- check lab(s) tomorrow Hyperlipidemia 43758591 E78.5 -- you will also need to [...] as directed. Noncomplia nce with medication regimen 562745574 Z91.14 -- ran out of meds x 2 weeks Primary er ectile dysfunction 342712270 N52.9 -- cleared for penile implant by Urologist Dr Sudhakar Garner on 09/06/20 Ex-smoker 5978353 Z87.89 1 -- Quit smoking on 06/26/17 Mixed anxi ety and depressive disorder 349444008 F41.8 (mom Jun 2021; brother February 2021) Body mass index 30+ - obesity 295555044 Z68.32 -- advised wt loss; pt lost 4 # since his last visit.-- pt's BMI today is 31.8 (ideal is between 20-25). Hepatitis C screening 41 9039735 Z11.59 -- tested negative for Hepatitis C on 08/28/16 Active or passive immunization 062426666 Z23 Screening for malignant neoplasm of colon 147918509 Z12.11 -- Patient reports he had a normal colonoscop y with gastroente rologist Dr. Hawkins in 06/20/2015. Repeat in 5 years -- 06/20/2020 Screening for malignant neoplasm of prostate 752468765 Z12.5 -- PSA level of 1.3 on 01/07/18 --> 1.0 ( 09/01/19) --> 1.83 (03/31/22) [id number] Ulysses Henderson MD [employer] [facility] [address] [facility] ,[address] [address] 02/21/2023 11:06:09 02/21/2023 13:11:22 Coronary arteriosclerosis 42832144 I25.10 (SD s/p stent circumflex (100%) at [facility] on 02/07/16 -- pt reports he [...] Type 2 melony betes mellitus without complication 028876385 E11.9 (diagnosed on 07/27/15) -- referred patient to [facility] but pt did not make [...] gangrene.- - check lab(s) 07/18/22 Essential hypertension 70846340 I10 -- Cardiologi st Dr Garry Falcon has discontinu ed carvedilol because of ED-- EKG done 10/10/21-- pt counseled on uncontroll ed BP.-- check lab(s) tomorrow Hyperlipidemia 68694195 E78.5 -- you will also need to [...] as directed. Noncomplia nce with medication regimen 101169283 Z91.148 -- ran out of meds x 2 weeks Primary er ectile dysfunction 226029711 N52.9 -- cleared for penile implant by Urologist Dr Sudhakar Garner on 09/06/20 Ex-smoker 4263966 Z87.89 1 -- Quit smoking on 06/26/17 Mixed anxi ety and depressive disorder 723382988 F41.8 (mom Jun 2021; brother February 2021) Body mass index 30+ - obesity 229138720 Z68.31 -- advised wt loss; pt lost 6 # since his last visit.-- pt's BMI today is 31.8 (ideal is between 20-25). Hepatitis C screening 41 2130605 Z11.59 -- tested negative for Hepatitis C on 08/28/16 Active or passive immunization 822804493 Z23 Screening for malignant neoplasm of colon 874972038 Z12.11 -- Patient reports he had a normal colonoscop y with gastroente rologist Dr. Hawkins in 06/20/2015. Repeat in 5 years -- 06/20/2020 Screening for malignant neoplasm of prostate 780441412 Z12.5 -- PSA level of 1.3 on 01/07/18 --> 1.0 ( 09/01/19) --> 1.83 (03/31/22) [id number] Ulysses Henderson MD [place] [employer], [facility] [address] [facility] ,[address] [address] 07/22/2023 16:21:21 07/22/2023 18:54:00 Electrocardiogram abnormal 371580098 R94.31 -- will refer pt to Cardiologi st Dr Lisandro Falcon for cardiac clearance -- for Rt foot surgery on 08/01/23 Coronary arteriosclerosis 99696344 I25.10 (SD s/p stent circumflex (100%) at [facility] on 02/07/16 -- pt reports he [...] Type 2 melony betes mellitus without complication 888167782 E11.9 (diagnosed on 07/27/15) -- referred patient to [facility] but pt did not make [...] gangrene.- - check lab(s) today Essential hypertension 81382113 I10 -- Cardiologi st Dr Garry Falcon has discontinu ed carvedilol because of ED-- EKG done 10/10/21-- pt counseled on uncontroll ed BP.-- check lab(s) today Hyperlipidemia 12591553 E78.5 -- you will also need to [...] lab(s) today Noncomplia nce with medication regimen 110474521 Z91.148 -- ran out of meds x 2 weeks Primary er ectile dysfunction 557127545 N52.9 -- cleared for penile implant by Urologist Dr Sudhakar Garner on 09/06/20 Ex-smoker 3458886 Z87.89 1 -- Quit smoking on 06/26/17 Mixed anxi ety and depressive disorder 200542395 F41.8 (mom Jun 2021; brother February 2021) Body mass index 30+ - obesity 669996428 Z68.31 -- advised wt loss; pt gained 2 # since his last visit.-- pt's BMI today is 31.2 (ideal is between 20-25). Hepatitis C screening 41 6793242 Z11.59 -- tested negative for Hepatitis C on 08/28/16 Active or passive immunization 168658355 Z23 Screening for malignant neoplasm of colon 476611471 Z12.11 -- Patient reports he had a normal colonoscop y with gastroente rologist Dr. Hawkins in 06/20/2015. Repeat in 5 years -- 06/20/2020 Screening for malignant neoplasm of prostate 486553967 Z12.5 -- PSA level of 1.3 on 01/07/18 --> 1.0 ( 09/01/19) --> 1.83 (03/31/22) HIV screening 852605577 Z11.4 CDC recommends that everyone between the ages of 13 and 64 get tested for HIV at least once as part of routine health care. [id number] Ulysses Henderson MD [place] [employer] [address] [facility] [address] [address] 01/03/2024 10:55:15 01/03/2024 13:03:46 Adult health examination 128452940 Z00.00 Coronary arteriosclerosis 81809901 I25.10 (SD s/p stent circumflex (100%) at [facility] on 02/07/16 -- pt reports he [...] Type 2 melony betes mellitus without complication 837347262 E11.9 (diagnosed on 07/27/15) -- referred patient to [facility] but pt did not make [...] infection. -- check lab(s) today Essential hypertension 92661793 I10 -- Cardiologi st Dr Garry Falcon has discontinu ed carvedilol because of ED-- EKG done 10/10/21-- pt counseled on uncontroll ed BP.-- check lab(s) today Hyperlipidemia 04941693 E78.5 -- you will need to limit [...] lab(s) today Noncomplia nce with medication regimen 477546693 Z91.148 -- ran out of meds x 2 weeks Primary er ectile dysfunction 968664761 N52.9 -- cleared for penile implant by Urologist Dr Sudhakar Garner on 09/06/20 Ex-smoker 4577301 Z87.89 1 -- Quit smoking on 06/26/17 Mixed anxi ety and depressive disorder 885732131 F41.8 (mom Jun 2021; brother February 2021) Body mass index 30+ - obesity 776848933 Z68.31 -- advised wt loss; pt lost 1 # since his last visit.-- pt's BMI today is 31.1 (ideal is between 20-25). Hepatitis C screening 41 4309775 Z11.59 -- tested negative for Hepatitis C on 08/28/16 HIV screening 257725144 Z11.4 -- tested negative for HIV on 07/22/23 Active or passive immunization 555593323 Z23 Screening for malignant neoplasm of colon 529012298 Z12.11 -- Patient reports he had a normal colonoscop y with gastroente rologist Dr. Hawkins in 06/20/2015. Repeat in 5 years -- 06/20/2020 Screening for malignant neoplasm of prostate 825195492 Z12.5 -- PSA level of 1.3 on 01/07/18 --> 1.0 ( 09/01/19) --> 1.83 (03/31/22) --> 3.7(07/22/23 ) Long-term drug therapy 277515094 Z79.899 (Metformin ) Benign pro static hyperplasia without outflow obstruction 058120515 N40.0 -- Currently asymptomat ic; -- PSA level of 1.3 on 01/07/18-- check PSA on 01/06/19 -- not done-- need to repeat PSA in Feb 2020 [id number] Ulysses Henderson MD [employer] [address] [facility] ,[address] [address] 12/17/2024 15:15:06 12/17/2024 17:52:52 Coronary arteriosclerosis 12444368 I25.10 (SD s/p stent circumflex (100%) at [facility] on 02/07/16 -- pt reports he [...] Type 2 melony betes mellitus without complication 136362002 E11.9 (diagnosed on 07/27/15) -- referred patient to [facility] clinic but pt did not make [...] infection. 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 Hepatitis C screening 41 6569424 Z11.59 -- tested negative for Hepatitis C on 08/28/16 HIV screening 557051494 Z11.4 -- tested negative for HIV on 07/22/23 Active or passive immunization 546682601 Z23 Screening for malignant neoplasm of colon 115848292 Z12.11 -- Patient reports he had a normal colonoscop y with gastroente rologist Dr. Hawkins in 06/20/2015. Repeat in 5 years -- 06/20/2020 Screening for malignant neoplasm of prostate 624647293 Z12.5 -- PSA level of 1.3 on 01/07/18 --> 1.0 ( 09/01/19) --> 1.83 (03/31/22) --> 3.7(07/22/23 ) Hamstring injury 9174742 09 S76.309A 46379841 (started x 1 week after he increased walking) [id number] Ulysses Henderson MD [place] [employer] [address] [place] [address] [place] [address] 03/25/2025 16:01:43 03/25/2025 19:01:38 Malignant neoplasm of prostate 126273004 C61 58396 Carmen score 6-7 Lumbar radiculopathy 128 960940 M54.16 70219 (bilateral thighs) [id number] Ulysses Henderson MD [place] [employer] [facility] [facility] [address] [place] [address] 04/30/2025 11:45:34 04/30/2025 14:19:55 Malignant neoplasm of prostate 855100407 C61 42964 Mutual score 6-7 -- cleared for radical prostatect carey by Dr Michael Laird on 05/06/25-- need cardiac clearance- - need to stop all pain meds (including fish oil icosapent ethyL), supplement s or blood thinner 7 days prior to surgery and then resume the day after surgery. Lumbar radiculopathy 128 238756 M54.16 12034 (bilateral thighs) Coronary arteriosclerosis 63510110 I25.10 (SD s/p stent circumflex (100%) at [facility] on 02/07/16 -- pt reports he [...] Type 2 melony betes mellitus without complication 539829661 E11.9 (diagnosed on 07/27/15) -- referred patient to [facility] but pt did not make [...] -- check lab(s) on 05/06/25 Essential hypertension 92841707 I10 -- Cardiologi st Dr Garry Falcon has discontinu ed carvedilol because of ED-- EKG done 04/30/25-- pt counseled on uncontroll ed BP. -- check lab(s) on 05/06/25 Hyperlipidemia 14392247 E78.5 -- you will need to limit [...] on 05/06/25 Noncomplia nce with medication regimen 947810046 Z91.148 -- ran out of meds and did not call for refills Primary er ectile dysfunction 000037476 N52.9 -- cleared for penile implant by Urologist Dr Sudhakar Garner on 09/06/20 Ex-smoker 2913919 Z87.89 1 -- Quit smoking on 06/26/17-- u/s on 04/05/22 showed no AAA Mixed anxi ety and depressive disorder 205251175 F41.8 (mom Jun 2021; brother February 2021) Long-term drug therapy 793668503 Z79.899 (Metformin ) Hamstring injury 1932829 09 S76.309A 08447190 (started x 1 week after he increased walking) -- resolved Hepatitis C screening 41 6719967 Z11.59 -- tested negative for Hepatitis C on 08/28/16 HIV screening 231913455 Z11.4 -- tested negative for HIV on 07/22/23 Active or passive immunization 629907201 Z23 Screening for malignant neoplasm of colon 860160513 Z12.11 -- Gastroente rologist Dr. Theron Kelsey mendjudith repeating conlonosco py 10 years from Screening for malignant neoplasm of prostate 196441147 Z12.5 -- PSA level of 1.3 on 01/07/18 --> 1.0 ( 09/01/19) --> 1.83 (03/31/22) --> 3.7(07/22/23 ) --> 13.8 (12/17/24) Well adult 461264307 Z00 .00 49728608 Overweight in adulthood with body mass index of 25 or more but less than 30 749106712 E66.3 Z68.28 2734773991 -- advised wt loss; pt lost 9 [...] ID Guarantor Name 07/28/2019 *SELF PAY* Amie Richmond 03/30/2022 1 [facility] [id number] Jose Richmond [id number] Jose Richmond 05/05/2025 1 [facility] [id number] Jose Richmond [id number] Jose Richmond Notes Date Note Type Note [...] sx, n/v, or tiredness/weakness. MD Efrain Etienne2 [facility] [address], [place], [address], [facility] 07/22/2023 18:53:15 01/03/2024 text/html Pt comes [...] angina equivalent symptoms, etc. MD Armani Etienne [facility] [address], [place], [address], [facility] 01/03/2024 13:01:26 12/17/2024 text/html Pt lost [...] angina equivalent symptoms, etc. MD Armani Etienne [facility] [address], [place], [address], [facility] 12/17/2024 17:53:37 03/25/2025 text/html Pt w/ bilateral [...] equivalent symptoms, etc. Ulysses Henderson MD [address] [facility] [address], [place], [address], [facility] 03/25/2025 19:00:36 04/30/2025 text/html Pt comes in [...] bruising, or weakness/fatigue. Ulysses Henderson MD [address] [facility] [address], [place], [address], [facility] 04/30/2025 14:14:26
== END 2025-05-12 13:05 | disposition home or self-care (01) ==
PROVIDERS: PCP Internal Medicine; Visit Provider Urology
DX: C61 Malignant neoplasm of prostate (principal)
CPT/HCPCS: 51600; 74430; Q9967